=== PATIENT | female | born 1955 | race Caucasian/White ===

== ENCOUNTER 2022-09-13 15:55 | Inpatient (IN) | payer MEDICARE, OTHER, SELFPAY ==
--- NOTE | ~2022-09-13 | CT_ITS ---
EXAMINATION: CT ABDOMEN AND PELVIS WITHOUT CONTRAST CLINICAL INFORMATION: Left lower quadrant/hip pain COMPARISON: None TECHNIQUE: Multidetector volumetric imaging was performed from the superior aspect of the liver through the pubic symphysis. Sagittal and coronal reformatted images were obtained on the technologist's workstation. This CT examination was performed using dose optimization techniques as appropriate, variously including the following: *Automated exposure control *Adjustment of mA and/or kV according to patient size (this includes techniques or standardized protocols for targeted exams where dose is matched to indication/reason for exam; i.e. extremities or head) *Use of iterative reconstruction technique DLP: 521 mGy-cm FINDINGS: LUNG BASES: Mild dependent atelectasis. LIVER, GALLBLADDER, AND BILIARY TREE: The liver is normal in size, shape, and attenuation. No focal hepatic lesion or biliary ductal dilatation is present. Gallbladder is not visualized. PANCREAS: Unremarkable. SPLEEN: Unremarkable. ADRENAL GLANDS: Unremarkable. KIDNEYS AND URETERS: The kidneys are normal in size, shape, and attenuation. No hydronephrosis, hydroureter, or calculi seen. Mild nonspecific bilateral perinephric stranding. BLADDER: Unremarkable. GASTROINTESTINAL TRACT: Mild colonic diverticulosis in the sigmoid colon. The small and large bowel are otherwise unremarkable without evidence of obstruction or pericolonic inflammatory change. No free fluid or free air is seen. ABDOMINAL WALL: No significant hernia is appreciated. LYMPH NODES: Normal. VASCULAR: Mild scattered atherosclerotic calcifications. PELVIC VISCERA: Simple-appearing right adnexal cyst measures up to 3.7 cm. OSSEOUS STRUCTURES: Multilevel degenerative changes in the spine. Mild degenerative changes in the hips. No acute osseous findings identified. CT/CT abdomen pelvis wo IV con IMPRESSION: 1. No acute findings identified in the abdomen/pelvis. Colonic diverticulosis without diverticulitis. 2. Simple-appearing right adnexal cyst measuring up to 3.7 cm. Follow-up pelvic ultrasound in 6-12 months is recommended.
--- NOTE | ~2022-09-13 | XR_ITS ---
EXAMINATION: XR SHOULDER, RIGHT CLINICAL INFORMATION: Right shoulder pain. COMPARISON: None TECHNIQUE: Three views of the right shoulder. FINDINGS: There is mild widening of the right acromioclavicular joint space with normal alignment. Mild degenerative changes are seen. There is no acute fracture or dislocation. The visualized right ribs are intact with the soft tissues are unremarkable. XR/XR shoulder RT min 2V IMPRESSION: Mild right acromioclavicular degenerative joint changes and joint space widening that does not appear acute. This could be secondary to chronic grade 1 separation. Correlate with physical exam and trauma history.
--- NOTE | ~2022-09-13 | MR_ITS ---
EXAMINATION: MR BRAIN WITHOUT CONTRAST CLINICAL INFORMATION: Ataxia. COMPARISON: None available. TECHNIQUE: Multiplanar, multisequence imaging of the brain was performed without intravenous contrast. FINDINGS: There is no acute infarction, mass, hemorrhage, or extra-axial collection. Is mild degree of brain parenchymal volume loss with commensurate prominence of ventricles and sulci. Moderate patchy T2/FLAIR hyperintensity seen throughout the cerebral white matter, compatible chronic microangiopathy. There is disproportionate volume loss involving the inferior cerebellum with diffuse prominence of the cerebellar folia demonstrated. Chronic lacunar infarcts are seen within the bilateral basal ganglia as well as in the left elements. The flow voids of the major intracranial arteries appear intact. The bones and extracranial soft tissues are unremarkable. MR/MR head/brain wo con IMPRESSION: 1. No acute infarct, mass lesion, intracranial hemorrhage, or evidence of hydrocephalus. 2. Disproportionate volume loss involving the inferior cerebellum. 3. 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
[2022-09-13 16:31] VITALS: BP 159/67; PULSE 74; RESP 18; TEMP 36.4; O2SAT 95; BMI 36.3
[2022-09-13] MEDS: Ondansetron ODT 4 MG TAB.RAPDIS TRANSLINGU (16:46)
[2022-09-13] MEDS: Acetaminophen 325 MG TABLET 650 MG PO (16:46)
[2022-09-13 16:59] LABS: MANUAL DIFF FLAG NO
[2022-09-13 17:01] LABS: Basophils Percent Auto 0.4 % (0-2); Hematocrit 44.3 % (37.0-47.0); Hemoglobin 14.8 g/dl (12.0-16.0); Imm Gran Abs Auto 0.02 X10*3/uL (0.00-0.03); Imm Gran Pct Auto 0.2 % (0.0-0.4); Lymphocytes Absolute Auto 1.1 X10*3/uL (1.2-4.9); Lymphocytes Percent Auto 10.7 % (20-40); Mean Corpuscular HGB Conc 33.4 g/dl (31.0-35.0); Mean Corpuscular Volume 92.7 fL (80.0-98.0); Mean Platelet Volume 10.3 fL (9.4-12.3); Monocytes Absolute Auto 0.2 X10*3/uL (0.1-1.2); Monocytes Percent Auto 2.1 % (2-11); Neutrophils Absolute Auto 8.5 x10*3/uL (2.0-8.3); Neutrophils Percent Auto 86.6 % (45-73); Platelet Count 249 X10*3/uL (160-400); Red Blood Count 4.78 X10*6/uL (4.20-5.50); Red Cell Distribution Width 12.5 % (11.0-16.0); White Blood Count 9.9 X10*3/uL (4.8-10.8)
[2022-09-13 17:15] LABS: Alanine Aminotransferase 51 U/L (0-31); Albumin Level 4.7 g/dL (3.5-5.0); Alkaline Phosphatase 135 U/L (39-117); Anion Gap 17 (12-20); Aspartate Amino Transferase 31 U/L (5-31); Bilirubin Total 0.3 mg/dL (0.0-1.0); Blood Urea Nitrogen 17 mg/dL (9-16); Calcium 9.6 mg/dL (8.4-10.2); Carbon Dioxide 26 mmol/L (22-29); Chloride 103 mmol/L (96-108); Creatinine Clr Calc Pharmacy 48.5; Estimated Glomerular Filt Rate > 60; Glucose Random 157 mg/dL (60-115); Potassium 4.1 mmol/L (3.3-5.1); Sodium 142 mmol/L (135-145); Total Protein 7.8 g/dL (6.5-8.0)
--- NOTE | 2022-09-13 22:39 | ED_ITS ---
HPI - General Adult General Chief complaint: Seizure Stated complaint: unable to walk Time Seen by Provider: 09/13/22 22:31 Source: patient and family History of Present Illness HPI narrative: This is a 62-year-old female with a history of epilepsy, who last had a grand mal seizure in May. Prior to that her last seizure had been in 2019. She does take Dilantin as her only seizure medication. This was increased from 300-40 mg in May. She takes 200 twice a day. Since yesterday the patient has been one more off balance and having some falls. She also has had intermittent nausea. She did take her Dilantin around 13:00 today but later dry heave did and brought a little material. The evening the patient did hold down her supper. She has also had intermittent left lower quadrant pain which she states is gone now. She denies any constipation or diarrhea. She denies any dysuria or urinary frequency. She has not had any fever. Her appetite has been decreased. She did have labs drawn today to check a Dilantin level. Related Data Allergies Allergy/AdvReac Type Severity Reaction Status Date / Time ciprofloxacin [From Cipro] Allergy Unknown Verified 09/13/22 16:44 cyclobenzaprine Allergy Unknown Verified 09/13/22 16:44 Phenothiazines Allergy Unknown Verified 09/13/22 16:44 prochlorperazine Allergy Unknown Verified 09/13/22 16:44 [From Compazine] Review of Systems Review of Systems: Yes all other systems are reviewed and are negative Constitutional: Constitutional: Reports as per HPI and Denies fever(s) Eyes: Eyes: Reports as per HPI and Reports no additional eye complaints ENT: Reports system reviewed and no additional complaints, except as documented, Reports as per HPI, Denies nasal congestion, Denies nasal discharge and Denies sore throat Cardiovascular: Cardiovascular: Reports as per HPI, Denies chest pain and Denies dyspnea Respiratory: Respiratory: Reports as per HPI, Denies cough and Denies dyspnea Gastrointestinal: Gastrointestinal: Reports as per HPI, Reports abdominal pain, Denies diarrhea, Reports nausea and Reports vomiting Genitourinary: Genitourinary: Reports as per HPI, Denies hematuria, Denies urinary frequency and Denies dysuria Musculoskeletal: Musculoskeletal: Reports no additional musculoskeletal complaints and Denies numbness Integumentary/Breasts: Skin/Breast: Reports as per HPI and Denies rash Neurologic: Reports as per HPI, Denies focal weakness, Denies numbness and Denies convulsions Comments: Has been somewhat off balance, although she is not great at baseline per family Psychiatric: Psychiatric: Reports no additional psychiatric complaints and Reports as per HPI Endocrine: Endocrine: Reports no additional endocrine complaints and Reports as per HPI Hematologic/Lymphatic: Hematologic/Lymphatic: Reports no additional hematologic/lymphatic complaints, Reports as per HPI and Reports other (No peripheral edema) [facility] Social History Social History Smoked in Last 30 Days: No Advance Directives: No Physical Exam ED Vital Signs: Vital Signs - 24 hr 09/13/22 16:31 09/14/22 02:09 09/14/22 04:29 Temperature 97.6 F 98.5 F Pulse Rate 74 85 87 Respiratory Rate 18 15 13 Blood Pressure 159/67 H 162/72 H 131/68 Pulse Oximetry 95 97 Oxygen Delivery Method Room Air Room Air BMI result Body Mass Index 36.3 Const General: no acute distress Orientation/consciousness: patient oriented x3 HENMT Head: Yes normal to inspection General nose exam: Normal external nose present Mouth: moist mucous membranes Throat: Yes posterior oropharynx normal, Yes tonsils normal and Yes uvula midline Eyes Eyelids: Yes eyelids normal Conjunctivae: conjunctivae normal Pupils: Equal, round and reactive pupils present Neck Neck: Yes supple Resp Effort & Inspection: normal respiratory effort Auscultation: clear to auscultation bilaterally Cardio Rate: regular rate Rhythm: regular rhythm Heart sounds: S1 normal heart sound present, S2 normal heart sound present, no gallops, no murmurs and no rubs GI Inspection: No distended Palpation (GI): Soft to palpation and nontender Auscultation: normal bowel sounds Skin General skin exam: other (Warm and dry) Neuro General: patient oriented x3 and CN's II-XI intact bilaterally Cranial nerves: Yes Equal, round and reactive pupils present Extrem General: Yes no pedal edema Psych Affect: normal affect Attitude: cooperative Medical Decision Making [facility] Narrative Medical decision making narrative: Patient on Dilantin, had her dose increased about 3-4 months ago after she had a seizure, does not have a local neurologist, has been on 20 mg of Dilantin and twice a day. Patient has recently had nausea and increased unsteadiness. Dilantin level is elevated at 56. Patient is being admitted for observation until her Dilantin level constant to therapeutic range and she can be restarted back on Dilantin, and is more steady on her feet. Patient also complained of pain in her left hip area but reported no injury. CT scan of abdomen and pelvis showed no concerning findings Lab Data Lab results reviewed: Yes I reviewed the patient's lab results. Result diagrams: 09/13/22 16:55 09/13/22 16:55 Labs: Lab Results 09/13/22 09/13/22 09/14/22 Range/Units 16:55 16:55 00:06 WBC 9.9 (4.8-10.8) X10*3/uL RBC 4.78 (4.20-5.50) X10*6/uL Hgb 14.8 (12.0-16.0) g/dl Hct 44.3 (37.0-47.0) % MCV 92.7 (80.0-98.0) fL MCH 31.0 (27.0-33.0) pg MCHC 33.4 (31.0-35.0) g/dl RDW 12.5 (11.0-16.0) % Plt Count 249 (160-400) X10*3/uL MPV 10.3 (9.4-12.3) fL Immature Gran % (Auto) 0.2 (0.0-0.4) % Neut % (Auto) 86.6 H (45-73) % Lymph % (Auto) 10.7 L (20-40) % [place] % (Auto) 2.1 (2-11) % Eos % (Auto) 0.0 (0-4) % Baso % (Auto) 0.4 (0-2) % Lymph # (Auto) 1.1 L (1.2-4.9) X10*3/uL [place] # (Auto) 0.2 (0.1-1.2) X10*3/uL Eos # (Auto) 0.0 (0.0-0.4) X10*3/uL Baso # (Auto) 0.0 (0.0-0.2) X10*3/uL Abs Immat Gran (auto) 0.02 (0.00-0.03) X10*3/uL Absolute Neuts (auto) 8.5 H (2.0-8.3) x10*3/uL Absolute Nucleated RBC 0.000 (0.0-0.012) X10*3/uL Nucleated RBC % (auto) 0.0 (0.0-0.2) /100WBC Sodium 142 (135-145) mmol/L Potassium 4.1 (3.3-5.1) mmol/L Chloride 103 (96-108) mmol/L Carbon Dioxide 26 (22-29) mmol/L Anion Gap 17 (12-20) BUN 17 H (9-16) mg/dL Creatinine 0.77 (0.5-1.4) mg/dL Estim Creat Clear Calc 48.5 Estimated GFR > 60 Random Glucose 157 H (60-115) mg/dL Calcium 9.6 (8.4-10.2) mg/dL Total Bilirubin 0.3 (0.0-1.0) mg/dL AST 31 (5-31) U/L ALT 51 H (0-31) U/L Alkaline Phosphatase 135 H (39-117) U/L Total Protein 7.8 (6.5-8.0) g/dL Albumin 4.7 (3.5-5.0) g/dL Phenytoin 56.1 H* (10.0-20.0) ug/mL Imaging Data CT scan - abdomen: Radiologist's impression: IMPRESSION: 1.? No acute findings identified in the abdomen/pelvis. Colonic diverticulosis without diverticulitis. 2.? Simple-appearing right adnexal cyst measuring up to 3.7 cm. Follow-up pelvic ultrasound in 6-12 months is recommended. Discharge Plan Discharge Clinical Impression: Dilantin toxicity, Nausea, Dizziness Patient Disposition: Admitted As Inpatient
[2022-09-14] VITALS (9 sets, daily range): BP systolic 131–165; BP diastolic 59–83; PULSE 70–91; RESP 10–16; TEMP 36.4–37.4; O2SAT 95–98
[2022-09-14] MEDS: Ketorolac Tromethamine 15 MG/ML VIAL IVPUSH (00:03)
[2022-09-14 01:06] LABS: Phenytoin Dilantin 56.1 ug/mL (10.0-20.0)
--- NOTE | 2022-09-14 03:58 | PC.NURSE ---
Pt. in room with daughter at bedside. Pt. had CT scan done. Pt. continues to report pain at an 8/10 on her left hip. Pt. reports having a bowel movement today and has been able to urinate throughout the day.
--- NOTE | 2022-09-14 04:58 | PM.IMHP ---
History of Present Illness Date of Service: 09/14/22 Chief Complaint: lthargy, difficulty walkeing 59-year-old female with past medical history of hypothyroidism, hypertension, diabetes, as well as history of seizure disorder and intellectual disability presents to the hospital with her [id number] for evaluation of difficulty ambulating, generalized weakness, and lethargy. According to the [id number], patient used to live in [place] alone, she experienced a seizure episode in May, her Dilantin antiseizure medications were increased in May but she came to live with her brother and [id number] in [place] and had not had any follow-up with a neurologist since. For the past few days patient has become increasingly weak to the point where she can not stand or walk on her own without help. She has also become more confused and lethargic. Therefore she was brought into the hospital. Patient herself is alert, oriented, denies any chest pain, no shortness of breath, no abdominal pain nausea vomiting, no diarrhea constipation, no urinary symptoms and no lower extremity edema. Patient reports pain in the left groin radiating down, denies any urinary symptoms: No frequency or dysuria, denies any flank pain. On arrival to the ED patient hemodynamically stable with no significant abnormal vitals except slightly elevated blood pressure Labs are significant for ALT of 51, alk-phos of 135, and Dilantin level of 56.1. Abdomen pelvic CT shows no acute findings, simple appearing right adnexal cyst measuring up to 3.5 cm, recommend follow-up ultrasound. Patient started on IV fluids and will be admitted for further management Review of Systems Review of Systems: Yes all other systems are reviewed and are negative [facility] Social History Smoked in Last 30 Days: No Advance Directives: No Meds Allergies Allergy/AdvReac Type Severity Reaction Status Date / Time ciprofloxacin [From Cipro] Allergy Unknown Verified 09/13/22 16:44 cyclobenzaprine Allergy Unknown Verified 09/13/22 16:44 Phenothiazines Allergy Unknown Verified 09/13/22 16:44 prochlorperazine Allergy Unknown Verified 09/13/22 16:44 [From Compazine] Home Medications Medication Instructions Recorded Confirmed Last Taken Type amlodipine 10 mg tablet 1 tab PO DAILY 09/14/22 09/14/22 Unknown History famotidine 20 mg tablet 1 tab PO DAILY 09/14/22 09/14/22 Unknown History levothyroxine 150 mcg tablet 1 tab PO DAILY 09/14/22 09/14/22 Unknown History (Synthroid) lidocaine 5 % topical patch 1 patch topical DAILY 09/14/22 09/14/22 Unknown History metformin 500 mg tablet 1 tab PO DAILY 09/14/22 09/14/22 Unknown History phenytoin sodium extended 100 mg 1 cap PO TID 09/14/22 09/14/22 Unknown History capsule Physical Exam Vital Signs and Narrative: Vital Signs: Last Vital Signs Temp 98.5 F 09/14/22 02:09 Pulse 87 09/14/22 04:29 Resp 13 09/14/22 04:29 BP 131/68 09/14/22 04:29 Pulse Ox 97 09/14/22 02:09 O2 Del Method 09/14/22 02:09 BMI result Body Mass Index 36.3 Results Labs CBC and Chem 7: 09/13/22 16:55 09/13/22 16:55 Labs: Laboratory Results - last 24 hr 09/13/22 09/13/22 09/14/22 16:55 16:55 00:06 MCV 92.7 MCH 31.0 MCHC 33.4 RDW 12.5 Plt Count 249 MPV 10.3 Immature Gran % (Auto) 0.2 Neut % (Auto) 86.6 H Lymph % (Auto) 10.7 L [place] % (Auto) 2.1 Eos % (Auto) 0.0 Baso % (Auto) 0.4 Lymph # (Auto) 1.1 L [place] # (Auto) 0.2 Eos # (Auto) 0.0 Baso # (Auto) 0.0 Abs Immat Gran (auto) 0.02 Absolute Neuts (auto) 8.5 H Absolute Nucleated RBC 0.000 Nucleated RBC % (auto) 0.0 Anion Gap 17 Estim Creat Clear Calc 48.5 Estimated GFR > 60 Random Glucose 157 H Calcium 9.6 Total Bilirubin 0.3 AST 31 ALT 51 H Alkaline Phosphatase 135 H Total Protein 7.8 Albumin 4.7 Phenytoin 56.1 H* Imaging Radiologist's Impressions: Impressions Abdomen/Pelvis CT 09/14/22 01:25 IMPRESSION: 1. No acute findings identified in the abdomen/pelvis. Colonic diverticulosis without diverticulitis. 2. Simple-appearing right adnexal cyst measuring up to 3.7 cm. Follow-up pelvic ultrasound in 6-12 months is recommended. Assessment and Plan (1) Dilantin toxicity: Status: Acute (2) Adnexal cyst: Status: Acute Plan 67-year-old female with past medical history of seizure disorder on Dilantin presents to the hospital with lethargy, increased weakness found to have Dilantin toxicity # Dilantin toxicity - levels 56 - has lethargy, increased weakness - will start her on IV fluids, hold Dilantin, neurology consulted - monitor for seizure activity # hypertension - elevated - continue amlodipine # diabetes - hold metformin - start low-dose sliding scale insulin - diabetic diet # right adnexal cyst - appears simple - follow-up outpatient with OB Gyne DVT prophylaxis: Lovenox Given level of toxicity, as well as side effects, patient will require minimum 2 night inpatient hospital stay for further evaluation by Neurology and likely change in medication Quality Stroke Does the patient have a stroke diagnosis?: No VTE Prior VTE?: No VTE Risk Level:: Medical - moderate - high VTE Device Contraindication: Treatment Not Indicated VTE Drug Contraindication: N/A - Med Ordered
[2022-09-14] MEDS: Lactated Ringers 1,000 ML 100 ML IVCONT ×2 (06:09→15:53)
--- NOTE | 2022-09-14 06:10 | PC.NURSE ---
Pt. requested to use the restroom. Used w/c with 2 assist to help pt. to the bathroom. Pt. back in bed with sis-n-law at bedside. LR running per JAN. Covid swab completed.
[2022-09-14 06:35] LABS: COVID-19 Test Negative (Negative)
[2022-09-14 07:14] LABS: Glucose, Whole Blood 107 mg/dL (60-115)
--- NOTE | 2022-09-14 07:54 | PHA.MEDREC ---
Pharmacy Consult ? Medication Reconciliation Pharmacy has completed the medication reconciliation. Reviewed med rec done by nursing
[2022-09-14] MEDS: Enoxaparin Sodium 40 MG/0.4 ML SYRINGE SUBCUT (08:46)
[2022-09-14] MEDS: Levothyroxine Sodium 150 MCG TABLET PO (08:47)
[2022-09-14] MEDS: Docusate Sodium 100 MG CAPSULE PO ×2 (08:47→21:22)
[2022-09-14] MEDS: Lidocaine 4 % Patch ADH..PATCH 1 PATCH TRANSDERMA (08:47)
[2022-09-14] MEDS: amLODIPine Besylate 10 MG TABLET PO (08:47)
[2022-09-14] MEDS: Famotidine 20 MG TABLET PO (08:47)
--- NOTE | 2022-09-14 09:11 | PC.NURSE ---
Pt out of bed to use restroom, able to bear full weight standing up. Pt reports that she feels twitchy still while standing, however reporting improvement from her last time standing. Able to transfer to wheelchair with no issues, family member at bedside.
--- NOTE | 2022-09-14 11:00 | PC.NURSE ---
Neurology in to see patient at this time
[2022-09-14 12:32] LABS: Glucose, Whole Blood 124 mg/dL (60-115)
--- NOTE | 2022-09-14 13:17 | PM.EVENT ---
Event Note Date of Service: 09/14/22 Event Note: Patient already seen and examined earlier by the hospitalist team. Seen and examined again. Patient was admitted for Dilantin Still feel dizziness and ataxia physical exam: Unchanged from H&P assessment and plan coordinated in H&P note hold Dilantin labs need to send still
--- NOTE | 2022-09-14 13:20 | PM.NEUROCN ---
History of Present Illness Data of Consult Service Date: 09/14/22 Primary Care Provider: Nonstaff Physician HPI Reason for consult: Encephalopathy 67 years old woman who was adopted when she was about 4 years old and carried lifelong diagnosis of learning disabilities and epilepsy. Over the years she had taken Dilantin for seizure control and most of the time seizures have been controlled illness she was stressed. Usually she lived in [place]. She had a seizure in May of last year when she apparently was taking her medicines are regular basis but her Dilantin level after the seizure was 8.6. Her Dilantin dose was increased from 3-4 a day and then she did not have any more seizures or any obvious problems. For some reason she was in this area and couple of days ago she started complaining of bilateral leg weakness or unsteadiness and was brought to whole emergency room where her Dilantin level was noted to be quite high. She and her road design draftsperson stated that there has been no change in Dilantin dose from 400 mg a day. Review of Systems Review of Systems: Dizziness and unsteadiness [facility] Social History Social History Smoked in Last 30 Days: No Advance Directives: No Meds Allergies Allergy/AdvReac Type Severity Reaction Status Date / Time ciprofloxacin [From Cipro] Allergy Unknown Verified 09/13/22 16:44 cyclobenzaprine Allergy Unknown Verified 09/13/22 16:44 Phenothiazines Allergy Unknown Verified 09/13/22 16:44 prochlorperazine Allergy Unknown Verified 09/13/22 16:44 [From Compazine] Active Medications: Current Medications Acetaminophen (Acetaminophen 325 Mg Tablet) 650 mg PO Q6H PRN PRN Reason: Pain, Mild (Pain Scale 1-3) Amlodipine Besylate (Amlodipine Besylate 10 Mg Tablet) 10 mg PO DAILY [facility]; Protocol Last Admin: 09/14/22 08:47 Dose: 10 mg Dextrose (Dextrose 50 % 25 Gm/50 Ml Syringe) 25 gm IVPUSH Q15M PRN; Protocol PRN Reason: per Hypoglycemia Standing Ord. Docusate Sodium (Docusate Sodium 100 Mg Capsule) 100 mg PO BID [facility] Last Admin: 09/14/22 08:47 Dose: 100 mg Enoxaparin Sodium (Enoxaparin Sodium 40 Mg/0.4 Ml Syringe) 40 mg SUBCUT Q24H [facility] Last Admin: 09/14/22 08:46 Dose: 40 mg Famotidine (Famotidine 20 Mg Tablet) 20 mg PO DAILY [facility] Last Admin: 09/14/22 08:47 Dose: 20 mg Glucose (Glucose Gel 15 Gm Gel..Gram.) 15 gm PO Q15M PRN; Protocol PRN Reason: per Hypoglycemia Standing Ord. Lactated Ringer's (Lr) 1,000 mls @ 100 mls/hr IVCONT .Q10H [facility] Last Admin: 09/14/22 06:09 Dose: 100 mls/hr Insulin Human Lispro (Insulin Lispro 100 Unit/Ml 3 Ml Vial) 0 unit SUBCUT QIDACHS [facility]; Protocol Last Admin: 09/14/22 12:41 Dose: Not Given Levothyroxine Sodium (Levothyroxine Sodium 150 Mcg Tablet) 150 mcg PO DAILY [facility] Last Admin: 09/14/22 08:47 Dose: 150 mcg Lidocaine (Lidocaine 4 % Patch Adh..Patch) 1 patch TRANSDERMA DAILY [facility] Last Admin: 09/14/22 08:47 Dose: 1 patch Ondansetron HCl (Ondansetron Hcl 4 Mg/2 Ml Vial) 4 mg IVPUSH Q8H PRN PRN Reason: Nausea and Vomiting Sodium Chloride (0.9 % Sodium Chloride Flush 3 Ml Syringe) 3 ml IVFLUSH QSHIFT [facility] Last Admin: 09/14/22 09:11 Dose: Not Given Home Medications Medication Instructions Recorded Confirmed Last Taken Type amlodipine 10 mg tablet 1 tab PO DAILY 09/14/22 09/14/22 Unknown History famotidine 20 mg tablet 1 tab PO DAILY 09/14/22 09/14/22 Unknown History levothyroxine 150 mcg tablet 1 tab PO DAILY 09/14/22 09/14/22 Unknown History (Synthroid) lidocaine 5 % topical patch 1 patch topical DAILY 09/14/22 09/14/22 Unknown History metformin 500 mg tablet 1 tab PO DAILY 09/14/22 09/14/22 Unknown History phenytoin sodium extended 100 mg 1 cap PO TID 09/14/22 09/14/22 Unknown History capsule Physical Exam Vital Signs: Vital Signs: Last Vital Signs Temp 99.3 F 09/14/22 07:09 Pulse 78 09/14/22 12:26 Resp 10 L 09/14/22 12:26 BP 147/62 H 09/14/22 12:26 Pulse Ox 96 09/14/22 12:26 O2 Del Method 09/14/22 12:26 BMI result Body Mass Index 36.3 Neuro: Other: Alert and awake with normal spontaneity of speech fluency comprehension and affect. She was following commands. There was no real nystagmus. [id number] testing revealed mild tremor. Deep tendon reflexes were trace with flexor plantars. Visual calderon are full. Results Labs CBC & Chem 7: 09/13/22 16:55 09/13/22 16:55 Labs: Short CBC 09/13/22 Range/Units 16:55 WBC 9.9 (4.8-10.8) X10*3/uL Hgb 14.8 (12.0-16.0) g/dl Hct 44.3 (37.0-47.0) % Plt Count 249 (160-400) X10*3/uL BMP 09/13/22 16:55 Sodium 142 Potassium 4.1 Chloride 103 Carbon Dioxide 26 BUN 17 H Creatinine 0.77 Calcium 9.6 Liver Function 09/13/22 Range/Units 16:55 Total Bilirubin 0.3 (0.0-1.0) mg/dL AST 31 (5-31) U/L ALT 51 H (0-31) U/L Alkaline Phosphatase 135 H (39-117) U/L Albumin 4.7 (3.5-5.0) g/dL Her Dilantin level was 54 with normal albumin level Assessment and Plan (1) Dilantin toxicity: Status: Acute 67 years old woman with chronic static encephalopathy of unknown cause and seizures comprised of generalized convulsions. She had been taking Dilantin for number of years but there have been some issues. I had a brian discussion with the road design draftsperson stating that it was best to change Dilantin to a different medicine. They have heard this recommendation from a neurologist in [place] after she had her last seizure in May. My recommendation at this time is to discontinue Dilantin and start her on levetiracetam 250 mg twice a day. After week of that, levetiracetam dose should be increased to 500 mg twice a day and then managed clinically based upon seizure recurrence. There is no particular reason to check level. Dilantin level should come down and she could be safe once the level is less than 20. Home while she is here I would recommend obtaining a noncontrast MRI of brain and an EEG. This is because a road design draftsperson stated that she was probably going to be in this area. Procedures Date of Service Date of Service: 09/14/22
[2022-09-14 14:11] LABS: MANUAL DIFF FLAG NO
[2022-09-14 14:13] LABS: Basophils Absolute Auto 0.1 X10*3/uL (0.0-0.2); Basophils Percent Auto 0.6 % (0-2); Eosinophils Percent Auto 0.1 % (0-4); Hematocrit 40.4 % (37.0-47.0); Hemoglobin 13.8 g/dl (12.0-16.0); Imm Gran Abs Auto 0.02 X10*3/uL (0.00-0.03); Imm Gran Pct Auto 0.2 % (0.0-0.4); Lymphocytes Absolute Auto 2.5 X10*3/uL (1.2-4.9); Lymphocytes Percent Auto 24.1 % (20-40); Mean Corpuscular HGB Conc 34.2 g/dl (31.0-35.0); Mean Corpuscular Hemoglobin 31.8 pg (27.0-33.0); Mean Corpuscular Volume 93.1 fL (80.0-98.0); Mean Platelet Volume 10.5 fL (9.4-12.3); Monocytes Absolute Auto 0.7 X10*3/uL (0.1-1.2); Monocytes Percent Auto 7.3 % (2-11); Neutrophils Absolute Auto 6.9 x10*3/uL (2.0-8.3); Neutrophils Percent Auto 67.7 % (45-73); Platelet Count 234 X10*3/uL (160-400); Red Blood Count 4.34 X10*6/uL (4.20-5.50); Red Cell Distribution Width 12.7 % (11.0-16.0); White Blood Count 10.2 X10*3/uL (4.8-10.8)
[2022-09-14 14:32] LABS: Alanine Aminotransferase 48 U/L (0-31); Albumin Level 4.3 g/dL (3.5-5.0); Alkaline Phosphatase 118 U/L (39-117); Anion Gap 16 (12-20); Aspartate Amino Transferase 32 U/L (5-31); Bilirubin Direct 0.2 mg/dL (0.0-0.5); Bilirubin Total 0.4 mg/dL (0.0-1.0); Blood Urea Nitrogen 24 mg/dL (9-16); Calcium 8.9 mg/dL (8.4-10.2); Carbon Dioxide 27 mmol/L (22-29); Chloride 102 mmol/L (96-108); Creatinine Clr Calc Pharmacy 41.5; Estimated Glomerular Filt Rate > 60; Glucose Random 149 mg/dL (60-115); Potassium 3.7 mmol/L (3.3-5.1); Sodium 141 mmol/L (135-145); Total Protein 7.1 g/dL (6.5-8.0)
--- NOTE | 2022-09-14 14:35 | MHC.CM.PN ---
Met with patient and [id number], Gris, in regards to discharge planning. Patient was living in [place] until May 2022. Due to some medical issues, patient came to live with her brother, Alex, and [id number], Gris. Patient ambulates independently and had no services prior to coming to the hospital. Patient does not have a PCP at this time. PCP list provided to patient and Gris. HCP completed, signed and witnessed. Original given to patient. Copy placed in chart. Abhishek PADGETT explained and signed. Patient's family will transport her home when medically stable. No services anticipated to be needed at discharge because patient does not have an established PCP. Continue to monitor for d/c needs.
[2022-09-14 17:13] LABS: Glucose, Whole Blood 101 mg/dL (60-115)
--- NOTE | 2022-09-14 19:38 | PC.NURSE ---
report given to Soheila Lopez on med/surg. Patient Alert and Oriented, resting comfortably. She offers no complaints, all needs in reach. No seizure activity during my shift with her. Patient is aware and ready for transport to floor.
--- NOTE | 2022-09-14 19:47 | PC.NURSE ---
Patient's sister in law (jose) called to make aware of transfer to med/surg. Message left on voicemail.
[2022-09-14] MEDS: Insulin Lispro 100 UNIT/ML 3 ML VIAL SUBCUT (21:22)
[2022-09-14 22:03] LABS: Glucose, Whole Blood 162 mg/dL (60-115)
[2022-09-15] VITALS: BP 171/78; PULSE 87; RESP 17; TEMP 36; O2SAT 97
--- NOTE | 2022-09-15 | EEG_ITS ---
This is a 16-channel EEG with an EKG lead. The patient is reported awake and drowsy during the tracing. Background EEG rhythm is 7 to 8 hertz, 5 to 30 microvolt posteriorly. And lower amplitude fast anteriorly. Photic stimulation does not produce any significant driving. Hyperventilation is not performed. Cardiac lead does not reveal any significant abnormality. IMPRESSION: Mild generalized slowing with no evidence of seizure disorder. MD MACIEJ Beth/SAIRA / [id number]
[2022-09-15] MEDS: Lactated Ringers 1,000 ML 100 ML IVCONT ×3 (01:21→19:36)
[2022-09-15 04:00] VITALS: BP 159/75; PULSE 80; RESP 17; TEMP 37.1; O2SAT 96
[2022-09-15] MEDS: Acetaminophen 325 MG TABLET 650 MG PO (04:32)
[2022-09-15 07:20] VITALS: BP 154/72; PULSE 76; RESP 18; TEMP 36.4; O2SAT 97
[2022-09-15 07:32] LABS: Alanine Aminotransferase 37 U/L (0-31); Albumin Level 3.8 g/dL (3.5-5.0); Alkaline Phosphatase 101 U/L (39-117); Anion Gap 18 (12-20); Aspartate Amino Transferase 27 U/L (5-31); Bilirubin Direct 0.2 mg/dL (0.0-0.5); Bilirubin Total 0.5 mg/dL (0.0-1.0); Blood Urea Nitrogen 17 mg/dL (9-16); Calcium 8.8 mg/dL (8.4-10.2); Carbon Dioxide 25 mmol/L (22-29); Chloride 103 mmol/L (96-108); Creatinine Clr Calc Pharmacy 53.3; Estimated Glomerular Filt Rate > 60; Glucose Random 111 mg/dL (60-115); Potassium 3.8 mmol/L (3.3-5.1); Sodium 142 mmol/L (135-145); Total Protein 6.3 g/dL (6.5-8.0)
[2022-09-15 07:34] LABS: Glucose, Whole Blood 121 mg/dL (60-115)
[2022-09-15 08:18] LABS: Phenytoin Dilantin 37.4 ug/mL (10.0-20.0)
[2022-09-15] MEDS: Docusate Sodium 100 MG CAPSULE PO ×2 (08:32→19:36)
[2022-09-15] MEDS: Enoxaparin Sodium 40 MG/0.4 ML SYRINGE SUBCUT (08:32)
[2022-09-15] MEDS: Lidocaine 4 % Patch ADH..PATCH 1 PATCH TRANSDERMA (08:32)
[2022-09-15] MEDS: amLODIPine Besylate 10 MG TABLET PO (08:32)
[2022-09-15] MEDS: Levothyroxine Sodium 150 MCG TABLET PO (08:33)
[2022-09-15] MEDS: Famotidine 20 MG TABLET PO (08:33)
[2022-09-15] MEDS: ondansetron HCL 4 MG/2 ML VIAL IVPUSH (09:31)
[2022-09-15] MEDS: levETIRAcetam 250 MG TABLET PO ×2 (09:32→19:36)
[2022-09-15 11:25] VITALS: BP 158/74; PULSE 72; RESP 18; TEMP 36.6; O2SAT 95
[2022-09-15 11:41] LABS: Glucose, Whole Blood 141 mg/dL (60-115)
--- NOTE | 2022-09-15 13:51 | P.PNIM_ITS ---
Subjective Subjective Date of Service: 09/15/22 Interval History: dilantin toxicity Review of Systems still has mild dizziness denies any chest pain or shortness of breath or fever or chills or cough or phlegm. Physical Exam Vital Signs: Vital Signs: Last Vital Signs Temp 97.8 F 09/15/22 11:25 Pulse 72 09/15/22 11:25 Resp 18 09/15/22 11:25 BP 158/74 H 09/15/22 11:25 Pulse Ox 95 09/15/22 11:25 O2 Del Method 09/15/22 11:25 BMI result Body Mass Index 36.3 Appearance: Alert.? Oriented X3.? not in distress.? cvs: [id number], [id number]. res: clear to auscultation ,no rhonchii or wheezing abd: no rebound or guarding ,nt, bs present. ext pulses present , no cyanosis. neuro: axo3 , nonfocal. Objective Data Active Medications Acetaminophen (Acetaminophen 325 Mg Tablet) 650 mg PO Q6H PRN PRN Reason: Pain, Mild (Pain Scale 1-3) Last Admin: 09/15/22 04:32 Dose: 650 mg Documented By: CHIKIS Amlodipine Besylate (Amlodipine Besylate 10 Mg Tablet) 10 mg PO DAILY [facility]; Protocol Last Admin: 09/15/22 08:32 Dose: 10 mg Documented By: LOI Dextrose (Dextrose 50 % 25 Gm/50 Ml Syringe) 25 gm IVPUSH Q15M PRN; Protocol PRN Reason: per Hypoglycemia Standing Ord. Docusate Sodium (Docusate Sodium 100 Mg Capsule) 100 mg PO BID [facility] Last Admin: 09/15/22 08:32 Dose: 100 mg Documented By: LOI Enoxaparin Sodium (Enoxaparin Sodium 40 Mg/0.4 Ml Syringe) 40 mg SUBCUT Q24H [facility] Last Admin: 09/15/22 08:32 Dose: 40 mg Documented By: LOI Famotidine (Famotidine 20 Mg Tablet) 20 mg PO DAILY [facility] Last Admin: 09/15/22 08:33 Dose: 20 mg Documented By: LOI Glucose (Glucose Gel 15 Gm Gel..Gram.) 15 gm PO Q15M PRN; Protocol PRN Reason: per Hypoglycemia Standing Ord. Lactated Ringer's (Lr) 1,000 mls @ 100 mls/hr IVCONT .Q10H [facility] Last Infusion: 09/15/22 13:12 Dose: 0 mls/hr Documented By: LOI Insulin Human Lispro (Insulin Lispro 100 Unit/Ml 3 Ml Vial) 0 unit SUBCUT QIDACHS [facility]; Protocol Last Admin: 09/15/22 11:48 Dose: Not Given Documented By: LOI Non-Admin Reason: No Insulin Coverage Levetiracetam (Levetiracetam 250 Mg Tablet) 250 mg PO BID [facility] Last Admin: 09/15/22 09:32 Dose: 250 mg Documented By: LOI Levothyroxine Sodium (Levothyroxine Sodium 150 Mcg Tablet) 150 mcg PO DAILY [facility] Last Admin: 09/15/22 08:33 Dose: 150 mcg Documented By: LOI Lidocaine (Lidocaine 4 % Patch Adh..Patch) 1 patch TRANSDERMA DAILY [facility] Last Admin: 09/15/22 08:32 Dose: 1 patch Documented By: LOI Ondansetron HCl (Ondansetron Hcl 4 Mg/2 Ml Vial) 4 mg IVPUSH Q8H PRN PRN Reason: Nausea and Vomiting Last Admin: 09/15/22 09:31 Dose: 4 mg Documented By: LOI Sodium Chloride (0.9 % Sodium Chloride Flush 3 Ml Syringe) 3 ml IVFLUSH QSHIFT [facility] Last Admin: 09/15/22 08:33 Dose: Not Given Documented By: LOI Non-Admin Reason: IV Running Labs CBC & Chem 7: 09/14/22 14:05 09/15/22 05:54 Labs: Laboratory Results - last 24 hr 09/14/22 09/14/22 09/14/22 14:05 14:05 17:09 MCV 93.1 MCH 31.8 MCHC 34.2 RDW 12.7 Plt Count 234 MPV 10.5 Immature Gran % (Auto) 0.2 Neut % (Auto) 67.7 Lymph % (Auto) 24.1 Trinity % (Auto) 7.3 Eos % (Auto) 0.1 Baso % (Auto) 0.6 Lymph # (Auto) 2.5 Trinity # (Auto) 0.7 Eos # (Auto) 0.0 Baso # (Auto) 0.1 Abs Immat Gran (auto) 0.02 Absolute Neuts (auto) 6.9 Absolute Nucleated RBC 0.000 Nucleated RBC % (auto) 0.0 Anion Gap 16 Estim Creat Clear Calc 41.5 Estimated GFR > 60 POC Glucose 101 Random Glucose 149 H Calcium 8.9 D Total Bilirubin 0.4 Direct Bilirubin 0.2 AST 32 H ALT 48 H Alkaline Phosphatase 118 H Total Protein 7.1 Albumin 4.3 Phenytoin 09/14/22 09/15/22 09/15/22 20:21 05:54 07:19 MCV MCH MCHC RDW Plt Count MPV Immature Gran % (Auto) Neut % (Auto) Lymph % (Auto) Trinity % (Auto) Eos % (Auto) Baso % (Auto) Lymph # (Auto) Trinity # (Auto) Eos # (Auto) Baso # (Auto) Abs Immat Gran (auto) Absolute Neuts (auto) Absolute Nucleated RBC Nucleated RBC % (auto) Anion Gap 18 Estim Creat Clear Calc 53.3 Estimated GFR > 60 POC Glucose 162 H 121 H Random Glucose 111 Calcium 8.8 Total Bilirubin 0.5 Direct Bilirubin 0.2 AST 27 ALT 37 H Alkaline Phosphatase 101 Total Protein 6.3 L Albumin 3.8 Phenytoin 37.4 H* 09/15/22 11:23 MCV MCH MCHC RDW Plt Count MPV Immature Gran % (Auto) Neut % (Auto) Lymph % (Auto) Trinity % (Auto) Eos % (Auto) Baso % (Auto) Lymph # (Auto) Trinity # (Auto) Eos # (Auto) Baso # (Auto) Abs Immat Gran (auto) Absolute Neuts (auto) Absolute Nucleated RBC Nucleated RBC % (auto) Anion Gap Estim Creat Clear Calc Estimated GFR POC Glucose 141 H Random Glucose Calcium Total Bilirubin Direct Bilirubin AST ALT Alkaline Phosphatase Total Protein Albumin Phenytoin Assessment and Plan (1) Dilantin toxicity: Status: Acute (2) Dizziness: Status: Acute Plan 67-year-old female with past medical history of seizure disorder on Dilantin presents to the hospital with lethargy, increased weakness found to have Dilantin toxicity # Dilantin toxicity - levels trending down 37.4 lft's improvin hold Dilantin, neurology consulted-added mri /eeg - monitor for seizure activity,adjusted keppra 1000mg bid mri/eeg added,once dilatin levels below 20 ,plan discharge. added pT # hypertension - elevated - continue amlodipine # diabetes - hold metformin - start low-dose sliding scale insulin - diabetic diet # right adnexal cyst - appears simple - follow-up outpatient with OB Gyne. hypothyroidism: continue Levothyroxine. DVT prophylaxis: Lovenox Inpatient need:Dilantin toxicity-symptomatic -need diltanin levels [place]/labs ( lft's), neuro workup pending,once dilatin levels below 20 ,plan discharge. Quality Stroke Does the patient have a stroke diagnosis?: No VTE Prior VTE?: No VTE Risk Level:: Medical - moderate - high VTE Device Contraindication: Treatment Not Indicated VTE Drug Contraindication: N/A - Med Ordered
[2022-09-15 15:48] VITALS: BP 147/71; PULSE 74; RESP 18; TEMP 36.3; O2SAT 94
[2022-09-15 16:01] LABS: Glucose, Whole Blood 102 mg/dL (60-115)
--- NOTE | 2022-09-15 16:19 | MHC.CM.PN ---
PT NOT YET MEDICALLY CLEARED DC PLAN REMAINS HOME WITH NO SERVICES PT TO ARRANGE TRANSPORT
[2022-09-15 19:46] VITALS: BP 163/71; PULSE 73; RESP 16; TEMP 36.3; O2SAT 96
[2022-09-15 20:20] LABS: Glucose, Whole Blood 155 mg/dL (60-115)
[2022-09-15] MEDS: Insulin Lispro 100 UNIT/ML 3 ML VIAL SUBCUT (20:29)
[2022-09-16] VITALS (7 sets, daily range): BP systolic 148–174; BP diastolic 70–82; PULSE 68–81; RESP 14–18; TEMP 35.9–37; O2SAT 93–97
[2022-09-16] MEDS: Lactated Ringers 1,000 ML 100 ML IVCONT (01:39)
[2022-09-16 06:43] LABS: Alanine Aminotransferase 27 U/L (0-31); Albumin Level 3.5 g/dL (3.5-5.0); Alkaline Phosphatase 94 U/L (39-117); Aspartate Amino Transferase 21 U/L (5-31); Bilirubin Direct 0.2 mg/dL (0.0-0.5); Bilirubin Total 0.3 mg/dL (0.0-1.0)
[2022-09-16 07:11] LABS: Glucose, Whole Blood 100 mg/dL (60-115)
[2022-09-16 07:18] LABS: Phenytoin Dilantin 28.2 ug/mL (10.0-20.0)
[2022-09-16] MEDS: ondansetron HCL 4 MG/2 ML VIAL IVPUSH ×2 (10:02→18:24)
--- NOTE | 2022-09-16 10:05 | P.PNIM_ITS ---
Subjective Subjective Date of Service: 09/16/22 Interval History: still dizziness/nausea , no fever overnight Review of Systems Denies any chest pain or shortness of breath or abdominal pain or diarrhea Physical Exam Vital Signs: Vital Signs: Last Vital Signs Temp 96.7 F L 09/16/22 07:28 Pulse 76 09/16/22 07:28 Resp 14 09/16/22 07:28 BP 148/78 H 09/16/22 07:28 Pulse Ox 93 09/16/22 07:28 O2 Del Method 09/16/22 07:28 BMI result Body Mass Index 36.3 Appearance: Alert.? Oriented X3.? not in distress.? cvs: [id number], [id number]. res: clear to auscultation ,no rhonchii or wheezing abd: no rebound or guarding ,nt, bs present. ext pulses present , no cyanosis. neuro: axo3 , nonfocal Objective Data Active Medications Acetaminophen (Acetaminophen 325 Mg Tablet) 650 mg PO Q6H PRN PRN Reason: Pain, Mild (Pain Scale 1-3) Last Admin: 09/15/22 04:32 Dose: 650 mg Documented By: CHIKIS Amlodipine Besylate (Amlodipine Besylate 10 Mg Tablet) 10 mg PO DAILY [facility]; Protocol Last Admin: 09/15/22 08:32 Dose: 10 mg Documented By: LOI Dextrose (Dextrose 50 % 25 Gm/50 Ml Syringe) 25 gm IVPUSH Q15M PRN; Protocol PRN Reason: per Hypoglycemia Standing Ord. Docusate Sodium (Docusate Sodium 100 Mg Capsule) 100 mg PO BID [facility] Last Admin: 09/15/22 19:36 Dose: 100 mg Documented By: LARS Enoxaparin Sodium (Enoxaparin Sodium 40 Mg/0.4 Ml Syringe) 40 mg SUBCUT Q24H [facility] Last Admin: 09/15/22 08:32 Dose: 40 mg Documented By: LOI Famotidine (Famotidine 20 Mg Tablet) 20 mg PO DAILY [facility] Last Admin: 09/15/22 08:33 Dose: 20 mg Documented By: LOI Glucose (Glucose Gel 15 Gm Gel..Gram.) 15 gm PO Q15M PRN; Protocol PRN Reason: per Hypoglycemia Standing Ord. Insulin Human Lispro (Insulin Lispro 100 Unit/Ml 3 Ml Vial) 0 unit SUBCUT QIDACHS [facility]; Protocol Last Admin: 09/16/22 07:33 Dose: Not Given Documented By: CONNOR Non-Admin Reason: No Insulin Coverage Levetiracetam (Levetiracetam 250 Mg Tablet) 250 mg PO BID [facility] Last Admin: 09/15/22 19:36 Dose: 250 mg Documented By: LARS Levothyroxine Sodium (Levothyroxine Sodium 150 Mcg Tablet) 150 mcg PO DAILY [facility] Last Admin: 09/15/22 08:33 Dose: 150 mcg Documented By: LOI Lidocaine (Lidocaine 4 % Patch Adh..Patch) 1 patch TRANSDERMA DAILY [facility] Last Admin: 09/15/22 08:32 Dose: 1 patch Documented By: LOI Ondansetron HCl (Ondansetron Hcl 4 Mg/2 Ml Vial) 4 mg IVPUSH Q4H PRN PRN Reason: Nausea and Vomiting Last Admin: 09/16/22 10:02 Dose: 4 mg Documented By: TRUONGSCOTJ Sodium Chloride (0.9 % Sodium Chloride Flush 3 Ml Syringe) 3 ml IVFLUSH QSHIFT [facility] Last Admin: 09/16/22 07:33 Dose: Not Given Documented By: CONNOR Non-Admin Reason: IV Running Labs CBC & Chem 7: 09/14/22 14:05 09/15/22 05:54 Labs: Laboratory Results - last 24 hr 09/15/22 09/15/22 09/15/22 11:23 15:50 19:49 POC Glucose 141 H 102 155 H Total Bilirubin Direct Bilirubin AST ALT Alkaline Phosphatase Total Protein Albumin Phenytoin 09/16/22 09/16/22 06:05 07:07 POC Glucose 100 Total Bilirubin 0.3 Direct Bilirubin 0.2 AST 21 ALT 27 Alkaline Phosphatase 94 Total Protein 6.0 L Albumin 3.5 Phenytoin 28.2 H* Assessment and Plan (1) Dizziness: Status: Acute (2) Nausea: Status: Acute (3) Dilantin toxicity: Status: Acute Plan 67-year-old female with past medical history of seizure disorder on Dilantin presents to the hospital with lethargy, increased weakness found to have Dilantin toxicity # Dilantin toxicity - levels trending down 28 lft's improvin hold Dilantin, neurology consulted-added mri /eeg - monitor for seizure activity,adjusted keppra 1000mg bid mri: MR/MR head/brain wo con IMPRESSION: 1.? No acute infarct, mass lesion, intracranial hemorrhage, or evidence of hydrocephalus. 2.? Disproportionate volume loss involving the inferior cerebellum. 3.? 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 eeg done/results pendin,once dilatin levels below 20 ,plan discharge. added pT # hypertension - elevated - continue amlodipine # diabetes - hold metformin - start low-dose sliding scale insulin - diabetic diet # right adnexal cyst - appears simple - follow-up outpatient with OB Gyne. hypothyroidism: continue ? Levothyroxine. DVT prophylaxis: Lovenox ? Inpatient need:Dilantin toxicity-symptomatic -need diltanin levels [place]/l abs ( lft's), neuro workup pending,once dilatin levels below 20 ,plan discharge. Quality Stroke Does the patient have a stroke diagnosis?: No VTE Prior VTE?: No VTE Risk Level:: Medical - moderate - high VTE Device Contraindication: Treatment Not Indicated VTE Drug Contraindication: N/A - Med Ordered
[2022-09-16] MEDS: amLODIPine Besylate 10 MG TABLET PO (11:07)
[2022-09-16] MEDS: Famotidine 20 MG TABLET PO (11:07)
[2022-09-16] MEDS: Docusate Sodium 100 MG CAPSULE PO ×2 (11:07→20:12)
[2022-09-16] MEDS: Levothyroxine Sodium 150 MCG TABLET PO (11:07)
[2022-09-16] MEDS: Lidocaine 4 % Patch ADH..PATCH 1 PATCH TRANSDERMA (11:08)
[2022-09-16] MEDS: levETIRAcetam 250 MG TABLET PO ×2 (11:08→20:12)
[2022-09-16] MEDS: Enoxaparin Sodium 40 MG/0.4 ML SYRINGE SUBCUT (11:09)
[2022-09-16 11:16] LABS: Glucose, Whole Blood 115 mg/dL (60-115)
[2022-09-16 16:10] LABS: Glucose, Whole Blood 184 mg/dL (60-115)
[2022-09-16] MEDS: 0.9 % Sodium Chloride Flush 3 ML SYRINGE IVFLUSH (16:43)
[2022-09-16] MEDS: Insulin Lispro 100 UNIT/ML 3 ML VIAL SUBCUT (16:43)
[2022-09-16] MEDS: diphenhydrAMINE HCL 25 MG TABLET 12.5 MG PO (18:18)
[2022-09-16 19:28] LABS: Glucose, Whole Blood 133 mg/dL (60-115)
[2022-09-16] MEDS: Ketotifen Fumarate 0.025% Oph 5 ML DRPBTL 1 DROP EYE-BOTH (20:17)
[2022-09-17] MEDS: 0.9 % Sodium Chloride Flush 3 ML SYRINGE IVFLUSH ×4 (01:12→20:12)
[2022-09-17 03:55] VITALS: BP 141/67; PULSE 72; RESP 18; TEMP 36.3; O2SAT 93
[2022-09-17 07:03] LABS: Phenytoin Dilantin 22.1 ug/mL (10.0-20.0)
[2022-09-17 07:08] VITALS: BP 158/80; PULSE 73; RESP 18; TEMP 36.1; O2SAT 94
[2022-09-17 07:20] LABS: Glucose, Whole Blood 111 mg/dL (60-115)
[2022-09-17] MEDS: Levothyroxine Sodium 150 MCG TABLET PO (07:56)
[2022-09-17] MEDS: amLODIPine Besylate 10 MG TABLET PO (07:56)
[2022-09-17] MEDS: Aspirin Enteric Coated 81 MG TABLET.DR PO (07:56)
[2022-09-17] MEDS: Ketotifen Fumarate 0.025% Oph 5 ML DRPBTL 1 DROP EYE-BOTH ×2 (07:56→20:12)
[2022-09-17] MEDS: Famotidine 20 MG TABLET PO (07:56)
[2022-09-17] MEDS: Docusate Sodium 100 MG CAPSULE PO ×2 (07:56→20:12)
[2022-09-17] MEDS: levETIRAcetam 250 MG TABLET PO ×2 (07:56→20:12)
[2022-09-17] MEDS: Artificial Tears 15 ML DROPS 2 DROP EYE-BOTH (07:57)
[2022-09-17] MEDS: Enoxaparin Sodium 40 MG/0.4 ML SYRINGE SUBCUT (07:57)
[2022-09-17] MEDS: Lidocaine 4 % Patch ADH..PATCH 1 PATCH TRANSDERMA (07:57)
[2022-09-17] MEDS: Loratadine 10 MG TABLET PO (09:39)
[2022-09-17] MEDS: polyethylene glycoL 3350 17 GM POWD.PACK PO (09:39)
--- NOTE | 2022-09-17 09:53 | HO.PM.IMPN ---
Subjective Subjective Date of Service: 09/17/22 Interval History: still dizziness/nausea , no fever overnight Review of Systems Denies any chest pain or shortness of breath or abdominal pain or diarrhea Physical Exam Vital Signs: Vital Signs: Last Vital Signs Temp 97 F 09/17/22 07:08 Pulse 73 09/17/22 07:08 Resp 18 09/17/22 07:08 BP 158/80 H 09/17/22 07:08 Pulse Ox 94 09/17/22 07:08 O2 Del Method 09/17/22 07:08 BMI result Body Mass Index 36.3 ?Appearance: Alert.? Oriented X3.? not in distress.? cvs: rrr, [id number]. res: clear to auscultation ,no rhonchii or wheezing abd: no rebound or guarding ,nt, bs present. ext pulses present , no cyanosis. neuro: axo3 , nonfocal Objective Data Active Medications Acetaminophen (Acetaminophen 325 Mg Tablet) 650 mg PO Q6H PRN PRN Reason: Pain, Mild (Pain Scale 1-3) Last Admin: 09/15/22 04:32 Dose: 650 mg Documented By: CHIKIS Amlodipine Besylate (Amlodipine Besylate 10 Mg Tablet) 10 mg PO DAILY [facility]; Protocol Last Admin: 09/17/22 07:56 Dose: 10 mg Documented By: COTEMA Artificial Tears (Artificial Tears 15 Ml Drops) 2 drop EYE-BOTH Q4H PRN PRN Reason: dry eyes Last Admin: 09/17/22 07:57 Dose: 2 drop Documented By: COTEMA Aspirin (Aspirin Enteric Coated 81 Mg Tablet.) 81 mg PO DAILY [facility] Last Admin: 09/17/22 07:56 Dose: 81 mg Documented By: COTEMA Dextrose (Dextrose 50 % 25 Gm/50 Ml Syringe) 25 gm IVPUSH Q15M PRN; Protocol PRN Reason: per Hypoglycemia Standing Ord. Docusate Sodium (Docusate Sodium 100 Mg Capsule) 100 mg PO BID [facility] Last Admin: 09/17/22 07:56 Dose: 100 mg Documented By: COTEMA Enoxaparin Sodium (Enoxaparin Sodium 40 Mg/0.4 Ml Syringe) 40 mg SUBCUT Q24H [facility] Last Admin: 09/17/22 07:57 Dose: 40 mg Documented By: COTEMA Famotidine (Famotidine 20 Mg Tablet) 20 mg PO DAILY [facility] Last Admin: 09/17/22 07:56 Dose: 20 mg Documented By: JOEEMA Glucose (Glucose Gel 15 Gm Gel..Gram.) 15 gm PO Q15M PRN; Protocol PRN Reason: per Hypoglycemia Standing Ord. Insulin Human Lispro (Insulin Lispro 100 Unit/Ml 3 Ml Vial) 0 unit SUBCUT QIDACHS [facility]; Protocol Last Admin: 09/17/22 07:30 Dose: Not Given Documented By: CONNOR Non-Admin Reason: No Insulin Coverage Ketotifen Fumarate (Ketotifen Fumarate 0.025% Oph 5 Ml Drpbtl) 1 drop EYE-BOTH BID [facility] Last Admin: 09/17/22 07:56 Dose: 1 drop Documented By: CONNOR Levetiracetam (Levetiracetam 250 Mg Tablet) 250 mg PO BID [facility] Last Admin: 09/17/22 07:56 Dose: 250 mg Documented By: CONNOR Levothyroxine Sodium (Levothyroxine Sodium 150 Mcg Tablet) 150 mcg PO DAILY [facility] Last Admin: 09/17/22 07:56 Dose: 150 mcg Documented By: CONNOR Lidocaine (Lidocaine 4 % Patch Adh..Patch) 1 patch TRANSDERMA DAILY [facility] Last Admin: 09/17/22 07:57 Dose: 1 patch Documented By: CONNOR Loratadine (Loratadine 10 Mg Tablet) 10 mg PO DAILY [facility] Last Admin: 09/17/22 09:39 Dose: 10 mg Documented By: CONNOR Ondansetron HCl (Ondansetron Hcl 4 Mg/2 Ml Vial) 4 mg IVPUSH Q4H PRN PRN Reason: Nausea and Vomiting Last Admin: 09/16/22 18:24 Dose: 4 mg Documented By: CONNOR Polyethylene Glycol (Polyethylene Glycol 3350 17 Gm Powd.Pack) 17 gm PO DAILY [facility] Last Admin: 09/17/22 09:39 Dose: 17 gm Documented By: CONNOR Sodium Chloride (0.9 % Sodium Chloride Flush 3 Ml Syringe) 3 ml IVFLUSH QSHIFT [facility] Last Admin: 09/17/22 07:57 Dose: 3 ml Documented By: CONNOR Labs CBC & Chem 7: 09/14/22 14:05 09/15/22 05:54 Labs: Laboratory Results - last 24 hr 09/16/22 09/16/22 09/16/22 11:08 16:04 19:06 POC Glucose 115 184 H 133 H Phenytoin 09/17/22 09/17/22 05:42 07:08 POC Glucose 111 Phenytoin 22.1 H Assessment and Plan (1) Dilantin toxicity: Status: Acute (2) Dizziness: Status: Acute Plan 67-year-old female with past medical history of seizure disorder on Dilantin presents to the hospital with lethargy, increased weakness found to have Dilantin toxicity # Dilantin toxicity - levels trending down 22 lft's improvin hold Dilantin, neurology consulted-added mri /eeg - monitor for seizure activity,adjusted keppra 1000mg bid mri: MR/MR head/brain wo con IMPRESSION: 1.? No acute infarct, mass lesion, intracranial hemorrhage, or evidence of hydrocephalus. 2.? Disproportionate volume loss involving the inferior cerebellum. 3.? 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 eeg done/results pendin,once dilatin levels below 20 ,plan discharge. added pT # hypertension - elevated - continue amlodipine # diabetes - hold metformin - start low-dose sliding scale insulin - diabetic diet # right adnexal cyst - appears simple - follow-up outpatient with OB Gyne. hypothyroidism: continue ? Levothyroxine. DVT prophylaxis: Lovenox ? Inpatient need:Dilantin toxicity-symptomatic -need diltanin levels [place]/labs ( lft's), neuro workup pending,once dilatin levels below 20 ,plan discharge. Quality Stroke Does the patient have a stroke diagnosis?: No VTE Prior VTE?: No VTE Risk Level:: Medical - moderate - high VTE Device Contraindication: Treatment Not Indicated VTE Drug Contraindication: N/A - Med Ordered
[2022-09-17] MEDS: ondansetron HCL 4 MG/2 ML VIAL IVPUSH (09:57)
--- NOTE | 2022-09-17 10:05 | PC.NURSE ---
pt had multiple complaints- upset stomach, stuffy nose and itchy eyes, constipation, nausea. pt medicated per mar with miralax, zofran, eye drops, and loratidine. will continue to monitor.
[2022-09-17 11:00] VITALS: BP 159/69; PULSE 79; RESP 18; TEMP 36.1; O2SAT 93
[2022-09-17 11:22] LABS: Glucose, Whole Blood 204 mg/dL (60-115)
[2022-09-17] MEDS: Insulin Lispro 100 UNIT/ML 3 ML VIAL SUBCUT (11:57)
[2022-09-17 15:31] VITALS: BP 147/70; PULSE 75; RESP 19; TEMP 36.1; O2SAT 93
[2022-09-17 15:46] LABS: Glucose, Whole Blood 122 mg/dL (60-115)
[2022-09-17 19:07] VITALS: BP 169/76; PULSE 77; RESP 19; TEMP 36.1; O2SAT 91
[2022-09-17 19:44] LABS: Glucose, Whole Blood 131 mg/dL (60-115)
[2022-09-18] VITALS: BP 159/83; PULSE 73; RESP 16; TEMP 36.5; O2SAT 93
[2022-09-18] MEDS: Acetaminophen 325 MG TABLET 650 MG PO (02:39)
[2022-09-18 04:00] VITALS: BP 146/84; PULSE 79; RESP 18; TEMP 36.6; O2SAT 93
[2022-09-18 06:39] LABS: Phenytoin Dilantin 16.6 ug/mL (10.0-20.0)
[2022-09-18 07:18] VITALS: BP 144/69; PULSE 70; RESP 18; TEMP 36.1; O2SAT 94
[2022-09-18 07:36] LABS: Glucose, Whole Blood 138 mg/dL (60-115)
[2022-09-18] MEDS: Enoxaparin Sodium 40 MG/0.4 ML SYRINGE SUBCUT (09:39)
[2022-09-18] MEDS: Lidocaine 4 % Patch ADH..PATCH 1 PATCH TRANSDERMA ×2 (09:40)
[2022-09-18] MEDS: polyethylene glycoL 3350 17 GM POWD.PACK PO (09:40)
[2022-09-18] MEDS: levETIRAcetam 250 MG TABLET PO (09:41)
[2022-09-18] MEDS: Ketotifen Fumarate 0.025% Oph 5 ML DRPBTL 1 DROP EYE-BOTH (09:41)
[2022-09-18] MEDS: Levothyroxine Sodium 150 MCG TABLET PO (09:41)
[2022-09-18] MEDS: Famotidine 20 MG TABLET PO (09:41)
[2022-09-18] MEDS: Aspirin Enteric Coated 81 MG TABLET.DR PO (09:41)
[2022-09-18] MEDS: Docusate Sodium 100 MG CAPSULE PO (09:41)
[2022-09-18] MEDS: Loratadine 10 MG TABLET PO (09:41)
[2022-09-18] MEDS: amLODIPine Besylate 10 MG TABLET PO (09:41)
[2022-09-18] MEDS: 0.9 % Sodium Chloride Flush 3 ML SYRINGE IVFLUSH (09:42)
--- NOTE | 2022-09-18 09:53 | PM.DS ---
DS: Providers Provider Date of Service: 09/18/22 Date of admission: 09/14/22 04:56 Primary care physician: Nonstaff Physician Consults: 09/14/22 04:56 Consult to Neurology Routine Consulting Provider: [facility] Reason for consultation: Dilantin toxicity Has provider been notified: No DS: Diagnosis Discharge Diagnosis (1) Dilantin toxicity: Status: Acute (2) Dizziness: Status: Acute DS: Summary Hospital Course Hospital Course: 59-year-old female with past medical history of hypothyroidism, hypertension, diabetes, as well as history of seizure disorder and intellectual disability presents to the hospital with her collsd-ei-icu for evaluation of difficulty ambulating, generalized weakness, and lethargy.? According to the nacdyf-yx-kim, patient used to live in [place] alone, she experienced a seizure episode in May, her Dilantin antiseizure medications were increased in May but she came to live with her brother and ndmpwc-dl-qom in [place] and had not had any follow-up with a neurologist since.? For the past few days patient has become increasingly weak to the point where she can not stand or walk on her own without help.? She has also become more confused and lethargic.? Therefore she was brought into the hospital.? Patient herself is alert, oriented, denies any chest pain, no shortness of breath, no abdominal pain nausea vomiting, no diarrhea constipation, no urinary symptoms and no lower extremity edema.? Patient reports pain in the left groin radiating down, denies any urinary symptoms:? No frequency or dysuria, denies any flank pain. On arrival to the ED patient hemodynamically stable with no significant abnormal vitals except slightly elevated blood pressure Labs are significant for ALT of 51, alk-phos of 135, and Dilantin level of 56.1.? Abdomen pelvic CT shows no acute findings, simple appearing right adnexal cyst measuring up to 3.5 cm, recommend follow-up ultrasound. Patient started on IV fluids and will be admitted for further management. hospital course: Patient came to the hospital because of unsteady gait and dizziness found to have elevated Dilantin level- patient was monitored closely in the hospital,Dilantin level were repeated now trended down to below 20 patient's symptoms are resolved, MRIs done- seems fine except moderate chronic microangiopathy ,eeg- seems fine . patient was started on Keppra.also added small dose asa moderate chronic microangiopathy . patient is to follow-up with neurology outpatient for further management. Patient abdominal CT - incidental finding possible hasright adnexal simple cyst-patient needs to follow up outpatient, consider outpatient language interpreter evaluation. shoulder pain seems chronic : improvin with lidocaine patch, xary shows degenerative changes - If shoulder pain does not improve ,follow-up with outpatient with PCP. Seen by PT- home with services but patient does not have pcp yet-she has lot of afmily support and she walked with walker comfortably -eager to go home. above management discussed with the patient in detail length she understand and in agreement with the above plan, time spent 50 minute. Time Spent with Patient Time attestation: Total time spent providing and/or coordinating discharge services: Discharge coordination time: Greater than 30 minutes Quality: Safe Use of Opioids Does Pt have an Active Cancer Diagnosis on the Problem List?: No Quality: Stroke Does the patient have a stroke diagnosis?: No Physical Exam Vital Signs: Vital Signs: Last Vital Signs Temp 97.0 F 09/18/22 07:18 Pulse 70 09/18/22 07:18 Resp 18 09/18/22 07:18 BP 144/69 H 09/18/22 07:18 Pulse Ox 94 09/18/22 07:18 O2 Del Method 09/18/22 07:18 BMI result Body Mass Index 36.3 Appearance: Alert.? Oriented X3.? not in distress.? cvs: rrr, [id number]. res: clear to auscultation ,no rhonchii or wheezing abd: no rebound or guarding ,nt, bs present. ext pulses present , no cyanosis. neuro: axo3 , nonfocal DS: Data Data Completed and Pending Labs on day of discharge: Laboratory Results - last 24 hr 09/17/22 09/17/22 09/17/22 11:00 15:41 19:39 POC Glucose 204 H 122 H 131 H Phenytoin 09/18/22 09/18/22 05:38 07:18 POC Glucose 138 H Phenytoin 16.6 Additional Comments Additional comments: MR/MR head/brain wo con IMPRESSION: 1.? No acute infarct, mass lesion, intracranial hemorrhage, or evidence of hydrocephalus. 2.? Disproportionate volume loss involving the inferior cerebellum. 3.? 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 CT/CT abdomen pelvis wo IV con IMPRESSION: 1.? No acute findings identified in the abdomen/pelvis. Colonic diverticulosis without diverticulitis. 2.? Simple-appearing right adnexal cyst measuring up to 3.7 cm. Follow-up pelvic ultrasound in 6-12 months is recommended. XR/XR shoulder RT min 2V IMPRESSION: Mild right acromioclavicular degenerative joint changes and joint space widening that does not appear acute. This could be secondary to chronic grade 1 separation. Correlate with physical exam and trauma history. Discharge Plan Discharge Anticipated Discharge Date/Time: 09/18/22 09:45 Patient Disposition: Home, Self-Care Discharge Diagnosis: Dilantin toxicity, adnexal cyst. Referrals: Physician,Ramesh [Primary Care Provider] - 1 Week Jill Christine MD [Physician] - 2 Weeks (follow up outpatiently) Discharge Medications: New levetiracetam 250 mg Tablet 250 mg PO BID Qty: 60 0RF docusate sodium 100 mg Capsule 100 mg PO BID PRN (Reason: constipation) Qty: 30 0RF loratadine 10 mg Tablet 10 mg PO DAILY PRN (Reason: itchiness) Qty: 10 0RF aspirin 81 mg Tablet,Delayed Release (Dr/Ec) 81 mg PO DAILY Qty: 30 0RF Continued metformin 500 mg tablet 1 tab PO DAILY famotidine 20 mg tablet 1 tab PO DAILY amlodipine 10 mg tablet 1 tab PO DAILY lidocaine 5 % adhesive patch,medicated 1 patch topical DAILY levothyroxine [Synthroid] 150 mcg tablet 1 tab PO DAILY Discontinued phenytoin sodium extended 100 mg capsule 1 cap PO TID Discharge Orders: Discharge Order (Routine); Ordered 09/18/22 Ordered By: Dedra Patino Diet: Low fat, low cholesterol Activity on Discharge: As tolerated Stand Alone Forms: Patient Portal Discharge page Care Plan Goals: Patient came to the hospital because of unsteady gait and dizziness found to have elevated Dilantin level- patient was monitored closely in the hospital,Dilantin level were repeated now trended down to below 20 patient's symptoms are resolved, MRIs done- seems fine except moderate chronic microangiopathy ,eeg- seems fine . patient was started on Keppra.also added small dose asa moderate chronic microangiopathy . patient is to follow-up with neurology outpatient for further management. follow of bmp and lipid panel,lft's in [address] - incidental finding possible hasright adnexal simple cyst-patient needs to follow up outpatient, consider outpatient language interpreter evaluation. Seen by PT- home with services but patient does not have pcp yet-she has lot of afmily support and she walked with walker comfortably -eager to go home. Health Concerns: as above. Plan of Treatment: As above. Assessment: As above. Patient Instructions: Dilantin Toxicity (GEN)
[2022-09-18 11:21] VITALS: BP 144/69; PULSE 70; O2SAT 94
[2022-09-18 11:25] VITALS: BP 165/82; PULSE 75; RESP 18; TEMP 36.3; O2SAT 94
[2022-09-18 11:32] LABS: Glucose, Whole Blood 142 mg/dL (60-115)
--- NOTE | 2022-09-18 11:42 | MHC.CM.PN ---
PER REVIEW OF EVAL, PATIENT CAN BORROW A 2 WW FROM HER BROTHER. PLAN IS DC HOME TODAY SHE HAS A NEW PCP VISIT FOR NOVEMBER 2022 WITH Gali CHERY MD.
--- NOTE | 2022-09-18 12:55 | MHC.CM.PN ---
PATIENT IS DC TODAY SHE IS AWARE THAT BECAUSE SHE DOES NOT HAVE A PCP YET, SHE WILL NOT HAVE ANY VNA SERVICES. SHE FEELS THAT SHE HAS ENOUGH SUPPORT AT HOME AND WILL GET A WALKER FROM HER [id number]. PATIENT HAS FAMILY ARRIVING AROUND 1800 TONIGHT TO TRANSPORT HER HOME. RN AWARE. PATIENT REMINDED TO CALL HER ANTICIPATED PCP OFFICE TO SEE IF SHE CAN GET AN EARLIER APPT. IMM 09/17 IN CHART
[2022-09-18 15:49] VITALS: BP 161/78; PULSE 75; RESP 18; TEMP 36.4; O2SAT 94
[2022-09-18 16:40] LABS: Glucose, Whole Blood 151 mg/dL (60-115)
== END 2022-09-18 17:37 | disposition home or self-care (01) | DRG 101 ==
LOC: HO.ED 09-14 04:59 → HO.EDOVER 09-14 05:32 → HO.S3 09-14 19:18
PROVIDERS: Admitting Provider Internal Medicine; Emergency Provider Emergency Medicine; PCP Family Medicine; Visit Provider Internal Medicine
DX: G40.909 Epilepsy, unspecified, not intractable, without status epilepticus (principal); G93.49 Other encephalopathy; R26.81 Unsteadiness on feet; E11.9 Type 2 diabetes mellitus without complications; E03.9 Hypothyroidism, unspecified; F79 Unspecified intellectual disabilities; I10 Essential (primary) hypertension; T46.0X5A Adverse effect of cardiac-stimulant glycosides and drugs of similar action, initial encounter; R89.8 Other abnormal findings in specimens from other organs, systems and tissues; N83.291 Other ovarian cyst, right side; Z20.822 Contact with and (suspected) exposure to COVID-19; Z87.891 Personal history of nicotine dependence; Z88.1 Allergy status to other antibiotic agents; Z88.8 Allergy status to other drugs, medicaments and biological substances; Z79.82 Long term (current) use of aspirin; Z79.890 Hormone replacement therapy; Z79.899 Other long term (current) drug therapy
CPT/HCPCS: 36415; 70551; 73030; 74176; 80048; 80053; 80076; 80185; 80186; 82947; 85025; 87635; 95816; 97162; 99285; J1650; J1885; J2405; Q0163

== ENCOUNTER 2022-10-04 08:07 | Outpatient (REF) | payer MEDICARE, OTHER, SELFPAY ==
[2022-10-04 11:16] LABS: MANUAL DIFF FLAG NO
[2022-10-04 11:30] LABS: Basophils Absolute Auto 0.1 X10*3/uL (0.0-0.2); Basophils Percent Auto 0.9 % (0-2); Eosinophils Absolute Auto 0.2 X10*3/uL (0.0-0.4); Eosinophils Percent Auto 3.3 % (0-4); Hemoglobin 14.2 g/dl (12.0-16.0); Imm Gran Abs Auto 0.02 X10*3/uL (0.00-0.03); Imm Gran Pct Auto 0.3 % (0.0-0.4); Lymphocytes Absolute Auto 2.2 X10*3/uL (1.2-4.9); Lymphocytes Percent Auto 37.8 % (20-40); Mean Corpuscular Hemoglobin 30.3 pg (27.0-33.0); Mean Corpuscular Volume 91.7 fL (80.0-98.0); Mean Platelet Volume 11.5 fL (9.4-12.3); Monocytes Absolute Auto 0.5 X10*3/uL (0.1-1.2); Monocytes Percent Auto 8.4 % (2-11); Neutrophils Absolute Auto 2.8 x10*3/uL (2.0-8.3); Neutrophils Percent Auto 49.3 % (45-73); Platelet Count 300 X10*3/uL (160-400); Red Blood Count 4.69 X10*6/uL (4.20-5.50); Red Cell Distribution Width 12.6 % (11.0-16.0); White Blood Count 5.7 X10*3/uL (4.8-10.8)
[2022-10-04 11:46] LABS: Estimated Average Glucose 120 mg/dL; Hemoglobin A1c % 5.8 %
[2022-10-04 12:23] LABS: Phenytoin Dilantin < 1.8 ug/mL (10.0-20.0)
[2022-10-04 13:31] LABS: Alanine Aminotransferase 35 U/L (0-31); Albumin Level 4.3 g/dL (3.5-5.0); Alkaline Phosphatase 104 U/L (39-117); Anion Gap 15 (12-20); Aspartate Amino Transferase 21 U/L (5-31); Bilirubin Total 0.3 mg/dL (0.0-1.0); Blood Urea Nitrogen 15 mg/dL (9-16); Calcium 9.7 mg/dL (8.4-10.2); Carbon Dioxide 26 mmol/L (22-29); Chloride 105 mmol/L (96-108); Cholesterol 165 mg/dL; Estimated Glomerular Filt Rate > 60; Free T4 (Free Thyroxine) 1.45 ng/dL (0.71-1.85); Glucose Fasting 95 mg/dL (60-99); HDL Cholesterol 46 mg/dL; LDL Cholesterol Calculated 101 mg/dl; Potassium 4.5 mmol/L (3.3-5.1); Sodium 141 mmol/L (135-145); Thyroid Stimulating Hormone 0.06 uIU/mL (0.32-4.0); Total Protein 7.2 g/dL (6.5-8.0); Triglycerides 94 mg/dL; Vitamin D 25-OH Total 44.3 ng/mL (>30)
[2022-10-04 14:01] LABS: Appearance Urine Clear; Color Urine Yellow; Glucose Urine UA Negative (Negative); Leukocyte Esterase Urine Trace (Negative); Nitrite Urine Negative (Negative); PH 5.5 (5.0-9.0); UMIC TRIGGER UA YES; Urine Blood Negative (Negative); Urine Ketones Negative (Negative); Urine Protein Negative (Neg-Trace)
[2022-10-04 14:05] LABS: Bacteria Urine None Seen (None Seen); Hyaline Casts Urine 0-2 /LPF (0-2); RBC Urine 0-2 /HPF (0-2); Squamous Epithelial Cell Urine 0-2 /HPF (0-2); WBC Urine 0-5 /HPF (0-5)
[2022-10-04 14:29] LABS: Folate 8.2 ng/mL (> or = 4.0); Vitamin B12 1067 pg/mL (200-900)
[2022-10-04 15:00] LABS: Creatinine Urine 65.22 mg/dL; Microalbumin Urine < 5.0 mg/L
[2022-10-06 16:36] LABS: Triiodothyronine T3 Total 136 ng/dL (76-181)
[2022-10-08 16:37] LABS: Levetiracetam Keppra 9.8 mcg/mL (6.0-46.0)
== END 2022-10-04 08:08 | disposition home or self-care (01) ==
LOC: HO.WFDLDS 08:07
PROVIDERS: Visit Provider Family Medicine
DX: Z00.00 Encounter for general adult medical examination without abnormal findings (principal); G40.909 Epilepsy, unspecified, not intractable, without status epilepticus; R73.01 Impaired fasting glucose; E53.8 Deficiency of other specified B group vitamins; E55.9 Vitamin D deficiency, unspecified; I10 Essential (primary) hypertension; E03.9 Hypothyroidism, unspecified
CPT/HCPCS: 36415; 80053; 80061; 80177; 80185; 81001; 81003; 82043; 82306; 82607; 82746; 83036; 84439; 84443; 84480; 85025

== ENCOUNTER 2022-10-24 11:12 | Outpatient (REF) | payer MEDICARE, OTHER, SELFPAY ==
[2022-10-24 14:11] LABS: MANUAL DIFF FLAG NO
[2022-10-24 14:21] LABS: Basophils Absolute Auto 0.1 X10*3/uL (0.0-0.2); Basophils Percent Auto 0.7 % (0-2); Eosinophils Absolute Auto 0.2 X10*3/uL (0.0-0.4); Eosinophils Percent Auto 2.5 % (0-4); Hematocrit 43.8 % (37.0-47.0); Hemoglobin 14.6 g/dl (12.0-16.0); Imm Gran Abs Auto 0.02 X10*3/uL (0.00-0.03); Imm Gran Pct Auto 0.3 % (0.0-0.4); Lymphocytes Absolute Auto 2.4 X10*3/uL (1.2-4.9); Lymphocytes Percent Auto 36.3 % (20-40); Mean Corpuscular HGB Conc 33.3 g/dl (31.0-35.0); Mean Corpuscular Hemoglobin 30.1 pg (27.0-33.0); Mean Corpuscular Volume 90.3 fL (80.0-98.0); Mean Platelet Volume 11.2 fL (9.4-12.3); Monocytes Absolute Auto 0.5 X10*3/uL (0.1-1.2); Monocytes Percent Auto 7.6 % (2-11); Neutrophils Absolute Auto 3.5 x10*3/uL (2.0-8.3); Neutrophils Percent Auto 52.6 % (45-73); Platelet Count 325 X10*3/uL (160-400); Red Blood Count 4.85 X10*6/uL (4.20-5.50); Red Cell Distribution Width 12.4 % (11.0-16.0); White Blood Count 6.7 X10*3/uL (4.8-10.8)
== END 2022-10-24 11:13 | disposition home or self-care (01) ==
LOC: HO.WFDLDS 11:12
PROVIDERS: Visit Provider Physician Assistant
DX: R11.0 Nausea (principal); T42.0X1A Poisoning by hydantoin derivatives, accidental (unintentional), initial encounter; K57.30 Diverticulosis of large intestine without perforation or abscess without bleeding
CPT/HCPCS: 36415; 85025; 99202

== ENCOUNTER 2022-11-14 11:41 | Outpatient (REF) | payer MEDICARE, OTHER, SELFPAY ==
--- NOTE | ~2022-11-14 | XR_ITS ---
EXAMINATION: XR KNEE, RIGHT CLINICAL INFORMATION: Pain. COMPARISON: None TECHNIQUE: Two views of the right knee. FINDINGS: No acute fracture or malalignment. Mild joint space narrowing of the medial and patellofemoral compartments. No chondrocalcinosis or erosive changes. No joint effusion. XR/XR knee RT 2V IMPRESSION: No acute fracture or malalignment. Mild degenerative osteoarthritis of the medial and patellofemoral compartments.
== END 2022-11-14 11:42 | disposition home or self-care (01) ==
LOC: HO.XRAY 11:41
PROVIDERS: PCP Family Medicine; Visit Provider Family Medicine
DX: M25.561 Pain in right knee (principal)
CPT/HCPCS: 73560

== ENCOUNTER → 2022-11-20 11:23 | Outpatient (BNVA) | payer MEDICARE, OTHER, SELFPAY | PROVIDERS: PCP Family Medicine; Visit Provider Internal Medicine | DX: M54.16 Radiculopathy, lumbar region (principal); M41.9 Scoliosis, unspecified | CPT/HCPCS: 99202 ==

== ENCOUNTER 2022-12-27 08:55 | Outpatient (REF) | payer MEDICARE, OTHER, SELFPAY ==
--- NOTE | ~2022-12-27 | MM_ITS ---
EXAMINATION: MM SCREENING DIGITAL BREAST TOMOSYNTHESIS, BILATERAL CLINICAL INFORMATION: Screening. Asymptomatic. Prior pbx-dd-[id number] mammography currently unavailable. The lifetime risk of breast cancer based on the Tyrer-Cuzick Model is 5%. COMPARISON: None. TECHNIQUE: Digital breast tomosynthesis is performed in both the craniocaudal and mediolateral oblique views along with computer-aided detection (CAD). Synthesized 2D images are generated from the tomosynthesis. FINDINGS: There are scattered areas of fibroglandular density (ACR BI-RADS breast composition Category b). There are no significant masses, abnormal calcifications, or other abnormalities. Incidental intramammary node present posterior outer right breast. The axilla and skin contours are unremarkable. Radiology department staff will attempt to retrieve prior hkv-zj-uksys mammography to allow for comparison in an addendum report. MM/MM tomosynthesis screening BI IMPRESSION: No mammographic evidence of malignancy. ASSESSMENT: BI-RADS 2: Benign RECOMMENDATION: -Routine annual mammography screening. -Radiology department staff will attempt to retrieve prior rsy-ny-muyhg mammography to allow for comparison in an addendum report. This patient's information was entered into a reminder system with a target due date for their next mammogram.
--- NOTE | ~2022-12-27 | MM_ITS ---
EXAMINATION: BONE DENSITOMETRY CLINICAL INDICATION: Encounter for screening for osteoporosis. COMPARISON: None (current study represents initial baseline exam). TECHNIQUE: Using a Gly[employer]ens DXA System (software version: 13.1) manufactured by [employer], dual-energy x-ray absorptiometry was performed of the lumbar spine and left hip. The images are of good technical quality. Summary results are attached. FINDINGS: AP SPINE L1-L2 (excluding L3 and L4): The data of L1-L4 has been changed to exclude the L3 and L4 vertebral bodies because degenerative changes at these levels may cause overestimation of the lumbar spine density. BMD 0.988 g/cm2, Z-score 0.4, T-score -1.5, osteopenia. LEFT FEMUR, NECK: BMD 0.834 g/cm2, Z-score 0.3, T-score -1.5, osteopenia. LEFT FEMUR, TOTAL: BMD 0.987 g/cm2, Z-score 1.4, T-score -0.2, normal. IDENTIFIED RISK FACTORS: Parental hip fracture. Secondary osteoporosis (early menopause). Hysterectomy. HISTORY OF FRACTURE: None listed. MEDICATIONS: None listed. MM/XR DEXA axial skeleton IMPRESSION: 1. DIAGNOSIS: Osteopenia based on the lowest T-score value of -1.5 in the lumbar spine and femoral neck applying World Health Organization criteria. 2. 10-YEAR FRACTURE RISK PREDICTION, FRAX: Major osteoporotic fracture (clinical spine, forearm, hip or shoulder) 15.7%. Hip fracture 1.9%. 3. Treatment Recommendations: NOF guidelines recommend consideration for treatment in postmenopausal women and men age 50 and older presenting with the following: -A hip or vertebral (clinical or morphometric) fracture. -T-score less than or equal to -2.5 at the femoral neck or spine after appropriate evaluation to exclude secondary causes. -Low bone mass at the hip or spine and a 10-year fracture probability by FRAX of greater than or equal to 3% for hip fracture or greater than or equal to 20% for major osteoporotic fracture based on the [place] adapted WHO algorithm. 4. Other Recommendations: All treatment decisions require clinical judgment and consideration of individual patient factors, including patient preferences, comorbidities, previous drug use, risk factors not captured in the FRAX model (e.g. frailty, falls, vitamin D deficiency, increased bone turnover, interval significant decline in bone density) and possible under or overestimation of fracture risk by FRAX. Additional medical evaluation for secondary cause of low bone mineral density may be appropriate. FUTURE SCAN RECOMMENDATION: People with diagnosed cases of osteoporosis or at high risk for fracture should have regular bone mineral density tests. For patients eligible for Medicare, routine testing is allowed once every 2 years. The testing frequency can be increased to one year for patients who have rapidly progressing disease, those who are receiving or discontinuing medical therapy to restore bone mass, or have additional risk factors.
== END 2022-12-27 08:56 | disposition home or self-care (01) ==
LOC: HO.MAMMO 08:55
PROVIDERS: PCP Family Medicine; Visit Provider Family Medicine
DX: Z12.31 Encounter for screening mammogram for malignant neoplasm of breast (principal); Z13.820 Encounter for screening for osteoporosis; Z78.0 Asymptomatic menopausal state
CPT/HCPCS: 77063; 77067; 77080

== ENCOUNTER 2023-01-19 14:00 | Outpatient (RCR) | payer MEDICARE, OTHER, SELFPAY ==
--- NOTE | 2022-12-22 16:12 | MHC.PT.EP ---
[facility] [place] Office [place] Office [place] Office [address] Drake Powell [address] [phone] F: [phone] F: [phone] F: [phone] F: [phone] Physical Therapy Plan of Care Date of Evaluation: Date of Surgery: NA Diagnosis: SCOLIOSIS, CHRONIC LUMBAR RADICULOPATHY Assessment: Pt IS 67 YO F WITH HX OF SCOLIOSIS, LEARNING DISABILITY AND EPILEPSY. REFERRED TO PT FROM PAIN MANAGEMENT (DR MELISSA) WITH SCOLIOSIS AND CHRONIC LUMBAR RADICULOPATHY. Pt'S SISTER IN LAW PRESENT FOR EVAL. Pt REPORTS PAIN L HIP AREA, REPORTS PAIN MOVES AT TIMES. HAS HAD PT ON [facility] IN PAST (SURGERY) MOVED HERE FROM [facility] IN MAY AND LIVES WITH SISTER-IN LAW. HER SISTER IN LAW REPORTS SOMETIMES SITTING TOO LONG. SOMETIMES BOUT COMES FOR FULL WEEK OF NOTE, R KNEE HAS BOTHERED HER ALSO OVERALL SINCE BEEN HERE FROM [facility] HAD TO GO INTO HOSPITAL IN SEPTEMBER. WAS SUPPOSED TO HAVE NEUROSURGEON DO SURGERY LAST YEAR WHILE IN [facility] (SURGERY WAS SCHEDULED.. CLEAN UP CALCIUM BUILD UP ON NERVE ENDING ). STARTED PREDNISONE AND HELPED WITH THE PAIN AND THEN HAD A MAJOR SEIZURE. SURGERY WAS CANCELLED BECAUSE SHE WAS MOVING HERE WITH HER DTR IN LAW Pt PRESENTS TO PT WITH POOR POSTURE, DECREASED LUMBAR AND LE FLEXIBILITY, DECREASED CORE STRENGTH. TTP L GLUT AREA. SHOULD BENEFIT FROM PT TO ADDRESS THESE ISSUES Frequency and Duration: The patient will be seen 2X/WK X 6 WKS Short Term Goals: 1. INCREASED AWARENESS POSTURE AND BACK CARE 2. CENTRALIZE SXS [employer] Goals: 1. I HEP WITH DC EX PLAN 2. DECREASED BACK PAIN AT LEAST 50% WITH ADLS Treatment Plan: Modalities to reduce pain, spasms and effusion. Manual therapy to restore motion and function. Therapeutic exercise to improve strength and flexibility. Neuromuscular re-education for posture and balance. Therapeutic activities to return to functional activities of daily living. Electronically signed by: MUSTAPHA CARDONA PT Please sign and return to therapist. Thank you for your referral.
--- NOTE | 2023-03-02 14:33 | MHC.PT.DC ---
[facility] [place] Office [place] Office [place] Office [address] Drake Powell [address] [phone] F: [phone] F: [phone] F: [phone] F: [phone] Physical Therapy Discharge Report Diagnosis: SCOLIOSIS, CHRONIC LUMBAR RADICULOPATHY Date of Surgery: NA Date of Evaluation: 12/22/22 Date of Discharge: 03/02/23 Treatments to Date: 8 Cancellations to Date: No Shows to Date: Discharge Status: Improved Function Patient Elected to Stop Recommend MD Follow-up Discharge Summary: Pt LAST SEEN ON 01/19 PER ASSESSMENT FROM THAT NOTE BY [facility] Decreased reji for ex. pt favored supine LE extended today. Pt area of px L SI gentle msg to area was not pxfull Pt. ed trial ice in towel maybe start with short session 6- 8 mins. NO FURTHER APPTS SCHEDULED Electronically signed by: MUSTAPHA CARDONA PT Please sign and return to therapist. Thank you for your referral.
== END 2023-03-02 14:34 | disposition home or self-care (01) ==
LOC: HO.PT 14:00
PROVIDERS: PCP Family Medicine; Visit Provider Internal Medicine
DX: R29.898 Other symptoms and signs involving the musculoskeletal system (principal)
CPT/HCPCS: 97110; 97140; 97162; 97535

== ENCOUNTER 2023-03-02 10:09 | Outpatient (REF) | payer MEDICARE, OTHER, SELFPAY ==
[2023-03-02 12:50] LABS: Alanine Aminotransferase 25 U/L (0-31); Albumin Level 4.4 g/dL (3.5-5.0); Alkaline Phosphatase 106 U/L (39-117); Anion Gap 16 (12-20); Aspartate Amino Transferase 32 U/L (5-31); Bilirubin Total 0.5 mg/dL (0.0-1.0); Blood Urea Nitrogen 21 mg/dL (9-16); Calcium 9.7 mg/dL (8.4-10.2); Carbon Dioxide 21 mmol/L (22-29); Chloride 107 mmol/L (96-108); Estimated Glomerular Filt Rate > 60; Free T4 (Free Thyroxine) 1.78 ng/dL (0.71-1.85); Glucose Fasting 81 mg/dL (60-99); Potassium 5.4 mmol/L (3.3-5.1); Sodium 139 mmol/L (135-145); Thyroid Stimulating Hormone < 0.01 uIU/mL (0.32-4.0); Total Protein 7.9 g/dL (6.5-8.0)
[2023-03-05 02:14] LABS: Triiodothyronine T3 Total 146 ng/dL (76-181)
== END 2023-03-02 10:10 | disposition home or self-care (01) ==
LOC: HO.WFDLDS 10:09
PROVIDERS: Visit Provider Family Medicine
DX: Z00.00 Encounter for general adult medical examination without abnormal findings (principal); E03.9 Hypothyroidism, unspecified; I10 Essential (primary) hypertension; E11.9 Type 2 diabetes mellitus without complications
CPT/HCPCS: 36415; 80053; 84439; 84443; 84480

== ENCOUNTER 2023-06-04 08:00 | Outpatient (REF) | payer MEDICARE, OTHER, SELFPAY ==
[2023-06-04 12:24] LABS: Free T4 (Free Thyroxine) 1.42 ng/dL (0.71-1.85); Thyroid Stimulating Hormone 0.04 uIU/mL (0.32-4.0)
[2023-06-05 20:14] LABS: Triiodothyronine T3 Total 139 ng/dL (76-181)
== END 2023-06-04 08:01 | disposition home or self-care (01) ==
LOC: HO.WFDLDS 08:00
PROVIDERS: Visit Provider Family Medicine
DX: E03.9 Hypothyroidism, unspecified (principal)
CPT/HCPCS: 36415; 84439; 84443; 84480

== ENCOUNTER 2023-06-07 09:27 | Outpatient (AMB) | payer MEDICARE, OTHER, SELFPAY ==
--- NOTE | 2023-06-07 09:29 | MHC.PC.OV ---
Vital Signs 06/07/23 09:32 Height 4 ft 5 in Weight 116 lb 2 oz BMI 29.1 BP 112/64 Blood Pressure Location Lt brachial Position Sitting Pulse 70 Pulse Source Pulse Oximeter Pulse Oximetry (%) 97 Intake Visit Reasons: f/u diabetes Intake Note: pt is here for f/u DM and thyroid concern Clutch Rebuilder Required: No Accompanied by: Self / Same As Patient Allergies ciprofloxacin [From Cipro] Allergy (Verified 06/07/23 09:30) Unknown cyclobenzaprine Allergy (Verified 06/07/23 09:30) Unknown Phenothiazines Allergy (Verified 06/07/23 09:30) Unknown prochlorperazine [From Compazine] Allergy (Verified 06/07/23 09:30) Unknown Tobacco use date assessed: 06/07/23 Fall risk assessment: No Falls in past year Last assessed Fall Risk: 06/07/23 Dental Screening Dental Screen Date: 06/07/23 Did you have a dental visit in the last 12 months?: Yes Did you have a dental problem in the last 6 months where you did not have access to dental care?: No Was dental information given to patient?: Patient has dentist HPI f/u diabetes HPI Details 67 y/o female presents to f/u diabetes. Last A1c 03/02/23 6.0%. She is on metformin 500mg daily. A1c today 06/07/23 is 5.6%. Blood pressure today is 112/64. She is on amlodipine 10mg daily. Recent bone density test shows osteopenia. She is on omeprazole for GERD. She reports she had a cough that had improved with omperazole. [facility] Medical History Diverticulitis Surgical History History of partial hysterectomy History of reduction surgery of right breast Hx of appendectomy Hx of partial thyroidectomy Hx of rotator cuff surgery Social History Household Members: Family Household Members Other:: brother and sister in law Housing: House Do you presently have visiting nurse or other home services: No Patient Tobacco Use Status: Former Tobacco user Quit Date: 2011 Tobacco use type: Cigarette e-Cigarette/Vaping Use: Never Used Second Hand Smoke Exposure: Yes Advance Directives Date on File: 09/14/22 service: No Current occupational status: retired Cognitive needs: No Hearing needs: No Vision needs: Yes Female Reproductive History Menstrual Date of Mammogram: 01/04/23 Questionnaire PHQ-9 Over the last 2 weeks, how often have you been bothered by any of the following problems? 1. Little interest or pleasure in doing things: not at all 2. Feeling down, depressed, or hopeless: not at all 3. Trouble falling or staying asleep, or sleeping too much: not at all 4. Feeling tired or having little energy: not at all 5. Poor appetite or overeating: not at all 6. Feeling bad about yourself - or that you are a failure or have let yourself or your family down: not at all 7. Trouble concentrating on things, such as reading the newspaper or watching television: not at all 8. Moving or speaking so slowly that other people could have noticed. Or the opposite - being so fidgety or restless that you have been moving around a lot more than usual: not at all 9. Thoughts that you would be better off or of hurting yourself in some way: not at all Total score: 0 Depression Screening Interpretation: Negative 22712 - PHQ-9 Billing: Yes Source: Developed by Drs. Gurjit Stevenson, Martha Cruz, Khoa Montes and colleagues, with an educational vj from [employer]. Thrive Questionnaire Date Thrive assessed: 06/07/23 I am a: Patient What is your living situation today?: I have a steady place to live Within the past 12 months, did the food you bought not last and you didn't have the money to get more?: Never true Within the past 12 months, did you worry whether your food would run out before you got money to buy more?: Never true Do you have trouble paying for medicines?: No Do you have trouble getting transportation to medical appointments?: No Do you have trouble paying your heating and electricity bill?: No Do you have trouble taking care of your child, family member or friend?: No Do you have trouble with day-to-day activities such as bathing, preparing meals, shopping, managing finances, etc.?: No Are you currently unemployed and looking for a job?: No Are you interested in more education?: No Please select the resources that you would like help with: None Currently or been in a relationship where the following occur: no concerns reported LEONA-7 AMB Questionnaire LEONA-7 Date LEONA - 7 assessed: 06/07/23 Feeling nervous, anxious, or on edge: 0 = Not at all Not being able to stop or control worryin = Not at all Worrying too much about different things: 0 = Not at all Trouble relaxin = Not at all Being so restless that it is hard to sit still: 0 = Not at all Becoming easily annoyed or irritable: 0 = Not at all Feeling afraid as if something awful might happen: 0 = Not at all Total LEONA-7 score (0-4 normal; 5-9 mild; 10-14 moderate; 15-21 severe): 0 Source: Developed by Drs. Gurjit Stevenson, Martha Cruz, Khoa Montes and colleagues, with an educational vj from [employer]. LEONA-7 Assessment Billing LEONA-7 Assessment Tool: LEONA-7 Assessment 60656 Review of Systems Const Denies chills, Denies fatigue, Denies fever(s), Denies headache(s) and Denies weakness ENT Denies dizziness and Denies headache(s) Card Denies chest pain, Denies lightheadedness, Denies dyspnea and Denies other (Palpitations) Resp Denies cough, Denies dyspnea, Denies wheezing and Denies other ( shortness of breath) Musc Denies numbness and Denies tingling Neuro Denies dizziness, Denies headache(s), Denies numbness, Denies tingling, Denies paresthesias and Denies weakness Psych Denies anxiety and Denies depression Endo Denies fatigue Aller/Immun Denies wheezing Physical exam (Primary Care) Vital Signs: Last Vital Signs Pulse 70 06/07/23 09:32 BP 112/64 06/07/23 09:32 Pulse Ox 97 06/07/23 09:32 BMI result Body Mass Index 29.1 Tobacco/Smoking Status: Tobacco use Status Tobacco use date assessed 06/07/23 06/07/23 09:31 Patient Tobacco Use Status Former Tobacco user 06/07/23 09:31 Tobacco use type Cigarette 06/07/23 09:31 e-Cigarette/Vaping Use Never Used 06/07/23 09:31 PHQ-9: PHQ-9 Score PHQ-9: Total score 0 06/07/23 09:53 Depression Screening Interpretation: Negative Thrive Assessment: Date of Thrive Assessment Date Thrive assessed 06/07/23 06/07/23 09:40 Currently or been in a relationship where the following occur: no concerns reported Const General: no acute distress and well developed Nutritional Appearance: well nourished Orientation/consciousness: patient oriented x3 HENMT Head: Yes normocephalic and Yes atraumatic Eyes General: appearance normal, both eyes and all related structures Pupils: Equal, round and reactive pupils present EOM: EOMs intact bilaterally Resp Effort & Inspection: normal respiratory effort Auscultation: clear to auscultation bilaterally Cardio Rate: regular rate Rhythm: regular rhythm Heart sounds: S1 normal heart sound present, S2 normal heart sound present, no gallops, no murmurs and no rubs Neuro General: patient oriented x3 and gait normal Cranial nerves: Yes Equal, round and reactive pupils present Psych Affect: normal affect Results AMB Hemoglobin A1c AMB Hemoglobin A1c 5.6 % Last Edit by Elian Boyce CMA on 06/07/23 09:51 Results Reviewed Results Reviewed: Laboratory Last Values Hgb A1c (Clinic) 5.6 % (4.0-6.0) 06/07/23 09:41 Assessment and Plan Assessment & Plan (1) Diabetes: Code(s): E11.9 - Type 2 diabetes mellitus without complications Plan: A1c 5.6%. Goal is less than 7.0% Well controlled Continue current medication regimen (2) Osteopenia: Code(s): M85.80 - Other specified disorders of bone density and structure, unspecified site Plan: Bone density testing showed osteopenia Patient will ensure she gets good sources of calcium and vitamin-D. Will recheck levels at her next blood draw Encouraged weight-bearing exercises She has been on omeprazole for a GERD related cough and this has improved her cough but we discussed switching to Pepcid for now and referred her to Gastroenterology (3) Hypertension: Code(s): I10 - Essential (primary) hypertension Plan: Blood pressure is controlled. Goal is less than 140/90 Continue current medication (4) GERD (gastroesophageal reflux disease): Code(s): K21.9 - Gastro-esophageal reflux disease without esophagitis Plan: As above, had given her omeprazole for a GERD related cough and this had improved her cough. However she has osteopenia and I am switching her to Pepcid while she awaits a consult with GI. (5) Hypothyroidism: Code(s): E03.9 - Hypothyroidism, unspecified Plan: TSH is still suppressed after rechecking levels Decreasing levothyroxine from 137 mcg daily to 125 mcg daily Will recheck in 2 months (6) Pain of left calf: Code(s): M79.662 - Pain in left lower leg Plan: Patient has pain in her left calf which occurs primarily at night. Not occurring during walking. Likely related to lumbar radiculopathy. Referred her for physical therapy Advised they place a pillow under her knees when lying down Orders: Orders PT Evaluation and Treatment Today M54.16 - Radiculopathy, lumbar region, M79.662 - Pain in left lower leg AMB Hemoglobin A1c Today E11.9 - Type 2 diabetes mellitus without complications, Z13.9 - Encounter for screening, unspecified Referrals Gastroenterology Referral K21.9 - Gastro-esophageal reflux disease without esophagitis, M85.80 - Other specified disorders of bone density and structure, unspecified site Medications: New famotidine 20 mg PO DAILY 90 days 90 tabs 3RF Changed From levothyroxine 137 mcg PO DAILY 90 days 90 tabs 3RF To levothyroxine 125 mcg PO DAILY 90 days 90 tabs 3RF From lidocaine 5% 1 patch topical DAILY M54.16 - Radiculopathy, lumbar region, M54.30 - Sciatica, unspecified side To lidocaine 5% 1 patch topical DAILY 30 days 30 ea 3RF M54.16 - Radiculopathy, lumbar region, M54.30 - Sciatica, unspecified side Coding Level of Care Code Est Pt Level 4 (77259) Diagnoses Diabetes E11.9 Osteopenia M85.80 Hypertension I10 GERD (gastroesophageal reflux disease) K21.9 Hypothyroidism E03.9 Pain of left calf M79.662 Additional Codes LEONA-7 Assessment Billing - LEONA-7 Assessment Tool: LEONA-7 Assessment 49716 ([id number])
[2023-06-07 09:32] VITALS: BP 112/64; PULSE 70; O2SAT 97; BMI 29.1
== END 2023-06-07 10:16 | disposition home or self-care (01) ==
PROVIDERS: PCP Family Medicine; Visit Provider Family Medicine
DX: E11.9 Type 2 diabetes mellitus without complications (principal); I10 Essential (primary) hypertension; K21.9 Gastro-esophageal reflux disease without esophagitis; E03.9 Hypothyroidism, unspecified; M85.80 Other specified disorders of bone density and structure, unspecified site; M79.662 Pain in left lower leg
CPT/HCPCS: 83036; 99214

== ENCOUNTER 2023-07-03 09:25 | Outpatient (AMB) | payer MEDICARE, OTHER, SELFPAY ==
--- NOTE | 2023-07-03 09:31 | MHC.OFFVIS ---
Intake Vital Signs 07/03/23 09:38 Height 4 ft 5 in Weight 118 lb BMI 29.5 BP 132/74 Blood Pressure Location Lt brachial Position Sitting Pulse 84 Intake Visit Reasons: Gerd Intake Note: Patient follow up for GERD. Patient cc: acid reflex is control, right side of throat is swelling and problem to swallow, too. Desktop Publishing Associate Required: No Accompanied by: Family/Other Allergies ciprofloxacin [From Cipro] Allergy (Verified 07/03/23 09:30) Unknown cyclobenzaprine Allergy (Verified 07/03/23 09:30) Unknown Phenothiazines Allergy (Verified 07/03/23 09:30) Unknown prochlorperazine [From Compazine] Allergy (Verified 07/03/23 09:30) Unknown Medication List - Last Reconciled 07/03/23 by Shayy Iqbla PA-C amlodipine 10 mg PO DAILY cetirizine (Zyrtec) 10 mg PO DAILY PRN famotidine 20 mg PO DAILY 90 days levetiracetam 250 mg PO BID levothyroxine 125 mcg PO DAILY 90 days lidocaine 5% 1 patch topical DAILY 30 days meclizine 25 mg PO BID PRN 30 days metformin 500 mg PO DAILY 90 days naproxen sodium (Aleve) 220 mg PO BID PRN omeprazole 20 mg PO DAILY 90 days HPI HPI Comments History of Present Illness Details A 67 y/o F-here with her CHIARA Referred with reflux- with cough=-reflux symptoms seems to have completely resolved however she continues with intermittent at night Seen in October- Appetite is good has cough - does not smoke ( brother does) CHIARA-says he smokes outside only (however patient has strong tobacco odor) she has PND- Taking pepcid x 2 weeks-have acid reflux has been well controlled however has cough Was taking omeprazole- no cough- dc'd due to bone density She feels something in her throat- but has started with worsening PND Had issues with sciatica- She is up to date and had a normal colonoscopy - in [place]- ? 2019-per her and her CHIARA report she want to return-to [place] soon Continue zyrtec for allergies- [facility] Medical History Diverticulitis Surgical History History of partial hysterectomy History of reduction surgery of right breast Hx of appendectomy Hx of partial thyroidectomy Hx of rotator cuff surgery Family History (Updated 07/03/23 @ 10:30 by Shayy Iqbal PA-C) Other Cough Social History Household Members: Family Household Members Other:: brother and sister in law Housing: House Do you presently have visiting nurse or other home services: No Patient Tobacco Use Status: Former Tobacco user Quit Date: 2011 Tobacco use type: Cigarette e-Cigarette/Vaping Use: Never Used Second Hand Smoke Exposure: Yes Advance Directives Date on File: 09/14/22 service: No Current occupational status: retired Cognitive needs: No Hearing needs: No Vision needs: Yes Review of Systems Const All systems reviewed & are unremarkable except as noted in HPI and below ENT Reports post nasal drip Card Denies chest pain and Denies dyspnea Resp Denies dyspnea GI Denies abdominal pain, Denies hematochezia, Denies change in bowel habits, Denies heartburn, Denies nausea and Denies vomiting Psych Reports anxiety Physical Exam Vital Signs: Last Vital Signs Pulse 84 07/03/23 09:38 BP 132/74 07/03/23 09:38 BMI result Body Mass Index 29.5 Tobacco- odor Const General: cooperative, healthy appearing, comfortable and no acute distress Orientation/consciousness: patient oriented x3 Limitations: no limitations HEENT General nose exam: No nasal discharge present and Other nasal findings present (Mild erythema nares-) Mouth: tongue normal Throat: Yes uvula midline and No postnasal drainage Resp Effort & Inspection: normal respiratory effort and able to speak in complete sentences Auscultation: clear to auscultation bilaterally, no rales, no rhonchi and no wheezes Cardio Rate: regular rate Rhythm: regular rhythm Heart sounds: S1 normal heart sound present and S2 normal heart sound present GI Palpation (GI): Soft to palpation and nontender Auscultation: normal bowel sounds Neuro General: patient oriented x3 Extrem General: Yes full ROM Psych Appearance: grossly normal and well kempt Mental Status: mental status grossly normal Speech and movement: Clear speech present Affect: normal affect Attitude: cooperative Thought process: Normal thought process present Assessment & Plan Assessment & Plan (1) GERD (gastroesophageal reflux disease): Comment: Symptoms well controlled with famotidine-for the most part however will increase to b.i.d. to cover night time Cough Code(s): K21.9 - Gastro-esophageal reflux disease without esophagitis Plan: Increase Pepcid b.i.d. Avoid culprits (2) Dysphagia: Comment: New onset, will get barium swallow Code(s): R13.10 - Dysphagia, unspecified Plan: Barium swallow (3) Cough: Comment: Nonproductive cough, PND vs gerd How exposed to secondhand smoke-no reported smokers in the house, smoke outside-she does have tobacco order-likely she is exposed Code(s): R05.9 - Cough, unspecified Plan: Avoid being exposed to secondhand smoke Plan Famotidine 20 mg b.i.d. Reflux precaution Remain upright 2-3 hours after eating Continue Zyrtec for allergies Follow-up PCP postnasal drip Barium swallow Orders: Orders [place] barium swallow Today K21.9 - Gastro-esophageal reflux disease without esophagitis, R13.10 - Dysphagia, unspecified Medications: New famotidine 20 mg PO BID 60 tabs 4RF 30 days Patient Instructions: amotidine 20 mg b.i.d. Reflux precaution Remain upright 2-3 hours after eating Continue Zyrtec for allergies Follow-up PCP postnasal drip Barium swallow Encouraged to call with any questions or concerns Coding Level of Care Code Est Pt Level 3 (88245) Diagnoses GERD (gastroesophageal reflux disease) K21.9 Dysphagia R13.10 Cough R05.9 Time Spent (min) 35
[2023-07-03 09:38] VITALS: BP 132/74; PULSE 84; BMI 29.5
== END 2023-07-03 10:25 | disposition home or self-care (01) ==
LOC: HO.HGIW 09:25
PROVIDERS: PCP Family Medicine; Visit Provider Physician Assistant
DX: K21.9 Gastro-esophageal reflux disease without esophagitis (principal); R13.10 Dysphagia, unspecified; R05.9 Cough, unspecified
CPT/HCPCS: 99213

== ENCOUNTER → 2023-07-03 09:25 | Outpatient (BNVA) | payer MEDICARE, OTHER, SELFPAY | PROVIDERS: PCP Family Medicine; Visit Provider Physician Assistant | DX: K21.9 Gastro-esophageal reflux disease without esophagitis (principal); R13.10 Dysphagia, unspecified; R05.9 Cough, unspecified | CPT/HCPCS: 99212 ==

== ENCOUNTER 2023-08-06 08:32 | Outpatient (REF) | payer MEDICARE, OTHER, SELFPAY ==
[2023-08-06 12:52] LABS: Alanine Aminotransferase 17 U/L (0-31); Albumin Level 4.2 g/dL (3.5-5.0); Alkaline Phosphatase 102 U/L (39-117); Anion Gap 17 (12-20); Aspartate Amino Transferase 19 U/L (5-31); Bilirubin Total 0.4 mg/dL (0.0-1.0); Blood Urea Nitrogen 19 mg/dL (9-16); Calcium 10.1 mg/dL (8.4-10.2); Carbon Dioxide 22 mmol/L (22-29); Chloride 109 mmol/L (96-108); Estimated Glomerular Filt Rate > 60; Glucose Random 97 mg/dL (60-115); Potassium 4.9 mmol/L (3.3-5.1); Sodium 143 mmol/L (135-145); Total Protein 7.9 g/dL (6.5-8.0)
[2023-08-06 13:11] LABS: Free T4 (Free Thyroxine) 1.19 ng/dL (0.71-1.85); Thyroid Stimulating Hormone 0.01 uIU/mL (0.32-4.0); Vitamin D 25-OH Total 48.2 ng/mL (>30)
[2023-08-08 03:39] LABS: Triiodothyronine T3 Total 111 ng/dL (76-181)
== END 2023-08-06 08:33 | disposition home or self-care (01) ==
LOC: HO.WFDLDS 08:32
PROVIDERS: Visit Provider Family Medicine
DX: M85.80 Other specified disorders of bone density and structure, unspecified site (principal); E03.9 Hypothyroidism, unspecified; E55.9 Vitamin D deficiency, unspecified
CPT/HCPCS: 36415; 80053; 82306; 84439; 84443; 84480

== ENCOUNTER 2023-08-10 08:37 | Outpatient (AMB) | payer MEDICARE, OTHER, SELFPAY ==
--- NOTE | 2023-08-10 08:42 | MHC.PC.OV ---
Vital Signs 08/10/23 08:46 Height 4 ft 5 in Weight 119 lb BMI 29.8 BP 118/58 L Blood Pressure Location Rt brachial Position Sitting Respiration 14 Pulse 70 Pulse Source Pulse Oximeter Temp 98.7 F Temp Source Oral Pulse Oximetry (%) 97 Oxygen Delivery Method Room Air Intake Visit Reasons: 2 month follow up , GERD, HYPOTHYROID, OSTEOPENIA Intake Note: Patient reports with the Pepcid for her GERD she still coughs. Patient reports she has no other concerns at this time. Patient is here with her [id number] Gris. Patient had her labs drawn on 08/06/23 and her last A1C 5.7% on 06/06/23. Slat Grader Required: No Accompanied by: Sister Allergies ciprofloxacin [From Cipro] Allergy (Verified 08/10/23 08:45) Unknown cyclobenzaprine Allergy (Verified 08/10/23 08:45) Unknown Phenothiazines Allergy (Verified 08/10/23 08:45) Unknown prochlorperazine [From Compazine] Allergy (Verified 08/10/23 08:45) Unknown Medication List - Last Reconciled 08/10/23 by Duane Obregon MD amlodipine 10 mg PO DAILY cetirizine (Zyrtec) 10 mg PO DAILY PRN famotidine 20 mg PO DAILY 90 days famotidine 20 mg PO BID 30 days levetiracetam 250 mg PO BID levothyroxine 125 mcg PO DAILY 90 days lidocaine 5% 1 patch topical DAILY 30 days meclizine 25 mg PO BID PRN 30 days metformin 500 mg PO DAILY 90 days naproxen sodium (Aleve) 220 mg PO BID PRN omeprazole 20 mg PO DAILY 90 days Tobacco use date assessed: 06/07/23 Fall risk assessment: No Falls in past year Last assessed Fall Risk: 08/10/23 Dental Screening Dental Screen Date: 08/10/23 Did you have a dental visit in the last 12 months?: Yes Did you have a dental problem in the last 6 months where you did not have access to dental care?: No Was dental information given to patient?: Patient has dentist HPI 2 month follow up HPI Details 67 y/o female presents to f/u hypothyroidism, osteopenia and GERD. Labs were drawn 08/06/23. Reviewed labs with pt. TSH worsened from 0.04L to 0.01L. Taking?famotidine.??Not?taking?omeprazole?anymore. She?denies?any?acid?reflux?symptoms Followed?by?GI?for?dysphagia?and?has?a?swallowing?study?coming?up [facility] Medical History Diverticulitis Surgical History History of partial hysterectomy History of reduction surgery of right breast Hx of appendectomy Hx of partial thyroidectomy Hx of rotator cuff surgery Family History (Updated 07/03/23 @ 10:30 by Shayy Iqbal PA-C) Other Cough Social History Household Members: Family Household Members Other:: brother and sister in law Housing: House Do you presently have visiting nurse or other home services: No Patient Tobacco Use Status: Former Tobacco user Quit Date: 2011 Tobacco use type: Cigarette e-Cigarette/Vaping Use: Never Used Second Hand Smoke Exposure: Yes Advance Directives Date on File: 09/14/22 service: No Current occupational status: retired Cognitive needs: No Hearing needs: No Vision needs: Yes Questionnaire Thrive Questionnaire Date Thrive assessed: 06/07/23 LEONA-7 AMB Questionnaire LEONA-7 Date LEONA - 7 assessed: 06/07/23 Source: Developed by Drs. Gurjit Stevenson, Martha Cruz, Khoa Montes and colleagues, with an educational vj from [employer]. Review of Systems Const Denies chills, Denies fatigue, Denies fever(s), Denies headache(s) and Denies weakness ENT Denies dizziness and Denies headache(s) Card Denies chest pain, Denies lightheadedness, Denies dyspnea and Denies other (Palpitations) Resp Denies cough, Denies dyspnea, Denies wheezing and Denies other ( shortness of breath) Musc Denies numbness and Denies tingling Neuro Denies dizziness, Denies headache(s), Denies numbness, Denies tingling, Denies paresthesias and Denies weakness Psych Denies anxiety and Denies depression Endo Denies fatigue Aller/Immun Denies wheezing Physical exam (Primary Care) Vital Signs: Last Vital Signs Temp 98.7 F 08/10/23 08:46 Pulse 70 08/10/23 08:46 Resp 14 08/10/23 08:46 BP 118/58 L 08/10/23 08:46 Pulse Ox 97 08/10/23 08:46 Oxygen Delivery Method Room Air 08/10/23 08:46 BMI result Body Mass Index 29.8 Tobacco/Smoking Status: Tobacco use Status Tobacco use date assessed 06/07/23 08/10/23 08:45 Patient Tobacco Use Status Former Tobacco user 08/10/23 08:45 Tobacco use type Cigarette 08/10/23 08:45 e-Cigarette/Vaping Use Never Used 08/10/23 08:45 Thrive Assessment: Date of Thrive Assessment Date Thrive assessed 06/07/23 08/10/23 08:45 Const General: no acute distress and well developed Nutritional Appearance: well nourished Orientation/consciousness: patient oriented x3 HENMT Head: Yes normocephalic and Yes atraumatic Eyes General: appearance normal, both eyes and all related structures Pupils: Equal, round and reactive pupils present EOM: EOMs intact bilaterally Resp Effort & Inspection: normal respiratory effort Auscultation: clear to auscultation bilaterally Cardio Rate: regular rate Rhythm: regular rhythm Heart sounds: S1 normal heart sound present, S2 normal heart sound present, no gallops, no murmurs and no rubs Neuro General: patient oriented x3 and gait normal Cranial nerves: Yes Equal, round and reactive pupils present Psych Affect: normal affect Assessment and Plan Assessment & Plan (1) Hypothyroidism: Code(s): E03.9 - Hypothyroidism, unspecified Plan: Age?level?is?still?quite?suppressed Had?decreased?levothyroxine?from?137?mcg?to?125?mcg Now?decreasing?further?from?125?mcg?down?to?112?mcg Will?have?her?return?in?2?months?for?follow-up.??We?discussed?that?we?may?need?to?adjust?further. (2) Osteopenia: Code(s): M85.80 - Other specified disorders of bone density and structure, unspecified site Plan: Had?switched?patient?from?omeprazole?to?famotidine?as?she?has?osteopenia?and?trying?to?decrease?risk?factors Have?also?advised?vitamin-D?OTC?for?the?winter?months?though?currently?her?vitamin-D?is?within?normal?limits. (3) GERD (gastroesophageal reflux disease): Comment: Symptoms well controlled with famotidine-for the most part however will increase to b.i.d. to cover night time Cough Code(s): K21.9 - Gastro-esophageal reflux disease without esophagitis Plan: Patient?notices?no?symptoms?on?famotidine She?has?some?dysphagia?and?is?followed?by?GI. Follow-up?with?GI?as?recommended Medications: Changed From levothyroxine 125 mcg PO DAILY 90 days 90 tabs 3RF To levothyroxine 112 mcg PO DAILY 30 days 30 tabs 3RF Discontinued omeprazole Discontinued Reason: Doctor's Order 20 mg PO DAILY 90 days 90 caps 2RF Coding Level of Care Code Est Pt Level 4 (72995) Diagnoses Hypothyroidism E03.9 Osteopenia M85.80 GERD (gastroesophageal reflux disease) K21.9
[2023-08-10 08:46] VITALS: BP 118/58; PULSE 70; RESP 14; TEMP 37.1; O2SAT 97; BMI 29.8
== END 2023-08-10 09:27 | disposition home or self-care (01) ==
PROVIDERS: PCP Family Medicine; Visit Provider Family Medicine
DX: E03.9 Hypothyroidism, unspecified (principal); M85.80 Other specified disorders of bone density and structure, unspecified site; K21.9 Gastro-esophageal reflux disease without esophagitis
CPT/HCPCS: 99214

== ENCOUNTER 2023-08-14 09:23 | Outpatient (AMB) | payer MEDICARE, OTHER, SELFPAY ==
--- NOTE | 2023-08-14 09:24 | A.OFFVIS_ITS ---
Intake Vital Signs 08/14/23 09:27 Height 4 ft 5 in Weight 119 lb BMI 29.8 BP 119/52 L Blood Pressure Location Lt brachial Position Sitting Pulse 65 Intake Visit Reasons: 6 week fu Intake Note: Patient follow up for Erosive Esophagitis. Patient denies any GI issues. Manager Field Services Required: No Accompanied by: Family/Other Allergies ciprofloxacin [From Cipro] Allergy (Verified 08/14/23 09:23) Unknown cyclobenzaprine Allergy (Verified 08/14/23 09:23) Unknown Phenothiazines Allergy (Verified 08/14/23 09:23) Unknown prochlorperazine [From Compazine] Allergy (Verified 08/14/23 09:23) Unknown Medication List - Last Reconciled 08/14/23 by Shayy Iqbal PA-C amlodipine 10 mg PO DAILY cetirizine (Zyrtec) 10 mg PO DAILY PRN famotidine 20 mg PO DAILY 90 days famotidine 20 mg PO BID 30 days levetiracetam 250 mg PO BID levothyroxine 112 mcg PO DAILY 30 days lidocaine 5% 1 patch topical DAILY 30 days meclizine 25 mg PO BID PRN 30 days metformin 500 mg PO DAILY 90 days naproxen sodium (Aleve) 220 mg PO BID PRN HPI HPI Comments History of Present Illness Details 67-year-old female follows up GERD, dysp hagia and cough- here with her CHIARA Scheduled for barium swallow appointment pending/ 09/12/23 Famotidine 20 mg daily with good response in she has not had any issues with dysphagia She has a cough- has PND- taking zyrtec 2nd hand smoke exposure- brother who blair es in the home- No nausea, vomiting hematemesis, hematochezia fever chills PFSH Medical History (Updated 08/14/23 @ 11:31 by Shayy Iqbal PA-C) Diverticulitis Surgical History Hx of rotator cuff surgery Hx of appendectomy History of partial hysterectomy Hx of partial thyroidectomy History of reduction surgery of right breast Family History Other Cough Social History Household Members: Family Household Members Other:: brother and sister in law Housing: House Do you presently have visiting nurse or other home services: No Patient Tobacco Use Status: Former Tobacco user Quit Date: 2011 Tobacco use type: Cigarette e-Cigarette/Vaping Use: Never Used Second Hand Smoke Exposure: Yes Advance Directives Date on File: 09/14/22 service: No Current occupational status: retired Cognitive needs: No Hearing needs: No Vision needs: Yes Review of Systems Const All systems reviewed & are unremarkable except as noted in HPI and below Denies headache(s) ENT Denies dizziness, Denies headache(s), Reports post nasal drip and Denies sore throat Card Denies chest pain and Denies dyspnea Resp Denies dyspnea GI Denies abdominal pain, Denies change in bowel habits, Reports dyspepsia, Denies diarrhea, Denies nausea and Denies vomiting Neuro Denies dizziness and Denies headache(s) Physical Exam Vital Signs: Last Vital Signs Pulse 65 08/14/23 09:27 BP 119/52 L 08/14/23 09:27 BMI result Body Mass Index 29.8 Const Other: Tob odor General: cooperative, healthy appearing, comfortable and no acute distress Orientation/consciousness: patient oriented x3 Eyes Sclerae: sclerae normal Resp Effort & Inspection: normal respiratory effort and able to speak in complete sentences Skin General skin exam: no rashes or lesions noted Neuro General: patient oriented x3 Extrem General: Yes full ROM Psych Appearance: well kempt Speech and movement: Normal speech and movement present and Clear speech present Affect: normal affect Attitude: cooperative Thought content: Normal thought content present Insight: Good insight present (Psych) Assessment & Plan Assessment & Plan (1) Dysphagia: Comment: New onset, awaiting barium swallow Code(s): R13.10 - Dysphagia, unspecified (2) GERD (gastroesophageal reflux disease): Comment: Symptoms well controlled with famotidine b.i.d. to cover night time Cough Code(s): K21.9 - Gastro-esophageal reflux disease without esophagitis (3) Cough: Comment: Nonproductive cough, PND vs gerd exposed to secondhand smoke-tobacco odor-CHIARA to take further measures to avoid exposure Code(s): R05.9 - Cough, unspecified Plan: Continue usual medications Patient Instructions: Continue famotidine 20 mg b.i.d. Reviewed reflux precautions Avoid culprits Eat slowly, chew food well Avoid tobacco exposure Follow-up PCP/ENT postnasal drip and allergies Will follow back after barium swallow complete results available for review Encouraged to call with questions or concern Coding Level of Care Code Est Pt Level 3 (15123) Diagnoses Dysphagia R13.10 GERD (gastroesophageal reflux disease) K21.9 Cough R05.9 Time Spent (min) 30
[2023-08-14 09:27] VITALS: BP 119/52; PULSE 65; BMI 29.8
== END 2023-08-14 12:29 | disposition home or self-care (01) ==
LOC: HO.HGIW 09:23
PROVIDERS: PCP Family Medicine; Visit Provider Physician Assistant
DX: R13.10 Dysphagia, unspecified (principal); K21.9 Gastro-esophageal reflux disease without esophagitis; R05.9 Cough, unspecified
CPT/HCPCS: 99213

== ENCOUNTER → 2023-08-14 09:23 | Outpatient (BNVA) | payer MEDICARE, OTHER, SELFPAY | PROVIDERS: PCP Family Medicine; Visit Provider Physician Assistant | DX: R13.10 Dysphagia, unspecified (principal); K21.9 Gastro-esophageal reflux disease without esophagitis; R05.9 Cough, unspecified; Z79.899 Other long term (current) drug therapy | CPT/HCPCS: 99212 ==

== ENCOUNTER 2023-09-12 09:42 | Outpatient (REF) | payer MEDICARE, OTHER, SELFPAY ==
--- NOTE | ~2023-09-12 | FL_ITS ---
EXAMINATION: FL Barium Swallow CLINICAL INFORMATION: Dysphasia COMPARISON: None TECHNIQUE: Fluoroscopic air contrast upper GI examination was performed utilizing standard techniques with thin and thick barium and effervescent granules. Numerous spot images were obtained. FINDINGS: Lateral cine images of the oropharynx and hypopharynx demonstrate normal swallow mechanism with normal epiglottic inversion and soft palate elevation. No tracheal penetration, glottic or subglottic aspiration identified. No nasopharyngeal reflux present. There is a small diverticulum of the right piriform sinus present. There was no significant cricopharyngeal achalasia. Dual and single contrast images of the esophagus demonstrate normal caliber, contour, and mucosal pattern. No evidence of stricture, mass, or ulcerations identified. Primary esophageal peristalsis was normal. There are a few tertiary contractions, which are nonpropulsive. A small hiatal hernia is present. Gastroesophageal reflux was seen up to level of the thoracic inlet. FLUOROSCOPY TIME: 3 minutes 36 seconds Number of Spot Images: 4 Number of cine: 10 DOSE AREA PRODUCT: 1392 uGy-m2 (microgray-meter squared) FL/FL barium swallow IMPRESSION: 1. A small diverticulum of the right pyriform sinus is present, with mild retention of a small amount of barium. Persistent mild vallecular and piriform sinus pooling was noted. 2. No evidence of aspiration 3. Mild esophageal dysmotility 4. Small hiatal hernia with associated gastroesophageal reflux This procedure was performed by Myron Lopez PA-C, and supervised by Dr. Cha
== END 2023-09-12 09:43 | disposition home or self-care (01) ==
LOC: HO.XRAY 09:42
PROVIDERS: Visit Provider Physician Assistant
DX: R13.10 Dysphagia, unspecified (principal); K21.9 Gastro-esophageal reflux disease without esophagitis
CPT/HCPCS: 74220

== ENCOUNTER → 2023-09-12 09:44 | Outpatient (BNV) | payer MEDICARE, OTHER, SELFPAY | PROVIDERS: Visit Provider Radiology Diagnostic Radiology | DX: R13.10 Dysphagia, unspecified (principal) | CPT/HCPCS: 74246 ==

== ENCOUNTER 2023-09-25 08:24 | Outpatient (AMB) | payer MEDICARE, OTHER, SELFPAY ==
--- NOTE | 2023-09-25 08:38 | A.OFFVIS_ITS ---
Intake Vital Signs 09/25/23 08:44 Height 4 ft 5 in Weight 120 lb BMI 30.0 BP 126/68 Blood Pressure Location Lt brachial Position Sitting Pulse 69 Intake Visit Reasons: follow up / Barium Swallow results Intake Note: Patient follow for Barium swallow results. Patient denies any GI issues. 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 Accompanied by: Self / Same As Patient Allergies ciprofloxacin [From Cipro] Allergy (Verified 09/25/23 08:38) Unknown cyclobenzaprine Allergy (Verified 09/25/23 08:38) Unknown Phenothiazines Allergy (Verified 09/25/23 08:38) Unknown prochlorperazine [From Compazine] Allergy (Verified 09/25/23 08:38) Unknown Medication List - Last Reconciled 09/25/23 by Shayy Iqbal PA-C amlodipine 10 mg PO DAILY cetirizine (Zyrtec) 10 mg PO DAILY PRN famotidine 20 mg PO BID 30 days levetiracetam 250 mg PO BID levothyroxine 112 mcg PO DAILY 30 days lidocaine 5% 1 patch topical DAILY 30 days meclizine 25 mg PO BID PRN 30 days metformin 500 mg PO DAILY 90 days naproxen sodium (Aleve) 220 mg PO BID PRN HPI HPI Comments History of Present Illness Details A 68 y/o female- here for f/u after Barium swallow-here w/ 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 less cough- plan no dysphagia Reviewed BS- they want conservative measures- only- she manages well No other c/o, normal bowels, happy- dietary modifications trying to get blood sugars better controlled No nausea, vomiting, hematemesis, hematochezia fever chills PFSH Medical History Diverticulitis Surgical History Hx of rotator cuff surgery Hx of appendectomy History of partial hysterectomy Hx of partial thyroidectomy History of reduction surgery of right breast Family History Other Cough Social History Household Members: Family Household Members Other:: brother and sister in law Housing: House Do you presently have visiting nurse or other home services: No Patient Tobacco Use Status: Former Tobacco user Quit Date: 2011 Tobacco use type: Cigarette e-Cigarette/Vaping Use: Never Used Second Hand Smoke Exposure: Yes Advance Directives Date on File: 09/14/22 service: No Current occupational status: retired Cognitive needs: No Hearing needs: No Vision needs: Yes Review of Systems Const All systems reviewed & are unremarkable except as noted in HPI and below Card Denies chest pain and Denies dyspnea Resp Denies dyspnea GI Denies dyspepsia Physical Exam Vital Signs: Last Vital Signs Pulse 69 09/25/23 08:44 BP 126/68 09/25/23 08:44 BMI result Body Mass Index 30.0 Const General: cooperative, healthy appearing, comfortable and no acute distress Orientation/consciousness: patient oriented x3 Limitations: no limitations Eyes Sclerae: sclerae normal Skin General skin exam: no rashes or lesions noted Neuro General: patient oriented x3 Extrem General: Yes full ROM Results Reviewed Results Reviewed: FL/FL barium swallow IMPRESSION: 1. A small diverticulum of the right pyriform sinus is present, with mild retention of a small amount of barium. Persistent mild vallecular and piriform sinus pooling was noted. 2. No evidence of aspiration 3. Mild esophageal dysmotility 4. Small hiatal hernia with associated gastroesophageal reflux Assessment & Plan Assessment & Plan (1) Dysphagia: Comment: No dysphagia, Reviewed barium swallow- she is asymptomatic-encourage controlled well with famotidine, Code(s): R13.10 - Dysphagia, unspecified Plan: Will call [facility] with plan of care [phone] (2) GERD (gastroesophageal reflux disease): Comment: No acid reflux, Symptoms well controlled with famotidine b.i.d. to cover night time Cough Code(s): K21.9 - Gastro-esophageal reflux disease without esophagitis (3) Cough: Comment: Nonproductive cough, much improved- exposed to secondhand smoke-tobacco odor-CHIARA to take further measures to avoid exposure Code(s): R05.9 - Cough, unspecified Plan: [id number] Gris- CHIARA Plan Continue famotidine Eat slowly chew well Reflux precautions Patient Instructions: Very pleasant 68-year-old female follows up after barium swallow for dysphagia- CHIARA as present/care Reviewed report, patient asymptomatic-doing well with famotidine Coding Level of Care Code Est Pt Level 3 (88492) Diagnoses Dysphagia R13.10 GERD (gastroesophageal reflux disease) K21.9 Cough R05.9 Time Spent (min) 30
[2023-09-25 08:44] VITALS: BP 126/68; PULSE 69
== END 2023-09-25 09:23 | disposition home or self-care (01) ==
PROVIDERS: PCP Family Medicine; Visit Provider Physician Assistant
DX: R13.10 Dysphagia, unspecified (principal); K21.9 Gastro-esophageal reflux disease without esophagitis; R05.9 Cough, unspecified
CPT/HCPCS: 99213

== ENCOUNTER → 2023-09-25 08:24 | Outpatient (BNVA) | payer MEDICARE, OTHER, SELFPAY | PROVIDERS: PCP Family Medicine; Visit Provider Physician Assistant | DX: R13.10 Dysphagia, unspecified (principal); K21.9 Gastro-esophageal reflux disease without esophagitis; R05.9 Cough, unspecified | CPT/HCPCS: 99212 ==

== ENCOUNTER 2023-10-08 09:44 | Outpatient (REF) | payer MEDICARE, OTHER, SELFPAY ==
[2023-10-08 12:07] LABS: Anion Gap 12 (12-20); Blood Urea Nitrogen 13 mg/dL (9-16); Calcium 9.9 mg/dL (8.4-10.2); Carbon Dioxide 27 mmol/L (22-29); Chloride 106 mmol/L (96-108); Estimated Glomerular Filt Rate > 60; Glucose Random 88 mg/dL (60-115); Potassium 3.9 mmol/L (3.3-5.1); Sodium 141 mmol/L (135-145)
[2023-10-08 12:30] LABS: Free T4 (Free Thyroxine) 1.28 ng/dL (0.71-1.85); Thyroid Stimulating Hormone 0.01 uIU/mL (0.32-4.0); Vitamin D 25-OH Total 44.7 ng/mL (>30)
[2023-10-09 06:23] LABS: Triiodothyronine T3 Total 117 ng/dL (76-181)
== END 2023-10-08 09:45 | disposition home or self-care (01) ==
LOC: HO.WFDLDS 09:44
PROVIDERS: Visit Provider Family Medicine
DX: Z00.00 Encounter for general adult medical examination without abnormal findings (principal); E03.9 Hypothyroidism, unspecified; E55.9 Vitamin D deficiency, unspecified
CPT/HCPCS: 36415; 80048; 82306; 84439; 84443; 84480

== ENCOUNTER 2023-10-12 08:10 | Outpatient (AMB) | payer MEDICARE, OTHER, SELFPAY ==
--- NOTE | 2023-10-12 08:14 | MHC.PC.OV ---
Vital Signs 10/12/23 08:18 Height 4 ft 5 in Weight 118 lb 8 oz BMI 29.7 BP 118/54 L Blood Pressure Location Rt brachial Position Sitting Respiration 13 Pulse 70 Pulse Source Pulse Oximeter Pulse Oximetry (%) 96 Oxygen Delivery Method Room Air Intake Visit Reasons: 2 mth hypothyroidism, PHQ9 follow up Intake Note: Patient is here to review her labs and follow up with hypothyroidism. Patient's labs were drawn on 10/08/23. Patient is accompanied by her sister in law Gris. Patient has asthma, Gris declines ACT questionnaire and peak flow test. Expedition Supervisor Required: No Accompanied by: Sister Allergies ciprofloxacin [From Cipro] Allergy (Verified 10/12/23 08:23) Unknown cyclobenzaprine Allergy (Verified 10/12/23 08:23) Unknown Phenothiazines Allergy (Verified 10/12/23 08:23) Unknown prochlorperazine [From Compazine] Allergy (Verified 10/12/23 08:23) Unknown Tobacco use date assessed: 06/07/23 HPI 2 mth hypothyroidism HPI Details 68 y/o female presents to f/u hypothyroidism. Hx of partial thyroidectomy. Had decreased her levothyroxine but TSH was still suppressed so decreased further from 125 mcg to 112 mcg daily. Labs were drawn 10/08/23. Reviewed labs with pt. TSH still suppressed. Free T4 1.28. Total T3 117. Asthma was on patient's med list but she does not have any medications for this. On inquiry, patient's family member adamantly believe she does not have asthma. A1c today 10/12/23 is 5.6%. She is on metformin 500mg daily. [facility] Medical History (Updated 10/12/23 @ 09:15 by Kyle Willard) Diverticulitis Surgical History (Updated 10/12/23 @ 09:00 by Kyle Willard) Hx of rotator cuff surgery Hx of appendectomy History of partial hysterectomy Hx of partial thyroidectomy History of reduction surgery of right breast Family History Other Adopted person Social History Household Members: Family Household Members Other:: brother and sister in law Housing: House Do you presently have visiting nurse or other home services: No Alcohol intake: never Patient Tobacco Use Status: Former Tobacco user Quit Date: 2011 Tobacco use type: Cigarette e-Cigarette/Vaping Use: Never Used Second Hand Smoke Exposure: Yes Use of substances other than those prescribed or required for medical reasons: No Have you been hit, kicked, punched, or otherwise hurt by someone within the past year? If so, by whom?: No Do you feel safe in your current relationship?: No Current Relationship Is there a partner from a previous relationship who is making you feel unsafe now?: No Are you made to feel afraid or neglected: No Advance Directives Date on File: 09/14/22 service: No Current occupational status: retired Sexually active: No Sexual orientation: Decline to Answer Gender identity: Decline to answer Cognitive needs: No Hearing needs: No Vision needs: Yes Questionnaire PHQ-9 Over the last 2 weeks, how often have you been bothered by any of the following problems? 1. Little interest or pleasure in doing things: not at all 2. Feeling down, depressed, or hopeless: not at all 3. Trouble falling or staying asleep, or sleeping too much: not at all 4. Feeling tired or having little energy: not at all 5. Poor appetite or overeating: not at all 6. Feeling bad about yourself - or that you are a failure or have let yourself or your family down: not at all 7. Trouble concentrating on things, such as reading the newspaper or watching television: not at all 8. Moving or speaking so slowly that other people could have noticed. Or the opposite - being so fidgety or restless that you have been moving around a lot more than usual: not at all 9. Thoughts that you would be better off or of hurting yourself in some way: not at all Total score: 0 Depression Screening Interpretation: Negative Depression Screening Done: Yes 92197 - PHQ-9 Billing: Yes Source: Developed by Drs. Gurjit Stevenson, Martha Cruz, Khoa Montes and colleagues, with an educational vj from [employer]. Thrive Questionnaire Date Thrive assessed: 06/07/23 AUDIT C Alcohol Use Questionnaire (AUDIT-C) 1. How often do you have a drink containing alcohol?: Never 3. How often do you have six or more drinks on one occasion?: Never Total Score: 0 Score Reviewed/Action Taken: Yes (No action needed) LEONA-7 AMB Questionnaire LEONA-7 Date LEONA - 7 assessed: 06/07/23 Source: Developed by Drs. Gurjit Stevenson, Martha Cruz, Khoa Montes and colleagues, with an educational vj from [employer]. Review of Systems Const Denies chills, Denies fatigue, Denies fever(s), Denies headache(s) and Denies weakness ENT Denies dizziness and Denies headache(s) Card Denies dyspnea Resp Denies cough, Denies dyspnea, Denies wheezing and Denies other (shortness of breath) Musc Denies numbness and Denies tingling Neuro Denies dizziness, Denies headache(s), Denies numbness, Denies tingling and Denies weakness Psych Denies anxiety and Denies depression Endo Denies fatigue Aller/Immun Denies wheezing Physical exam (Primary Care) Vital Signs: Last Vital Signs Pulse 70 10/12/23 08:18 Resp 13 10/12/23 08:18 BP 118/54 L 10/12/23 08:18 Pulse Ox 96 10/12/23 08:18 Oxygen Delivery Method Room Air 10/12/23 08:18 BMI result Body Mass Index 29.7 Tobacco/Smoking Status: Tobacco use Status Tobacco use date assessed 06/07/23 10/12/23 08:16 Patient Tobacco Use Status Former Tobacco user 10/12/23 08:30 Tobacco use type Cigarette 10/12/23 08:30 e-Cigarette/Vaping Use Never Used 10/12/23 08:30 PHQ-9: PHQ-9 Score PHQ-9: Total score 0 10/12/23 08:44 Depression Screening Interpretation: Negative Thrive Assessment: Date of Thrive Assessment Date Thrive assessed 06/07/23 10/12/23 08:16 Const General: well developed; No acute distress Nutritional Appearance: well nourished Orientation/consciousness: patient oriented x3 HENMT Head: Yes normocephalic and Yes atraumatic Eyes General: appearance normal, both eyes and all related structures Pupils: Equal, round and reactive pupils present EOM: EOMs intact bilaterally Resp Effort & Inspection: normal respiratory effort Neuro General: patient oriented x3 and gait normal Cranial nerves: Yes Equal, round and reactive pupils present Psych Affect: normal affect Results AMB Hemoglobin A1c AMB Hemoglobin A1c 5.6 % Last Edit by Rand Weiner CMA on 10/12/23 09:26 Assessment and Plan Assessment & Plan (1) Hypothyroidism: Code(s): E03.9 - Hypothyroidism, unspecified Plan: TSH?remains?suppressed despite?decreasing?levothyroxine?again.??Thyroid?hormone?levels,?T4?and?T3?are?still?in?normal?range?and?no?significant?changes.??Will?decrease?once?more. She?has?a?history?of?partial?thyroidectomy If?TSH?is?still?not?responding,?will?refer?to?endocrinology. (2) Hx of partial thyroidectomy: Code(s): E89.0 - Postprocedural hypothyroidism Plan: As?above (3) Diabetes: Code(s): E11.9 - Type 2 diabetes mellitus without complications Plan: A1c?5.6%. Good?control?and?stable.??Goal?is?less?than?7% Continue?metformin (4) Hypertension: Code(s): I10 - Essential (primary) hypertension Plan: Blood?pressure?is?well?controlled.??Goal?is?less?than?140/90 Continue?current?medication (5) Cough: Comment: Nonproductive cough, much improved- exposed to secondhand smoke-tobacco odor-CHIARA to take further measures to avoid exposure Code(s): R05.9 - Cough, unspecified Plan: Despite?comment?above?which?I?could?not?remove?from?the?chart,??Patient's?family?member?denies?that?cough?was?nonproductive.??She?says?that?patient?was?getting?significant?mucus?production. This?has?improved. Family?member?also?says?that?patient?does?not?have?asthma?which?was?also?in?her?med?list.??Will?remove?this?from?her?med?list. Orders: Orders AMB Hemoglobin A1c Today Z13.9 - Encounter for screening, unspecified Coding Level of Care Code Est Pt Level 4 (50744) Diagnoses Hypothyroidism E03.9 Hx of partial thyroidectomy E89.0 Diabetes E11.9 Hypertension I10 Cough R05.9
[2023-10-12 08:18] VITALS: BP 118/54; PULSE 70; RESP 13; O2SAT 96; BMI 29.7
== END 2023-10-12 09:32 | disposition home or self-care (01) ==
PROVIDERS: PCP Family Medicine; Visit Provider Family Medicine
DX: E89.0 Postprocedural hypothyroidism (principal); E11.9 Type 2 diabetes mellitus without complications; I10 Essential (primary) hypertension; R05.9 Cough, unspecified
CPT/HCPCS: 83036; 99214

== ENCOUNTER 2023-12-04 09:32 | Outpatient (REF) | payer MEDICARE, OTHER, SELFPAY ==
[2023-12-04 12:36] LABS: Anion Gap 14 (12-20); Blood Urea Nitrogen 20 mg/dL (9-16); Calcium 9.6 mg/dL (8.4-10.2); Carbon Dioxide 26 mmol/L (22-29); Chloride 108 mmol/L (96-108); Estimated Glomerular Filt Rate > 60; Glucose Random 97 mg/dL (60-115); Potassium 4.6 mmol/L (3.3-5.1); Sodium 143 mmol/L (135-145)
[2023-12-04 12:47] LABS: Free T4 (Free Thyroxine) 1.11 ng/dL (0.71-1.85); Thyroid Stimulating Hormone 0.12 uIU/mL (0.32-4.0)
[2023-12-05 21:23] LABS: Triiodothyronine T3 Total 105 ng/dL (76-181)
== END 2023-12-04 09:33 | disposition home or self-care (01) ==
LOC: HO.WFDLDS 09:32
PROVIDERS: Visit Provider Family Medicine
DX: Z00.00 Encounter for general adult medical examination without abnormal findings (principal); E03.9 Hypothyroidism, unspecified
CPT/HCPCS: 36415; 80048; 84439; 84443; 84480

== ENCOUNTER 2023-12-10 10:42 | Outpatient (AMB) | payer MEDICARE, OTHER, SELFPAY ==
--- NOTE | 2023-12-10 10:48 | A.OFFPC_ITS ---
Vital Signs 12/10/23 10:51 Height 4 ft 5 in Weight 121 lb 8 oz BMI 30.4 BP 116/70 Blood Pressure Location Lt brachial Position Sitting Pulse 78 Pulse Source Pulse Oximeter Pulse Oximetry (%) 99 Oxygen Delivery Method Room Air Intake Visit Reasons: f/u hypothyroidism Intake Note: Patient is here for follow up on hypothyroid. Allergies ciprofloxacin [From Cipro] Allergy (Verified 12/10/23 10:52) Unknown cyclobenzaprine Allergy (Verified 12/10/23 10:52) Unknown Phenothiazines Allergy (Verified 12/10/23 10:52) Unknown prochlorperazine [From Compazine] Allergy (Verified 12/10/23 10:52) Unknown Tobacco use date assessed: 12/10/23 Fall risk assessment: No Falls in past year Last assessed Fall Risk: 12/10/23 Dental Screening Dental Screen Date: 12/10/23 Did you have a dental visit in the last 12 months?: Yes Did you have a dental problem in the last 6 months where you did not have access to dental care?: No Was dental information given to patient?: Patient has dentist HPI f/u hypothyroidism HPI Details 68 y/o female presents to f/u hypothyroi dism. Had decreased her levothyroxine from 112 mcg to 100mcg. Labs were drawn 12/04/23. Reviewed labs with pt. TSH 0.12. She is on levothyroxine 100 mcg daily. PFSH Medical History Diverticulitis Surgical History Hx of rotator cuff surgery Hx of appendectomy History of partial hysterectomy Hx of partial thyroidectomy History of reduction surgery of right breast Family History Other Adopted person Social History Household Members: Family Household Members Other:: brother and sister in law Housing: House Do you presently have visiting nurse or other home services: No Alcohol intake: never Patient Tobacco Use Status: Former Tobacco user Quit Date: 2011 Tobacco use type: Cigarette e-Cigarette/Vaping Use: Never Used Second Hand Smoke Exposure: Yes Advance Directives Date on File: 09/14/22 service: No Current occupational status: retired Sexual orientation: Decline to Answer Gender identity: Decline to answer Cognitive needs: No Hearing needs: No Vision needs: Yes Questionnaire Thrive Questionnaire Date Thrive assessed: 06/07/23 LEONA-7 AMB Questionnaire LEONA-7 Date LEONA - 7 assessed: 06/07/23 Source: Developed by Drs. Gurjit Stevenson, Martha Cruz, Khoa Montes and colleagues, with an educational vj from [employer]. Review of Systems Const Denies chills, Denies fatigue, Denies fever(s), Denies headache(s) and Denies weakness ENT Denies dizziness and Denies headache(s) Card Denies chest pain, Denies lightheadedness, Denies dyspnea and Denies other (Palpitations) Resp Denies cough, Denies dyspnea, Denies wheezing and Denies other ( shortness of breath) Musc Denies numbness and Denies tingling Neuro Denies dizziness, Denies headache(s), Denies numbness, Denies tingling, Denies paresthesias and Denies weakness Psych Denies anxiety and Denies depression Endo Denies fatigue Aller/Immun Denies wheezing Physical exam (Primary Care) Vital Signs: Last Vital Signs Pulse 78 12/10/23 10:51 BP 116/70 12/10/23 10:51 Pulse Ox 99 12/10/23 10:51 Oxygen Delivery Method Room Air 12/10/23 10:51 BMI result Body Mass Index 30.4 Tobacco/Smoking Status: Tobacco use Status Tobacco use date assessed 12/10/23 12/10/23 10:54 Patient Tobacco Use Status Former Tobacco user 12/10/23 10:50 Tobacco use type Cigarette 12/10/23 10:50 e-Cigarette/Vaping Use Never Used 12/10/23 10:50 Thrive Assessment: Date of Thrive Assessment Date Thrive assessed 06/07/23 12/10/23 10:50 Const General: no acute distress and well developed Nutritional Appearance: well nourished Orientation/consciousness: patient oriented x3 HENMT Head: Yes normocephalic and Yes atraumatic Eyes General: appearance normal, both eyes and all related structures Pupils: Equal, round and reactive pupils present EOM: EOMs intact bilaterally Resp Other: Upper airway secretions but otherwise clear Effort & Inspection: normal respiratory effort Auscultation: clear to auscultation bilaterally Cardio Rate: regular rate Rhythm: regular rhythm Heart sounds: S1 normal heart sound present, S2 normal heart sound present, no g allops, no murmurs and no rubs Neuro General: patient oriented x3 and gait normal Cranial nerves: Yes Equal, round and reactive pupils present Psych Affect: normal affect Assessment and Plan Assessment & Plan (1) Hypothyroidism: Code(s): E03.9 - Hypothyroidism, unspecified Plan: TSH?is?still?suppressed?though?it?has?increased?s lightly?with?reductions?in?her?levothyroxine. Will?decrease?again?from?100?mcg?daily?to?88?mcg?daily Will?refer?her?to?her?internal revenue service agent?to?get?her?thyroid?hormone?levels?controll ed. (2) Cough: Code(s): R05.9 - Cough, unspecified Plan: Mild?chronic?cough?with?upper?respiratory?secretion s?after?a?viral?illness?in?October Hydrate?well?and?get?plenty?of?rest.??Should?gradually?resolve Orders: Referrals Endocrinology Referral E03.9 - Hypothyroidism, unspecified, E89.0 - Postprocedural hypothyroidism Medications: Changed From levothyroxine 100 mcg PO DAILY 30 days 90 tabs 0RF E03.9 - Hypothyroidism, unspecified To levothyroxine 88 mcg PO DAILY 30 tabs 2RF 30 days E03.9 - Hypothyroidism, unspecified Coding Level of Care Code Est Pt Level 3 (91851) Diagnoses Hypothyroidism E03.9 Cough R05.9
[2023-12-10 10:51] VITALS: BP 116/70; PULSE 78; O2SAT 99; BMI 30.4
== END 2023-12-10 11:28 | disposition home or self-care (01) ==
PROVIDERS: PCP Family Medicine; Visit Provider Family Medicine
DX: E03.9 Hypothyroidism, unspecified (principal); R05.9 Cough, unspecified
CPT/HCPCS: 99213

== ENCOUNTER 2024-01-02 09:05 | Outpatient (REF) | payer MEDICARE, OTHER, SELFPAY | END 2024-01-02 09:06 | disposition home or self-care (01) | LOC: HO.MAMMO 09:05 | PROVIDERS: PCP Family Medicine; Visit Provider Family Medicine | DX: Z12.31 Encounter for screening mammogram for malignant neoplasm of breast (principal) | CPT/HCPCS: 77063; 77067 ==

== ENCOUNTER → 2024-01-02 09:30 | Outpatient (BNV) | payer MEDICARE, OTHER, SELFPAY | PROVIDERS: PCP Family Medicine; Visit Provider Radiology Diagnostic Radiology | DX: Z12.31 Encounter for screening mammogram for malignant neoplasm of breast (principal) | CPT/HCPCS: 77063; 77067 ==

== ENCOUNTER 2024-01-28 08:32 | Outpatient (AMB) | payer MEDICARE, OTHER, SELFPAY ==
--- NOTE | 2024-01-28 08:37 | A.OFFPC_ITS ---
Vital Signs 01/28/24 08:39 01/28/24 09:06 Height 4 ft 5 in Weight 122 lb 4 oz BMI 30.6 BP 151/70 H 136/64 Blood Pressure Location Rt brachial Rt brachial Position Sitting Sitting Respiration 12 Pulse 70 Pulse Source Pulse Oximeter Pulse Oximetry (%) 100 Intake Visit Reasons: PHQ-9 F/u, f/u diabetes Intake Note: Patient is here to follow up for her diabetes. Medical Physicist Required: No Accompanied by: Sister Allergies ciprofloxacin [From Cipro] Allergy (Verified 01/28/24 08:47) Unknown cyclobenzaprine Allergy (Verified 01/28/24 08:47) Unknown Phenothiazines Allergy (Verified 01/28/24 08:47) Unknown prochlorperazine [From Compazine] Allergy (Verified 01/28/24 08:47) Unknown Tobacco use date assessed: 12/10/23 HPI f/u diabetes HPI Details 68 y/o female presents to f/u diabetes. A1c today 01/28/24 is 5.8%. She is on metformin 500 mg daily. Eye exam in November which showed no diabetic retinopathy. Blood pressure today 151/70. She is on amlodipine 10mg daily. Pt notes blood pressure has been fluctuating and has been low before in another doctor's office. [facility] Medical History Diverticulitis Surgical History Hx of rotator cuff surgery Hx of appendectomy History of partial hysterectomy Hx of partial thyroidectomy History of reduction surgery of right breast Family History Other Adopted person Social History Household Members: Family Household Members Other:: brother and sister in law Housing: House Do you presently have visiting nurse or other home services: No Alcohol intake: never Patient Tobacco Use Status: Former Tobacco user Quit Date: 2011 Tobacco use type: Cigarette e-Cigarette/Vaping Use: Never Used Second Hand Smoke Exposure: Yes Advance Directives Date on File: 09/14/22 service: No Current occupational status: retired Sexual orientation: Decline to Answer Gender identity: Decline to answer Cognitive needs: No Hearing needs: No Vision needs: Yes Questionnaire Thrive Questionnaire Date Thrive assessed: 06/07/23 LEONA-7 AMB Questionnaire LEONA-7 Date LEONA - 7 assessed: 06/07/23 Source: Developed by Drs. Gurjit Stevenson, Martha Cruz, Khoa Montes and colleagues, with an educational vj from [employer]. Review of Systems Const Denies chills, Denies fatigue, Denies fever(s), Denies headache(s) and Denies weakness ENT Denies dizziness and Denies headache(s) Card Denies dyspnea Resp Denies cough, Denies dyspnea, Denies wheezing and Denies other (shortness of breath) Musc Denies numbness and Denies tingling Neuro Denies dizziness, Denies headache(s), Denies numbness, Denies tingling and Denies weakness Psych Denies anxiety and Denies depression Endo Denies fatigue Aller/Immun Denies wheezing Physical exam (Primary Care) Vital Signs: Last Vital Signs Pulse 70 01/28/24 08:39 Resp 12 01/28/24 08:39 BP 136/64 01/28/24 09:06 Pulse Ox 100 01/28/24 08:39 BMI result Body Mass Index 30.6 Tobacco/Smoking Status: Tobacco use Status Tobacco use date assessed 12/10/23 01/28/24 08:39 Patient Tobacco Use Status Former Tobacco user 01/28/24 08:39 Tobacco use type Cigarette 01/28/24 08:39 e-Cigarette/Vaping Use Never Used 01/28/24 08:39 Thrive Assessment: Date of Thrive Assessment Date Thrive assessed 06/07/23 01/28/24 08:39 Const General: well developed; No acute distress Nutritional Appearance: well nourished Orientation/consciousness: patient oriented x3 HENMT Head: Yes normocephalic and Yes atraumatic Eyes General: appearance normal, both eyes and all related structures Pupils: Equal, round and reactive pupils present EOM: EOMs intact bilaterally Resp Effort & Inspection: normal respiratory effort Neuro General: patient oriented x3 and gait normal Cranial nerves: Yes Equal, round and reactive pupils present Psych Affect: normal affect Results AMB Hemoglobin A1c AMB Hemoglobin A1c 5.8 % Last Edit by Luh Law CMA on 01/28/24 08:52 Results Reviewed Results Reviewed: Laboratory Last Values Hgb A1c (Clinic) 5.8 % (4.0-6.0) 01/28/24 08:51 Assessment and Plan Assessment & Plan (1) Diabetes: Code(s): E11.9 - Type 2 diabetes mellitus without complications Plan: A1c?5.8%.??Good?control.??Goal?is?less?than?7.0% Continue?current?medication Continue?to?work?at?a?diet?low?in?sugars?and?starches.??Watch?weight?and?encoura ged?exercise. Eye?exam?in?November?showed?no?diabetic?complications. (2) Hypertension: Code(s): I10 - Essential (primary) hypertension Plan: Blood?pressure?improves?to?136/64?with?relaxation.??Controlled.??Goal?is?less?th an?140/90 Continue?amlodipine Watch?salt?and?sodium?in?diet Work?on?diet?exercise?and?weight?loss Orders: Orders Comprehensive [place]. Panel Fast Today Z00.00 - Encounter for general adult medical examination without abnormal findings Free T4 (Free Thyroxine) Today E03.9 - Hypothyroidism, unspecified Thyroid Stimulating Hormone Today E03.9 - Hypothyroidism, unspecified Triiodothyronine T3 Total Today E03.9 - Hypothyroidism, unspecified AMB Hemoglobin A1c Today E11.9 - Type 2 diabetes mellitus without complications Complete Blood Count Auto Diff Today Z00.00 - Encounter for general adult medical examination without abnormal findings Lipid Panel Today Z00.00 - Encounter for general adult medical examination without abnormal findings Microalbumin, Random (w Creat) Today I10 - Essential (primary) hypertension UA and rflx microscopic Today Z00.00 - Encounter for general adult medical examination without abnormal findings Coding Level of Care Code Est Pt Level 3 (76523) Diagnoses Diabetes E11.9 Hypertension I10
[2024-01-28 08:39] VITALS: BP 151/70; PULSE 70; RESP 12; O2SAT 100; BMI 30.6
[2024-01-28 09:06] VITALS: BP 136/64
== END 2024-01-28 09:08 | disposition home or self-care (01) ==
PROVIDERS: PCP Family Medicine; Visit Provider Family Medicine
DX: E11.9 Type 2 diabetes mellitus without complications (principal); I10 Essential (primary) hypertension
CPT/HCPCS: 83036; 99213

== ENCOUNTER 2024-05-01 07:54 | Outpatient (REF) | payer MEDICARE, OTHER, SELFPAY ==
[2024-05-01 11:46] LABS: MANUAL DIFF FLAG NO
[2024-05-01 11:48] LABS: Basophils Absolute Auto 0.1 X10*3/uL (0.0-0.2); Eosinophils Absolute Auto 0.2 X10*3/uL (0.0-0.4); Eosinophils Percent Auto 3.3 % (0-4); Hematocrit 43.1 % (37.0-47.0); Hemoglobin 14.5 g/dl (12.0-16.0); Imm Gran Abs Auto 0.01 X10*3/uL (0.00-0.03); Imm Gran Pct Auto 0.2 % (0.0-0.4); Lymphocytes Absolute Auto 2.2 X10*3/uL (1.2-4.9); Lymphocytes Percent Auto 44.1 % (20-40); Mean Corpuscular HGB Conc 33.6 g/dl (31.0-35.0); Mean Corpuscular Hemoglobin 30.5 pg (27.0-33.0); Mean Corpuscular Volume 90.7 fL (80.0-98.0); Mean Platelet Volume 11.6 fL (9.4-12.3); Monocytes Absolute Auto 0.4 X10*3/uL (0.1-1.2); Monocytes Percent Auto 6.9 % (2-11); Neutrophils Absolute Auto 2.3 x10*3/uL (2.0-8.3); Neutrophils Percent Auto 44.5 % (45-73); Platelet Count 226 X10*3/uL (160-400); Red Blood Count 4.75 X10*6/uL (4.20-5.50); Red Cell Distribution Width 12.5 % (11.0-16.0); White Blood Count 5.1 X10*3/uL (4.8-10.8)
[2024-05-01 12:44] LABS: Alanine Aminotransferase 15 U/L (0-31); Albumin Level 4.1 g/dL (3.5-5.0); Alkaline Phosphatase 87 U/L (39-117); Anion Gap 13 (12-20); Aspartate Amino Transferase 19 U/L (5-31); Bilirubin Total 0.4 mg/dL (0.0-1.0); Blood Urea Nitrogen 14 mg/dL (9-16); Calcium 9.4 mg/dL (8.4-10.2); Carbon Dioxide 25 mmol/L (22-29); Chloride 108 mmol/L (96-108); Cholesterol 202 mg/dL (<200); Estimated Glomerular Filt Rate > 60; Glucose Fasting 87 mg/dL (60-99); HDL Cholesterol 50 mg/dL (>40); LDL Cholesterol Calculated 129 mg/dL (<100); Sodium 142 mmol/L (135-145); Thyroid Stimulating Hormone 1.54 uIU/mL (0.32-4.0); Total Protein 7.7 g/dL (6.5-8.0); Triglycerides 115 mg/dL (<150)
[2024-05-01 13:29] LABS: Free T4 (Free Thyroxine) 1.05 ng/dL (0.71-1.85)
[2024-05-01 17:37] LABS: Appearance Urine Clear; Color Urine Yellow; Glucose Urine UA Negative (Negative); Leukocyte Esterase Urine Negative (Negative); Nitrite Urine Negative (Negative); Urine Blood Negative (Negative); Urine Ketones Negative (Negative); Urine Protein Negative (Neg-Trace)
[2024-05-01 19:33] LABS: Creatinine Urine 41.95 mg/dL; Microalbumin Urine < 5.0 mg/L
[2024-05-02 15:18] LABS: Triiodothyronine T3 Total 102 ng/dL (76-181)
== END 2024-05-01 07:55 | disposition home or self-care (01) ==
LOC: HO.WFDLDS 07:54
PROVIDERS: Visit Provider Family Medicine
DX: Z00.00 Encounter for general adult medical examination without abnormal findings (principal); E03.9 Hypothyroidism, unspecified; I10 Essential (primary) hypertension
CPT/HCPCS: 36415; 80053; 80061; 81003; 82570; 84439; 84443; 84480; 85025

== ENCOUNTER 2024-09-10 10:15 | Outpatient (AMB) | payer MEDICARE, OTHER, SELFPAY ==
--- NOTE | 2024-09-10 10:21 | A.OFFPC_ITS ---
Vital Signs 09/10/24 10:41 Height 4 ft 5 in Weight 127 lb 2 oz BMI 31.8 BP 131/64 Blood Pressure Location Lt brachial Position Sitting Respiration 14 Pulse 69 Pulse Source Pulse Oximeter Temp 96.8 F Temp Source Temporal Artery Scan Pulse Oximetry (%) 97 Oxygen Delivery Method Room Air Intake Visit Reasons: F/u diabetes, hypertension - see comments Intake Note: f/u DM and HTN Allergies ciprofloxacin [From Cipro] Allergy (Verified 09/10/24 10:40) Unknown cyclobenzaprine Allergy (Verified 09/10/24 10:40) Unknown Phenothiazines Allergy (Verified 09/10/24 10:40) Unknown prochlorperazine [From Compazine] Allergy (Verified 09/10/24 10:40) Unknown Medication List - Last Reconciled 09/10/24 by Duane Obregon MD amlodipine 10 mg PO DAILY cetirizine (Zyrtec) 10 mg PO DAILY PRN cholecalciferol (vitamin D3) 50 mcg PO DAILY famotidine 20 mg PO BID 30 days levetiracetam 250 mg PO BID levothyroxine 88 mcg PO DAILY 30 days lidocaine 5% 1 patch topical DAILY 30 days meclizine 25 mg PO BID PRN 30 days metformin 500 mg PO DAILY 90 days naproxen sodium (Aleve) 220 mg PO BID PRN vit C,W-Tt-mbyzo-lutein-zeaxan 250-90-40-1 mg (PreserVision AREDS-2) 1 tab PO BID Tobacco use date assessed: 12/10/23 Dental Screening Dental Screen Date: 12/10/23 HPI F/u diabetes, hypertension - see comments HPI Details 69 y/o female presents to f/u diabetes, hypertension. Last A1c 01/28/24 5.8%. She is on metformin 500mg daily. A1c today 09/10/24 is Blood pressure today 131/64. She is on amlodipine 10mg daily. Reports stressed induced incontinence. [facility] Medical History Diverticulitis Surgical History Hx of rotator cuff surgery Hx of appendectomy History of partial hysterectomy Hx of partial thyroidectomy History of reduction surgery of right breast Family History Other Adopted person Social History Household Members: Family Household Members Other:: brother and sister in law Housing: House Do you presently have visiting nurse or other home services: No Alcohol intake: never Patient Tobacco Use Status: Former Tobacco user Tobacco use type: Cigarette e-Cigarette/Vaping Use: Never Used Second Hand Smoke Exposure: Yes Advance Directives Date on File: 09/14/22 service: No Current occupational status: retired Sexual orientation: Decline to Answer Gender identity: Decline to answer Cognitive needs: No Hearing needs: No Vision needs: Yes Questionnaire PHQ-9 Over the last 2 weeks, how often have you been bothered by any of the following problems? 1. Little interest or pleasure in doing things: not at all 2. Feeling down, depressed, or hopeless: not at all 3. Trouble falling or staying asleep, or sleeping too much: not at all 4. Feeling tired or having little energy: not at all 5. Poor appetite or overeating: not at all 6. Feeling bad about yourself - or that you are a failure or have let yourself or your family down: not at all 7. Trouble concentrating on things, such as reading the newspaper or watching television: not at all 8. Moving or speaking so slowly that other people could have noticed. Or the op posite - being so fidgety or restless that you have been moving around a lot more than usual: not at all 9. Thoughts that you would be better off or of hurting yourself in some way: not at all Total score: 0 Source: Developed by Drs. Gurjit Stevenson, Martha Cruz, Khoa Montes and colleagues, with an educational vj from [employer]. Thrive Questionnaire Date Thrive assessed: 09/04/24 I am a: Patient What is your living situation today?: I have a steady place to live Within the past 12 months, did the food you bought not last and you didn't have the money to get more?: Never true Within the past 12 months, did you worry whether your food would run out before you got money to buy more?: Never true Do you have trouble paying for medicines?: No Do you have trouble getting transportation to medical appointments?: No Do you have trouble paying your heating and electricity bill?: No Do you have trouble taking care of your child, family member or friend?: No Do you have trouble with day-to-day activities such as bathing, preparing meals, shopping, managing finances, etc.?: No Are you currently unemployed and looking for a job?: No Are you interested in more education?: No Please select the resources that you would like help with: None Currently or been in a relationship where the following occur: No concerns reported THRIVE Score: 0 AUDIT C Alcohol Use Questionnaire (AUDIT-C) 1. How often do you have a drink containing alcohol?: Never 3. How often do you have six or more drinks on one occasion?: Never Total Score: 0 LEONA-7 AMB Questionnaire LEONA-7 Date LEONA - 7 assessed: 06/07/23 Feeling nervous, anxious, or on edge: 0 = Not at all Not being able to stop or control worryin = Not at all Worrying too much about different things: 0 = Not at all Trouble relaxin = Not at all Being so restless that it is hard to sit still: 0 = Not at all Becoming easily annoyed or irritable: 0 = Not at all Feeling afraid as if something awful might happen: 0 = Not at all Total LEONA-7 score (0-4 normal; 5-9 mild; 10-14 moderate; 15-21 severe): 0 Source: Developed by Drs. Gurjit Stevenson, Martha Cruz, Khoa Montes and colleagues, with an educational vj from [employer]. Review of Systems Const Denies chills, Denies fatigue, Denies fever(s), Denies headache(s) and Denies weakness ENT Denies dizziness and Denies headache(s) Card Denies dyspnea Resp Denies cough, Denies dyspnea, Denies wheezing and Denies other (shortness of breath) Musc Denies numbness and Denies tingling Neuro Denies dizziness, Denies headache(s), Denies numbness, Denies tingling and Denies weakness Psych Denies anxiety and Denies depression Endo Denies fatigue Aller/Immun Denies wheezing Physical exam (Primary Care) Vital Signs: Last Vital Signs Temp 96.8 F 10/30/24 10:41 Pulse 69 09/10/24 10:41 Resp 14 09/10/24 10:41 BP 131/64 09/10/24 10:41 Pulse Ox 97 09/10/24 10:41 Oxygen Delivery Method Room Air 09/10/24 10:41 BMI result Body Mass Index 31.8 Tobacco/Smoking Status: Tobacco use Status Tobacco use date assessed 12/10/23 09/10/24 10:24 Patient Tobacco Use Status Former Tobacco user 09/10/24 10:24 Tobacco use type Cigarette 09/10/24 10:24 e-Cigarette/Vaping Use Never Used 09/10/24 10:24 PHQ-9: PHQ-9 Score PHQ-9: Total score 0 09/10/24 10:44 Thrive Assessment: Date of Thrive Assessment Date Thrive assessed 09/04/24 09/10/24 10:24 Currently or been in a relationship where the following occur: No concerns reported Const General: well developed; No acute distress Nutritional Appearance: well nourished Orientation/consciousness: patient oriented x3 HENMT Head: Yes normocephalic and Yes atraumatic Eyes General: appearance normal, both eyes and all related structures Pupils: Equal, round and reactive pupils present EOM: EOMs intact bilaterally Resp Effort & Inspection: normal respiratory effort Auscultation: clear to auscultation bilaterally Cardio Rate: regular rate Rhythm: regular rhythm Heart sounds: S1 normal heart sound present, S2 normal heart sound present, no gallops, no murmurs and no rubs Neuro General: patient oriented x3 and gait normal Cranial nerves: Yes Equal, round and reactive pupils present Psych Affect: normal affect Coding Level of Care Code Est Pt Level 4 (83449) Diagnoses Diabetes E11.9 Hypertension I10 Urinary incontinence R32 Assessment & Plan Assessment & Plan (1) Diabetes: Code(s): E11.9 - Type 2 diabetes mellitus without complications Category: Medical Plan: A1c?5.9%.??Good?control.??Goal?is?less?than?7.0% Continue?current?medication?and?diabetic?diet Patient?had?diabetic?eye?exam?in?12/01/2023?and?has?next?appointment?in?11/13.??Up-to-date?and?showed?no?diabetic?retinopathy. (2) Hypertension: Code(s): I10 - Essential (primary) hypertension Category: Medical Plan: Blood?pressure?is?controlled.??Goal?is?less?than?140/90 Continue?current?medication (3) Urinary incontinence: Code(s): R32 - Unspecified urinary incontinence Category: Medical Plan: Patient?notes?urine?loss?with?coughing?and?sneezing Advised?Kegel?exercises?and?scheduled?voids. She?has?brief/pads Referred?to?urogynecology Orders: Referrals Urogynecology Referral N39.3 - Stress incontinence (female) (male)
[2024-09-10 10:41] VITALS: BP 131/64; PULSE 69; RESP 14; TEMP 36; O2SAT 97; BMI 31.8
== END 2024-09-10 15:57 | disposition home or self-care (01) ==
LOC: HO.HMCFM 10:16
PROVIDERS: PCP Family Medicine; Visit Provider Family Medicine
DX: E11.9 Type 2 diabetes mellitus without complications (principal); I10 Essential (primary) hypertension; R32 Unspecified urinary incontinence

== ENCOUNTER → 2024-09-10 10:15 | Outpatient (BNVA) | payer MEDICARE, OTHER, SELFPAY | PROVIDERS: PCP Family Medicine; Visit Provider Family Medicine | DX: E11.9 Type 2 diabetes mellitus without complications (principal); I10 Essential (primary) hypertension; R32 Unspecified urinary incontinence | CPT/HCPCS: 96127; 99212 ==

== ENCOUNTER 2025-01-20 08:40 | Outpatient (REF) | payer MEDICARE, OTHER, SELFPAY ==
--- OUTSIDE RECORDS SUMMARY | 2025-01-20 09:29 | XMS_ITS | Continuity of Care Document ---
Author Organization [facility] [place] Address [address] [place] [address]- Care Team Providers Care Desk Representative Name Role Phone Mindi QUIROGA, Duane Wayne Primary Care Physician Encounter 01/01/25 - 01/08/25 [facility] [address], [address] [place] [address]- Attending Physician: Price Eaton MD Admitting Physician: Price Eaton MD Referring Physician: Price Eaton MD Encounter Type: OutPatient One Time Medications amLODIPine 10 mg oral tablet 0 Refills, Maintenance, 12/03/24 8:11:00 AM EST, Partial fill upon patient request if the prescription is for a schedule II opioid drug. Start Date: 12/03/24 Status: Ordered Repeat number: 1 famotidine 20 mg oral tablet Refills 0, Maintenance, 12/03/24 8:11:00 AM EST, Partial fill upon patient request if the prescription is for a schedule II opioid drug. Start Date: 12/03/24 Status: Ordered Repeat number: 1 levETIRAcetam 250 mg oral tablet 0 Refills, Maintenance, 12/03/24 8:12:00 AM EST, Partial fill upon patient request if the prescription is for a schedule II opioid drug. Start Date: 12/03/24 Status: Ordered Repeat number: 1 levothyroxine 0.088 mg oral tablet TAKE 1 TABLET BY MOUTH 6 DAYS A WEEK Start Date: 12/03/24 Status: Ordered Repeat number: 1 Meclizine By Mouth, 0 Refills, Maintenance, 12/03/24 8:12:00 AM EST, Partial fill upon patient request if the prescription is for a schedule II opioid drug. Start Date: 12/03/24 Status: Ordered Repeat number: 1 metFORMIN 500 mg oral tablet TAKE 1 TABLET BY MOUTH DAILY Start Date: 12/03/24 Status: Ordered Repeat number: 1 PreserVision AREDS 2 2 times a day, 0 Refills, Maintenance, 12/03/24 8:12:00 AM EST, Partial fill upon patient request ifthe prescription is for a schedule II opioid drug. Start Date: 12/03/24 Status: Ordered Repeat number: 1 ZyrTEC 10 mg oral tablet 1 tablet = 10 mg, By Mouth, Daily, 0 Refills, Maintenance, 12/03/24 8:12:00 AM EST, Partial fill upon patient request if the prescription is for a schedule II opioid drug. Start Date: 12/03/24 Status: Ordered Repeat number: 1 Results Radiology Reports * Exam Date Time Procedure Performing Provider Status 01/01/25 9:[address] Abd/Pelvis W/O + W/ IV Contrast Jeff Rivas; Alvina (Verified) Notes: (CT Abd/Pelvis W/O + W/ IV Contrast) Reason For Exam: Hematuria RESULT: CT Abd/Pelvis W/O + W/ IV Contrast CT Abd/Pelvis W/O + W/ IV Contrast Reason: Hematuria . History of neuromuscular dysfunction of the bladder. TECHNIQUE: Spiral CT through the abdomen and pelvis with and without IV contrast, formatted in 3 planes. Urogram protocol was used with a 10 minute delayed sequence obtained for ureteral evaluation. 100 cc of Isovue 300 was administered intravenously. This study was performed without oral contrast. Weight-based protocol using automatic tube modulation was used to optimize exposure parameters. [facility] COMPARISON: None available. FINDINGS: [employer] View Findings, Lines and Tubes: None. Visualized Chest: Lung bases are clear. No pleural effusion. The heart is normal in size. No pericardial effusion. Diaphragm: Normal. Liver: Normal. Gallbladder: Absent consistent with prior cholecystectomy. Bile ducts: No biliary ductal dilation. Spleen: Normal. Pancreas: There is a 4 mm hypodensity in the body of the pancreas (image 26, series 3. Main pancreatic duct is not dilated. Adrenal glands: Normal. Kidneys and ureters: Mild bilateral hydronephrosis without evidence of an obstructing stone or mass. No intrarenal stones or suspicious masses. Bladder: Lobulated configuration of the bladder with severe distention. The bladder dome is above the level of the umbilicus terminating at L2-L3 intervertebral disc level. No abnormal wall thickening, enhancement, or mural nodule seen. Craniocaudal extent of the bladder measures approximately 22 cm. Reproductive organs: Status post hysterectomy. There is an atrophic left ovary without suspicious lesions. In the right adnexa, there is a 3.4 x 2.1 cm simple appearing cyst with no enhancement (image 73, series 6). Stomach, small bowel, and large bowel: Small type I hiatal hernia. No abnormal distention, wall thickening, or surrounding inflammatory change. There is mild diverticulosis of the sigmoid colon. Appendix: Not seen, but no evidence of appendicitis. Peritoneum and retroperitoneum: No ascites or pneumoperitoneum. No omental or mesenteric lesions. Lymph nodes: No enlarged lymph nodes. Blood vessels: Mild vascular calcifications but no aneurysm. No evidence of venous thrombosis. Abdominal and pelvic wall: Fat-containing small right inguinal hernia. Bones: No acute abnormality. There is heterogeneous attenuation throughout the visualized skeleton,which may be due to demineralization. There is mild dextroconvex scoliosis centered in the thoracolumbar junction and associated multilevel degenerative disc disease. IMPRESSION: 1. Mild bilateral hydronephrosis without evidence of an obstructing stone or suspicious mass is likely due to severe bladder distention. Bladder has a lobulated contour with its superior aspect extending to the abdomen. 2. A cystic lesion in the right adnexa measuring up to 3.4 cm without suspicious features. Follow-up with ultrasound is recommended per ACR guidelines. 3. A 4 mm hypodensity in the pancreatic parenchyma may represent a small cystic lesion versus fat interspersed within the parenchyma. Follow-up with MRI in 2 years is recommended. An actionable message (Yellow) has been communicated via the [employer] system on 01/01/2025 10:03 AM, Message ID [id number]. WSN: [id number] Ordering Physician: Price Eaton Dictated By: Gregory Cárdenas MD Dictated Date/Time: 01/01/25 12:42 p Reviewed By: Gregory Cárdenas MD Signed By: Gregory Cárdenas MD Signed Date/Time: 01/01/25 12:42 pm Transcribed By: HOLGER Transcribed Date/Time: 01/01/25 10:03 am Patient Care team information Care Team Personnel Name: Duane Obregon MD Position: [facility] Outreach Member Role: PCP Address: [address] [place] [address]- Telecom: Name: Price Eaton MD Position: [facility] Physician - Urology Med Service: Urology Member Role: Ordering Physician Address: [address] [facility] [place] [address]- Telecom: Care Team Related Persons Name: DIONTE BETANCOURT Insurance Providers Guarantor name: KELLY FELIX [employer] Information #: 2 Payer: [facility] A ONLY Member Number: [id number] Policy Number: NA Group Number: NA Health Plan Information #: 1 Payer: MEDICARE PART B OUTPT Member Number: [id number] Policy Number: NA Group Number: NA
--- OUTSIDE RECORDS SUMMARY | 2025-01-20 09:30 | XMS_ITS | Continuity of Care Document ---
Author Organization [facility] Address [address] [place] [address] Phone Care Team Providers Care Blue Line Trimmer Name Role Phone Laura Bauer APRNher Unavailable Unavailable Allergies, Adverse Reactions, Alerts Substance Reaction Status Criticality phenicarbazide Active No Informatio n Medications Medication Instructions Dosage Effective Dates (start - stop) Status Comments carbamazepine ER 100 mg capsule,extended release [id number] take 1 capsule by oral route every [...] 2nd Level Facet Jt / MBB Includes Nm uoro C/T 3rd Level Facet Jt / [...] Copied on Encounter [facility], [address] [place] [address], [id number], tel:[phone] [facility] No Information 4 Lizette Hernández. [address] [place] [address], [id number] , . tel: [phone] [facility], [address] [place] [address], [id number], tel:[phone] [facility] No Information 6 Kitty Thrasher. [address] [place] [address], [id number] . tel:[phone] Referring Provider: Price Kate, [address] [place] [address], [id number]. tel:[phone] Follow-up, Detailed [facility], [address] [place] [address], [id number], [place] tel:[phone] [facility] neck Pain (chief complaint) Spondylosis w/o myelopathy or radiculopathy, cervical region 6 Kitty Thrasher. [address] [place] [address], [address], [place], [place], [id number] . tel: [phone] Referring Provider: Price Kate, [address] [place] [address] [address], [place], [place], [id number]. tel:[phone] [facility], [address] [place] [address] [address], [id number], [place] tel:[phone] [facility] Spondylosis w/o myelopathy or radiculopathy, cervical region 6 Kitty Thrasher. [address] [place] [address], [address], [place], [place], [id number] . tel: [phone] Referring Provider: Price Kate, [address] [place] [address] [address], [place], [place], [id number]. tel:[phone] [facility], [address] [place] [address] [address], [id number], [place] tel:[phone] [facility] No Information 6 Kitty Thrasher. [address] [place] [address], [address], [place], [place], [id number] . tel: [phone] Referring Provider: Price Kate, [address] [place] [address] [address], [place], [place], [id number]. tel:[phone] [facility], [address] [place] [address] [address], [id number], [place] tel:[phone] [facility] Spondylosis w/o myelopathy of cervical regionSpondylos is w/o myelopathy or radiculopathy, cervical region 5 Kitty Thrasher. [address] [place] [address], [address], [place], [place], [id number] . tel: [phone] Referring Provider: Price Kate, [address] [place] [address] [address], [place], [place], [id number]. tel:[phone] [facility], [address] [place] [address] [address], [id number], [place] tel:[phone] [facility] Spondylosis w/o myelopathy of cervical region 5 Kitty Thrasher. [address] [place] [address] [address], [place], [id number] . tel: [phone] Referring Provider: Price Kate, [address] [place] [address] [address], [place], [id number]. tel:[phone] [facility], [address] [place] [address] [address], [id number], [place] tel:[phone] [facility] No Information 5 Kitty Thrasher. [address] [place] [address], [id number] . tel: [phone] Referring Provider: Price Kate, [address] [place] [address], [id number]. 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 [address] [place] [address], [id number] . tel: [phone] Referring Provider: Price Kate, [address] [place] [address], [id number]. tel:[phone] New Pt, Moderate 45min [facility], [address] [place] [address] [address], [id number], [place] tel:[phone] [facility] neck Pain (chief complaint) bilateral arm pain (chief complaint) intermediate designer (current) use of opiate analgesicSpondy losis without myelopathy or radiculopathy, cervical regionSpinal stenosis, cervical regionRadiculop athy, cervical regionScoliosis , unspecified 5 Kitty Thrasher. [address] [place] [address] [address], [place], [place], [id number] . tel: [phone] Referring Provider: Price Kate, [address], [place], [place], [id number]. tel:[phone] Family History Family Member Type Diagnosis Age At Onset Father Problem (finding) Mother Problem (finding) Payers Payer name Insurance type Covered libertarian ID Authoriza tion(s) No Information Social History [...] into bilateral shoulders. mri c-spine done at [facility]. Tramadol for painNP to shoulders; BL cerv [...]
--- OUTSIDE RECORDS SUMMARY | 2025-01-20 09:30 | XMS_ITS | Data Portability ---
Author Organization [facility] [employer], [facility], [facility] Address [address] [place] [address] Care Team Providers Care Personal Banking Representative Name Role Phone MILLIE GILL Primary Care Provider MILLIE GILL Referring Provider NUBIA TAYLOR Neurosurgeon Assessment No assessment recorded. Plan of Treatment Reminders Order Date Submit Date Provider Last Modified By Organization Details Last Modified Time Details Appointments None recorded. Lab TSH, serum or plasma 2021 022 [facility], [address], [place], [address], 14:42:07 T4, free, serum 2021 022 [facility], [address] [place], [address], 14:42:06 CMP, serum or plasma 2021 022 [facility], [address] [place], [address], 2 14:42:03 HbA1c (hemoglobin A1c), blood 2021 022 [facility], [address], [place], [address], 07/21/202 2 14:42:01 lipid panel, serum 2021 022 [facility], [address], [place], [address], 2 14:42:04 CBC 2021 022 [facility], [address], [place], [address], 2 14:42:02 HbA1c (hemoglobin A1c), blood 2021 022 [email or web address] [facility], [address], [place], [address], 2 13:57:21 CMP, serum or plasma 2021 022 [email or web address] [facility], [address], [place], [address], 2 13:57:21 CBC 2021 022 [email or web address] [facility], [address], [place], [address], 3 09:00:56 HbA1c (hemoglobin A1c), blood 2021 022 [email or web address] [facility], [address], [place], [address], 2 09:57:48 CMP, serum or plasma 2021 022 [email or web address] [facility], [address], [place], [address], 2 13:57:21 CBC 2021 022 [email or web address] [facility], [address], [place], [address], 3 09:00:56 lipid panel, serum 2021 022 [email or web address] [facility], [address], [place], [address], 09:57:48 lipid panel, serum 2021 022 [email or web address], [address], [place], [address], 09:57:48 TSH, serum or plasma 2021 022 [email or web address] am14 [facility], [address], [place], [address], 13:57:21 TSH, serum or plasma 2021 022 [email or web address], [address], [place], [address], 13:57:22 HbA1c (hemoglobin A1c), blood 2020 021 [facility]NA[facility], [address], [place], [address], 14:38:27 CMP, serum or plasma 2020 021 [facility], [address], [place], [address], 2 14:38:28 CBC 2020 021 [facility], [address], [place], [address], 14:38:28 TSH, serum or plasma 2020 021 [facility], [address], [place], [address], 14:38:29 HbA1c (hemoglobin A1c), blood 2020 021 [facility], [address], [place], [address], 14:12:27 CMP, serum or plasma 2020 021 [facility], [address], [place], [address], 14:12:28 CBC 2020 021 [facility], [address], [place], [address], 14:12:28 TSH, serum or plasma 2020 021 [facility], [address], [place], [address], 14:12:30 lipid panel, serum 2020 021 [facility], [address], [place], [address], 14:12:29 Referral None recorded. Procedures None recorded. Surgeries None recorded. Imaging MRI, lumbar spine, w/o contrast 2021 022 [facility], [facility], All Locations, [place], [address], 14:13:05 MAMMO, screening, digital, bilateral 2021 [email or web address] [facility], [facility], All Locations, [place], [address], 2 10:32:44 CT, abdomen + pelvis, w/o contrast 2020 [email or web address] [facility], [facility], All Locations, [place], [address], 10:00:31 Medication Orders lidocaine 5 % topical patch 2021 [facility], [address] [place] [address], [address], 17:16:21 nystatin-tr iamcinolone 100,000 unit/gram-0 .1 % topical ointment 2021 VENANGO [id number], [address] [place], [place], [id number], 2 11:22:33 hydrocodone 10 mg-acetamin ophen 325 mg tablet 2021 [facility], [address] [place], [id number], 2 11:22:34 amlodipine 10 mg tablet 2021 [email or web address], [address] [place] [address], [address], 2 12:33:34 levothyroxi ne 150 mcg tablet 2020 [email or web address], [address] [place] [address], [address], 1 10:52:17 Kenalog 40 mg/mL suspension for injection 2020 [facility], [address] [place] [address], [place], [address], 09:49:10 Patient TargetsNo targets recorded. Patient Instructions Encounter Date Encounter Id Patient Instructions Last Modified By Organization Details Last Modified Time 06/23/2021 [id number] controlling your asthma: care instructions hleppert Not available 06/23/2021 10:57:48 learning about asthma hleppert Not available 06/23/2021 10:57:48 starting a weigh t loss plan: care instructions hleppert Not available 06/23/2021 10:19:38 let me know if t he shot does not help increasing levothyroxine to 150mcg one pill daily blood work before next visit hleppert Not available 06/23/2021 10:19:07 10/14/2021 [id number] gastroesophageal reflux disease (GERD): care instructions hleppert Not available 10/14/2021 10:00:31 hypothyroidism: care instructions hleppert Not available 10/14/2021 10:00:31 starting a weigh t loss plan: care instructions hleppert Not available 10/14/2021 10:00:31 re start famotid ine 1 pill in am and 1 pill in pm cat scan today all your labs look ok hleppert Not available 10/14/2021 09:51:42 10/21/2021 [id number] hypothyroidism: care instructions hleppert Not available 10/21/2021 13:47:09 starting a weigh t loss plan: care instructions hleppert Not available 10/21/2021 13:37:51 finish antibioti cs go get probiotics and start 2 capsules daily til the bottle is empty blood work before next visit hleppert Not available 10/21/2021 13:39:44 02/17/2022 [id number] gastroesophageal reflux disease (GERD): care instructions hleppert Not available 02/17/2022 11:22:20 heart-healthy di et: care instructions hleppert Not available 02/17/2022 11:22:21 advance directiv es: care instructions hleppert Not available 02/17/2022 11:22:21 learning about living arizmendi hleppert Not available 02/17/2022 11:22:21 learning about medical power of health care attorney hleppert Not available 02/17/2022 11:22:22 preventing falls : care instructions hleppert Not available 02/17/2022 11:22:21 controlling your asthma: care instructions hleppert Not available 02/17/2022 11:22:21 learning about asthma hleppert Not available 02/17/2022 11:22:21 blood work now a nd before the next visit setting up mri of lumbar spine increase amlodipine to 10mg one pill daily try nystatin/ triamcinolone ointment under your breast 2 times a day hleppert Not available 02/17/2022 11:19:38 05/29/2022 [id number] controlling your asthma: care instructions hleppert Not available 05/29/2022 17:16:19 learning about asthma hleppert Not available 05/29/2022 17:16:19 hypothyroidism: care instructions hleppert Not available 05/29/2022 17:16:19 blood work hleppert Not availa ble 05/29/2022 15:04:49 Reason for Referral None Reported. Results Created Date Observation Date Name Description Value Unit Range Abnormal Flag Note LastModifiedBy Organization Detail LastModifiedTime 06/16/20 21 06/16/2021 A1C hemoglobin A1C faith 6.2 % 4.3-5. 6 high ADA RECOM NESSA D GUIDE LINES FOR Hgb A1C % 5.7-6 .4 % predi abeti c <7.0% Reaso nable glyce sharan goal for non-p regna nt adult s <8.0 Appro priat e for patie nts with hypog lycem ia or advan negro micro /macr o vascu alr compl icati ons Not Available [facility] [address] [place], [address], 06/16/2021 14:59:55 06/16/20 21 06/16/2021 A1C estimated average glucose _I 131.2 mg/dL 97.0-1 40.0 Not Available [facility] [address], [place], [address], 06/16/2021 14:59:55 06/16/20 21 06/16/2021 CBC W/ AUTOD IFF, COMPL ETE BLOOD COUNT WBC_I 6.50 3.60-1 0.00 Not Available [facility] [address], [place], [address], 06/16/2021 14:59:56 06/16/20 21 06/16/2021 CBC W/ AUTOD IFF, COMPL ETE BLOOD COUNT nucleated RBC 0.20 % 0.00-2 .00 Not Available [facility] [address], [place], [address], 06/16/2021 14:59:56 06/16/20 21 06/16/2021 CBC W/ AUTOD IFF, COMPL ETE BLOOD COUNT RBC 4.69 M/uL 3.90-5 .00 Not Available [facility], [place], [address], 06/16/2021 14:59:56 06/16/20 21 06/16/2021 CBC W/ AUTOD IFF, COMPL ETE BLOOD COUNT hemoglobin 14.8 g/dL 12.0-1 5.0 Not Available [facility] [address], [place], [address], 06/16/2021 14:59:56 06/16/20 21 06/16/2021 CBC W/ AUTOD IFF, COMPL ETE BLOOD COUNT hematocrit 44.50 % 35.00- 45.00 Not Available [facility] [address], [place], [address], 06/16/2021 14:59:56 06/16/20 21 06/16/2021 CBC W/ AUTOD IFF, COMPL ETE BLOOD COUNT MCV 95.0 fL 80.0-9 9.0 Not Available [facility] [address], [place], [address], 06/16/2021 14:59:56 06/16/20 21 06/16/2021 CBC W/ AUTOD IFF, COMPL ETE BLOOD COUNT MCH 31.5 pg 27.0-3 3.0 Not Available [facility], [place], [address], 06/16/2021 14:59:56 06/16/20 21 06/16/2021 CBC W/ AUTOD IFF, COMPL ETE BLOOD COUNT MCHC 33.1 g/dL 32.0-3 6.0 Not Available [facility] [address], [place], [address], 06/16/2021 14:59:56 06/16/20 21 06/16/2021 CBC W/ AUTOD IFF, COMPL ETE BLOOD COUNT platelets 242 K/uL 140-44 0 Not Available [facility] [address] [place] [address] [address], [place], [address], 06/16/2021 14:59:56 06/16/20 21 06/16/2021 CBC W/ AUTOD IFF, COMPL ETE BLOOD COUNT RDW_I 13.3 % 11.0-1 5.0 Not Available [facility] [address] [place] [address] [address], [place], [address], 06/16/2021 14:59:56 06/16/20 21 06/16/2021 CBC W/ AUTOD IFF, COMPL ETE BLOOD COUNT MPV 9.6 fL 7.4-10 .4 Not Available [facility], [place], [address], 06/16/2021 14:59:56 06/16/20 21 06/16/2021 CBC W/ AUTOD IFF, COMPL ETE BLOOD COUNT neutrophil, percentage 52.5 % 40.0-7 5.0 Not Available [facility] [address], [place], [address], 06/16/2021 14:59:56 06/16/20 21 06/16/2021 CBC W/ AUTOD IFF, COMPL ETE BLOOD COUNT lymphocyte, percentage 37.3 % 15.0-4 5.0 Not Available [facility] [address] [place], [place] [address], [place], [address], 06/16/2021 14:59:56 06/16/20 21 06/16/2021 CBC W/ AUTOD IFF, COMPL ETE BLOOD COUNT monocyte, percentage 5.4 % 4.0-9. 0 Not Available [facility] [address] [place], [place] [address], [place], [address], 06/16/2021 14:59:56 06/16/20 21 06/16/2021 CBC W/ AUTOD IFF, COMPL ETE BLOOD COUNT eosinophil, percentage 3.7 % 1.0-6. 0 Not Available [facility] [address] [place], [place] [address], [place], [address], 06/16/2021 14:59:56 06/16/20 21 06/16/2021 CBC W/ AUTOD IFF, COMPL ETE BLOOD COUNT basophil, percentage 1.1 % 0.0-2. 0 Not Available [facility] [address] [place], [place] [address]y [address], [place], [address], 06/16/2021 14:59:56 06/16/20 21 06/16/2021 CBC W/ AUTOD IFF, COMPL ETE BLOOD COUNT neutrophil, absolute 3.4 K/uL 1.5-7. 5 Not Available [facility] [address] [place], [place] [address]y [address], [place], [address], 06/16/2021 14:59:56 06/16/20 21 06/16/2021 CBC W/ AUTOD IFF, COMPL ETE BLOOD COUNT lymphocyte, absolute 2.4 K/uL 0.8-4. 0 Not Available [facility] [address], [place], [address], 06/16/2021 14:59:56 06/16/20 21 06/16/2021 CBC W/ AUTOD IFF, COMPL ETE BLOOD COUNT monocyte, absolute 0.4 K/uL 0.1-1. 0 Not Available [facility] [address], [place], [address], 06/16/2021 14:59:56 06/16/20 21 06/16/2021 CBC W/ AUTOD IFF, COMPL ETE BLOOD COUNT eosinophil, absolute 0.2 K/uL 0.1-1. 0 Not Available [facility] [address] [place], [place] [address]y [address], [place], [address], 06/16/2021 14:59:56 06/16/20 21 06/16/2021 CBC W/ AUTOD IFF, COMPL ETE BLOOD COUNT basophil, absolute 0.1 K/uL 0.0-0. 2 Not Available [facility] [address] [place], [place] [address]y [address], [place], [address], 06/16/2021 14:59:56 06/16/20 21 06/16/2021 CMP, COMPR EHENS DELPHINE METAB OLIC PANEL glucose 122 mg/dL 70-100 high Not Available [facility] [address] [facility] [address], [place], [address], 06/16/2021 14:59:57 06/16/20 21 06/16/2021 CMP, COMPR EHENS DELPHINE METAB OLIC PANEL BUN 14 mg/dL 7-25 Not Available [facility] [address], [place], [address], 06/16/2021 14:59:57 06/16/20 21 06/16/2021 CMP, COMPR EHENS DELPHINE METAB OLIC PANEL creatinine 0.9 mg/dL 0.6-1. 3 Not Available [facility] [address] [facility] [address], [place], [address], 06/16/2021 14:59:57 06/16/20 21 06/16/2021 CMP, COMPR EHENS DELPHINE METAB OLIC PANEL BUN/creatini ne ratio 16 calc 10-25 Not Available [facility] [address] [facility] [address] [place], [address], 06/16/2021 14:59:57 06/16/20 21 06/16/2021 CMP, COMPR EHENS DELPHINE METAB OLIC PANEL eGFR 81 mL/mi n/1.7 3m2 >60 THREE CONSE CUTIV E VALUE S <60 mL/mi n COULD BE INDIC ATIVE OF KIDNE Y DISEA SE. Not Available [facility] [address] [facility] [address] [place], [address], 06/16/2021 14:59:57 06/16/20 21 06/16/2021 CMP, COMPR EHENS DELPHINE METAB OLIC PANEL eGFR non- 66 mL/mi n/1.7 3m2 >60 THREE CONSE CUTIV E VALUE S < 60 mL/mi n COULD BE INDIC ATIVE OF KIDNE Y DISEA SE Not Available [facility] [address] [facility] [address] [place], [address], 06/16/2021 14:59:57 06/16/20 21 06/16/2021 CMP, COMPR EHENS DELPHINE METAB OLIC PANEL sodium 142 mmol/ L 135-14 5 Not Available [facility] [address] [place], [address], 06/16/2021 14:59:57 06/16/20 21 06/16/2021 CMP, COMPR EHENS DELPHINE METAB OLIC PANEL potassium 4.1 mmol/ L 3.5-5. 5 Not Available [facility] [address] [facility] [address], [place], [address], 06/16/2021 14:59:57 06/16/20 21 06/16/2021 CMP, COMPR EHENS DELPHINE METAB OLIC PANEL chloride 104 mmol/ L 100-11 5 Not Available [facility] [address], [place], [address], 06/16/2021 14:59:57 06/16/20 21 06/16/2021 CMP, COMPR EHENS DELPHINE METAB OLIC PANEL CO2 25 mmol/ L 21-33 Not Available [facility] [address], [place], [address], 06/16/2021 14:59:57 06/16/20 21 06/16/2021 CMP, COMPR EHENS DELPHINE METAB OLIC PANEL anion gap 12.9 calc 3.0-11 .0 high Not Available [facility] [address], [place], [address], 06/16/2021 14:59:57 06/16/20 21 06/16/2021 CMP, COMPR EHENS DELPHINE METAB OLIC PANEL calcium 9.3 mg/dL 8.8-10 .6 Not Available [facility] [address] [place] [address] [address] [place], [address], 06/16/2021 14:59:57 06/16/20 21 06/16/2021 CMP, COMPR EHENS DELPHINE METAB OLIC PANEL total protein 7.3 g/dL 6.2-8. 6 Not Available [facility] [address] [place], [place] [address]y [address], [place], [address], 06/16/2021 14:59:57 06/16/20 21 06/16/2021 CMP, COMPR EHENS DELPHINE METAB OLIC PANEL albumin 4.0 g/dL 3.5-5. 7 Not Available [facility] [address] [facility] [address], [place], [address], 06/16/2021 14:59:57 06/16/20 21 06/16/2021 CMP, COMPR EHENS DELPHINE METAB OLIC PANEL globuln 3.3 g/dL 1.3-4. 0 Not Available [facility] [address], [place], [address], 06/16/2021 14:59:57 06/16/20 21 06/16/2021 CMP, COMPR EHENS DELPHINE METAB OLIC PANEL A/G ratio 1.2 calc 1.0-2. 8 Not Available [facility] [address], [place], [address], 06/16/2021 14:59:57 06/16/20 21 06/16/2021 CMP, COMPR EHENS DELPHINE METAB OLIC PANEL AST (SGOT) 25 U/L 13-39 Not Available [facility] [address], [place], [address], 06/16/2021 14:59:57 06/16/20 21 06/16/2021 CMP, COMPR EHENS DELPHINE METAB OLIC PANEL ALT (SGPT) 25 U/L 7-52 Not Available [facility] [address] [place], [place] [address]y [address], [place], [address], 06/16/2021 14:59:57 06/16/20 21 06/16/2021 CMP, COMPR EHENS DELPHINE METAB OLIC PANEL alkaline phosphatase 114 U/L 20-128 Not Available [facility] [address] [place], [place] [address]y [address], [place], [address], 06/16/2021 14:59:57 06/16/20 21 06/16/2021 CMP, COMPR EHENS DELPHINE METAB OLIC PANEL total bilirubin 0.35 mg/dL 0.30-1 .00 Not Available [facility] [address] [facility] [address], [place], [address], 06/16/2021 14:59:57 06/16/20 21 06/16/2021 LIPID PANEL W/ CALCU LATED LDL cholesterol 175 mg/dL 20-180 Expec bashir Range for Adult s: Total Cheryl stero l: Risk Class ifica tion: <200 mg/dl Coleman able 200-2 39 mg/dl Borde rline high > 240 mg/dl High Not Available [facility] [address] [facility] [address], [place], [address], 06/16/2021 14:59:58 06/16/20 21 06/16/2021 LIPID PANEL W/ CALCU LATED LDL triglyceride 126 mg/dL 30-150 Not Available [facility] [address] [facility] [address] [place], [address], 06/16/2021 14:59:58 06/16/20 21 06/16/2021 LIPID PANEL W/ CALCU LATED LDL HDL cholesterol 62 mg/dL 23-92 Not Available [facility] [address] [facility] [address] [place], [address], 06/16/2021 14:59:58 06/16/20 21 06/16/2021 LIPID PANEL W/ CALCU LATED LDL chol/HDL risk ratio 3 calc <3.5 is OPTIM AL Not Available [facility] [address] [facility] [address] [place], [address], 06/16/2021 14:59:58 06/16/20 21 06/16/2021 LIPID PANEL W/ CALCU LATED LDL LDL-calculat ed 88 mg/dL Not Available [facility] [address] [facility] [address] [place], [address], 06/16/2021 14:59:58 06/16/20 21 06/16/2021 LIPID PANEL W/ CALCU LATED LDL non-HDL cholesterol 113 mg/dL COLEMAN ABLE IS <130 mg/dl Not Available [facility] [address] [facility] [address], [place], [address], 06/16/2021 14:59:58 06/16/20 21 06/16/2021 LIPID PANEL W/ CALCU LATED LDL VLDL cholesterol 25.20 mg/dL Not Available [facility] [address] [facility] [address], [place], [address], 06/16/2021 14:59:58 06/16/20 21 06/16/2021 TSH, THYRO ID STIMU LATIN G HORMO NE TSH 31.200 0 uIU/m L 0.2700 -4.200 0 high Not Available [facility] [address] [facility] [address], [place], [address], 06/16/2021 14:59:59 06/16/20 21 06/16/2021 VENIP UNCTU RE results Compl ete Not Available [facility] [address] [facility] [address], [place], [address], 06/16/2021 12:34:23 09/30/20 21 09/30/2021 A1C hemoglobin A1C faith 6.3 % 4.3-5. 6 high ADA RECOM NESSA D GUIDE LINES FOR Hgb A1C % 5.7-6 .4 % predi abeti c <7.0% Reaso nable glyce sharan goal for non-p regna nt adult s <8.0 Appro priat e for patie nts with hypog lycem ia or advan negro micro /macr o vascu alr compl icati ons Not Available [facility] [address] [facility] [address], [place], [address], 09/30/2021 14:12:27 09/30/20 21 09/30/2021 A1C estimated average glucose _I 134.1 mg/dL 97.0-1 40.0 Not Available [facility] [address], [place], [address], 09/30/2021 14:12:27 09/30/20 21 09/30/2021 CBC W/ AUTOD IFF, COMPL ETE BLOOD COUNT WBC_I 4.50 3.60-1 0.00 Not Available [facility] [address], [place], [address], 09/30/2021 14:12:28 09/30/20 21 09/30/2021 CBC W/ AUTOD IFF, COMPL ETE BLOOD COUNT nucleated RBC 0.10 % 0.00-2 .00 Not Available [facility] [address] [facility] [address], [place], [address], 09/30/2021 14:12:28 09/30/20 21 09/30/2021 CBC W/ AUTOD IFF, COMPL ETE BLOOD COUNT RBC 4.52 M/uL 3.90-5 .00 Not Available [facility] [address], [place], [address], 09/30/2021 14:12:28 09/30/20 21 09/30/2021 CBC W/ AUTOD IFF, COMPL ETE BLOOD COUNT hemoglobin 14.4 g/dL 12.0-1 5.0 Not Available [facility] [address], [place], [address], 09/30/2021 14:12:28 09/30/20 21 09/30/2021 CBC W/ AUTOD IFF, COMPL ETE BLOOD COUNT hematocrit 42.50 % 35.00- 45.00 Not Available [facility] [address], [place], [address], 09/30/2021 14:12:28 09/30/20 21 09/30/2021 CBC W/ AUTOD IFF, COMPL ETE BLOOD COUNT MCV 93.9 fL 80.0-9 9.0 Not Available [facility] [address], [place], [address], 09/30/2021 14:12:28 09/30/20 21 09/30/2021 CBC W/ AUTOD IFF, COMPL ETE BLOOD COUNT MCH 31.8 pg 27.0-3 3.0 Not Available [facility] [address], [place], [address], 09/30/2021 14:12:28 09/30/20 21 09/30/2021 CBC W/ AUTOD IFF, COMPL ETE BLOOD COUNT MCHC 33.8 g/dL 32.0-3 6.0 Not Available [facility] [address], [place], [address], 09/30/2021 14:12:28 09/30/20 21 09/30/2021 CBC W/ AUTOD IFF, COMPL ETE BLOOD COUNT platelets 201 K/uL 140-44 0 Not Available [facility] [address], [place], [address], 09/30/2021 14:12:28 09/30/20 21 09/30/2021 CBC W/ AUTOD IFF, COMPL ETE BLOOD COUNT RDW_I 13.1 % 11.0-1 5.0 Not Available [facility] [address], [place], [address], 09/30/2021 14:12:28 09/30/20 21 09/30/2021 CBC W/ AUTOD IFF, COMPL ETE BLOOD COUNT MPV 9.4 fL 7.4-10 .4 Not Available [facility] [address], [place], [address], 09/30/2021 14:12:28 09/30/20 21 09/30/2021 CBC W/ AUTOD IFF, COMPL ETE BLOOD COUNT neutrophil, percentage 45.6 % 40.0-7 5.0 Not Available [facility] [address], [place], [address], 09/30/2021 14:12:28 09/30/20 21 09/30/2021 CBC W/ AUTOD IFF, COMPL ETE BLOOD COUNT lymphocyte, percentage 42.0 % 15.0-4 5.0 Not Available [facility], [place], [address], 09/30/2021 14:12:28 09/30/20 21 09/30/2021 CBC W/ AUTOD IFF, COMPL ETE BLOOD COUNT monocyte, percentage 7.6 % Not Available [facility] [address] [place], [place] [address], [place], [address], 09/30/2021 14:12:28 09/30/20 21 09/30/2021 CBC W/ AUTOD IFF, COMPL ETE BLOOD COUNT eosinophil, percentage 4.0 % 1.0-6. 0 Not Available [facility] [address] [place], [place] [address], [place], [address], 09/30/2021 14:12:28 09/30/20 21 09/30/2021 CBC W/ AUTOD IFF, COMPL ETE BLOOD COUNT basophil, percentage 0.8 % 0.0-2. 0 Not Available [facility] [address], [place], [address], 09/30/2021 14:12:28 09/30/20 21 09/30/2021 CBC W/ AUTOD IFF, COMPL ETE BLOOD COUNT neutrophil, absolute 2.0 K/uL 1.5-7. 5 Not Available [facility] [address] [facility] [address], [place], [address], 09/30/2021 14:12:28 09/30/20 21 09/30/2021 CBC W/ AUTOD IFF, COMPL ETE BLOOD COUNT lymphocyte, absolute 1.9 K/uL 0.8-4. 0 Not Available [facility] [facility] [address], [place], [address], 09/30/2021 14:12:28 09/30/20 21 09/30/2021 CBC W/ AUTOD IFF, COMPL ETE BLOOD COUNT monocyte, absolute 0.3 K/uL 0.1-1. 0 Not Available [facility] [address] [place], [place] [address]y [address], [place], [address], 09/30/2021 14:12:28 09/30/20 21 09/30/2021 CBC W/ AUTOD IFF, COMPL ETE BLOOD COUNT eosinophil, absolute 0.2 K/uL 0.1-1. 0 Not Available [facility] [address] [place], [place] [address]y [address], [place], [address], 09/30/2021 14:12:28 09/30/20 21 09/30/2021 CBC W/ AUTOD IFF, COMPL ETE BLOOD COUNT basophil, absolute 0.0 K/uL 0.0-0. 2 Not Available [facility] [address] [place], [place] [address]y [address], [place], [address], 09/30/2021 14:12:28 09/30/20 21 09/30/2021 CMP, COMPR EHENS DELPHINE METAB OLIC PANEL glucose 113 mg/dL 70-100 high Not Available [facility] [address] [place], [place] [address]y [address], [place], [address], 09/30/2021 14:12:28 09/30/20 21 09/30/2021 CMP, COMPR EHENS DELPHINE METAB OLIC PANEL BUN 14 mg/dL 7-25 Not Available [facility] [address] [facility] [address] [place], [address], 09/30/2021 14:12:28 09/30/20 21 09/30/2021 CMP, COMPR EHENS DELPHINE METAB OLIC PANEL creatinine 0.8 mg/dL 0.6-1. 3 Not Available [facility] [address] [facility] [address] [place], [address], 09/30/2021 14:12:28 09/30/20 21 09/30/2021 CMP, COMPR EHENS DELPHINE METAB OLIC PANEL BUN/creatini ne ratio 18 calc 10-25 Not Available [facility] [address] [facility] [address], [place], [address], 09/30/2021 14:12:28 09/30/20 21 09/30/2021 CMP, COMPR EHENS DELPHINE METAB OLIC PANEL eGFR 92 mL/mi n/1.7 3m2 >60 THREE CONSE CUTIV E VALUE S <60 mL/mi n COULD BE INDIC ATIVE OF KIDNE Y DISEA SE. Not Available [facility] [address] [facility] [address], [place], [address], 09/30/2021 14:12:28 09/30/20 21 09/30/2021 CMP, COMPR EHENS DELPHINE METAB OLIC PANEL eGFR non- 76 mL/mi n/1.7 3m2 >60 THREE CONSE CUTIV E VALUE S < 60 mL/mi n COULD BE INDIC ATIVE OF KIDNE Y DISEA SE Not Available [facility] [address] [facility] [address] [place], [address], 09/30/2021 14:12:28 09/30/20 21 09/30/2021 CMP, COMPR EHENS DELPHINE METAB OLIC PANEL sodium 141 mmol/ L 135-14 5 Not Available [facility] [address] [facility] [address], [place], [address], 09/30/2021 14:12:28 09/30/20 21 09/30/2021 CMP, COMPR EHENS DELPHINE METAB OLIC PANEL potassium 4.2 mmol/ L 3.5-5. 5 Not Available [facility] [address] [facility] [address], [place], [address], 09/30/2021 14:12:28 09/30/20 21 09/30/2021 CMP, COMPR EHENS DELPHINE METAB OLIC PANEL chloride 103 mmol/ L 100-11 5 Not Available [facility] [address] [facility] [address], [place], [address], 09/30/2021 14:12:28 09/30/20 21 09/30/2021 CMP, COMPR EHENS DELPHINE METAB OLIC PANEL CO2 26 mmol/ L 21-33 Not Available [facility] [address], [place], [address], 09/30/2021 14:12:28 09/30/20 21 09/30/2021 CMP, COMPR EHENS DELPHINE METAB OLIC PANEL anion gap 11.8 calc 3.0-11 .0 high Not Available [facility] [address] [facility] [address], [place], [address], 09/30/2021 14:12:28 09/30/20 21 09/30/2021 CMP, COMPR EHENS DELPHINE METAB OLIC PANEL calcium 9.0 mg/dL 8.8-10 .6 Not Available [facility] [address] [facility] [address], [place], [address], 09/30/2021 14:12:28 09/30/20 21 09/30/2021 CMP, COMPR EHENS DELPHINE METAB OLIC PANEL total protein 7.0 g/dL 6.2-8. 6 Not Available [facility] [address], [place], [address], 09/30/2021 14:12:28 09/30/20 21 09/30/2021 CMP, COMPR EHENS DELPHINE METAB OLIC PANEL albumin 4.2 g/dL 3.5-5. 7 Not Available [facility] [address], [place], [address], 09/30/2021 14:12:28 09/30/20 21 09/30/2021 CMP, COMPR EHENS DELPHINE METAB OLIC PANEL globuln 2.9 g/dL 1.3-4. 0 Not Available [facility] [address], [place], [address], 09/30/2021 14:12:28 09/30/20 21 09/30/2021 CMP, COMPR EHENS DELPHINE METAB OLIC PANEL A/G ratio 1.5 calc 1.0-2. 8 Not Available [facility] [address] [facility] [address], [place], [address], 09/30/2021 14:12:28 09/30/20 21 09/30/2021 CMP, COMPR EHENS DELPHINE METAB OLIC PANEL AST (SGOT) 21 U/L 13-39 Not Available [facility] [address] [facility] [address], [place], [address], 09/30/2021 14:12:28 09/30/20 21 09/30/2021 CMP, COMPR EHENS DELPHINE METAB OLIC PANEL ALT (SGPT) 25 U/L 7-52 Not Available [facility] [address], [place], [address], 09/30/2021 14:12:28 09/30/20 21 09/30/2021 CMP, COMPR EHENS DELPHINE METAB OLIC PANEL alkaline phosphatase 111 U/L 20-128 Not Available [facility] [address], [place], [address], 09/30/2021 14:12:28 09/30/20 21 09/30/2021 CMP, COMPR EHENS DELPHINE METAB OLIC PANEL total bilirubin 0.27 mg/dL 0.30-1 .00 low Not Available [facility] [address] [facility] [address], [place], [address], 09/30/2021 14:12:28 09/30/20 21 09/30/2021 LIPID PANEL W/ CALCU LATED LDL cholesterol 152 mg/dL 20-180 Expec bashir Range for Adult s: Total Cheryl stero l: Risk Class ifica tion: <200 mg/dl Coleman able 200-2 39 mg/dl Borde rline high > 240 mg/dl High Not Available [facility] [address] [facility] [address], [place], [address], 09/30/2021 14:12:29 09/30/20 21 09/30/2021 LIPID PANEL W/ CALCU LATED LDL triglyceride 118 mg/dL 30-150 Not Available [facility] [address] [facility] [address], [place], [address], 09/30/2021 14:12:29 09/30/20 21 09/30/2021 LIPID PANEL W/ CALCU LATED LDL HDL cholesterol 51 mg/dL 23-92 Not Available [facility] [address] [facility] [address], [place], [address], 09/30/2021 14:12:29 09/30/20 21 09/30/2021 LIPID PANEL W/ CALCU LATED LDL chol/HDL risk ratio 3 calc <3.5 is OPTIM AL Not Available [facility] [address] [facility] [address], [place], [address], 09/30/2021 14:12:29 09/30/20 21 09/30/2021 LIPID PANEL W/ CALCU LATED LDL LDL-calculat ed 77 mg/dL Not Available [facility] [address] [facility] [address] [place], [address], 09/30/2021 14:12:29 09/30/20 21 09/30/2021 LIPID PANEL W/ CALCU LATED LDL non-HDL cholesterol 101 mg/dL COLEMAN ABLE IS <130 mg/dl Not Available [facility] [address] [facility] [address] [place], [address], 09/30/2021 14:12:29 09/30/20 21 09/30/2021 LIPID PANEL W/ CALCU LATED LDL VLDL cholesterol 23.60 mg/dL Not Available [facility] [address] [facility] [address] [place], [address], 09/30/2021 14:12:29 09/30/20 21 09/30/2021 TSH, THYRO ID STIMU LATIN G HORMO NE TSH 0.7920 uIU/m L 0.2700 -4.200 0 Not Available [facility] [address] [facility] [address] [place], [address], 09/30/2021 14:12:30 09/30/20 21 09/30/2021 VENIP UNCTU RE results Compl ete Not Available [facility] [address] [facility] [address] [place], [address], 09/30/2021 07:50:15 02/18/20 22 02/17/2022 A1C hemoglobin A1C faith 6.6 % 4.3-5. 6 high ADA RECOM NESSA D GUIDE LINES FOR Hgb A1C % 5.7-6 .4 % predi abeti c <7.0% Reaso nable glyce sharan goal for non-p regna nt adult s <8.0 Appro priat e for patie nts with hypog lycem ia or advan negro micro /macr o vascu alr compl icati ons Not Available [facility] [address], [place], [address], 02/17/2022 14:38:27 02/18/20 22 02/17/2022 A1C estimated average glucose _I 142.7 mg/dL 97.0-1 40.0 high Not Available [facility] [address] [place], [address], 02/17/2022 14:38:27 02/18/20 22 02/17/2022 CBC W/ AUTOD IFF, COMPL ETE BLOOD COUNT WBC_I 7.40 3.60-1 0.00 Not Available [facility] [address] [place], [place] [address]y [address], [place], [address], 02/17/2022 14:38:27 02/18/20 22 02/17/2022 CBC W/ AUTOD IFF, COMPL ETE BLOOD COUNT nucleated RBC 0.10 % 0.00-2 .00 Not Available [facility] [address] [place], [address], 02/17/2022 14:38:27 02/18/20 22 02/17/2022 CBC W/ AUTOD IFF, COMPL ETE BLOOD COUNT RBC 4.57 M/uL 3.90-5 .00 Not Available [facility] [address] [place] [address] [address] [place], [address], 02/17/2022 14:38:27 02/18/20 22 02/17/2022 CBC W/ AUTOD IFF, COMPL ETE BLOOD COUNT hemoglobin 14.3 g/dL 12.0-1 5.0 Not Available [facility] [address] [place], [place] [address]y [address], [place], [address], 02/17/2022 14:38:27 02/18/20 22 02/17/2022 CBC W/ AUTOD IFF, COMPL ETE BLOOD COUNT hematocrit 41.80 % 35.00- 45.00 Not Available [facility] [address] [place], [place] [address]y [address], [place], [address], 02/17/2022 14:38:27 02/18/20 22 02/17/2022 CBC W/ AUTOD IFF, COMPL ETE BLOOD COUNT MCV 91.6 fL 80.0-9 9.0 Not Available [facility] [address] [place], [place] [address] [address], [place], [address], 02/17/2022 14:38:27 02/18/20 22 02/17/2022 CBC W/ AUTOD IFF, COMPL ETE BLOOD COUNT MCH 31.3 pg 27.0-3 3.0 Not Available [facility] [address] [place] [address] [address], [place], [address], 02/17/2022 14:38:27 02/18/20 22 02/17/2022 CBC W/ AUTOD IFF, COMPL ETE BLOOD COUNT MCHC 34.2 g/dL 32.0-3 6.0 Not Available [facility] [address] [place], [place] [address] [address], [place], [address], 02/17/2022 14:38:27 02/18/20 22 02/17/2022 CBC W/ AUTOD IFF, COMPL ETE BLOOD COUNT platelets 242 K/uL 140-44 0 Not Available [facility] [address] [place] [address] [address], [place], [address], 02/17/2022 14:38:27 02/18/20 22 02/17/2022 CBC W/ AUTOD IFF, COMPL ETE BLOOD COUNT RDW_I 13.4 % 11.0-1 5.0 Not Available [facility] [address] [place] [address] [address], [place], [address], 02/17/2022 14:38:27 02/18/20 22 02/17/2022 CBC W/ AUTOD IFF, COMPL ETE BLOOD COUNT MPV 9.0 fL 7.4-10 .4 Not Available [facility] [address], [place], [address], 02/17/2022 14:38:27 02/18/20 22 02/17/2022 CBC W/ AUTOD IFF, COMPL ETE BLOOD COUNT neutrophil, percentage 57.1 % 40.0-7 5.0 Not Available [facility] [address] [place] [address] [address], [place], [address], 02/17/2022 14:38:27 02/18/20 22 02/17/2022 CBC W/ AUTOD IFF, COMPL ETE BLOOD COUNT lymphocyte, percentage 32.7 % 15.0-4 5.0 Not Available [facility] [address] [place] [address] [address], [place], [address], 02/17/2022 14:38:27 02/18/20 22 02/17/2022 CBC W/ AUTOD IFF, COMPL ETE BLOOD COUNT monocyte, percentage 6.7 % Not Available [facility] [address] [place] [address]y [address], [place], [address], 02/17/2022 14:38:27 02/18/20 22 02/17/2022 CBC W/ AUTOD IFF, COMPL ETE BLOOD COUNT eosinophil, percentage 2.7 % 1.0-6. 0 Not Available [facility] [address] [place] [address] [address], [place], [address], 02/17/2022 14:38:27 02/18/20 22 02/17/2022 CBC W/ AUTOD IFF, COMPL ETE BLOOD COUNT basophil, percentage 0.8 % 0.0-2. 0 Not Available [facility] [address] [place] [address], [place], [address], 02/17/2022 14:38:27 02/18/20 22 02/17/2022 CBC W/ AUTOD IFF, COMPL ETE BLOOD COUNT neutrophil, absolute 4.3 K/uL 1.5-7. 5 Not Available [facility] [address], [place], [address], 02/17/2022 14:38:27 02/18/20 22 02/17/2022 CBC W/ AUTOD IFF, COMPL ETE BLOOD COUNT lymphocyte, absolute 2.4 K/uL 0.8-4. 0 Not Available [facility] [address] [place] [address], [place], [address], 02/17/2022 14:38:27 02/18/20 22 02/17/2022 CBC W/ AUTOD IFF, COMPL ETE BLOOD COUNT monocyte, absolute 0.5 K/uL 0.1-1. 0 Not Available [facility] [address] [place] [address], [place], [address], 02/17/2022 14:38:27 02/18/20 22 02/17/2022 CBC W/ AUTOD IFF, COMPL ETE BLOOD COUNT eosinophil, absolute 0.2 K/uL 0.1-1. 0 Not Available [facility] [address] [place] [address] [address] [place], [address], 02/17/2022 14:38:27 02/18/20 22 02/17/2022 CBC W/ AUTOD IFF, COMPL ETE BLOOD COUNT basophil, absolute 0.1 K/uL 0.0-0. 2 Not Available [facility] [address], [place], [address], 02/17/2022 14:38:27 02/18/20 22 02/17/2022 CMP, COMPR EHENS DELPHINE METAB OLIC PANEL glucose 170 mg/dL 70-100 high Not Available [facility] [address] [facility] [address], [place], [address], 02/17/2022 14:38:28 02/18/20 22 02/17/2022 CMP, COMPR EHENS DELPHINE METAB OLIC PANEL BUN 17 mg/dL 7-25 Not Available [facility] [address] [facility] [address], [place], [address], 02/17/2022 14:38:28 02/18/20 22 02/17/2022 CMP, COMPR EHENS DELPHINE METAB OLIC PANEL creatinine 0.7 mg/dL 0.6-1. 3 Not Available [facility] [address] [facility] [address], [place], [address], 02/17/2022 14:38:28 02/18/20 22 02/17/2022 CMP, COMPR EHENS DELPHINE METAB OLIC PANEL BUN/creatini ne ratio 23 calc 10-25 Not Available [facility] [address] [facility] [address], [place], [address], 02/17/2022 14:38:28 02/18/20 22 02/17/2022 CMP, COMPR EHENS DELPHINE METAB OLIC PANEL eGFR 102 mL/mi n/1.7 3m2 >60 THREE CONSE CUTIV E VALUE S <60 mL/mi n COULD BE INDIC ATIVE OF KIDNE Y DISEA SE. Not Available [facility] [address] [place] [address]y [address], [place], [address], 02/17/2022 14:38:28 02/18/20 22 02/17/2022 CMP, COMPR EHENS DELPHINE METAB OLIC PANEL eGFR non- 84 mL/mi n/1.7 3m2 >60 THREE CONSE CUTIV E VALUE S < 60 mL/mi n COULD BE INDIC ATIVE OF KIDNE Y DISEA SE Not Available [facility] [address] [facility] [address], [place], [address], 02/17/2022 14:38:28 02/18/20 22 02/17/2022 CMP, COMPR EHENS DELPHINE METAB OLIC PANEL sodium 139 mmol/ L 135-14 5 Not Available [facility] [address], [place], [address], 02/17/2022 14:38:28 02/18/20 22 02/17/2022 CMP, COMPR EHENS DELPHINE METAB OLIC PANEL potassium 4.1 mmol/ L 3.5-5. 5 Not Available [facility] [address] [facility] [address], [place], [address], 02/17/2022 14:38:28 02/18/20 22 02/17/2022 CMP, COMPR EHENS DELPHINE METAB OLIC PANEL chloride 103 mmol/ L 100-11 5 Not Available [facility] [address], [place], [address], 02/17/2022 14:38:28 02/18/20 22 02/17/2022 CMP, COMPR EHENS DELPHINE METAB OLIC PANEL CO2 28 mmol/ L 21-33 Not Available [facility] [address], [place], [address], 02/17/2022 14:38:28 02/18/20 22 02/17/2022 CMP, COMPR EHENS DELPHINE METAB OLIC PANEL anion gap 8.3 calc 3.0-11 .0 Not Available [facility] [address] [facility] [address], [place], [address], 02/17/2022 14:38:28 02/18/20 22 02/17/2022 CMP, COMPR EHENS DELPHINE METAB OLIC PANEL calcium 9.4 mg/dL 8.8-10 .6 Not Available [facility] [address], [place], [address], 02/17/2022 14:38:28 02/18/20 22 02/17/2022 CMP, COMPR EHENS DELPHINE METAB OLIC PANEL total protein 7.4 g/dL 6.2-8. 6 Not Available [facility] [address], [place], [address], 02/17/2022 14:38:28 02/18/20 22 02/17/2022 CMP, COMPR EHENS DELPHINE METAB OLIC PANEL albumin 4.4 g/dL 3.5-5. 7 Not Available [facility] [address], [place], [address], 02/17/2022 14:38:28 02/18/20 22 02/17/2022 CMP, COMPR EHENS DELPHINE METAB OLIC PANEL globuln 3.1 g/dL 1.3-4. 0 Not Available [facility] [address] [place], [place] [address], [place], [address], 02/17/2022 14:38:28 02/18/20 22 02/17/2022 CMP, COMPR EHENS DELPHINE METAB OLIC PANEL A/G ratio 1.4 calc 1.0-2. 8 Not Available [facility] [address] [place], [place] [address]y [address], [place], [address], 02/17/2022 14:38:28 02/18/20 22 02/17/2022 CMP, COMPR EHENS DELPHINE METAB OLIC PANEL AST (SGOT) 31 U/L 13-39 Not Available [facility] [address] [place] [address] [address], [place], [address], 02/17/2022 14:38:28 02/18/20 22 02/17/2022 CMP, COMPR EHENS DELPHINE METAB OLIC PANEL ALT (SGPT) 43 U/L 7-52 Not Available [facility] [address] [place], [place] [address] [address] [place], [address], 02/17/2022 14:38:28 02/18/20 22 02/17/2022 CMP, COMPR EHENS DELPHINE METAB OLIC PANEL alkaline phosphatase 110 U/L 20-128 Not Available [facility] [address], [address], 02/17/2022 14:38:28 02/18/20 22 02/17/2022 CMP, COMPR EHENS DELPHINE METAB OLIC PANEL total bilirubin 0.29 mg/dL 0.30-1 .00 low Not Available [facility] [address], [address], 02/17/2022 14:38:28 02/18/20 22 02/17/2022 TSH, THYRO ID STIMU LATIN G HORMO NE TSH 0.2500 uIU/m L 0.2700 -4.200 0 low Not Available [facility] [address], [address], 02/17/2022 14:38:29 02/18/20 22 02/17/2022 VENIP UNCTU RE results Compl ete Not Available [facility] [address] [place] [address], [address], 02/17/2022 11:25:10 02/21/20 22 02/20/2022 T3 TOTAL total T3 93.90 NG/dL 80.00- 200.00 Not Available [facility] [address], [address], 02/20/2022 12:26:51 02/21/20 22 02/21/2022 T4 (THYR OXINE ), TOTAL T4 (thyroxine), total 9.4 mcg/d L 5.1-11 .9 normal Not Available [facility] [address] [place] [address], [address], 02/21/2022 08:45:45 02/21/20 22 02/20/2022 VENIP UNCTU RE results Compl ete Not Available [facility] [address] [facility] [address] [place], [address], 02/20/2022 09:15:47 06/01/20 22 06/01/2022 A1C hemoglobin A1C faith 6.4 % 4.3-5. 6 high ADA RECOM NESSA D GUIDE LINES FOR Hgb A1C % 5.7-6 .4 % predi abeti c <7.0% Reaso nable glyce sharan goal for non-p regna nt adult s <8.0 Appro priat e for patie nts with hypog lycem ia or advan negro micro /macr o vascu alr compl icati ons Not Available [facility] [address] [facility] [address] [place], [address], 06/01/2022 14:42:01 06/01/20 22 06/01/2022 A1C estimated average glucose _I 137.0 mg/dL 97.0-1 40.0 Not Available [facility] [address] [place], [address], 06/01/2022 14:42:01 06/01/20 22 06/01/2022 CBC W/ AUTOD IFF, COMPL ETE BLOOD COUNT WBC_I 5.20 3.60-1 0.00 Not Available [facility] [address] [facility] [address] [place], [address], 06/01/2022 14:42:02 06/01/20 22 06/01/2022 CBC W/ AUTOD IFF, COMPL ETE BLOOD COUNT nucleated RBC 0.10 % 0.00-2 .00 Not Available [facility] [address] [facility] [address] [place], [address], 06/01/2022 14:42:02 06/01/20 22 06/01/2022 CBC W/ AUTOD IFF, COMPL ETE BLOOD COUNT RBC 4.54 M/uL 3.90-5 .00 Not Available [facility] [address], [place], [address], 06/01/2022 14:42:02 06/01/20 22 06/01/2022 CBC W/ AUTOD IFF, COMPL ETE BLOOD COUNT hemoglobin 14.2 g/dL 12.0-1 5.0 Not Available [facility] [address], [place], [address], 06/01/2022 14:42:02 06/01/20 22 06/01/2022 CBC W/ AUTOD IFF, COMPL ETE BLOOD COUNT hematocrit 41.90 % 35.00- 45.00 Not Available [facility] [address], [place], [address], 06/01/2022 14:42:02 06/01/20 22 06/01/2022 CBC W/ AUTOD IFF, COMPL ETE BLOOD COUNT MCV 92.1 fL 80.0-9 9.0 Not Available [facility] [address], [place], [address], 06/01/2022 14:42:02 06/01/20 22 06/01/2022 CBC W/ AUTOD IFF, COMPL ETE BLOOD COUNT MCH 31.3 pg 27.0-3 3.0 Not Available [facility] [address], [place], [address], 06/01/2022 14:42:02 06/01/20 22 06/01/2022 CBC W/ AUTOD IFF, COMPL ETE BLOOD COUNT MCHC 34.0 g/dL 32.0-3 6.0 Not Available [facility] [address], [place], [address], 06/01/2022 14:42:02 06/01/20 22 06/01/2022 CBC W/ AUTOD IFF, COMPL ETE BLOOD COUNT platelets 218 K/uL 140-44 0 Not Available [facility] [address] [place], [place] [address]y [address], [place], [address], 06/01/2022 14:42:02 06/01/20 22 06/01/2022 CBC W/ AUTOD IFF, COMPL ETE BLOOD COUNT RDW_I 13.5 % 11.0-1 5.0 Not Available [facility] [address] [place], [place] [address]y [address], [place], [address], 06/01/2022 14:42:02 06/01/20 22 06/01/2022 CBC W/ AUTOD IFF, COMPL ETE BLOOD COUNT MPV 8.7 fL 7.4-10 .4 Not Available [facility] [address] [place], [place] [address]y [address], [place], [address], 06/01/2022 14:42:02 06/01/20 22 06/01/2022 CBC W/ AUTOD IFF, COMPL ETE BLOOD COUNT neutrophil, percentage 44.9 % 40.0-7 5.0 Not Available [facility] [address] [place], [place] [address] [address] [place], [address], 06/01/2022 14:42:02 06/01/20 22 06/01/2022 CBC W/ AUTOD IFF, COMPL ETE BLOOD COUNT lymphocyte, percentage 43.9 % 15.0-4 5.0 Not Available [facility] [address] [place], [place] [id number] [address], [place], [address], 06/01/2022 14:42:02 06/01/20 22 06/01/2022 CBC W/ AUTOD IFF, COMPL ETE BLOOD COUNT monocyte, percentage 7.6 % Not Available [facility] [address] [place], [place] [id number] [address], [place], [address], 06/01/2022 14:42:02 06/01/20 22 06/01/2022 CBC W/ AUTOD IFF, COMPL ETE BLOOD COUNT eosinophil, percentage 2.8 % 1.0-6. 0 Not Available [facility] [address] [place], [place] [id number] [address], [place], [address], 06/01/2022 14:42:02 06/01/20 22 06/01/2022 CBC W/ AUTOD IFF, COMPL ETE BLOOD COUNT basophil, percentage 0.8 % 0.0-2. 0 Not Available [facility] [address] [place], [place] [id number] [address], [place], [address], 06/01/2022 14:42:02 06/01/20 22 06/01/2022 CBC W/ AUTOD IFF, COMPL ETE BLOOD COUNT neutrophil, absolute 2.4 K/uL 1.5-7. 5 Not Available [facility] [address] [place], [place] [id number] [address], [place], [address], 06/01/2022 14:42:02 06/01/20 22 06/01/2022 CBC W/ AUTOD IFF, COMPL ETE BLOOD COUNT lymphocyte, absolute 2.3 K/uL 0.8-4. 0 Not Available [facility] [address] [place], [place] [id number] [address], [place], [address], 06/01/2022 14:42:02 06/01/20 22 06/01/2022 CBC W/ AUTOD IFF, COMPL ETE BLOOD COUNT monocyte, absolute 0.4 K/uL 0.1-1. 0 Not Available [facility] [address] [place], [place] [id number] [address], [place], [address], 06/01/2022 14:42:02 06/01/20 22 06/01/2022 CBC W/ AUTOD IFF, COMPL ETE BLOOD COUNT eosinophil, absolute 0.1 K/uL 0.1-1. 0 Not Available [email or web address] [address] [place], [address], 06/01/2022 14:42:02 06/01/20 22 06/01/2022 CBC W/ AUTOD IFF, COMPL ETE BLOOD COUNT basophil, absolute 0.0 K/uL 0.0-0. 2 Not Available [facility] [address], [place], [address], 06/01/2022 14:42:02 06/01/20 22 06/01/2022 CMP, COMPR EHENS DELPHINE METAB OLIC PANEL glucose 118 mg/dL 70-100 high Not Available [facility] [address] [place] [address], [phone], 06/01/2022 14:42:03 06/01/20 22 06/01/2022 CMP, COMPR EHENS DELPHINE METAB OLIC PANEL BUN 11 mg/dL 7-25 Not Available [facility] [address] [place] [address], [phone], 06/01/2022 14:42:03 06/01/20 22 06/01/2022 CMP, COMPR EHENS DELPHINE METAB OLIC PANEL creatinine 0.8 mg/dL 0.6-1. 3 Not Available [facility] [facility] [address] [place] [address] [address] [place], [address], 06/01/2022 14:42:03 06/01/20 22 06/01/2022 CMP, COMPR EHENS DELPHINE METAB OLIC PANEL BUN/creatini ne ratio 14 calc 10-25 Not Available [facility] [address] [place] [address] [address], [place], [address], 06/01/2022 14:42:03 06/01/20 22 06/01/2022 CMP, COMPR EHENS DELPHINE METAB OLIC PANEL eGFR 93 mL/mi n/1.7 3m2 >60 THREE CONSE CUTIV E VALUE S <60 mL/mi n COULD BE INDIC ATIVE OF KIDNE Y DISEA SE. Not Available [facility] [address] [facility] [address], [place], [address], 06/01/2022 14:42:03 06/01/20 22 06/01/2022 CMP, COMPR EHENS DELPHINE METAB OLIC PANEL eGFR non- 77 mL/mi n/1.7 3m2 >60 THREE CONSE CUTIV E VALUE S < 60 mL/mi n COULD BE INDIC ATIVE OF KIDNE Y DISEA SE Not Available [facility] [address] [facility] [address], [place], [address], 06/01/2022 14:42:03 06/01/20 22 06/01/2022 CMP, COMPR EHENS DELPHINE METAB OLIC PANEL sodium 142 mmol/ L 135-14 5 Not Available [facility] [address] [facility] [address] [place], [address], 06/01/2022 14:42:03 06/01/20 22 06/01/2022 CMP, COMPR EHENS DELPHINE METAB OLIC PANEL potassium 4.5 mmol/ L 3.5-5. 5 Not Available [facility] [address] [facility] [address] [place], [address], 06/01/2022 14:42:03 06/01/20 22 06/01/2022 CMP, COMPR EHENS DELPHINE METAB OLIC PANEL chloride 105 mmol/ L 100-11 5 Not Available [facility] [address] [facility] [address] [place], [address], 06/01/2022 14:42:03 06/01/20 22 06/01/2022 CMP, COMPR EHENS DELPHINE METAB OLIC PANEL CO2 24 mmol/ L 21-33 Not Available [facility] [address] [facility] [address], [place], [address], 06/01/2022 14:42:03 06/01/20 22 06/01/2022 CMP, COMPR EHENS DELPHINE METAB OLIC PANEL anion gap 12.8 calc 3.0-11 .0 high Not Available [facility] [address] [facility] [address], [place], [address], 06/01/2022 14:42:03 06/01/20 22 06/01/2022 CMP, COMPR EHENS DELPHINE METAB OLIC PANEL calcium 9.5 mg/dL 8.8-10 .6 Not Available [facility] [address] [facility] [address], [place], [address], 06/01/2022 14:42:03 06/01/20 22 06/01/2022 CMP, COMPR EHENS DELPHINE METAB OLIC PANEL total protein 7.0 g/dL 6.2-8. 6 Not Available [facility] [address] [facility] [address], [place], [address], 06/01/2022 14:42:03 06/01/20 22 06/01/2022 CMP, COMPR EHENS DELPHINE METAB OLIC PANEL albumin 4.2 g/dL 3.5-5. 7 Not Available [facility] [address], [place], [address], 06/01/2022 14:42:03 06/01/20 22 06/01/2022 CMP, COMPR EHENS DELPHINE METAB OLIC PANEL globuln 2.9 g/dL 1.3-4. 0 Not Available [facility] [address] [facility] [address], [place], [address], 06/01/2022 14:42:03 06/01/20 22 06/01/2022 CMP, COMPR EHENS DELPHINE METAB OLIC PANEL A/G ratio 1.5 calc 1.0-2. 8 Not Available [facility] [address] [facility] [address] [place], [address], 06/01/2022 14:42:03 06/01/20 22 06/01/2022 CMP, COMPR EHENS DELPHINE METAB OLIC PANEL AST (SGOT) 38 U/L 13-39 Not Available [facility] [address] [facility] [address] [place], [address], 06/01/2022 14:42:03 06/01/20 22 06/01/2022 CMP, COMPR EHENS DELPHINE METAB OLIC PANEL ALT (SGPT) 59 U/L 7-52 high Not Available [facility] [address] [facility] [address], [place], [address], 06/01/2022 14:42:03 06/01/20 22 06/01/2022 CMP, COMPR EHENS DELPHINE METAB OLIC PANEL alkaline phosphatase 90 U/L 20-128 Not Available [facility] [address] [facility] [address] [place], [address], 06/01/2022 14:42:03 06/01/20 22 06/01/2022 CMP, COMPR EHENS DELPHINE METAB OLIC PANEL total bilirubin 0.36 mg/dL 0.30-1 .00 Not Available [facility] [address] [facility] [address] [place], [address], 06/01/2022 14:42:03 06/01/20 22 06/01/2022 LIPID PANEL W/ CALCU LATED LDL cholesterol 171 mg/dL 20-180 Expec bashir Range for Adult s: Total Cheryl stero l: Risk Class ifica tion: <200 mg/dl Coleman able 200-2 39 mg/dl Borde rline high > 240 mg/dl High Not Available [facility] [address] [facility] [address] [place], [address], 06/01/2022 14:42:04 06/01/20 22 06/01/2022 LIPID PANEL W/ CALCU LATED LDL triglyceride 134 mg/dL 30-150 Not Available [facility] [address] [facility] [address], [place], [address], 06/01/2022 14:42:04 06/01/20 22 06/01/2022 LIPID PANEL W/ CALCU LATED LDL HDL cholesterol 51 mg/dL 23-92 Not Available [facility] [address], [place], [address], 06/01/2022 14:42:04 06/01/20 22 06/01/2022 LIPID PANEL W/ CALCU LATED LDL chol/HDL risk ratio 3 calc <3.5 is OPTIM AL Not Available [facility] [address] [facility] [address], [place], [address], 06/01/2022 14:42:04 06/01/20 22 06/01/2022 LIPID PANEL W/ CALCU LATED LDL non-HDL cholesterol 120 mg/dL COLEMAN ABLE IS <130 mg/dl Not Available [facility] [address] [facility] [address], [place], [address], 06/01/2022 14:42:04 06/01/20 22 06/01/2022 LIPID PANEL W/ CALCU LATED LDL VLDL cholesterol 26.80 mg/dL Not Available [facility] [address] [facility] [address], [place], [address], 06/01/2022 14:42:04 06/01/20 22 06/01/2022 LIPID PANEL W/ CALCU LATED LDL LDL calculated 93 mg/dL 0-99 Not Available [facility] [address] [facility] [address], [place], [address], 06/01/2022 14:42:04 06/01/20 22 06/01/2022 T4, FREE T4, free 1.63 NG/dL 0.93-1 .77 Not Available [facility] [address], [place], [address], 06/01/2022 14:42:05 06/01/20 22 06/01/2022 TSH, THYRO ID STIMU LATIN G HORMO NE TSH 0.2420 uIU/m L 0.2700 -4.200 0 low Not Available [facility] [address], [place], [address], 06/01/2022 14:42:06 06/01/20 22 06/01/2022 VENIP UNCTU RE results Compl ete Not Available [facility] [address] [facility] [address], [place], [address], 06/01/2022 08:12:01 10/14/20 21 10/14/2021 CT, abdom en + pelvi s, w/o contr ast No observ ation record ed. [id number] [facility] All Locations, [place], [address], 10/24/2024 19:43:23 10/14/20 21 10/14/2021 CT, abdom en + pelvi s, w/o contr ast No observ ation record ed. [id number] [facility] All Locations, [place], [address], 10/24/2024 19:41:50 03/13/20 22 03/13/2022 MAMMO , scree lazaro, tomos ynthe sis, bilat eral INDICA TION: Female 66 years - Screen ing mammog caitlin. TECHNI QUE: SCREEN ING BILATE RAL MAMMOG CAITLIN WITH TOMOSY NTHESI S Bilate ral CC and MLO views of the breast s were obtain ed. Digita l breast tomosy nthesi s was perfor med in the CC and MLO planes . Comput er aided detect ion softwa re was utiliz ed. COMPAR PETE: Compar pete is made with previo us studie s dating back to and includ ing y 2017. MAMMOG CAITLIN FINDIN GS: The breast parenc hyma is catego ry B: Scatte red fibrog landul ar tissue Stable appear ing densit ies bilate rally. There is no suspic ious asymme try. There is no dwaine ectura l distor tion. There are no suspic ious microc alcifi cation s. No abnorm al skin thicke lazaro is noted. The nipple s are not retrac bashir. IMPRES MANUELITO: No mammog raphic eviden ce for breast malign carlee. The patien t will be notifi ed of these findin gs as per Smith[place] vo law. BI-RAD S catego ry: 2: Benign findin gs RECOMM ENDATI ONS: Annual screen ing mammog caitlin. Notes: -The patien t's cata[place]ba fibrog landul ar tissue can obscur e an underl abdi cancer on a mammog caitlin. Up to 10% of breast cancer s are not visibl e in mammog raphic ally fatty breast s and up to 35% of breast cancer s are not visibl e in mammog raphic ally dense breast s. -Suppl ementa l annual breast screen ing ultras ound may be benefi cial for the detect ion of breast cancer in patien ts with mammog raphic ally dense breast s. -Patie nts with a greate r than 20% lifeti me risk of breast cancer qualif y for screen ing with breast MRI -Mammo graphy should be supple mented by routin e clinic al and monthl y self exams. A negati ve mammog caitlin result should not deter biopsy of a clinic ally suspic ious lesion . Electr onical ly Signed By: Gabriela Dewey Michae l Sign Date: [id number] [facility] All Locations, [place], [address], 10/03/2024 19:31:26 03/20/2003/20/2022 MRI, lumba r spine , w/o contr ast INDICA TION: M54.16 Radicu lopath y, lumbar region . TECHNI QUE: MRI LUMBAR SPINE WITHOU T CONTRA ST. Multip lanar multis equenc e exam. COMPAR PETE: Correl ation with CT abdome n and pelvis Decemb er 2020 FINDIN GS: For the purpos e of this exam, the lowest level with a well formed disc is design ated as L5-S1. Levels are annota bashir in PACS. The conus termin ates at the L1-L2 disc level. Broad- based dextro curvat ure. Degene rative change s of the sacroi liac joints right greate r than left. Disc space narrow ing most promin ent at L2-3, L3-4. T12-L1 level: No signif icant spinal canal stenos is or neural forami nal narrow ing. L1-L2 level: No signif icant spinal canal stenos is or neural forami nal narrow ing. L2-L3 level: Disc bulge osteop hyte comple x eccent nereyda left result s in left latera l recess and forami nal stenos is. Minor exitin g nerve root abutme nt and forami nal stenos is. L3-L4 level: Disc bulge osteop hyte comple x. Facet hypert rophic change s presen t. L4-L5 level: Facet hypert rophic change s and disc bulge osteop hyte comple x result s in mild by forami nal stenos is and anteri or thecal sac as well as latera l recess encroa chment . L5-S1 level: Facet hypert rophic change s presen t. IMPRES MANUELITO: 1. Multil evel spine degene rative change s are identi fied with levels of stenos is that are estima bashir above. See above discus manuelito and correl ate with clinic al exam findin gs. 2. Dextro convex scolio sis of the lumbar spine. Electr onical ly Signed By: Gabriela Dewey Michae l Sign Date: [id number] [facility] All Locations, [place], [address], 10/03/2024 19:32:13 Result Notes None recorded. Problems Name Problem SNOMED Code Status Onset Date Resolution Date Notes Provider Name and Address Organization Details Recorded Time Epigastri c pain 65836857 Active 2020 Not Available [facility] 2 18:55:27 Diverticu litis 732569625 Active 2020 Not Available [facility] 2 18:55:27 Lumbar radiculop athy 862631317 Active 2021 Not Available [facility] 2 18:55:27 Diverticu lar disease 508142633 Active 2021 Not Available [facility] 2 18:55:27 Liver enzymes outside reference range 174802366 Active 2021 Millie Gill DO [address], [place], [address] , [facility] [employer] [facility] 2 15:09:45 Asthma 493912295 Active 2017 Not Available [facility] 2 18:55:27 Obesity 084689811 Active 2017 Not Available [facility] 2 18:55:27 Degenerat ion of cervical intervert ebral disc 30079258 Active 2017 Not Available [facility] 2 18:55:27 Diarrhea 14006003 Active 2014 MILES CALLEJAS [facility] [employer] [facility] 8 10:23:38 Cervical spondylos is without myelopath y 234762060 Active 2014 Millie Gill DO [address], [place], [address] , [facility] [employer] 2 11:05:33 Disorder of carbohydr ate metabolis m 16903717 Completed 201706/23/2021 Millie Gill DO [address], [place], [address] , [facility] [employer] [facility] 1 10:55:08 Long-term drug therapy Active 2017 Not Available [facility] 2 18:55:27 Seizure disorder 821436134 Active 2017 Not Available [facility] 2 18:55:27 Simple renal cyst 95000073 Active 2017 Not Available [facility] 2 18:55:27 Hypothyro idism 35915320 Active 2017 Not Available [facility] 2 18:55:27 Disorder of thyroid gland 75218812 Completed 201706/28/2018 SOLE Traore [address], [place], [address] , [facility] [employer] 8 12:08:19 Gastroeso phageal reflux disease 720616028 Active 2017 Not Available [facility] 2 18:55:27 Polyp of colon 43815317 Active 2017 Not Available [facility] 2 18:55:27 Benign essential hypertens ion 8157794 Active 2017 Not Available [facility] 2 18:55:27 Allergic rhinitis 44755438 Active 2017 Not Available [facility] 2 18:55:27 Hyperglyc emia 78190577 Completed 201711/25/2020 Millie Gill DO [address], [place], [address] , [facility] [employer] [facility] 1 09:41:59 Chronic sciatica 033319391 Active 2018 Not Available [facility] 2 18:55:27 Low back pain 747756295 Active 2018 Not Available [facility] 2 18:55:27 Type 2 diabetes mellitus 48427922 Active 2020 Not Available [facility] 2 18:55:27 Pain of right shoulder joint 08616157612 441486 Active 2020 Not Available [facility] 2 18:55:27 Problem Notes None recorded. Procedures Surgical History Date Name Laterality Status Provider Name and Address Organization Details Recorded Time 02/18/20 Quality Functional Assessment completed Melinda Zepeda [facility] [employer] [facility] 02/17/2022 10:50:24 02/18/20 22 Quality Medication Reviewed and Updated completed Melindaher Zepeda [facility], [facility] 02/17/2022 10:50:24 02/18/20 22 Medicare AWV Questionnaire completed Millie Gill, DO [address], [place], [address], [facility], [facility] 02/17/2022 12:45:05 02/18/20 22 Quality BMI with follow up completed Melinda Zepeda [facility], [facility] 02/17/2022 10:50:24 02/18/20 22 Quality Advanced Care Planning completed Millie Gill DO [address], [place], [address], [facility], [facility] 02/17/2022 12:45:08 02/18/20 22 Quality Incontinence Screening completed Melinda Zepeda [facility], [facility] 02/17/2022 10:50:24 02/18/20 22 Quality Fall Risk Assessment completed Melinda [facility] 02/17/2022 10:50:24 06/23/20 21 Aspiration Major Joint/Bursa completed Millie Gill DO [address], [place], [address], [facility], [facility] 06/23/2021 10:54:54 01/12/20 21 mammography completed Millie Gill DO [address], [place], [address], [facility], [facility] 02/23/2021 10:57:15 11/25/19 21 Quality Functional Assessment completed [facility], [facility] 11/25/2020 09:28:22 11/25/19 21 Quality Medication Reviewed and Updated completed Albertina [facility], [facility] 11/25/2020 09:28:22 11/25/19 21 Quality Fall Risk Assessment Low Risk completed [facility], [facility] 11/25/2020 09:28:22 11/25/19 21 Quality BMI with follow up completed Albertina Ward [facility], [facility] 11/25/2020 09:28:22 11/25/19 21 Quality Advanced Care Planning completed Millie Gill DO [address], [place], [address], [facility], [facility] 11/25/2020 10:01:22 11/25/19 21 Quality Incontinence Screening completed Albertina Ward [facility], [facility] 11/25/2020 09:28:22 11/25/19 21 Medicare AWV - Screening Schedule completed Millie Gill DO [address], [place], [address], [facility], [facility] 11/25/2020 10:01:13 01/22/20 [address], [place], [address], [facility], [facility] 01/22/2020 20:11:40 01/01/20 20 mammography completed DO [address], [place], [address], [facility], [facility] 04/01/2020 10:03:46 11/26/19 20 Date of Last Mammogram completed Isadora Osborn [facility], [facility] 02/23/2021 10:36:58 09/09/20 19 Quality Functional Assessment completed Vira Pa [facility], [facility] 09/09/2019 09:30:30 09/09/20 19 Quality Medication Reviewed and Updated completed Vira Pa [facility], [facility] 09/09/2019 09:30:30 09/09/20 19 Medicare AWV Questionnaire completed [address], [place], [address], [facility], [facility] 09/09/2019 10:30:12 09/09/20 19 Quality Tobacco Non- User completed [address], [place], [address], [place] [facility], [facility] 09/09/2019 10:01:59 09/09/20 19 Quality Fall Risk Assessment Low Risk completed Vira Pa [facility], [facility] 09/09/2019 09:30:30 09/09/20 19 Quality BMI with follow up completed Vira Pa [facility], [facility] 09/09/2019 09:30:30 09/09/20 19 Quality Advanced Care Planning completed Vira Pa [facility], [facility] 09/09/2019 09:30:30 09/09/20 19 Quality Incontinence Screening completed Vira Pa [facility], [facility] 09/09/2019 09:30:30 06/28/20 18 Quality Functional Assessment completed [address], [place], [address], [facility], [facility] 06/28/2018 12:04:42 06/28/20 18 Quality Medication Reviewed and Updated completed [address], [place], [address], [facility], [facility] 06/28/2018 12:04:42 06/28/20 18 Medicare AWV Questionnaire completed [address], [place], [address], [facility], [facility] 06/28/2018 12:08:08 06/28/20 18 Quality TCM Medication Reconciliation completed MILES CALLEJAS [facility], [facility] 06/28/2018 11:32:00 06/28/20 18 Quality Fall Risk Assessment Low Risk completed [address], [place], [address], [facility], [facility] 06/28/2018 12:04:42 06/28/20 18 Quality BMI with follow up completed [address], [place], [address], [facility], [facility] 06/28/2018 12:04:42 06/28/20 18 Quality Advanced Care Planning completed SOLE Traore [address], [place], [address], [facility], [facility] 06/28/2018 12:04:42 06/28/20 18 Quality Incontinence Screening completed SOLE Traore [address], [place], [address], [facility], [facility] 06/28/2018 12:04:42 12/10/19 18 Mammogram Screening completed SOLE Traore [address], [place], [address], [facility], [facility] 06/27/2018 19:37:38 04/17/20 16 Fecal occult blood test completed Millie Gill DO [address], [place], [address], [facility], [facility] 12/03/2018 17:44:34 12/20/19 08 Bone mineral dual photon completed SOLE Traore [address], [place], [address], [facility] [employer] [facility], [facility] 06/27/2018 19:38:26 Hysterectomy completed Isadoar Osborn [facility], [facility] 02/23/2021 10:37:17 Imaging Results Imaging Date Name Status LastModified by [facility] Details LastModified Time 10/14/2021 CT, abdomen + pelvis, w/o contrast completed [id number] [facility] Imaging All Locations, [place], [address], 10/24/2024 19:43:23 10/14/2021 CT, abdomen + pelvis, w/o contrast completed [id number] [facility] Imaging All Locations, [place], [address], 10/24/2024 19:41:50 03/13/2022 MAMMO, screening, tomosynthesis, bilateral completed [id number] [facility] Imaging All Locations, [place], [address], 10/03/2024 19:31:26 03/20/2022 MRI, lumbar spine, w/o contrast completed [id number] All Locations, [place], [address], 10/03/2024 19:32:13 Procedure Notes None recorded. Medical Equipment None Reported. Allergies Allergen ID Allergen Name Allergen Category Reaction Reaction Severity Criticality Documentation Date Start Date Code Code System Note Provider Name and Address Organization Details Recorded Time 378296 Risperdal medicatio n rash Not available Not available 06/28/2018 10617 8 RxNorm MILES JÚNIOR cuello [facility] 8 10:20:43 534184 prochlorp erazine medicatio n rash Not available Not available 06/28/20182012 8704 RxNorm Isadora cuello [facility] 1 10:36:52 008166 ciproflox acin medicatio n rash Not available Not available 06/28/20182012 2551 RxNorm [facility] 10:36:52 478586 cyclobenz aprine medicatio n rash Not available Not available 06/28/20182012 51202 RxNorm [facility]adora cuello [facility] 1 10:36:52 Medications Name Sig Start Date Stop Date Status Note LastModified by Organization Details LastModified Time Prescriptio n - Prior Authorizati on Request 09/09 completed Not Available Not Available Not Available metformin 500 mg tablet TAKE 1 TABLET DAILY 2020 active Not Available Not Available Not Avai lable Augmentin 875 mg-125 mg tablet Take 1 tablet every 12 hours by oral route. 02/17 completed Not Available Not Available Not Available levothyroxi ne 175 mcg tablet Take 1 tablet every day by oral route. 09/09 completed Not Available Not Available Not Available Synthroid 150 mcg tablet TAKE 1 TABLET DAILY 2021 active Not Available Not Available Not Avai lable promethazin e 6.25 mg-codeine 10 mg/5 mL syrup 07/04 completed Not Available Not Available Not Available phenytoin sodium extended 100 mg capsule TAKE 1 CAPSULE THREE TIMES A DAY 2020 active Not Available Not Available Not Avai lable amlodipine 5 mg tablet TAKE 1 TABLET DAILY 05/29 completed Not Available Not Available Not Available ciprofloxac in 500 mg tablet 07/04 completed Not Available Not Available Not Available hydrocodone 10 mg-acetamin ophen 325 mg tablet TK 1 T PO Q 4 H PRN 2021 active Not Available Not Available Not Avai lable omeprazole 40 mg capsule,del ayed release 09/09 completed Not Available Not Available Not Available tramadol 50 mg tablet 12/03 completed Not Available Not Available Not Available theophyllin e ER 300 mg tablet,exte nded release,12 hr take 1/2 tablet by mouth twice a day 09/09 completed Not Available Not Available Not Available levothyroxi ne 25 mcg tablet Take 1 tablet every day by oral route. 07/04 completed Not Available Not Available Not Available Kenalog 40 mg/mL suspension for injection Take 1 mL by injection route. 10/14 completed Not Available Not Available Not Available nystatin-tr iamcinolone 100,000 unit/gram-0 .1 % topical ointment APPLY TO THE AFFECTED AREA(S) BY TOPICAL ROUTE 2 TIMES PER DAY 2021 active Not Available Not Available Not Avai lable famotidine 20 mg tablet TAKE 1 TABLET DAILY 2021 active Not Available Not Available Not Avai lable amitriptyli ne 25 mg tablet Take 25 mg by oral route. 09/09 completed Not Available Not Available Not Available meclizine 25 mg tablet Take 25 mg by oral route. 12/02 completed Not Available Not Available Not Available baclofen 10 mg tablet 09/09 completed Not Available Not Available Not Available amlodipine 10 mg tablet Take 1 tablet every day by oral route. 2021 active Not Available Not Available Not Avai lable benzonatate 100 mg capsule Take 100 mg by oral route. 12/02 completed Not Available Not Available Not Available levothyroxi ne 125 mcg tablet Take 1 tablet every day by oral route as directed. 06/23 completed Not Available Not Available Not Available lisinopril 10 mg tablet Take 10 mg by oral route. 09/09 completed Not Available Not Available Not Available lidocaine 5 % topical patch Apply 1 patch every day by transderm al route for 90 days. 2021 active Not Available Not Available Not Avai lable promethazin e 25 mg tablet Take 25 mg by oral route as needed. 12/02 completed Not Available Not Available Not Available levothyroxi ne 200 mcg tablet TAKE 1 TABLET BY MOUTH ONCE DAILY 12/03 completed Not Available Not Available Not Available losartan 100 mg tablet 07/04 completed Not Available Not Available Not Available fluticasone propionate 50 mcg/actuati on nasal spray,suspe nsion [place] 1 spray every day by intranasa l route. 07/03 completed Not Available Not Available Not Available levothyroxi ne 112 mcg tablet TAKE 1 TABLET BY MOUTH DAILY 10/14 completed Not Available Not Available Not Available melatonin active Not Available Not April ilable Not Available Zyrtec 1 tablet daily 12/02 completed Not Available Not Available Not Available Zyrtec-D 1 p.o.q.d.p .r.n. 2019 active Not Available Not Available Not Avai lable Advair HFA 115 mcg-21 mcg/actuati on aerosol inhaler 2 puffs bid 12/02 completed Not Available Not Available Not Available Prevnar 13 (PF) 0.5 mL intramuscul ar syringe 07/04 completed Not Available Not Available Not Available lidocaine 0.5 %-me.salicy l 20 %-capsai 0.035 %-menth 5 % topical patch 12/02 completed Not Available Not Available Not Available Dramamine 25 mg chewable tablet Take 1 tablet by oral route as needed. active Not Available Not Available No t Available Fluarix Quad 5965-6790 (PF) 60 mcg (15 mcg x 4)/0.5 mL IM syringe 07/04 completed Not Available Not Available Not Available Shingrix (PF) 50 mcg/0.5 mL intramuscul ar suspension, kit inject 0.5 millilite r intramusc ularly 09/09 completed Not Available Not Available Not Available Afluria Quad (PF) 60 mcg (15 mcg x 4)/0.5 mL IM syringe inject 0.5 millilite r intramusc ularly 12/03 completed Not Available Not Available Not Available Flucelvax Quad 60 mcg (15 mcg x 4)/0.5 mL intramuscul ar susp 09/09 completed Not Available Not Available Not Available Vitals Date Recorded Body height Body mass index (BMI) Body weight Pain severity - 0-10 verbal numeric rating [Score] - Reported Body temperature Heart rate Oxygen saturation Oxygen saturation in Arterial blood by Pulse oximetry Respiratory rate Provider Name and Address Organization Details Last Updated DateTime 1 134.62 cm 38.2 kg/m2 73934.2 g 0 98.2 [degF] 73 /min 96 % 96 % 15 /min [facility]oldsmith [place] [facility]10 Date Recorded Systolic blood pressure Diastolic blood pressure Provider Name and Address Organization Details Last Updated DateTime 10/14/2021 140 mm[Hg] 84 mm[Hg] Millie Gill, DO [address], [address] 10/14/2021 09:42:42 Date Recorded Body height Body mass index (BMI) Body weight Pain severity - 0-10 verbal numeric rating [Score] - Reported Body temperature Heart rate Oxygen saturation Oxygen saturation in Arterial blood by Pulse oximetry Respiratory rate Systolic blood pressure Diastolic blood pressure Provider Name and Address Organization Details Last Updated DateTime 1 134.62 cm 37.3 kg/m2 18652.9 8 g 0 98.1 [degF] 93 /min 95 % 95 % 15 /min 158 mm[Hg] 90 mm[Hg] [facility]mith [facility] 13[facility]13[facility]40 Date Recorded Body height Body mass index (BMI) Body weight Body temperature Pain severity - 0-10 verbal numeric rating [Score] - Reported Oxygen saturation Oxygen saturation in Arterial blood by Pulse oximetry Heart rate Systolic blood pressure Diastolic blood pressure Provider Name and Address Organization Details Last Updated DateTime 2 134.62 cm 37.2 kg/m2 35504.5 4 g 98.3 [degF] 0 96 % 96 % 79 /min 162 mm[Hg] 89 mm[Hg] Melinda Zepeda [facility], [facility] 2 10:56:14 Date Recorded Body height Body mass index (BMI) Body weight Body temperature Pain severity - 0-10 verbal numeric rating [Score] - Reported Oxygen saturation Oxygen saturation in Arterial blood by Pulse oximetry Heart rate Systolic blood pressure Diastolic blood pressure Provider Name and Address Organization Details Last Updated DateTime 2 134.62 cm 36.3 kg/m2 02686.6 1 g 98 [degF] 0 95 % 95 % 79 /min 127 mm[Hg] 81 mm[Hg] [facility] 2 14:38:57 Date Recorded Body height Body mass index (BMI) Body weight Pain severity - 0-10 verbal numeric rating [Score] - Reported Body temperature Heart rate Oxygen saturation Oxygen saturation in Arterial blood by Pulse oximetry Respiratory rate Systolic blood pressure Diastolic blood pressure Provider Name and Address Organization Details Last Updated DateTime 1 134.62 cm 38.7 kg/m2 61094.1 g 10 96.9 [degF] 76 /min 96 % 96 % 15 /min 160 mm[Hg] 72 mm[Hg] Valery Agus [facility] 1 09:58:37 Social History Question Answer Notes LastModified by Organizat ion Details LastModified Time Tobacco Smoking Status Former Smoker [facility] [address] [address], [place], [address], [facility] 09/09/2019 09:51:09 Do You Have An Advance Directive? No Information not available 09/09/2019 What Is Your Level Of Alcohol Consumption? Occasional [email or web address] Information not available 12/02/2019 How Much Tobacco Do You Chew? None Information not available 09/09/2019 In The 14 Days Before Symptom Onset, Have You Had Close Contact With A Laboratory-confir med COVID-19 While That Case Was Ill? No [email or web address] Information not available 02/17/2022 In The 14 Days Before Symptom Onset, Have You Had Close Contact With A Person Who Is Under Investigation For COVID-19 While That Person Was Ill? No [email or web address] Information not available 02/17/2022 Have You Been To An Area Known To Be High Risk For COVID-19? No [email or web address] Information not available 02/17/2022 What Type Of Diet Are You Following? REGULAR Information not available 02/23/2021 Which Illicit Or Recreational Drugs Have You Used? Denies [email or web address] Information not available 12/02/2019 Do You Or Have You Ever Used E-cigarettes Or Vape? Never Used Electronic Cigarettes Information not available 09/09/2019 What Is Your Occupation? Disabled Information not available 09/09/2019 Alcohol Use Less Than 1 Per Month Information not available 09/09/2019 Year Quit Tobacco Use 1974 [email or web address] Information not available 12/02/2019 Marital Status Single [email or web address] Informatio n not available 09/09/2019 What Was The Date Of Your Most Recent Tobacco Screening? 10/21/2021 Information not available 02/17/2022 Are You Sexually Active? No [email or web address] Information not available 02/23/2021 Do You Or Have You Ever Used Smokeless Tobacco? Never Used Smokeless Tobacco Information not available 09/09/2019 Has Tobacco Cessation Counseling Been Provided? No Non Smoker [email or web address] Information not available 02/17/2022 On What Date Was Tobacco Cessation Counseling Provided? 02/23/2021 Information not available 02/17/2022 How Many Years Have You Smoked Tobacco? 4 Information not available 09/09/2019 Sex: Unknown Functional Status Question Answer Note LastModified by Organizat ion Details LastModified Time What is your exercise level? Occasional walks Information not available 09/09/2019 Mental Status None recorded. Family History Nothing Reported Notes:adopted Medical History Condition Response Cancer (location) N Other N Gout N Thyroid Disease Y Kidney Stones N Measles/Mumps N Emphysema/COPD N Sexually Transmitted Disease N Depression N Prostate Problems N Vascular Disease N Rash/Skin Condition N Amputation (location) N Parkinson's N Paralysis N Headaches/Migraines N Cardiac Pacemaker/defibrillator N Nerve Damage / Neuropathy N Arthritis N Sleep disorder/Insomnia N Infertility N Heart disease / Heart Attack N Crohn's Disease N HIV/AIDS N Stroke/TIA N Colon Problems N High Cholesterol N Serious Injuries N Kidney Disease N Memory Loss/Alzheimer's N Gallbladder disease N High blood pressure Y Congestive heart failure N Falls N Alcohol Overuse N Blood Thinner Treatment N Hormone Replacement N Nervous Breakdown N Call's Esophagus N Anemia N Urinary Problems N Colon Polyps Y Gastritis N Hospitalizations (other than operations) N Back pain N Diabetes N Rheumatic Fever N Bleeding Disorder N Cardiac Arrhythmias /irregular heart rat e N Osteopenia/Osteoporosis N Anxiety/Stress N Asthma N Vision Problems N Erectile / Sexual Dysfunction N Ostomies (location) N Seizures Y Jaundice N Sleep Apnea N Hepatitis N Past Reacton to Contrast Media N Cirrhosis N GERD/Ulcer Y Chicken Pox N Allergies (other than meds) N Gynecological History Statement/Question Response Date of Last Mammogram 11/26/2019 Obstetrics History GPAL:G 0 P 0 0 0 0 Immunizations Vaccine Type Date Status Note Provider Nam e and Address Organization Details Recorded Time Influenza, split virus, quadrivalent, preservative 7 completed Not Available [facility] 05/28/2022 18:55:27 pneumococcal polysaccharide PPV23 7 completed Not Available [facility] 05/28/2022 18:55:27 Pneumococcal conjugate PCV 13 8 completed Not Available [facility] 05/28/2022 18:55:27 zoster live 8 completed Not Available [facility] 05/28/2022 18:55:27 Influenza, split virus, quadrivalent, preservative 9 completed Not Available [facility] 05/28/2022 18:55:27 zoster live 9 completed Not Available [facility] 05/28/2022 18:55:27 Influenza, split virus, quadrivalent, preservative 8 completed Not Available [facility] 05/28/2022 18:55:27 Influenza, split virus, trivalent, preservative 3 completed Not Available [facility] 05/28/2022 18:55:27 Pneumococcal Conjugate, unspecified formulation 8 completed Not Available [facility] 05/28/2022 18:55:27 influenza, unspecified formulation 7 completed Not Available [facility] 05/28/2022 18:55:27 Pneumococcal conjugate PCV 13 8 completed Not Available [facility] 05/28/2022 18:55:27 Influenza, split virus, quadrivalent, PF 7 completed Not Available [facility] 05/28/2022 18:55:27 Influenza, split virus, trivalent, preservative 9 completed Not Available [facility] 05/28/2022 18:55:27 Influenza, split virus, quadrivalent, PF 4 completed Not Available [facility] 05/28/2022 18:55:27 Influenza, split virus, trivalent, preservative 6 completed Not Available [facility] 05/28/2022 18:55:27 zoster recombinant 8 completed Not Available [facility] 05/28/2022 18:55:27 COVID-19, mRNA, LNP-S, PF, 100 mcg/0.5mL dose or 50 mcg/0.25mL dose 1 completed Not Available [facility] 05/28/2022 18:55:27 COVID-19, mRNA, LNP-S, PF, 100 mcg/0.5mL dose or 50 mcg/0.25mL dose 1 completed Not Available [facility] 05/28/2022 18:55:27 Influenza, split virus, quadrivalent, preservative 1 completed Not Available [facility] 05/28/2022 18:55:27 COVID-19, mRNA, LNP-S, PF, 100 mcg/0.5mL dose or 50 mcg/0.25mL dose 1 completed Not Available [facility] 05/28/2022 18:55:27 Influenza, high-dose, quadrivalent, PF 0 completed [facility], [facility] 07/29/2020 09:37:00 Past Encounters Encounter ID Performer Location Encounter Start Date Encounter Closed Date Diagnosis/Indication Diagnosis SNOMED-CT Code Diagnosis ICD10 Code Diagnosis Note [id number] DO ILDEFONSO Rueda [id number] [place] [address] 06/28/2018 11:01:06 06/28/2018 12:14:36 Adult health examination 759396424 Z00.00 Annual Wellness Visit done today Benign ess ential hypertension 3090092 I10 Gave a copy of her medication list today we will have visiting nurses monitor her blood pressure Seizure disorder 4065748 02 G40.909 We will send out visiting nurses we need medication reviews also physical therapy for gait and balance. We are setting her up with neurology Hypothyroidism 94924947 E03.9 She should be on levothyrox ine 200 mcg daily. We will have visiting nurses review her meds Polyp of colon 67880716 K63.5 She is not ready to update her last was in 2010, they recommende d a 5 year follow-up Abnormal gait 77097197 R 26.9 Physical therapy and home health Cough 19854557 R05 Be sure she is not taking lisinopril . She is seeing the pulmonolog ist [id number] Millie Gill DO [id number] [facility] [address] [place] [address] 07/04/2018 08:24:09 07/04/2018 09:49:36 Benign essential hypertension 0954169 I10 Under control continue amlodipine Seizure disorder 3692309 02 G40.909 No further seizures. Will check her Dilantin level today she is taking 3 a day Hypothyroidism 08945723 E03.9 We will check her TSH and free T4 today Allergic rhinitis 303681 04 J30.9 zyrtec and flonase [id number] Millie Gill DO [id number] [facility] [place] [address] 12/03/2018 14:14:34 12/03/2018 15:46:35 Benign essential hypertension 2792134 I10 Blood pressure is reasonable . Continue amlodipine Hyperglycemia 26703009 R 73.9 A1c is under 6. Continue diet and exercise control. Congratula tions given for weight loss Seizure disorder 5066010 02 G40.909 She is been multiple years since his seizure. We discussed her driving Asthma 142669159 J45.90 9 She uses theophylli ne. She also has Advair and a breakthrou gh inhaler at home Cervical s pondylosis without myelopathy 730399761 M47.812 Renewed her pain meds Hypothyroidism 17876356 E03.9 Decreased her dosage to 175 on the levothyrox ine Gastroesop hageal reflux disease 985301812 K21.9 Continue Pepcid [id number] [facility] [address] [place] [address] 09/09/2019 09:09:43 09/09/2019 10:19:10 Adult health examination 536473000 Z00.00 Annual Wellness Visit done today Benign ess ential hypertension 4056026 I10 Under control continue amlodipine Hypothyroidism 63658579 E03.9 TSH is suppressed for reducing her dose to 150 mcg daily we can recheck her TSH on her next visit Seizure disorder 0331646 02 G40.909 No further seizures. She is taking her medication Body mass index 30+ - obesity 135879676 Z68.34 weight issues discussed and informatio n on weight loss given. Needs follow up on weight control as scheduled. Education handout on diets given. Exercise counseling done. Obesity 992117127 E66.9 see BMI above for details Diet education 36508954 Z71.3 as above Nasal congestion 0832948 0 R09.81 She is going to try Flonase Low back pain 890363760 M54.5 She uses Lidoderm patches and hydrocodon e on a as needed basis. Screening for malignant neoplasm of breast 949108842 Z12.39 Mammogram ordered Screening for malignant neoplasm of colon 516689534 Z12.[address] the referral her sister would like her to wait till [facility] for falls 764622312 Z91.81 She does have some gait impairment her sister does not think she needs therapy the patient is cautious and careful not to fall. She has not had any falls Hyperglycemia 62423933 R 73.9 Fasting glucose was high her A1c was fine. Continue low-carb diet Asthma 119031927 J45.90 9 She is not having any problems. She has her inhaler [id number] DO ILDEFONSO Rueda [facility] [address],[facility] [address] [place] [address] 12/02/2019 11:05:35 12/02/2019 11:51:40 Body mass index 30+ - obesity 171435379 Z68.35 weight issues discussed and informatio n on weight loss given. Needs follow up on weight control as scheduled. Education handout on diets given. Exercise counseling done. Obesity 287558315 E66.9 see BMI above for details Diet education 66386380 Z71.3 as above Screening mammography 24 064599 Z12.31 Benign ess ential hypertension 5778452 I10 Blood pressure is reasonable . 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 Continue diet and exercise control. Congratula tions given for weight loss Seizure disorder 4456953 02 G40.909 She is been multiple years since his seizure. We discussed her driving. We will check a Dilantin level with the next blood work Gastroesop hageal reflux disease 613055802 K21.9 Continue Pepcid Polyp of colon 10095841 K63.5 She is seen the GI doctor on December 14 to plan her colonoscop y. Her brother will help her get through that At low risk for fall 439 487082 Z91.81 [id number] Millie Gill, DO [address],[facility] [address] [place] [address] 04/01/2020 09:16:20 04/01/2020 10:09:07 Body mass index 30+ - obesity 253013893 Z68.34 weight issues discussed and informatio n on weight loss given. Needs follow up on weight control as scheduled. Education handout on diets given. Exercise counseling done. Will arrange referral for dietitian, nutritioni st, Physical/o ccupationa l therapy as needed or desired. Also will consider pharmaceut ical and supplement al interventi ons Obesity 724086377 E66.9 see BMI above for details Diet education 70307093 Z71.3 as above Benign ess ential hypertension 2317452 I10 Blood pressure is reasonable . Continue amlodipine Asthma 094808463 J45.90 9 She uses theophylli ne. She also has Advair and a breakthrou gh inhaler at home Hyperglycemia 96835775 R 73.9 A1c is 6.2, Continue diet and exercise control. Congratula tions given for weight loss Gastroesop hageal reflux disease 311437103 K21.9 Continue Pepcid Seizure disorder 8451736 02 G40.909 She is been multiple years since his seizure. We discussed her driving. We will check a Dilantin level with the next blood work Cervical s pondylosis without myelopathy 902218891 M47.812 Renewed her pain meds Hypothyroidism 27221224 E03.9 She suprathera peutic decrease to 125 Low back pain 517414705 M54.5 uses hydrocodon e prnriding her bike [id number] Millie Gill DO [address] [facility] [address] [facility] [address] [place] [address] 07/29/2020 08:13:47 07/29/2020 09:53:23 Low back pain 088920440 M54.5 uses hydrocodon e prnriding her bike Influenza vaccine needed 1039180805 106 Z23 Asthma 681122368 J45.90 9 She also has Advair and a breakthrou gh inhaler at home Benign ess ential hypertension 6414482 I10 Blood pressure is reasonable . Continue amlodipine Cervical s pondylosis without myelopathy 024432696 M47.812 Renewed her pain meds Chronic sciatica 0200942 01 M54.30 riding her bike Gastroesop hageal reflux disease 130838747 K21.9 Continue Pepcid Hyperglycemia 81054446 R 73.9 A1c is 6.5, Continue diet and exercise control. Congratula tions given for weight loss Hypothyroidism 33567249 E03.9 She suprathera peutic decrease to 112 Seizure disorder 9330766 02 G40.909 She is been multiple years since his seizure. We discussed her driving. Dilantin level little small therapeuti c but she has not had any problems so we will leave this dosage alone Polyp of colon 99361820 K63.5 Colonoscop y got done. She has a follow-up in 5 years [id number] Millie Gill DO [address] [facility] [address],[facility] [address] [place] [address] 11/25/2020 08:12:19 11/25/2020 09:56:18 Adult health examination 606683909 Z00.00 Annual Wellness Visit done today Gastroesop hageal reflux disease 139225970 K21.9 Continue Pepcid Benign ess ential hypertension 4755172 I10 Blood pressure is reasonable . Continue amlodipine Hypothyroidism 11169814 E03.9 now too high back to 125mcg Type 2 marisol betes mellitus 52139213 E11.9 A1c is up to 7.2. We will add Metformin 500 mg 1 tab daily. Her creatinine is 0.9 Seizure disorder 6156519 02 G40.909 She is been multiple years since his seizure. We discussed her driving. Dilantin level little small therapeuti c but she has not had any problems so we will leave this dosage alone Screening mammography 191464 Z12.31 Mammogram due in December [id number] Millie Gill DO [id number] [facility] [address] [place] [address] 02/23/2021 09:20:17 02/23/2021 11:03:47 Body mass index 30+ - obesity 324725823 Z68.38 weight issues discussed and informatio n on weight loss given. Needs follow up on weight control as scheduled. Education handout on diets given. Exercise counseling done. Will arrange referral for dietitian, nutritioni st, Physical/o ccupationa l therapy as needed or desired. Also will consider pharmaceut ical and supplement al interventi ons Morbid obesity 960781403 E66.01 see BMI above for details. BMI 38 but with comorbid states listed, this is clinically morbid obesity. Diet education 16720599 Z71.3 as above Benign ess ential hypertension 9442455 I10 Blood pressure is reasonable . Continue amlodipine Asthma 399086397 J45.90 9 She also has Advair and a breakthrou gh inhaler at home Degenerati on of cervical intervertebral disc 81960210 M50.30 Hypothyroidism 77194035 E03.9 TSH is therapeuti c Seizure disorder 2927258 02 G40.909 Dilantin level therapeuti c at 11.2 Type 2 marisol betes mellitus 11702990 E11.9 With her efforts and 1 Metformin per day her A1c is back down to 6.4A1c is up to 7.2. We will add Metformin 500 mg 1 tab daily. Her creatinine is 0.9 [id number] Millie Gill DO [facility] [address] [place] [address] 06/23/2021 09:37:40 06/23/2021 10:24:30 Body mass index 30+ - obesity 851837250 Z68.39 weight issues discussed and informatio n on weight loss given. Needs follow up on weight control as scheduled. Education handout on diets given. Exercise counseling done. Will arrange referral for dietitian, nutritioni st, Physical/o ccupationa l therapy as needed or desired. Also will consider pharmaceut ical and supplement al interventi ons Morbid obesity 136526337 E66.01 see BMI above for details. BMI 39 but with comorbid states listed, this is clinically morbid obesity. Diet education 66633766 Z71.3 as above Hypothyroidism 82018384 E03.9 TSH is therapeuti c. We have adjusted her dose upward. She understand s to start the 150 Benign ess ential hypertension 3537283 I10 Blood pressure is reasonable . Continue amlodipine Chronic sciatica 0217719 01 M54.30 riding her bike Degenerati on of cervical intervertebral disc 50903219 M50.30 Not much complaint of neck pain today Seizure disorder 4654427 02 G40.909 She has had no seizure activity Type 2 marisol betes mellitus 57913698 E11.9 A1c remains at 6.2 on 1 tablet of 500 mg Metformin per day Asthma 460796286 J45.90 9 She also has Advair and a breakthrou gh inhaler at home Pain of ri ght shoulder joint 5328983068 4283218 M25.511 Sounds like overuse from the vacuuming. She had no fall. We will try a steroid injection on top of what she is doing at home. She is to let me know if no improvemen t [id number] Millie Gill DO [facility] [address] [address] [place] [address] 10/14/2021 08:45:08 10/14/2021 09:56:12 Body mass index 30+ - obesity 206767386 Z68.38 weight issues discussed and informatio n on weight loss given. Needs follow up on weight control as scheduled. Education handout on diets given. Exercise counseling done. Will arrange referral for dietitian, nutritioni st, Physical/o ccupationa l therapy as needed or desired. Also will consider pharmaceut ical and supplement al interventi ons Morbid obesity 583413421 E66.01 see BMI above for details. BMI 38 but with comorbid states listed, this is clinically morbid obesity. Diet education 69096463 Z71.3 as above Benign ess ential hypertension 1751189 I10 Blood pressure is reasonable . Continue amlodipine Degenerati on of cervical intervertebral disc 40267771 M50.30 Not much complaint of neck pain today Gastroesop hageal reflux disease 972422083 K21.9 Continue Pepcid Hypothyroidism 99491301 E03.9 TSH is therapeuti c. We have adjusted her dose upward. She understand s to start the 150 Seizure disorder 3288656 02 G40.909 She has had no seizure activity. Dilantin level is okay Type 2 marisol betes mellitus 52598187 E11.9 A1c remains at 6.2 on 1 tablet of 500 mg Metformin per day Epigastric pain 70006004 R10.13 She still her gallbladde r. We will check a CAT scan of abdomen and pelvis today. She can restart her Pepcid 1 pill in the morning 1 pill at night. We will check back in with week [id number] Millie Gill, DO [facility] [address] [place] [address] 10/21/2021 12:55:44 10/21/2021 13:43:42 Body mass index 30+ - obesity 690495489 Z68.37 weight issues discussed and informatio n on weight loss given. Needs follow up on weight control as scheduled. Education handout on diets given. Exercise counseling done. Morbid obesity 566896901 E66.01 see BMI above for details. BMI 37 but with comorbid states listed, this is clinically morbid obesity. Diet education 82257353 Z71.3 as above Diverticulitis 828740527 K57.92 She will start antibiotic s. She will start probiotics for the diarrhea Epigastric pain 21207994 R10.13 Epigastric pain has improved with the treatment for diverticul itis Hypothyroidism 78948881 E03.9 TSH is therapeuti c. We have adjusted her dose upward. She understand s to start the 150 Type 2 marisol betes mellitus 04493308 E11.9 A1c remains at 6.2 on 1 tablet of 500 mg Metformin per day Seizure disorder 1291797 02 G40.909 She has had no seizure activity. Dilantin level is okay [id number] Millie Gill, [facility] [address] [facility] [address] [facility] [address] [place] [address] 02/17/2022 09:57:08 02/17/2022 11:35:38 Adult health examination 284698837 Z00.00 Annual Wellness Visit done today Lumbar radiculopathy 128 708900 M54.16 feels like left leg will not hold her up at times. We had x-rays a few years ago that showed osteoarthr itis. We will move forward with an MRI at this point Seizure disorder 2530661 02 G40.909 She has had no seizure activity. Dilantin level is okay Diverticular disease 397 831975 K57.90 Episode of diverticul itis resolved with antibiotic s. She has not had no further episodes Gastroesop hageal reflux disease 817288271 K21.9 Continue Pepcid Degenerati on of cervical intervertebral disc 58637742 M50.30 Not much complaint of neck pain today Chronic sciatica 0462256 01 M54.30 riding her bike. See above Type 2 marisol betes mellitus 83989747 E11.9 1 tablet of 500 mg Metformin per day. Blood work drawn today Benign ess ential hypertension 0941378 I10 Pressures have been good the last couple visits. We will increase her amlodipine to 10 mg daily Asthma 760737500 J45.90 9 She also has Advair and a breakthrou gh inhaler at home Screening mammography 24 408700 Z12.31 Mammogram due in january Low back pain 080391767 M54.50 Sent for hydrocodon e renewed Candidiasis of skin 4918 3006 B37.2 She hasFungal rash under her breasts. Prescripti on for nystatin sent to her pharmacy. We discussed making sure she will bathes daily and dries that area completely before putting on the ointment Cervical s pondylosis without myelopathy 134467001 M47.812 Renewed her pain meds 53526337 Millie Gill, DO [facility] [address] [facility] [address] [facility] [place] [address] 05/29/2022 13:57:36 05/29/2022 15:15:38 Low back pain 909346442 M54.50 The sister-in- law would like lighted Derm patches sent to [facility] we will do so. She will work on finding a neurosurge on [facility] if necessary Asthma 900743168 J45.90 9 She has not been using the Advair. She is not complainin g of coughing. She does have a rescue inhaler Benign ess ential hypertension 9855533 I10 There is some concern that she has not been taking her medication s consistent ly. Cervical s pondylosis without myelopathy 415995972 M47.812 We will renew pain meds if necessary Diverticular disease 397 890441 K57.90 Episode of diverticul itis resolved with antibiotic s. She has not had no further episodes. Copy of colonoscop y given to the sister-in- law Hypothyroidism 37931187 E03.9 TSH to be checked Liver enzy mes outside reference range 207924742 R94.5 Last liver enzymes in this office in February were quite normal. We will repeat these Seizure disorder 2590475 02 G40.909 She is seen a neurologis t tomorrow. She had a seizure and ended up in the emergency room with a slight least therapeuti c Dilantin level Disorder o f carbohydrate metabolism 69338928 E74.9 A1c 6.3 Health Concerns Section Related Observation LastModified by Organization Detai ls LastModified Time None Recorded Concern Status LastModified by Organization Details LastModified Time None Recorded Advance Directives Directive N: Payers Encounter Date Sequence Insurance Name Policy Number Policy Hall Covered Member ID Hall Member ID Guarantor Name 06/23/2021 2 [employer] - FOR LIFE (SECONDARY TO MEDICARE) Flakita Barrera [id number] Flakita Barrera 06/23/2021 1 [place] Flakita Argueta Rice [id number] Flakita Argueta Rice 10/14/2021 2 [employer]PS - FOR LIFE (SECONDARY TO MEDICARE) Flakita Argueta Rice [id number] Flakita Argueta Rice 10/14/2021 1 [place] Flakita Imelda Rice [id number] Flakita Argueta Rice 10/21/2021 2 [employer]PS - FOR LIFE (SECONDARY TO MEDICARE) Flakita E Rice [id number] Flakita E Rice 10/21/2021 1 [place] Flakita E Rice [id number] Flakita E Rice 02/17/2022 2 [employer]PS - FOR LIFE (SECONDARY TO MEDICARE) Flakita E Rice [id number] Flakita E Rice 02/17/2022 1 [place] Flakita E Rice [id number] Flakita Argueta Rice 05/29/2022 2 [employer]PS - FOR LIFE (SECONDARY TO MEDICARE) Flakita Argueta Rice [id number] Flakita E Rice 05/29/2022 1 [place] Flakita Argueta Rice [id number] Flakita Barrera Notes Date Note Type Note Provider Name and Address Organization Details Recorded Time 06/23/2021 text/html CORONAVIRUS SCREENING TOOL Are you experiencing any NEW symptom(s) listed below that is not due to another health problem None of the below Is anyone else in your household experiencing any NEW symptoms No In the past 2 weeks did you have close contact (within 6 feet for at least 15 minutes) with someone with symptoms of COVID-19 or who tested positive for COVID-19 No In the past 2 weeks have you been tested for COVID-19 No, I have not been tested Why did you get tested? Please select all that apply N/A In the past 2 weeks has someone in your household tested positive for COVID-19 No How many doses have you received? 2 doses Imported from [employer] on 06/23/2021 This is a 65-year-old female who presents for scheduled follow-up. She tells me starting yesterday morning she is having right shoulder pain. She was vacuuming the whole house the day before. She has limited range of motion. She did not fall. She denies fevers chills night sweats. There is been no blood in stool or urine. No vaginal bleeding. Her sciatica comes and goes. She was riding her bike up till this shoulder hurting. She has been using ice and heat neither one of them helped. She is used a little bit of Aleve that has helped. We discussed getting a steroid shot into that area. We will do so. She did blood work in preparation for this visit. On 1 Metformin a day her A1c remains at 6.2. Her TSH is up to 31. She tells me she has been taking her meds consistently. We will increase her dose to 150. She has had no seizures. Mentation is the same. She says her brother and [id number] continue to check in on her consistently. She has been staying home still and doing social distancing because of the Covid issues. She has had both Covid vaccines. She will get a flu shot in the fall. She has had shingles shot. She is up-to-date with both Pneumovax and Prevnar She is also up-to-date with both colonoscopy and mammogram. Millie Gill, DO [address] [facility] [address], [place], [address], [facility] 06/23/2021 10:58:16 10/14/2021 text/html CORONAVIRUS SCREENING TOOL ?Are you experiencing any NEW symptom(s) listed below that is not due to another health problem ?None of the below ?Is anyone else in your household experiencing any NEW symptoms ?No ?In the past 2 weeks did you have close contact (within 6 feet for at least 15 minutes) with someone with symptoms of COVID-19 or who tested positive for COVID-19 ?No ?In the past 2 weeks have you been tested for COVID-19 ?No, I have not been tested ?Why did you get tested? Please select all that apply ?N/A ?In the past 2 weeks has someone in your household tested positive for COVID-19 ?No Imported from [employer] on 10/14/2021 QUALITY MEASURE QUESTIONNAIRE ?Mammogram Results ?Negative ?Has the Patient had a fracture in the last year ?No ?Has the Patient had a bone density testing performed before ?No ?Has the Patient been diagnosed as having osteoporosis ?No Imported from [employer] on 10/14/2021Is a 66-year-old female who presents with a 3-week history of epigastric discomfort. She has been having some nausea and vomiting associated with it. She sometimes keeps food down. Other times it will come right back up. She points to her epigastric region and tells me it feels uncomfortable and there almost all the time recently. She did not do blood work for this visit. All of these numbers are good. Her liver enzymes are okay. Her white count is good. Nothing points to a problem. But on physical examination she does have tenderness in the epigastric area. We are going to get a CAT scan today. She will restart on her Pepcid. She will start twice a day for right now. We will recheck in with her in 1 week. Sciatica has been giving her little bit of problem. Her neck has not been giving any problems. She has not lost much weight. She does plan on getting a Covid booster. She got her flu September. She is up-to-date with Pneumovax and Prevnar. Her mammogram is coming due in January. Colonoscopy was in 2019. Her brother usually comes down for the winter months. He has not been doing well. She does not think he will be coming down this year Millie Gill, DO [address] [facility] [address], [place], [address], [facility] 10/14/2021 10:00:50 10/21/2021 text/html CORONAVIRUS SCREENING TOOL ?Are you experiencing any NEW symptom(s) listed below that is not due to another health problem ?None of the below ?Is anyone else in your household experiencing any NEW symptoms ?No ?In the past 2 weeks did you have close contact (within 6 feet for at least 15 minutes) with someone with symptoms of COVID-19 or who tested positive for COVID-19 ?No ?In the past 2 weeks have you been tested for COVID-19 ?No, I have not been tested ?Why did you get tested? Please select all that apply ?N/A ?In the past 2 weeks has someone in your household tested positive for COVID-19 ?No Imported from [facility] on 10/21/2021Thipriscila is a 66-year-old female who presents for 1 week follow-up. She was here sick last week. We did a stat CAT scan. It showed diverticulitis. She has been on antibiotics. She has 4 days left. She feels quite a bit better. She has started with a little bit of diarrhea. We discussed that is likely related to the antibiotics. She will picker a probiotic and take 2 capsules until the bottle empties.Now we will schedule for 4 months with blood work the week before.Her colonoscopy was in 2019 so we really do not need to repeat that anytime soon. Her mammogram is still coming due in January Millie Gill DO [address], [place], [address], [facility] 10/21/2021 13:47:25 02/17/2022 text/html Medicare Annual Wellness VisitReported bypatient.Visit type:subsequent Medicare Annual Wellness visit PMH/FH/Rx and Social History Review:updated EMR in appropriate tabs CORONAVIRUS SCREENING TOOL ?Are you experiencing any NEW symptom(s) listed below that is not due to another health problem ?None of the below ?Is anyone else in your household experiencing any NEW symptoms ?No ?In the past 2 weeks did you have close contact (within 6 feet for at least 15 minutes) with someone with symptoms of COVID-19 or who tested positive for COVID-19 ?No ?In the past 2 weeks have you been tested for COVID-19 ?No, I have not been tested ?Why did you get tested? Please select all that apply ?N/A ?In the past 2 weeks has someone in your household tested positive for COVID-19 ?No Imported from [facility] on 02/17/2022This is a 66-year-old female who presents for scheduled follow-up. As I walk in the room she tells me she is having problems with her sciatica. It is progressed now to the point that sometimes when she stands up she feels like her left leg is not going to hold her up and she has had to take her pain pills recently. We did do an x-ray that was very much unremarkable. Also the last 2 visits her blood pressure has been too high in the office. She has no swelling from 5 mg of amlodipine. We are going to increase her to 10 mg. She did not do blood work. We will draw that today. We will make sure she gets it done before her next visit. She is complaining of coughing but she is not using her inhaler for her asthma. Reminded her that her inhaler will help with that cough. she has had all 3 of her COVID vaccines. She got her flu shot this year. She has had Pneumovax and Prevnar. She has had her shingles vaccines.She is due for her mammogram. We will put that order in. Colonoscopy was in 2019 with a 5-year follow-up. She has had a hysterectomy.She does tell me that she is still riding her bike it just hurts.Lastly she has a rash under her breasts that is itchy and red Millie Gill, DO [address] [facility] [address], [place], [address], [facility], [facility] 02/17/2022 12:45:47 05/29/2022 text/html This is a 66-year-old female who presents for scheduled follow-up. She is recently been having a lot of problems with low back. We set her up for an MRI and then send her to neurosurgery because of the findings. She was actually finally scheduled to have a lumbar laminectomy. However things have gotten in the way. She ended up in the emergency room with atypical chest pain. Work-up at that time included lab work and an evaluation and there was no sense of problem. Chest x-ray showed hypoinflation EKG was done remarkable. She subsequently been back in the emergency room with seizure activity. She had a slightly subtherapeutic Dilantin level. She does have an appointment with neurology tomorrow regarding this. Her qilqkc-tx-wtm is down here[place]. They have decided that it appears that Flakita is not taking her medications quite the way she should be and that there are some issues going on. They have elected to move Flakita up north for the time being. They may come back down for the or next winter but they are not sure. We did review lab work and studies from the hospital. Her liver enzymes are elevated. No clear etiology. 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 But she does not have an elevated white count. We have agreed that she will get blood work on . We will do anything blood work to the neurologist wants as well. I have given her a copy of records of things to take north with them. They are going to work on finding her a physician up there. We discussed that I will care for problems and issues until she gets a physician up there Millie Gill, [address], [place], [address], [facility], [facility] 05/29/2022 17:16:34 OBGyn Episode No OBEpisode recorded.
--- OUTSIDE RECORDS SUMMARY | 2025-01-20 09:30 | XMS_ITS | Continuity of Care Document ---
Author Organization [facility] [address] [facility] [facility] [address] [place] [address] Phone [phone] Care Team Providers Care Pastry Mixer Name Role Phone Duane Obregon MD Care Team Information Shipping Room Helper [phone] Problems Active Problems Provider Date Hypothyroidism [facility] [place] Onset: 2023 Essential hypertension [facility] [place] Onset: 02/05/2024 Pure hypercholesterolemia [place] Ons et: 02/05/2024 Social History Type Date Description Comments Sex Unknown Tobacco Use Start: Unknown End: Unknown Quit 1979 ETOH Use Never used alcohol Tobacco Use Start: Unknown End: Unknown Patient is a former smoker Allergies and adverse reactions Active Allergies Criticality Reaction Severity Comments Date Ciprofloxacin Unable to assess criticality 01/22/2024 Compazine Unable to assess criticality 01/22/2024 Flexeril Unable to assess criticality 01/22/2024 Phenothiazines Unable to assess criticality 01/22/2024 Medications Active Medications SIG Qnty Indications Ordering Provider Date Levothyroxine Nsxwbq78fyr Tablets Take 1 Tablet By Mouth 6 Days A Week 77tabs Merline Carmona M.D. 03/05/2024 Ugsycesywh65dx Tablets Take 1 Tablet By Mouth Twice Daily Shayy Bright PA Metformin HEK082uk Tablets Take 1 Tablet By Mouth Daily Duane Obregon MD Amlodipine Soxwmywh27hb Tablets Take 1 Tablet By Mouth Daily Yesi Shearer NP Wyuxhewzepouv721xj Tablets Take 1 Tablet By Mouth Twice Daily Jill Christine MD Vital Signs Date Vital Result Comment 10/23/2024 3:31pm BP Systolic 126 mmHg BP Diastolic 72 mmHg Heart Rate 72 /min Height 55 inches 4'7 Weight 128.12 lb BMI (Body Mass Index) 29.8 kg/m2 Results Test Acquired Date Facility Test Result H/L Range Note TSH Rfx on Abnormal to Free T4 12/31/2024 [facility] TSH Rfx on Abnormal to Free T4 2.510 uIU/mL 0.450-4. 500 TSH Rfx on Abnormal to Free T4 10/23/2024 [facility] TSH Rfx on Abnormal to Free T4 3.690 uIU/mL 0.450-4. 500 TSH Rfx on Abnormal to Free T4 07/08/2024 [facility] TSH RFX On Abnormal To Free T4 6.130 uIU/mL High 0.450-4. 500 T4,Free (Direct) 1.20 ng/dL 0.82-1.7 7 TSH+Free T4 04/10/2024 [facility] TSH 3.600 uIU/mL 0.450-4. 500 T4,Free(Direct) 1.34 ng/dL 0.82-1.7 7 Triiodothyronine (T3), Free 04/10/2024 [facility] Triiodothyronine (T3), Free 2.2 pg/mL 2.0-4.4 TSH+Free T4 01/25/2024 [facility] TSH 0.295 uIU/mL Low 0.450-4. 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
--- OUTSIDE RECORDS SUMMARY | 2025-01-20 09:30 | XMS_ITS | Continuity of Care Document ---
Author Organization [facility] Address [address] [place] [address], [address] [place] [address]- Care Team Providers Care Tricot Knitting Machine Operator Name Role Phone Mindi QUIROGA, Duane Wayne Primary Care Physician [phone] Encounter [facility] Date(s): 12/03/24 - 01/02/25 [facility] [address] [place] [address]- Attending Physician: Rojas Meier Admitting Physician: Rojas Meier Referring Physician: Rojas Meier Encounter Type: Triage Medications amLODIPine 10 mg oral tablet 0 [...] Date: 12/03/24 Status: Ordered Repeat number: 1 Patient Care team information Care Team Personnel Name: Mindi QUIROGA , Duane Wayne Position: [facility] Outreach Member Role: PCP Address: [address] [place] [address] Telecom: Care Team Related Persons Name: DIONTE BETANCOURT Insurance Providers Guarantor name: KELLY WASHINGTON Health Plan Information #: 1 Payer: MEDICARE PART B OUTPT Member Number: NA Policy Number: NA Group Number: NA Health Plan Information #: 2 Payer: FOR LIFE MCR A ONLY Member Number: NA Policy Number: NA Group Number: NA
[2025-01-20 11:44] LABS: MANUAL DIFF FLAG NO
[2025-01-20 11:50] LABS: Basophils Absolute Auto 0.1 X10*3/uL (0.0-0.2); Basophils Percent Auto 1.3 % (0-2); Eosinophils Absolute Auto 0.1 X10*3/uL (0.0-0.4); Eosinophils Percent Auto 3.1 % (0-4); Hematocrit 44.2 % (37.0-47.0); Hemoglobin 14.4 g/dl (12.0-16.0); Imm Gran Abs Auto 0.01 X10*3/uL (0.00-0.03); Imm Gran Pct Auto 0.2 % (0.0-0.4); Lymphocytes Absolute Auto 1.9 X10*3/uL (1.2-4.9); Lymphocytes Percent Auto 40.9 % (20-40); Mean Corpuscular HGB Conc 32.6 g/dl (31.0-35.0); Mean Corpuscular Hemoglobin 29.7 pg (27.0-33.0); Mean Corpuscular Volume 91.1 fL (80.0-98.0); Mean Platelet Volume 12.6 fL (9.4-12.3); Monocytes Absolute Auto 0.2 X10*3/uL (0.1-1.2); Monocytes Percent Auto 5.3 % (2-11); Neutrophils Absolute Auto 2.2 x10*3/uL (2.0-8.3); Neutrophils Percent Auto 49.2 % (45-73); Platelet Count 196 X10*3/uL (160-400); Red Blood Count 4.85 X10*6/uL (4.20-5.50); Red Cell Distribution Width 13.2 % (11.0-16.0); White Blood Count 4.5 X10*3/uL (4.8-10.8)
[2025-01-20 12:50] LABS: Alanine Aminotransferase 19 U/L (0-31); Albumin Level 4.2 g/dL (3.5-5.0); Alkaline Phosphatase 87 U/L (39-117); Anion Gap 15 (12-20); Aspartate Amino Transferase 39 U/L (5-31); Bilirubin Total 0.3 mg/dL (0.0-1.0); Blood Urea Nitrogen 22 mg/dL (9-16); Calcium 9.4 mg/dL (8.4-10.2); Carbon Dioxide 24 mmol/L (22-29); Chloride 109 mmol/L (96-108); Cholesterol 203 mg/dL (<200); Estimated Glomerular Filt Rate > 60; Free T4 (Free Thyroxine) 1.17 ng/dL (0.71-1.85); Glucose Fasting 97 mg/dL (60-99); HDL Cholesterol 59 mg/dL (>40); LDL Cholesterol Calculated 126 mg/dL (<100); Potassium 4.6 mmol/L (3.3-5.1); Sodium 143 mmol/L (135-145); Thyroid Stimulating Hormone 3.86 uIU/mL (0.32-4.0); Total Protein 8.5 g/dL (6.5-8.0); Triglycerides 92 mg/dL (<150)
[2025-01-21 07:13] LABS: Triiodothyronine T3 Total 86 ng/dL (76-181)
== END 2025-01-20 08:41 | disposition home or self-care (01) ==
LOC: HO.WFDLDS 08:40
PROVIDERS: Visit Provider Family Medicine
DX: Z00.00 Encounter for general adult medical examination without abnormal findings (principal); E03.9 Hypothyroidism, unspecified
CPT/HCPCS: 36415; 80053; 80061; 84439; 84443; 84480; 85025

== ENCOUNTER 2025-02-04 09:18 | Outpatient (AMB) | payer MEDICARE, OTHER, SELFPAY ==
--- NOTE | 2025-02-04 09:25 | MHC.PC.OV ---
Vital Signs 02/04/25 09:37 Height 4 ft 5.54 in Weight 129 lb BMI 31.6 BP 108/76 Blood Pressure Location Rt brachial Position Sitting Respiration 14 Pulse 68 Pulse Source Pulse Oximeter Pulse Oximetry (%) 96 Oxygen Delivery Method Room Air Intake Visit Reasons: AWV Intake Note: Medical Wellness Visit. Redness around catheter. Automobile Painter Required: No Accompanied by: Family/Other Allergies ciprofloxacin [From Cipro] Allergy (Verified 02/04/25 09:35) Unknown cyclobenzaprine Allergy (Verified 02/04/25 09:35) Unknown Phenothiazines Allergy (Verified 02/04/25 09:35) Unknown prochlorperazine [From Compazine] Allergy (Verified 02/04/25 09:35) Unknown Medication List - Last Reconciled 02/04/25 by Jamia Tijerina PA-C amlodipine 10 mg PO DAILY cholecalciferol (vitamin D3) 50 mcg PO DAILY famotidine 20 mg PO BID levetiracetam 250 mg PO BID levothyroxine 88 mcg PO DAILY 30 days lidocaine 5% 1 patch topical DAILY 30 days metformin 500 mg PO DAILY 90 days naproxen sodium (Aleve) 220 mg PO BID PRN vit C,L-Ms-izsyb-lutein-zeaxan 250-90-40-1 mg (PreserVision AREDS-2) 1 tab PO BID Tobacco use date assessed: 02/04/25 Fall risk assessment: No Falls in past year Last assessed Fall Risk: 02/04/25 Dental Screening Dental Screen Date: 12/10/23 [facility] AWV HPI Details Patient is a 69-year-old female with a significant past medical history of hypothyroidism, type 2 diabetes, hypertension, seizures, GERD and osteopenia presenting today for an AWV. She normally follows with Dr. Obregon. CV: Blood pressure today in the office is 106/76. She is currently on amlodipine 10 mg daily. Her cholesterol was elevated above goal. She states that she is going to work on diet and lifestyle modifications and does not want to take anything yet for this. Endo: Last A1c was 5.8. On metformin 500 mg daily. Denies any hypoglycemic events. Her hypothyroidism is managed with levothyroxine 88 mcg daily. Last TSH was WNL. Neuro: On levetiracetam BID and follows with neuro. Uro: following with urology and has a pubic catheter. She sees Dr. Eaton Musculoskeletal: likes to have lidocaine patches on hand if needed for her back pain. No concerns of falling or safetly-appropriate paperwork filled out today into chart. Denies any memory changes Mammo: 01/05- wnl, due and states that she has an appointment pending Pap: No longer doing this-following with Urogynecology Bone density:01/04- osteopenia Colonoscopy: Due this year. Got a phone call from [place] stating that she is due as she has a history of colon polyps Recently had labs completed for Dr. Obregon. States that she was not yet notified of the results as she did have this appointment upcoming. She does have elevated total protein and LFTs. We will plan to rechecked. Up-to-date with eye and dental. [facility] Medical History Diverticulitis Surgical History Hx of rotator cuff surgery Hx of appendectomy History of partial hysterectomy Hx of partial thyroidectomy History of reduction surgery of right breast Family History Other Adopted person Social History Household Members: Family Household Members Other:: brother and sister in law Housing: House Do you presently have visiting nurse or other home services: No Alcohol intake: never Patient Tobacco Use Status: Former Tobacco user Tobacco use type: Cigarette e-Cigarette/Vaping Use: Never Used Second Hand Smoke Exposure: Yes Advance Directives Date on File: 09/14/22 service: No Current occupational status: retired Sexual orientation: Decline to Answer Gender identity: Decline to answer Cognitive needs: No Hearing needs: No Vision needs: Yes Questionnaire Thrive Questionnaire Date Thrive assessed: 01/21/25 I am a: Patient What is your living situation today?: I have a steady place to live Within the past 12 months, did the food you bought not last and you didn't have the money to get more?: Never true Within the past 12 months, did you worry whether your food would run out before you got money to buy more?: Never true Do you have trouble paying for medicines?: No Do you have trouble getting transportation to medical appointments?: No Do you have trouble paying your heating and electricity bill?: No Do you have trouble taking care of your child, family member or friend?: No Do you have trouble with day-to-day activities such as bathing, preparing meals, shopping, managing finances, etc.?: No Are you currently unemployed and looking for a job?: No Are you interested in more education?: No Please select the resources that you would like help with: None Currently or been in a relationship where the following occur: No concerns reported THRIVE Score: 0 AUDIT C Alcohol Use Questionnaire (AUDIT-C) 3. How often do you have six or more drinks on one occasion?: Never Total Score: 0 LEONA-7 AMB Questionnaire LEONA-7 Date LEONA - 7 assessed: 06/07/23 Source: Developed by Drs. Gurjit Stevenson, Martha Cruz, Khoa Montes and colleagues, with an educational vj from [employer]. Physical exam (Primary Care) Tobacco/Smoking Status: Tobacco use Status Tobacco use date assessed 12/10/23 02/04/25 09:26 Patient Tobacco Use Status Former Tobacco user 02/04/25 09:26 Tobacco use type Cigarette 02/04/25 09:26 e-Cigarette/Vaping Use Never Used 02/04/25 09:26 Thrive Assessment: Date of Thrive Assessment Date Thrive assessed 01/21/25 02/04/25 09:26 Currently or been in a relationship where the following occur: No concerns reported Const Orientation/consciousness: patient oriented x3 HENMT Ears: hearing grossly normal bilaterally and TM's normal bilaterally General nose exam: No nasal polyps present Face and sinus: Yes sinuses nontender Mouth: Normal oral and palatal mucosa present Eyes Pupils: Equal, round and reactive pupils present EOM: EOMs intact bilaterally Neck Neck: Yes full ROM and Yes no lymphadenopathy Thyroid: Thyroid normal Chest Chest palpation & inspection: normal inspection of the chest Resp Auscultation: clear to auscultation bilaterally Cardio Rate: regular rate Rhythm: regular rhythm Heart sounds: S1 normal heart sound present and S2 normal heart sound present Peripheral pulses: Peripheral pulses 2+ throughout GI Other: Soft, nontender Auscultation: normal bowel sounds Rectal Exam - Female: deferred General: Yes no CVA tenderness Back/Spine/Pelvis Other: Nontender Back: no CVA tenderness Skin General skin exam: no rashes or lesions noted Neuro General: patient oriented x3, gait normal, CN's II-XI intact bilaterally and deep tendon reflexes 2+ bilaterally Cranial nerves: Yes Equal, round and reactive pupils present Motor exam (neuro): 5/5 motor strength present throughout Sensory Exam: double simultaneous stimulation for sensation normal Coordination: [id number] test normal and Romberg test negative Extrem General: Yes normal to inspection and Yes full ROM Psych Affect: normal affect Attitude: cooperative Thought process: Normal thought process present Thought content: Normal thought content present Insight: Good insight present (Psych) Judgement: Good judgement present (Psych) Results Reviewed Results Reviewed: Laboratory Tests 05/01/24 01/20/25 07:54 08:43 WBC 4.5 L RBC 4.85 Hgb 14.4 Hct 44.2 Plt Count 196 Sodium 143 Potassium 4.6 Chloride 109 H Carbon Dioxide 24 Anion Gap 15 BUN 22 H Creatinine 0.89 Estimated GFR > 60 Fasting Glucose 97 Calcium 9.4 Total Bilirubin 0.3 AST 39 H ALT 19 Alkaline Phosphatase 87 Total Protein 8.5 H Triglycerides 92 Cholesterol 203 H LDL Cholesterol, Calc 126 H HDL Cholesterol 59 TSH 3.86 Free T4 1.17 Total T3 86 Urine Creatinine 41.95 Urine Microalbumin < 5.0 Microalb/Creat Ratio TNP Coding Diagnoses Encounter for annual wellness visit (AWV) in Medicare patient Z00.00 Seizure disorder G40.909 Degeneration of cervical intervertebral disc M50.30 Hypothyroidism E03.9 Elevated LDL cholesterol level E78.00 Type 2 diabetes mellitus E11.9 Osteopenia M85.80 Assessment & Plan Assessment & Plan (1) Encounter for annual wellness visit (AWV) in Medicare patient: Code(s): Z00.00 - Encounter for general adult medical examination without abnormal findings Category: Medical Plan: Paperwork filled out today. No concerns reported MOLST form provided and questions answered. They will fill this out at home and bring this into their next appointment. (2) Seizure disorder: Code(s): G40.909 - Epilepsy, unspecified, not intractable, without status epilepticus Category: Medical Plan: Has routine follow up with Neurology. States that she has been going monthly and we believe to [facility]. (3) Degeneration of cervical intervertebral disc: Code(s): M50.30 - Other cervical disc degeneration, unspecified cervical region Category: Medical Plan: Lidocaine patches to use as needed (4) Hypothyroidism: Code(s): E03.9 - Hypothyroidism, unspecified Category: Medical Plan: TSH WNL. Continue levothyroxine (5) Elevated LDL cholesterol level: Code(s): E78.00 - Pure hypercholesterolemia, unspecified Category: Medical Plan: Working on diet and lifestyle modifications. (6) Type 2 diabetes mellitus: Code(s): E11.9 - Type 2 diabetes mellitus without complications Category: Medical Plan: Well-controlled. Continue current regimen (7) Osteopenia: Code(s): M85.80 - Other specified disorders of bone density and structure, unspecified site Category: Medical Plan: Bone density ordered. Orders: Orders Hemoglobin A1c Today E03.9 - Hypothyroidism, unspecified, E11.9 - Type 2 diabetes mellitus without complications, E78.00 - Pure hypercholesterolemia, unspecified, G40.909 - Epilepsy, unspecified, not intractable, without status epilepticus, M50.30 - Other cervical disc degeneration, unspecified cervical region, R73.01 - Impaired fasting glucose, R77.8 - Other specified abnormalities of plasma proteins Liver Panel Today E03.9 - Hypothyroidism, unspecified, E11.9 - Type 2 diabetes mellitus without complications, E78.00 - Pure hypercholesterolemia, unspecified, G40.909 - Epilepsy, unspecified, not intractable, without status epilepticus, M50.30 - Other cervical disc degeneration, unspecified cervical region, R77.8 - Other specified abnormalities of plasma proteins Complete Blood Count Auto Diff Today E11.9 - Type 2 diabetes mellitus without complications MM screening mammo BI Today Z12.31 - Encounter for screening mammogram for malignant neoplasm of breast XR DEXA axial skeleton Today M85.80 - Other specified disorders of bone density and structure, unspecified site Referrals Gastroenterology Referral Z12.11 - Encounter for screening for malignant neoplasm of colon Medications: New lidocaine 5% (Lidocan V) leave on most painful area for up to 12 hrs 1 patch topical DAILY 90 ea 3RF Patient Instructions: Repeat blood work in one-month. No need to fast. This will check the protein level, liver enzymes and A1c Continue your current medical regimen with the amlodipine, metformin, and levothyroxine. I refilled the lidocaine patches for your pain to use as needed. Schedule the bone density and mammogram at your convenience. I did put in orders should you need them I put in a consult request to gastroenterology (stomach doctor) for a colonoscopy as you are due this year. It will probably take a while for them to reach out to you but should you not hear from them by your appointment with your PCP let us know
[2025-02-04 09:37] VITALS: BP 108/76; PULSE 68; RESP 14; O2SAT 96; BMI 31.6
--- NOTE | 2025-02-04 14:44 | A.OFFVIS_ITS ---
Intake Vital Signs 02/04/25 09:37 02/04/25 14:50 Height 4 ft 5.54 in Weight 129 lb BMI 31.6 31.6 BP 108/76 Blood Pressure Location Rt brachial Position Sitting Respiration 14 Pulse 68 Pulse Source Pulse Oximeter Pulse Oximetry (%) 96 Oxygen Delivery Method Room Air Intake Visit Reasons: AWV Allergies ciprofloxacin [From Cipro] Allergy (Verified 02/04/25 09:35) Unknown cyclobenzaprine Allergy (Verified 02/04/25 09:35) Unknown Phenothiazines Allergy (Verified 02/04/25 09:35) Unknown prochlorperazine [From Compazine] Allergy (Verified 02/04/25 09:35) Unknown Medication List - Last Reconciled 02/04/25 by Jamia Tijerina PA-C amlodipine 10 mg PO DAILY cholecalciferol (vitamin D3) 50 mcg PO DAILY famotidine 20 mg PO BID levetiracetam 250 mg PO BID levothyroxine 88 mcg PO DAILY 30 days lidocaine 5% 1 patch topical DAILY 30 days metformin 500 mg PO DAILY 90 days naproxen sodium (Aleve) 220 mg PO BID PRN vit C,B-Of-pflzr-lutein-zeaxan 250-90-40-1 mg (PreserVision AREDS-2) 1 tab PO BID HPI AWV HPI Details Patient is a 69-year-old female with a significant past medical history of hypothyroidism, type 2 diabetes, hypertension, seizures, GERD and osteopenia presenting today for an AWV. She normally follows with Dr. Obregon. CV: Blood pressure today in the office is 106/76. She is currently on amlodipine 10 mg daily. Her cholesterol was elevated above goal. She states that she is going to work on diet and lifestyle modifications and does not want to take anything yet for this. Endo: Last A1c was 5.8. On metformin 500 mg daily. Denies any hypoglycemic events. Her hypothyroidism is managed with levothyroxine 88 mcg daily. Last TSH was WNL. Neuro: On levetiracetam BID and follows with neuro. Uro: following with urology and has a suprapubic catheter. She sees Dr. Eaton Musculoskeletal: likes to have lidocaine patches on hand if needed for her back pain. No concerns of falling or safetly-appropriate paperwork filled out today and scanned into chart. Denies any memory changes Mammo: 02/24- wnl, due and states that she has an appointment pending Pap: No longer doing this-following with Urogynecology Bone density:01/04- osteopenia Colonoscopy: Due this year. Got a phone call from [place] stating that she is due as she has a history of colon polyps Recently had labs completed for Dr. Obregon. States that she was not yet notified of the results as she did have this appointment upcoming. She does have elevated total protein and LFTs. We will plan to rechecked. Up-to-date with eye and dental. [facility] Medical History Diverticulitis Surgical History Hx of rotator cuff surgery Hx of appendectomy History of partial hysterectomy Hx of partial thyroidectomy History of reduction surgery of right breast Family History Other Adopted person Social History (Updated 02/04/25 @ 09:44 by Kylah Chacko CMA) Household Members: Family Household Members Other:: brother and sister in law Housing: House Do you presently have visiting nurse or other home services: No Alcohol intake: never Patient Tobacco Use Status: Former Tobacco user Tobacco use type: Cigarette e-Cigarette/Vaping Use: Never Used Second Hand Smoke Exposure: Yes Advance Directives Date on File: 09/14/22 service: No Current occupational status: retired Sexual orientation: Decline to Answer Gender identity: Decline to answer Cognitive needs: No Hearing needs: No Vision needs: Yes Questionnaire Medicare Wellness Checkup [age] What gender do you identify with?: female During the past 4 weeks, how much have you been bothered by emotional problems such as feeling anxious, depressed, irritable, sad or downhearted, and blue?: not at all During the past 4 weeks, has your physical & emotional health limited your social activities with family, friends, neighbors, or groups?: not at all During the past 4 weeks, how much bodily pain have you generally had?: mild pain During the past 4 weeks, what was the hardest physical activity you could do for at least 2 minutes?: moderate Can you get to places out of walking distance without help? (For eg., can you travel alone on buses, taxis or drive your car?): Yes Can you go shopping for groceries or clothes without someone's help?: Yes Can you prepare your own meals?: Yes Can you do your housework without help?: Yes Because of any health problems, do you need the help of another person with your personal care needs such as eating, bathing, dressing or getting around the house?: No Can you handle your own money without help?: No During the past 4 weeks, how would you rate your health in general?: good During the past 4 weeks how have things been going for you?: good & bad parts about equal Are you having difficulties driving your car?: not applicable, I don't use a car Do you always fasten your seat belt when you are in a car?: yes, usually During past 4 weeks, have you been bothered by the following: never: Falling or dizzy when standing up, Sexual problems?, Trouble eating well?, Teeth or denture problems?, Problems using the telephone? and Tiredness or fatigue? Have you fallen 2 or more times in the past year?: No Are you afraid of falling?: No Are you a smoker?: no During the past 4 weeks, how many drinks of wine, beer, or other alcoholic beverages did you have?: no alcohol at all Do you exercise for about 20 minutes 3 or more times a week?: no, I usually do not exercise this much Have you been given information to help with the following?: no: Hazards in your house that might hurt you? and no: Keeping track of your medications? How often do you have trouble taking medicines the way you have been told to take them?: I always take medicine as prescribed How confident are you that you can control & manage most of your health problems?: somewhat confident What is your race?: White Mini Mental State Exam (MMSE) Orientation What is the (year) (season) (date) (day) (month)?: year, season, date, day and month Where are we (state) (county) (town or city) (hospital) (floor)?: state, county, town or city, hospital/clinic and floor Registration Name of 3 unrelated objects clearly and slowly, then ask patient to repeat all 3 of them. (1st repeat determines score. Make sure they can repeat all three): object 3 Attention & Calculation (CHOOSE ONE) Spell WORLD backwards (DLROW): 5 letters Recall Ask patient to repeat the 3 items from question #3.: object 1, object 2 and object 3 Language Show patient a wristwatch & ask what it is. Repeat for pencil.: pencil Ask the patient to repeat the phrase 'No ifs, ands, or buts' after you.: correct Ask the patient to 'take a piece of paper with their right hand' 'fold paper in half' 'place paper on floor': take paper in right hand, fold paper in half and place paper on floor Print the sentence 'CLOSE YOUR EYES' on a piece. If patient actually closes eyes then score.: followed written direction Give patient a blank piece of paper & ask to write a sentence. Score if it contains a noun & verb.: sentence contains subject and verb Score Score: 26 Physical Exam Vital Signs: Last Vital Signs Pulse 68 02/04/25 09:37 Resp 14 02/04/25 09:37 BP 108/76 02/04/25 09:37 Pulse Ox 96 02/04/25 09:37 Oxygen Delivery Method Room Air 02/04/25 09:37 BMI result Body Mass Index 31.6 Const Orientation/consciousness: patient oriented x3 HEENT Ears: hearing grossly normal bilaterally Neck Thyroid: Thyroid normal Lymphatic: no lymphadenopathy noted Resp Auscultation: clear to auscultation bilaterally Cardio Rate: regular rate Rhythm: regular rhythm Heart sounds: S1 normal heart sound present and S2 normal heart sound present GI Inspection: Yes normal to inspection Palpation (GI): Soft to palpation and Other GI palpation findings present (nontender, no cva tenderness) Auscultation: normoactive bowel sounds Rectal Exam - Female: deferred Skin General skin exam: no rashes or lesions noted Neuro General: patient oriented x3, gait normal and no focal motor deficits Assessment & Plan Assessment & Plan (1) Encounter for annual wellness visit (AWV) in Medicare patient: Code(s): Z00.00 - Encounter for general adult medical examination without abnormal findings Plan: Document scanned. Health maintenance reviewed. MOLST form provided and she will review at home and return at her PCP appointment. Referral to GI for colonoscopy as she is due this year. (2) Seizure disorder: Code(s): G40.909 - Epilepsy, unspecified, not intractable, without status epilepticus Plan: Following with Neurology. Had recent adjustment a few months ago per patient's family member. They will get notes. (3) Degeneration of cervical intervertebral disc: Code(s): M50.30 - Other cervical disc degeneration, unspecified cervical region Plan: Lidocaine patches ordered to use as needed. (4) Hypothyroidism: Code(s): E03.9 - Hypothyroidism, unspecified Plan: Last TSH WNL. We will continue current regimen. (5) Elevated LDL cholesterol level: Code(s): E78.00 - Pure hypercholesterolemia, unspecified Plan: She wants to work on diet changes prior to initiating any medications. She is going to be a bit more active. (6) Type 2 diabetes mellitus: Code(s): E11.9 - Type 2 diabetes mellitus without complications Plan: Last A1c 5.8. Continue metformin. (7) Osteopenia: Code(s): M85.80 - Other specified disorders of bone density and structure, unspecified site Plan: Bone density ordered. (8) Elevated LFTs: Code(s): R79.89 - Other specified abnormal findings of blood chemistry Plan: Reviewed recent labs with patient. We will recheck Orders: Orders Hemoglobin A1c 02/04/25 E03.9 - Hypothyroidism, unspecified, E11.9 - Type 2 diabetes mellitus without complications, E78.00 - Pure hypercholesterolemia, unspecified, G40.909 - Epilepsy, unspecified, not intractable, without status epilepticus, M50.30 - Other cervical disc degeneration, unspecified cervical r egion, R73.01 - Impaired fasting glucose, R77.8 - Other specified abnormalities of plasma proteins Liver Panel 02/04/25 E03.9 - Hypothyroidism, unspecified, E11.9 - Type 2 d iabetes mellitus without complications, E78.00 - Pure hypercholesterolemia, unspecified, G40.909 - Epilepsy, unspecified, not intractable, without status epilepticus, M50.30 - Other cervical disc degeneration, unspecified cervical region, R77.8 - Other specified abnormalities of plasma proteins Complete Blood Count Auto Diff 02/04/25 E11.9 - Type 2 diabetes mellitus with out complications MM screening mammo BI 02/04/25 Z12.31 - Encounter for screening mammogram for malignant neoplasm of breast XR DEXA axial skeleton 02/04/25 M85.80 - Other specified disorders of bone density and structure, unspecified site Referrals Gastroenterology Referral Z12.11 - Encounter for screening for malignant neoplasm of colon Medications: New lidocaine 5% (Lidocan V) leave on most painful area for up to 12 hrs 1 patch topical DAILY 90 ea 3RF Coding Level of Care Code Medicare Subsequent (G0439) Est Pt Level 4 (85923) Diagnoses Encounter for annual wellness visit (AWV) in Medicare patient Z00.00 Seizure disorder G40.909 Degeneration of cervical intervertebral disc M50.30 Hypothyroidism E03.9 Elevated LDL cholesterol level E78.00 Type 2 diabetes mellitus E11.9 Osteopenia M85.80 Elevated LFTs R79.89
[2025-02-04 14:50] VITALS: BMI 31.6
== END 2025-02-04 10:15 | disposition home or self-care (01) ==
LOC: HO.HMCFM 09:19
PROVIDERS: PCP Family Medicine; Visit Provider Physician Assistant
DX: Z00.00 Encounter for general adult medical examination without abnormal findings (principal); G40.909 Epilepsy, unspecified, not intractable, without status epilepticus; E11.9 Type 2 diabetes mellitus without complications; M50.30 Other cervical disc degeneration, unspecified cervical region; E03.9 Hypothyroidism, unspecified; E78.00 Pure hypercholesterolemia, unspecified; M85.80 Other specified disorders of bone density and structure, unspecified site; R79.89 Other specified abnormal findings of blood chemistry

== ENCOUNTER → 2025-02-04 09:18 | Outpatient (BNVA) | payer MEDICARE, OTHER, SELFPAY | PROVIDERS: PCP Family Medicine; Visit Provider Physician Assistant | DX: Z00.00 Encounter for general adult medical examination without abnormal findings (principal); G40.909 Epilepsy, unspecified, not intractable, without status epilepticus; M50.30 Other cervical disc degeneration, unspecified cervical region; E03.9 Hypothyroidism, unspecified; E78.00 Pure hypercholesterolemia, unspecified; E11.9 Type 2 diabetes mellitus without complications; M85.80 Other specified disorders of bone density and structure, unspecified site; R79.89 Other specified abnormal findings of blood chemistry | CPT/HCPCS: 99212 ==

== ENCOUNTER 2025-03-26 11:25 | Outpatient (REF) | payer MEDICARE, OTHER, SELFPAY ==
--- NOTE | ~2025-03-26 | MM_ITS ---
EXAMINATION: DXA BONE DENSITY AXIAL HISTORY: M85.80 - Other specified disorders of bone density and structure, unspecified... TECHNIQUE: [employer] Dual energy absorptiometry (DEXA) of the lumbar spine, total left hip, and femoral neck was performed. COMPARISON: Comparison is made with the prior examination dated 12/27/2022. FINDINGS: The bone mineral density of the lumbar spine is 1.056 with a T-score of -1.0, and a Z-score of 0.9. This is indicative of normal bone mineral density. This represents a BMD change of -4.0% compared to the prior exam. This is statistically significant. The bone mineral density of the left total hip is 0.995 with a T-score of -0.1, and a Z-score of 1.6. This is indicative of normal bone mineral density. This represents a BMD change of 0.8% compared to the prior exam. This is not statistically significant. The bone mineral density of the left femoral neck is 0.809 with a T-score of -1.6, and a Z-score of 0.2. This is indicative of osteopenia. This represents a BMD change of -3.0% compared to the prior exam. FRACTURE RISK: The FRAX index suggests a ten year probability of major osteoporotic fracture of 10.2%, and of hip fracture 1.7%. MM/XR DEXA axial skeleton IMPRESSION: Based on bone mineral density, and according to World Health Organization (WHO) criteria, the diagnosis is consistent with osteopenia. All bone density values are in grams per centimeter squared (g/cm2). Statistically, 68% of repeat scans fall within 1 SD (+/- 0.010 g/cm2 for AP spine L1-L4) and 1 SD (+/- 0.012 g/cm2 for femur total) FRAX is a trademark of the [employer]'s [employer] Metabolic Bone Disease, a World Health Organization (WHO) Collaborating Center. Electronically signed by: Gurjit Olvera MD 03/26/2025 12:13 PM EDT
--- OUTSIDE RECORDS SUMMARY | 2025-03-26 12:33 | XMS_ITS | Data Portability ---
Author Organization [facility] Denatorformerly [facility] 5minutes, [facility], 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 Plan of Treatment Reminders Order Date Submit Date Provider Last Modified By Organization Details Last Modified Time Details Appointments None recorded. Lab TSH, serum or plasma 2021 022 [facility], [address], [place], [address], 14:42:07 T4, free, serum 2021 022 [facility], [address], [place], [address], 14:42:06 CMP, serum or plasma 2021 022 [facility], [address], [place], [address], 14:42:03 HbA1c (hemoglobin A1c), blood 2021 022 [facility], [address], [place], [address], 14:42:01 lipid panel, serum 2021 022 [facility], [address], [place], [address], 14:42:04 CBC 2021 022 [facility], [address], [place], [address], 14:42:02 HbA1c (hemoglobin A1c), blood 2021 022 [email or web address] am14 [facility], [address], [place], [address], 13:57:21 CMP, serum or plasma 2021 022 [facility] am14 [facility], [address], [place], [address], 13:57:21 CBC 2021 0[facility], [address], [place], [address], 3 09:00:56 HbA1c (hemoglobin A1c), blood 2021 022 [email or web address] [facility], [address], [place], [address], 09:57:48 CMP, serum or plasma 2021 022 [facility] am14 [facility], [address], [place], [address], 13:57:21 CBC 2021 022 [facility] am14 [facility], [address], [place], [address], 3 09:00:56 lipid panel, serum 2021 022 [facility], [address], [place], [address], 2 09:57:48 lipid panel, serum 2021 022 [facility], [address], [place], [address], 2 09:57:48 TSH, serum or plasma 2021 022 [facility] am14 [facility], [address], [place], [address], 2 13:57:21 TSH, serum or plasma 2021 022 [facility], [address], [place], [address], 2 13:57:22 HbA1c (hemoglobin A1c), blood 2020 021 [place] [facility], [address], [place], [address], 2 14:38:27 CMP, serum or plasma 2020 021 [facility], [address], [place], [address], 2 14:38:28 CBC 2020 021 [facility], [address], [place], [address], 2 14:38:28 TSH, serum or plasma 2020 021 [facility], [address], [place], [address], 14:38:29 HbA1c (hemoglobin A1c), blood 2020 021 [facility], [address], [place], [address], 14:12:27 CMP, serum or plasma 2020 021 [facility], [address], [place], [address], 14:12:28 CBC 2020 021 [facility], [address], [place], [address], 14:12:28 TSH, serum or plasma 2020 021 [facility], [address], [place], [address], 14:12:30 lipid panel, serum 2020 021 [facility], [address], [place], [address], 14:12:29 Referral None recorded. Procedures None recorded. Surgeries None recorded. Imaging MRI, lumbar spine, w/o contrast 2021 022 [facility], [facility], All Locations, [place], [address], 14:13:05 MAMMO, screening, digital, bilateral [email or web address] [place] [address] Imaging Services, [facility], All Locations, [place], [address], 2 10:32:44 CT, abdomen + pelvis, w/o contrast 2020 [facility], [facility], All Locations, [place], [address], 1 10:00:31 Medication Orders lidocaine 5 % topical patch 2021 [facility], [address] [place] [address], [address], 2 17:16:21 nystatin-tr iamcinolone 100,000 unit/gram-0 .1 % topical oint[facility] 2021 [facility], [address] [place], [place], [id number], 2 11:22:33 hydrocodone 10 mg-acetamin ophen 325 mg tablet 2021 [facility]95314, [address], [place], [id number], 2 11:22:34 amlodipine 10 mg tablet 2021 022 [facility], [address] [place] [address], [address], 2 12:33:34 levothyroxi ne 150 mcg tablet 2020 021 [facility], [address] [place] [address], [address], 1 10:52:17 Kenalog 40 mg/mL suspension for injection 2020 021 [facility], [address] [place] [address], [place], [address], 09:49:10 Patient TargetsNo targets recorded. Patient Instructions Encounter Date Encounter Id Patient Instructions Last Modified By Organization Details Last Modified Time 06/23/2021 [id number] controlling your asthma: care instructions hleppert Not available 06/23/2021 10:57:48 learning about asthma hleppert Not available 06/23/2021 10:57:48 starting a weigh t loss plan: care instructions hleppert Not available 06/23/2021 10:19:38 let me know if t he shot does not help increasing levothyroxine to 150mcg one pill daily blood work before next visit hleppert Not available 06/23/2021 10:19:07 10/14/2021 [id number] gastroesophageal reflux disease (GERD): care instructions hleppert Not available 10/14/2021 10:00:31 hypothyroidism: care instructions hleppert Not available 10/14/2021 10:00:31 starting a weigh t loss plan: care instructions hleppert Not available 10/14/2021 10:00:31 re start famotid ine 1 pill in am and 1 pill in pm cat scan today all your labs look ok hleppert Not available 10/14/2021 09:51:42 10/21/2021 [id number] hypothyroidism: care instructions hleppert Not available 10/21/2021 13:47:09 starting a weigh t loss plan: care instructions hleppert Not available 10/21/2021 13:37:51 finish antibioti cs go get probiotics and start 2 capsules daily til the bottle is empty blood work before next visit hleppert Not available 10/21/2021 13:39:44 02/17/2022 [id number] gastroesophageal reflux disease (GERD): care instructions hleppert Not available 02/17/2022 11:22:20 heart-healthy di et: care instructions hleppert Not available 02/17/2022 11:22:21 advance directiv es: care instructions hleppert Not available 02/17/2022 11:22:21 learning about living arizmendi hleppert Not available 02/17/2022 11:22:21 learning about medical power of litigation attorney hleppert Not available 02/17/2022 11:22:22 preventing [...] day hleppert Not available 02/17/2022 11:19:38 05/29/2022 [id number] controlling your asthma: care instructions hleppert Not available 05/29/2022 17:16:19 learning about asthma hleppert Not available 05/29/2022 17:16:19 hypothyroidism: care instructions hleppert Not available 05/29/2022 17:16:19 blood work hleppert Not availa ble 05/29/2022 15:04:49 Reason for Referral None Reported. Results Created Date Observation Date Name Description Value Unit Range Abnormal Flag Note LastModifiedBy Organization Detail LastModifiedTime 06/16/2006/16/2021 A1C hemoglobin A1C faith 6.2 % 4.3-5. 6 high ADA RECOM NESSA D GUIDE LINES FOR Hgb A1C % 5.7-6 .4 % predi abeti c <7.0% Reaso nable glyce sharan goal for non-p regna nt adult s <8.0 Appro priat e for patie nts with hypog lycem ia or advan negro micro /macr o vascu alr compl icati ons Not Available [facility] [address] [place], [address], 06/16/2021 14:59:55 06/16/2006/16/2021 A1C estimated average glucose _I 131.2 mg/dL 97.0-1 40.0 Not Available [facility] [address] [place], [address], 06/16/2021 14:59:55 06/16/20 21 06/16/2021 CBC W/ AUTOD IFF, COMPL ETE BLOOD COUNT WBC_I 6.50 3.60-1 0.00 Not Available [facility], [place], [address], 06/16/2021 14:59:56 06/16/20 21 06/16/2021 CBC W/ AUTOD IFF, COMPL ETE BLOOD COUNT nucleated RBC 0.20 % 0.00-2 .00 Not Available [facility], [place], [address], 06/16/2021 14:59:56 06/16/20 21 06/16/2021 CBC W/ AUTOD IFF, COMPL ETE BLOOD COUNT RBC 4.69 M/uL 3.90-5 .00 Not Available [facility] [address], [place], [address], 06/16/2021 14:59:56 06/16/20 21 06/16/2021 CBC W/ AUTOD IFF, COMPL ETE BLOOD COUNT hemoglobin 14.8 g/dL 12.0-1 5.0 Not Available [facility], [place], [address], 06/16/2021 14:59:56 06/16/20 21 06/16/2021 CBC W/ AUTOD IFF, COMPL ETE BLOOD COUNT hematocrit 44.50 % 35.00- 45.00 Not Available [facility], [place], [address], 06/16/2021 14:59:56 06/16/20 21 06/16/2021 CBC W/ AUTOD IFF, COMPL ETE BLOOD COUNT MCV 95.0 fL 80.0-9 9.0 Not Available [facility] [address], [place], [address], 06/16/2021 14:59:56 06/16/20 21 06/16/2021 CBC W/ AUTOD IFF, COMPL ETE BLOOD COUNT MCH 31.5 pg 27.0-3 3.0 Not Available [facility], [place], [address], 06/16/2021 14:59:56 06/16/20 21 06/16/2021 CBC W/ AUTOD IFF, COMPL ETE BLOOD COUNT MCHC 33.1 g/dL 32.0-3 6.0 Not Available [facility] [address], [place], [address], 06/16/2021 14:59:56 06/16/20 21 06/16/2021 CBC W/ AUTOD IFF, COMPL ETE BLOOD COUNT platelets 242 K/uL 140-44 0 Not Available [facility], [place], [address], 06/16/2021 14:59:56 06/16/20 21 06/16/2021 CBC W/ AUTOD IFF, COMPL ETE BLOOD COUNT RDW_I 13.3 % 11.0-1 5.0 Not Available [facility], [place], [address], 06/16/2021 14:59:56 06/16/20 21 06/16/2021 CBC W/ AUTOD IFF, COMPL ETE BLOOD COUNT MPV 9.6 fL 7.4-10 .4 Not Available [facility] [address], [place], [address], 06/16/2021 14:59:56 06/16/20 21 06/16/2021 CBC W/ AUTOD IFF, COMPL ETE BLOOD COUNT neutrophil, percentage 52.5 % 40.0-7 5.0 Not Available [facility], [place], [address], 06/16/2021 14:59:56 06/16/20 21 06/16/2021 CBC W/ AUTOD IFF, COMPL ETE BLOOD COUNT lymphocyte, percentage 37.3 % 15.0-4 5.0 Not Available [facility] [address] [place], [place] [address]y [address], [place], [address], 06/16/2021 14:59:56 06/16/20 21 06/16/2021 CBC W/ AUTOD IFF, COMPL ETE BLOOD COUNT monocyte, percentage 5.4 % 4.0-9. 0 Not Available [facility] [address] [place], [place] [address]y [address], [place], [address], 06/16/2021 14:59:56 06/16/20 21 06/16/2021 CBC W/ AUTOD IFF, COMPL ETE BLOOD COUNT eosinophil, percentage 3.7 % 1.0-6. 0 Not Available [facility] [address] [place], [place] [address], [place], [address], 06/16/2021 14:59:56 06/16/20 21 06/16/2021 CBC W/ AUTOD IFF, COMPL ETE BLOOD COUNT basophil, percentage 1.1 % 0.0-2. 0 Not Available [facility] [address] [place], [place] [address], [place], [address], 06/16/2021 14:59:56 06/16/20 21 06/16/2021 CBC W/ AUTOD IFF, COMPL ETE BLOOD COUNT neutrophil, absolute 3.4 K/uL 1.5-7. 5 Not Available [facility] [address] [place], [place] [address], [place], [address], 06/16/2021 14:59:56 06/16/20 21 06/16/2021 CBC W/ AUTOD IFF, COMPL ETE BLOOD COUNT lymphocyte, absolute 2.4 K/uL 0.8-4. 0 Not Available [facility] [address], [place], [address], 06/16/2021 14:59:56 06/16/20 21 06/16/2021 CBC W/ AUTOD IFF, COMPL ETE BLOOD COUNT monocyte, absolute 0.4 K/uL 0.1-1. 0 Not Available [facility] [address], [place], [address], 06/16/2021 14:59:56 06/16/20 21 06/16/2021 CBC W/ AUTOD IFF, COMPL ETE BLOOD COUNT eosinophil, absolute 0.2 K/uL 0.1-1. 0 Not Available [facility] [address] [place] [address] [address], [place], [address], 06/16/2021 14:59:56 06/16/20 21 06/16/2021 CBC W/ AUTOD IFF, COMPL ETE BLOOD COUNT basophil, absolute 0.1 K/uL 0.0-0. 2 Not Available [facility] [address] [place] [address] [address], [place], [address], 06/16/2021 14:59:56 06/16/20 21 06/16/2021 CMP, COMPR EHENS [place]PH[place] METAB OLIC PANEL glucose 122 mg/dL 70-100 high Not Available [facility] [address] [place] [address] [address], [place], [address], 06/16/2021 14:59:57 06/16/20 21 06/16/2021 CMP, COMPR EHENS [place] METAB OLIC PANEL BUN 14 mg/dL 7-25 Not Available [facility] [address] [place] [address] [address], [place], [address], 06/16/2021 14:59:57 06/16/20 21 06/16/2021 CMP, COMPR EHENS [place] METAB OLIC PANEL creatinine 0.9 mg/dL 0.6-1. 3 Not Available [facility] [address] [facility] [address] [place], [address], 06/16/2021 14:59:57 06/16/20 21 06/16/2021 CMP, COMPR EHENS [place] METAB OLIC PANEL BUN/creatini ne ratio 16 calc 10-25 Not Available [facility] [address] [facility] [address] [place], [address], 06/16/2021 14:59:57 06/16/20 21 06/16/2021 CMP, COMPR EHENS [place] METAB OLIC PANEL eGFR 81 mL/mi n/1.7 3m2 >60 THREE CONSE CUTIV E VALUE S <60 mL/mi n COULD BE INDIC ATIVE OF KIDNE Y DISEA SE. Not Available [facility] [address] [facility] [address] [place], [address], 06/16/2021 14:59:57 06/16/20 21 06/16/2021 CMP, COMPR EHENS [place] METAB OLIC PANEL eGFR non- 66 mL/mi n/1.7 3m2 >60 THREE CONSE CUTIV E VALUE S < 60 mL/mi n COULD BE INDIC ATIVE OF KIDNE Y DISEA SE Not Available [facility] [address] [facility] [address] [place], [address], 06/16/2021 14:59:57 06/16/20 21 06/16/2021 CMP, COMPR EHENS [place] METAB OLIC PANEL sodium 142 mmol/ L 135-14 5 Not Available [facility] [address] [facility] [address] [place], [address], 06/16/2021 14:59:57 06/16/20 21 06/16/2021 CMP, COMPR EHENS [place]PI[place] METAB OLIC PANEL potassium 4.1 mmol/ L 3.5-5. 5 Not Available [facility] [address] [facility] [address], [place], [address], 06/16/2021 14:59:57 06/16/20 21 06/16/2021 CMP, COMPR EHENS [place] METAB OLIC PANEL chloride 104 mmol/ L 100-11 5 Not Available [facility] [address] [facility] [address], [place], [address], 06/16/2021 14:59:57 06/16/20 21 06/16/2021 CMP, COMPR EHENS [place] METAB OLIC PANEL CO2 25 mmol/ L 21-33 Not Available [facility] [facility] [address], [place], [address], 06/16/2021 14:59:57 06/16/20 21 06/16/2021 CMP, COMPR EHENS [place] METAB OLIC PANEL anion gap 12.9 calc 3.0-11 .0 high Not Available [facility] [address] [facility] [address], [place], [address], 06/16/2021 14:59:57 06/16/20 21 06/16/2021 CMP, COMPR EHENS [place] METAB OLIC PANEL calcium 9.3 mg/dL 8.8-10 .6 Not Available [facility] [address] [facility] [address], [place], [address], 06/16/2021 14:59:57 06/16/20 21 06/16/2021 CMP, COMPR EHENS [place] METAB OLIC PANEL total protein 7.3 g/dL 6.2-8. 6 Not Available [facility] [address] [facility] [address], [place], [address], 06/16/2021 14:59:57 06/16/20 21 06/16/2021 CMP, COMPR EHENS [place] METAB OLIC PANEL albumin 4.0 g/dL 3.5-5. 7 Not Available [facility] [address] [facility] [address], [place], [address], 06/16/2021 14:59:57 06/16/20 21 06/16/2021 CMP, COMPR EHENS [place] METAB OLIC PANEL globuln 3.3 g/dL 1.3-4. 0 Not Available [facility] [address], [place], [address], 06/16/2021 14:59:57 06/16/20 21 06/16/2021 CMP, COMPR EHENS [place] METAB OLIC PANEL A/G ratio 1.2 calc 1.0-2. 8 Not Available [facility] [address], [place], [address], 06/16/2021 14:59:57 06/16/20 21 06/16/2021 CMP, COMPR EHENS [place] METAB OLIC PANEL AST (SGOT) 25 U/L 13-39 Not Available [facility] [address], [place], [address], 06/16/2021 14:59:57 06/16/20 21 06/16/2021 CMP, COMPR EHENS [place] METAB OLIC PANEL ALT (SGPT) 25 U/L 7-52 Not Available [facility] [address] [place], [place] [address] [address] [place], [address], 06/16/2021 14:59:57 06/16/20 21 06/16/2021 CMP, COMPR EHENS [place] METAB OLIC PANEL alkaline phosphatase 114 U/L 20-128 Not Available [facility] [address] [place], [place] [address] [address], [place], [address], 06/16/2021 14:59:57 06/16/20 21 06/16/2021 CMP, COMPR EHENS [place]PH[place] METAB OLIC PANEL total bilirubin 0.35 mg/dL 0.30-1 .00 Not Available [facility] [address], [place], [address], 06/16/2021 14:59:57 06/16/20 21 06/16/2021 LIPID PANEL W/ CALCU LATED LDL cholesterol 175 mg/dL 20-180 Expec bashir Range for Adult s: Total Cheryl stero l: Risk Class ifica tion: <200 mg/dl Coleman able 200-2 39 mg/dl Borde rline high > 240 mg/dl High Not Available [facility] [address] [facility] [address], [place], [address], 06/16/2021 14:59:58 06/16/20 21 06/16/2021 LIPID PANEL W/ CALCU LATED LDL triglyceride 126 mg/dL 30-150 Not Available [facility] [address] [facility] [address], [place], [address], 06/16/2021 14:59:58 06/16/20 21 06/16/2021 LIPID PANEL W/ CALCU LATED LDL HDL cholesterol 62 mg/dL 23-92 Not Available [facility] [address] [facility] [address], [place], [address], 06/16/2021 14:59:58 06/16/20 21 06/16/2021 LIPID PANEL W/ CALCU LATED LDL chol/HDL risk ratio 3 calc <3.5 is OPTIM AL Not Available [facility] [address], [place], [address], 06/16/2021 14:59:58 06/16/20 21 06/16/2021 LIPID PANEL W/ CALCU LATED LDL LDL-calculat ed 88 mg/dL Not Available [facility] [address], [place], [address], 06/16/2021 14:59:58 06/16/20 21 06/16/2021 LIPID PANEL W/ CALCU LATED LDL non-HDL cholesterol 113 mg/dL COLEMAN ABLE IS <130 mg/dl Not Available [facility] [address] [facility] [address], [place], [address], 06/16/2021 14:59:58 06/16/20 21 06/16/2021 LIPID PANEL W/ CALCU LATED LDL VLDL cholesterol 25.20 mg/dL Not Available [facility] [address] [facility] [address], [place], [address], 06/16/2021 14:59:58 06/16/20 21 06/16/2021 TSH, THYRO ID STIMU LATIN G HORMO NE TSH 31.200 0 uIU/m L 0.2700 -4.200 0 high Not Available [facility] [address] [facility] [address] [place], [address], 06/16/2021 14:59:59 06/16/20 21 06/16/2021 VENIP UNCTU RE results Compl ete Not Available [facility] [address] [facility] [address] [place], [address], 06/16/2021 12:34:23 09/30/20 21 09/30/2021 A1C hemoglobin [...] vascu alr compl icati ons Not Available [facility] [address] [facility] [address], [place], [address], 09/30/2021 14:12:27 09/30/20 21 09/30/2021 A1C estimated average glucose _I 134.1 mg/dL 97.0-1 40.0 Not Available [facility] [address], [place], [address], 09/30/2021 14:12:27 09/30/20 21 09/30/2021 CBC W/ AUTOD IFF, COMPL ETE BLOOD COUNT WBC_I 4.50 3.60-1 0.00 Not Available [facility] [address], [place], [address], 09/30/2021 14:12:28 09/30/20 21 09/30/2021 CBC W/ AUTOD IFF, COMPL ETE BLOOD COUNT nucleated RBC 0.10 % 0.00-2 .00 Not Available [facility] [address], [place], [address], 09/30/2021 14:12:28 09/30/20 21 09/30/2021 CBC W/ AUTOD IFF, COMPL ETE BLOOD COUNT RBC 4.52 M/uL 3.90-5 .00 Not Available [facility] [address], [place], [address], 09/30/2021 14:12:28 09/30/20 21 09/30/2021 CBC W/ AUTOD IFF, COMPL ETE BLOOD COUNT hemoglobin 14.4 g/dL 12.0-1 5.0 Not Available [facility], [place], [address], 09/30/2021 14:12:28 09/30/20 21 09/30/2021 CBC W/ AUTOD IFF, COMPL ETE BLOOD COUNT hematocrit 42.50 % 35.00- 45.00 Not Available [facility] [address], [place], [address], 09/30/2021 14:12:28 09/30/20 21 09/30/2021 CBC W/ AUTOD IFF, COMPL ETE BLOOD COUNT MCV 93.9 fL 80.0-9 9.0 Not Available [facility] [address], [place], [address], 09/30/2021 14:12:28 09/30/20 21 09/30/2021 CBC W/ AUTOD IFF, COMPL ETE BLOOD COUNT MCH 31.8 pg 27.0-3 3.0 Not Available [facility] [address], [place], [address], 09/30/2021 14:12:28 09/30/20 21 09/30/2021 CBC W/ AUTOD IFF, COMPL ETE BLOOD COUNT MCHC 33.8 g/dL 32.0-3 6.0 Not Available [facility], [place], [address], 09/30/2021 14:12:28 09/30/20 21 09/30/2021 CBC W/ AUTOD IFF, COMPL ETE BLOOD COUNT platelets 201 K/uL 140-44 0 Not Available [facility], [place], [address], 09/30/2021 14:12:28 09/30/20 21 09/30/2021 CBC W/ AUTOD IFF, COMPL ETE BLOOD COUNT RDW_I 13.1 % 11.0-1 5.0 Not Available [facility] [address], [place], [address], 09/30/2021 14:12:28 09/30/20 21 09/30/2021 CBC W/ AUTOD IFF, COMPL ETE BLOOD COUNT MPV 9.4 fL 7.4-10 .4 Not Available [facility] [address], [place], [address], 09/30/2021 14:12:28 09/30/20 21 09/30/2021 CBC W/ AUTOD IFF, COMPL ETE BLOOD COUNT neutrophil, percentage 45.6 % 40.0-7 5.0 Not Available [facility] [address], [place], [address], 09/30/2021 14:12:28 09/30/20 21 09/30/2021 CBC W/ AUTOD IFF, COMPL ETE BLOOD COUNT lymphocyte, percentage 42.0 % 15.0-4 5.0 Not Available [facility] [address], [place], [address], 09/30/2021 14:12:28 09/30/20 21 09/30/2021 CBC W/ AUTOD IFF, COMPL ETE BLOOD COUNT monocyte, percentage 7.6 % Not Available [facility] [address], [place], [address], 09/30/2021 14:12:28 09/30/20 21 09/30/2021 CBC W/ AUTOD IFF, COMPL ETE BLOOD COUNT eosinophil, percentage 4.0 % 1.0-6. 0 Not Available [facility] [address], [place], [address], 09/30/2021 14:12:28 09/30/20 21 09/30/2021 CBC W/ AUTOD IFF, COMPL ETE BLOOD COUNT basophil, percentage 0.8 % 0.0-2. 0 Not Available [facility] [address], [place], [address], 09/30/2021 14:12:28 09/30/20 21 09/30/2021 CBC W/ AUTOD IFF, COMPL ETE BLOOD COUNT neutrophil, absolute 2.0 K/uL 1.5-7. 5 Not Available [facility] [address], [place], [address], 09/30/2021 14:12:28 09/30/20 21 09/30/2021 CBC W/ AUTOD IFF, COMPL ETE BLOOD COUNT lymphocyte, absolute 1.9 K/uL 0.8-4. 0 Not Available [facility] [address], [place], [address], 09/30/2021 14:12:28 09/30/20 21 09/30/2021 CBC W/ AUTOD IFF, COMPL ETE BLOOD COUNT monocyte, absolute 0.3 K/uL 0.1-1. 0 Not Available [facility] [address], [place], [address], 09/30/2021 14:12:28 09/30/20 21 09/30/2021 CBC W/ AUTOD IFF, COMPL ETE BLOOD COUNT eosinophil, absolute 0.2 K/uL 0.1-1. 0 Not Available [facility] [address] [facility] [address], [place], [address], 09/30/2021 14:12:28 09/30/20 21 09/30/2021 CBC W/ AUTOD IFF, COMPL ETE BLOOD COUNT basophil, absolute 0.0 K/uL 0.0-0. 2 Not Available [facility] [address] [facility] [address], [place], [address], 09/30/2021 14:12:28 09/30/20 21 09/30/2021 CMP, COMPR EHENS DELPHINE METAB OLIC PANEL glucose 113 mg/dL 70-100 high Not Available [facility] [address], [place], [address], 09/30/2021 14:12:28 09/30/20 21 09/30/2021 CMP, COMPR EHENS DELPHINE METAB OLIC PANEL BUN 14 mg/dL 7-25 Not Available [facility] [address] [facility] [address], [place], [address], 09/30/2021 14:12:28 09/30/20 21 09/30/2021 CMP, COMPR EHENS DELPHINE METAB OLIC PANEL creatinine 0.8 mg/dL 0.6-1. 3 Not Available [facility] [address] [facility] [address], [place], [address], 09/30/2021 14:12:28 09/30/20 21 09/30/2021 CMP, COMPR EHENS DELPHINE METAB OLIC PANEL BUN/creatini ne ratio 18 calc 10-25 Not Available [facility] [address] [facility] [address], [place], [address], 09/30/2021 14:12:28 09/30/20 21 09/30/2021 CMP, COMPR EHENS DELPHINE METAB OLIC PANEL eGFR 92 mL/mi n/1.7 3m2 >60 THREE CONSE CUTIV E VALUE S <60 mL/mi n COULD BE INDIC ATIVE OF KIDNE Y DISEA SE. Not Available [facility] [address] [facility] [address] [place], [address], 09/30/2021 14:12:28 09/30/20 21 09/30/2021 CMP, COMPR EHENS DELPHINE METAB OLIC PANEL eGFR non- 76 mL/mi n/1.7 3m2 >60 THREE CONSE CUTIV E VALUE S < 60 mL/mi n COULD BE INDIC ATIVE OF KIDNE Y DISEA SE Not Available [facility] [address] [facility] [address] [place], [address], 09/30/2021 14:12:28 09/30/20 21 09/30/2021 CMP, COMPR EHENS DELPHINE METAB OLIC PANEL sodium 141 mmol/ L 135-14 5 Not Available [facility] [address] [facility] [address] [place], [address], 09/30/2021 14:12:28 09/30/20 21 09/30/2021 CMP, COMPR EHENS DELPHINE METAB OLIC PANEL potassium 4.2 mmol/ L 3.5-5. 5 Not Available [facility] [address], [place], [address], 09/30/2021 14:12:28 09/30/20 21 09/30/2021 CMP, COMPR EHENS DELPHINE METAB OLIC PANEL chloride 103 mmol/ L 100-11 5 Not Available [facility] [address], [place], [address], 09/30/2021 14:12:28 09/30/20 21 09/30/2021 CMP, COMPR EHENS DELPHINE METAB OLIC PANEL CO2 26 mmol/ L 21-33 Not Available [facility] [address] [facility] [address], [place], [address], 09/30/2021 14:12:28 09/30/20 21 09/30/2021 CMP, COMPR EHENS DELPHINE METAB OLIC PANEL anion gap 11.8 calc 3.0-11 .0 high Not Available [facility] [address] [facility] [address], [place], [address], 09/30/2021 14:12:28 09/30/20 21 09/30/2021 CMP, COMPR EHENS DELPHINE METAB OLIC PANEL calcium 9.0 mg/dL 8.8-10 .6 Not Available [facility] [address], [place], [address], 09/30/2021 14:12:28 09/30/20 21 09/30/2021 CMP, COMPR EHENS DELPHINE METAB OLIC PANEL total protein 7.0 g/dL 6.2-8. 6 Not Available [facility] [address], [place], [address], 09/30/2021 14:12:28 09/30/20 21 09/30/2021 CMP, COMPR EHENS [place]PHINE METAB OLIC PANEL albumin 4.2 g/dL 3.5-5. 7 Not Available [facility] [address], [place], [address], 09/30/2021 14:12:28 09/30/20 21 09/30/2021 CMP, COMPR EHENS [place]PHINE METAB OLIC PANEL globuln 2.9 g/dL 1.3-4. 0 Not Available [facility] [address], [place], [address], 09/30/2021 14:12:28 09/30/20 21 09/30/2021 CMP, COMPR EHENS [place]PHINE METAB OLIC PANEL A/G ratio 1.5 calc 1.0-2. 8 Not Available [facility] [address], [place], [address], 09/30/2021 14:12:28 09/30/20 21 09/30/2021 CMP, COMPR EHENS DELPHINE METAB OLIC PANEL AST (SGOT) 21 U/L 13-39 Not Available [facility] [address] [facility] [address] [place], [address], 09/30/2021 14:12:28 09/30/20 21 09/30/2021 CMP, COMPR EHENS DELPHINE METAB OLIC PANEL ALT (SGPT) 25 U/L 7-52 Not Available [facility] [address], [place], [address], 09/30/2021 14:12:28 09/30/20 21 09/30/2021 CMP, COMPR EHENS [place]PHINE METAB OLIC PANEL alkaline phosphatase 111 U/L 20-128 Not Available [facility] [address], [place], [address], 09/30/2021 14:12:28 09/30/20 21 09/30/2021 CMP, COMPR EHENS DELPHINE METAB OLIC PANEL total bilirubin 0.27 mg/dL 0.30-1 .00 low Not Available [facility] [address] [facility] [address], [place], [address], 09/30/2021 14:12:28 09/30/20 21 09/30/2021 LIPID PANEL W/ CALCU LATED LDL cholesterol 152 mg/dL 20-180 Expec bashir Range for Adult s: Total Cheryl stero l: Risk Class ifica tion: <200 mg/dl Coleman able 200-2 39 mg/dl Borde rline high > 240 mg/dl High Not Available [facility] [address] [facility] [address] [place], [address], 09/30/2021 14:12:29 09/30/20 21 09/30/2021 LIPID PANEL W/ CALCU LATED LDL triglyceride 118 mg/dL 30-150 Not Available [facility] [address] [facility] [address], [place], [address], 09/30/2021 14:12:29 09/30/20 21 09/30/2021 LIPID PANEL W/ CALCU LATED LDL HDL cholesterol 51 mg/dL 23-92 Not Available [facility] [address] [facility] [address], [place], [address], 09/30/2021 14:12:29 09/30/20 21 09/30/2021 LIPID PANEL W/ CALCU LATED LDL chol/HDL risk ratio 3 calc <3.5 is OPTIM AL Not Available [facility] [address] [facility] [address], [place], [address], 09/30/2021 14:12:29 09/30/20 21 09/30/2021 LIPID PANEL W/ CALCU LATED LDL LDL-calculat ed 77 mg/dL Not Available [facility] [address] [facility] [address] [place], [address], 09/30/2021 14:12:29 09/30/20 21 09/30/2021 LIPID PANEL W/ CALCU LATED LDL non-HDL cholesterol 101 mg/dL COLEMAN ABLE IS <130 mg/dl Not Available [facility] [address] [facility] [address] [place], [address], 09/30/2021 14:12:29 09/30/20 21 09/30/2021 LIPID PANEL W/ CALCU LATED LDL VLDL cholesterol 23.60 mg/dL Not Available [facility] [address] [facility] [address] [place], [address], 09/30/2021 14:12:29 09/30/20 21 09/30/2021 TSH, THYRO ID STIMU LATIN G HORMO NE TSH 0.7920 uIU/m L 0.2700 -4.200 0 Not Available [facility] [address] [facility] [address] [place], [address], 09/30/2021 14:12:30 09/30/20 21 09/30/2021 VENIP UNCTU RE results Compl ete Not Available [facility] [address] [facility] [address] [place], [address], 09/30/2021 07:50:15 02/18/20 22 02/17/2022 A1C hemoglobin [...] vascu alr compl icati ons Not Available [facility] [address] [facility] [address], [place], [address], 02/17/2022 14:38:27 02/18/20 22 02/17/2022 A1C estimated average glucose _I 142.7 mg/dL 97.0-1 40.0 high Not Available [facility] [address] [place], [address], 02/17/2022 14:38:27 02/18/20 22 02/17/2022 CBC W/ AUTOD IFF, COMPL ETE BLOOD COUNT WBC_I 7.40 3.60-1 0.00 Not Available [facility] [address], [place], [address], 02/17/2022 14:38:27 02/18/20 22 02/17/2022 CBC W/ AUTOD IFF, COMPL ETE BLOOD COUNT nucleated RBC 0.10 % 0.00-2 .00 Not Available [facility] [address] [place], [place] [address]y [address] [place], [address], 02/17/2022 14:38:27 02/18/20 22 02/17/2022 CBC W/ AUTOD IFF, COMPL ETE BLOOD COUNT RBC 4.57 M/uL 3.90-5 .00 Not Available [facility] [address] [place], [place] [address]y [address] [place], [address], 02/17/2022 14:38:27 02/18/20 22 02/17/2022 CBC W/ AUTOD IFF, COMPL ETE BLOOD COUNT hemoglobin 14.3 g/dL 12.0-1 5.0 Not Available [facility] [address] [place], [place] [address]y [address], [place], [address], 02/17/2022 14:38:27 02/18/20 22 02/17/2022 CBC W/ AUTOD IFF, COMPL ETE BLOOD COUNT hematocrit 41.80 % 35.00- 45.00 Not Available [facility] [address], [place], [address], 02/17/2022 14:38:27 02/18/20 22 02/17/2022 CBC W/ AUTOD IFF, COMPL ETE BLOOD COUNT MCV 91.6 fL 80.0-9 9.0 Not Available [facility] [address] [place] [address] [address], [place], [address], 02/17/2022 14:38:27 02/18/20 22 02/17/2022 CBC W/ AUTOD IFF, COMPL ETE BLOOD COUNT MCH 31.3 pg 27.0-3 3.0 Not Available [facility] [address] [place] [address] [address], [place], [address], 02/17/2022 14:38:27 02/18/20 22 02/17/2022 CBC W/ AUTOD IFF, COMPL ETE BLOOD COUNT MCHC 34.2 g/dL 32.0-3 6.0 Not Available [facility] [address] [place] [address] [address], [place], [address], 02/17/2022 14:38:27 02/18/20 22 02/17/2022 CBC W/ AUTOD IFF, COMPL ETE BLOOD COUNT platelets 242 K/uL 140-44 0 Not Available [facility] [address] [place] [address] [address], [place], [address], 02/17/2022 14:38:27 02/18/20 22 02/17/2022 CBC W/ AUTOD IFF, COMPL ETE BLOOD COUNT RDW_I 13.4 % 11.0-1 5.0 Not Available [facility] [address] [place] [address] [address], [place], [address], 02/17/2022 14:38:27 02/18/20 22 02/17/2022 CBC W/ AUTOD IFF, COMPL ETE BLOOD COUNT MPV 9.0 fL 7.4-10 .4 Not Available [facility] [address] [place], [place] [address], [place], [address], 02/17/2022 14:38:27 02/18/20 22 02/17/2022 CBC W/ AUTOD IFF, COMPL ETE BLOOD COUNT neutrophil, percentage 57.1 % 40.0-7 5.0 Not Available [facility] [address] [place], [place] [address]y [address], [place], [address], 02/17/2022 14:38:27 02/18/20 22 02/17/2022 CBC W/ AUTOD IFF, COMPL ETE BLOOD COUNT lymphocyte, percentage 32.7 % 15.0-4 5.0 Not Available [facility] [address] [place], [place] [address], [place], [address], 02/17/2022 14:38:27 02/18/20 22 02/17/2022 CBC W/ AUTOD IFF, COMPL ETE BLOOD COUNT monocyte, percentage 6.7 % Not Available [facility] [address] [place], [place] [address]y [address], [place], [address], 02/17/2022 14:38:27 02/18/20 22 02/17/2022 CBC W/ AUTOD IFF, COMPL ETE BLOOD COUNT eosinophil, percentage 2.7 % 1.0-6. 0 Not Available [facility] [address] [place], [place] [address], [place], [address], 02/17/2022 14:38:27 02/18/20 22 02/17/2022 CBC W/ AUTOD IFF, COMPL ETE BLOOD COUNT basophil, percentage 0.8 % 0.0-2. 0 Not Available [facility] [address] [place], [place] [address]y [address], [place], [address], 02/17/2022 14:38:27 02/18/20 22 02/17/2022 CBC W/ AUTOD IFF, COMPL ETE BLOOD COUNT neutrophil, absolute 4.3 K/uL 1.5-7. 5 Not Available [facility] [address] [place] [address] [address], [place], [address], 02/17/2022 14:38:27 02/18/20 22 02/17/2022 CBC W/ AUTOD IFF, COMPL ETE BLOOD COUNT lymphocyte, absolute 2.4 K/uL 0.8-4. 0 Not Available [facility] [address] [place] [address] [address], [place], [address], 02/17/2022 14:38:27 02/18/20 22 02/17/2022 CBC W/ AUTOD IFF, COMPL ETE BLOOD COUNT monocyte, absolute 0.5 K/uL 0.1-1. 0 Not Available [facility] [address] [place] [address] [address] [place], [address], 02/17/2022 14:38:27 02/18/20 22 02/17/2022 CBC W/ AUTOD IFF, COMPL ETE BLOOD COUNT eosinophil, absolute 0.2 K/uL 0.1-1. 0 Not Available [facility] [address] [place] [address] [address] [place], [address], 02/17/2022 14:38:27 02/18/20 22 02/17/2022 CBC W/ AUTOD IFF, COMPL ETE BLOOD COUNT basophil, absolute 0.1 K/uL 0.0-0. 2 Not Available [facility] [address] [place] [address] [address] [place], [address], 02/17/2022 14:38:27 02/18/20 22 02/17/2022 CMP, COMPR EHENS DELPHINE METAB OLIC PANEL glucose 170 mg/dL 70-100 high Not Available [facility] [address] [place] [address] [address] [place], [address], 02/17/2022 14:38:28 02/18/20 22 02/17/2022 CMP, COMPR EHENS DELPHINE METAB OLIC PANEL BUN 17 mg/dL 7-25 Not Available [facility] [address] [facility] [address], [place], [address], 02/17/2022 14:38:28 02/18/20 22 02/17/2022 CMP, COMPR EHENS DELPHINE METAB OLIC PANEL creatinine 0.7 mg/dL 0.6-1. 3 Not Available [facility] [address] [facility] [address], [place], [address], 02/17/2022 14:38:28 02/18/20 22 02/17/2022 CMP, COMPR EHENS DELPHINE METAB OLIC PANEL BUN/creatini ne ratio 23 calc 10-25 Not Available [facility] [address] [facility] [address], [place], [address], 02/17/2022 14:38:28 02/18/20 22 02/17/2022 CMP, COMPR EHENS DELPHINE METAB OLIC PANEL eGFR 102 mL/mi n/1.7 3m2 >60 THREE CONSE CUTIV E VALUE S <60 mL/mi n COULD BE INDIC ATIVE OF KIDNE Y DISEA SE. Not Available [facility] [address] [facility] [address], [place], [address], 02/17/2022 14:38:28 02/18/20 22 02/17/2022 CMP, COMPR EHENS DELPHINE METAB OLIC PANEL eGFR non- 84 mL/mi n/1.7 3m2 >60 THREE CONSE CUTIV E VALUE S < 60 mL/mi n COULD BE INDIC ATIVE OF KIDNE Y DISEA SE Not Available [facility] [address] [facility] [address], [place], [address], 02/17/2022 14:38:28 02/18/20 22 02/17/2022 CMP, COMPR EHENS DELPHINE METAB OLIC PANEL sodium 139 mmol/ L 135-14 5 Not Available [facility] [address] [facility] [address], [place], [address], 02/17/2022 14:38:28 02/18/20 22 02/17/2022 CMP, COMPR EHENS DELPHINE METAB OLIC PANEL potassium 4.1 mmol/ L 3.5-5. 5 Not Available [facility] [address] [facility] [address], [place], [address], 02/17/2022 14:38:28 02/18/20 22 02/17/2022 CMP, COMPR EHENS DELPHINE METAB OLIC PANEL chloride 103 mmol/ L 100-11 5 Not Available [facility] [address] [facility] [address], [place], [address], 02/17/2022 14:38:28 02/18/20 22 02/17/2022 CMP, COMPR EHENS [place]PHINE METAB OLIC PANEL CO2 28 mmol/ L 21-33 Not Available [facility] [address] [facility] [address], [place], [address], 02/17/2022 14:38:28 02/18/20 22 02/17/2022 CMP, COMPR EHENS DELPHINE METAB OLIC PANEL anion gap 8.3 calc 3.0-11 .0 Not Available [facility] [address] [facility] [address], [place], [address], 02/17/2022 14:38:28 02/18/20 22 02/17/2022 CMP, COMPR EHENS DELPHINE METAB OLIC PANEL calcium 9.4 mg/dL 8.8-10 .6 Not Available [facility] [address] [facility] [address], [place], [address], 02/17/2022 14:38:28 02/18/20 22 02/17/2022 CMP, COMPR EHENS DELPHINE METAB OLIC PANEL total protein 7.4 g/dL 6.2-8. 6 Not Available [facility] [address], [place], [address], 02/17/2022 14:38:28 02/18/20 22 02/17/2022 CMP, COMPR EHENS [place]PHINE METAB OLIC PANEL albumin 4.4 g/dL 3.5-5. 7 Not Available [facility] [address], [place], [address], 02/17/2022 14:38:28 02/18/20 22 02/17/2022 CMP, COMPR EHENS DELPHINE METAB OLIC PANEL globuln 3.1 g/dL 1.3-4. 0 Not Available [facility] [address], [place], [address], 02/17/2022 14:38:28 02/18/20 22 02/17/2022 CMP, COMPR EHENS [place]PHINE METAB OLIC PANEL A/G ratio 1.4 calc 1.0-2. 8 Not Available [facility] [address], [place], [address], 02/17/2022 14:38:28 02/18/20 22 02/17/2022 CMP, COMPR EHENS DELPHINE METAB OLIC PANEL AST (SGOT) 31 U/L 13-39 Not Available [facility] [address], [place], [address], 02/17/2022 14:38:28 02/18/20 22 02/17/2022 CMP, COMPR EHENS DELPHINE METAB OLIC PANEL ALT (SGPT) 43 U/L 7-52 Not Available [facility] [address], [place], [address], 02/17/2022 14:38:28 02/18/20 22 02/17/2022 CMP, COMPR EHENS DELPHINE METAB OLIC PANEL alkaline phosphatase 110 U/L 20-128 Not Available [facility] [address] [place] [address], [address], 02/17/2022 14:38:28 02/18/20 22 02/17/2022 CMP, COMPR EHENS DELPHINE METAB OLIC PANEL total bilirubin 0.29 mg/dL 0.30-1 .00 low Not Available [facility] [address] [place] [address], [address], 02/17/2022 14:38:28 02/18/20 22 02/17/2022 TSH, THYRO ID STIMU LATIN G HORMO NE TSH 0.2500 uIU/m L 0.2700 -4.200 0 low Not Available [facility] [address] [place] [address], [address], 02/17/2022 14:38:29 02/18/20 22 02/17/2022 VENIP UNCTU RE results Compl ete Not Available [facility] [address] [place] [address], [address], 02/17/2022 11:25:10 02/21/20 22 02/20/2022 T3 TOTAL total T3 93.90 NG/dL 80.00- 200.00 Not Available [facility] [address] [place] [address], [address], 02/20/2022 12:26:51 02/21/20 22 02/21/2022 T4 (THYR OXINE ), TOTAL T4 (thyroxine), total 9.4 mcg/d L 5.1-11 .9 normal Not Available [facility] [address] [place] [address], [address], 02/21/2022 08:45:45 02/21/20 22 02/20/2022 VENIP UNCTU RE results Compl ete Not Available [facility] [address] [facility] [address] [place], [address], 02/20/2022 09:15:47 06/01/20 22 06/01/2022 A1C hemoglobin [...] vascu alr compl icati ons Not Available [facility] [address] [facility] [address] [place], [address], 06/01/2022 14:42:01 06/01/20 22 06/01/2022 A1C estimated average glucose _I 137.0 mg/dL 97.0-1 40.0 Not Available [facility] [address], [address], 06/01/2022 14:42:01 06/01/20 22 06/01/2022 CBC W/ AUTOD IFF, COMPL ETE BLOOD COUNT WBC_I 5.20 3.60-1 0.00 Not Available [facility] [address] [place] [address] [address] [place], [address], 06/01/2022 14:42:02 06/01/20 22 06/01/2022 CBC W/ AUTOD IFF, COMPL ETE BLOOD COUNT nucleated RBC 0.10 % 0.00-2 .00 Not Available [facility] [address] [facility] [address] [place], [address], 06/01/2022 14:42:02 06/01/20 22 06/01/2022 CBC W/ AUTOD IFF, COMPL ETE BLOOD COUNT RBC 4.54 M/uL 3.90-5 .00 Not Available [facility] [address], [place], [address], 06/01/2022 14:42:02 06/01/20 22 06/01/2022 CBC W/ AUTOD IFF, COMPL ETE BLOOD COUNT hemoglobin 14.2 g/dL 12.0-1 5.0 Not Available [facility] [address], [place], [address], 06/01/2022 14:42:02 06/01/20 22 06/01/2022 CBC W/ AUTOD IFF, COMPL ETE BLOOD COUNT hematocrit 41.90 % 35.00- 45.00 Not Available [facility] [address], [place], [address], 06/01/2022 14:42:02 06/01/20 22 06/01/2022 CBC W/ AUTOD IFF, COMPL ETE BLOOD COUNT MCV 92.1 fL 80.0-9 9.0 Not Available [facility] [address], [place], [address], 06/01/2022 14:42:02 06/01/20 22 06/01/2022 CBC W/ AUTOD IFF, COMPL ETE BLOOD COUNT MCH 31.3 pg 27.0-3 3.0 Not Available [facility] [address], [place], [address], 06/01/2022 14:42:02 06/01/20 22 06/01/2022 CBC W/ AUTOD IFF, COMPL ETE BLOOD COUNT MCHC 34.0 g/dL 32.0-3 6.0 Not Available [facility] [address], [place], [address], 06/01/2022 14:42:02 06/01/20 22 06/01/2022 CBC W/ AUTOD IFF, COMPL ETE BLOOD COUNT platelets 218 K/uL 140-44 0 Not Available [facility] [address], [place], [address], 06/01/2022 14:42:02 06/01/20 22 06/01/2022 CBC W/ AUTOD IFF, COMPL ETE BLOOD COUNT RDW_I 13.5 % 11.0-1 5.0 Not Available [facility] [address], [place], [address], 06/01/2022 14:42:02 06/01/20 22 06/01/2022 CBC W/ AUTOD IFF, COMPL ETE BLOOD COUNT MPV 8.7 fL 7.4-10 .4 Not Available [facility] [address] [place] [address] [address], [place], [address], 06/01/2022 14:42:02 06/01/20 22 06/01/2022 CBC W/ AUTOD IFF, COMPL ETE BLOOD COUNT neutrophil, percentage 44.9 % 40.0-7 5.0 Not Available [facility] [address] [place] [address] [address], [place], [address], 06/01/2022 14:42:02 06/01/20 22 06/01/2022 CBC W/ AUTOD IFF, COMPL ETE BLOOD COUNT lymphocyte, percentage 43.9 % 15.0-4 5.0 Not Available [facility] [address], [place], [address], 06/01/2022 14:42:02 06/01/20 22 06/01/2022 CBC W/ AUTOD IFF, COMPL ETE BLOOD COUNT monocyte, percentage 7.6 % Not Available [facility] [address] [place] [address] [address], [place], [address], 06/01/2022 14:42:02 06/01/20 22 06/01/2022 CBC W/ AUTOD IFF, COMPL ETE BLOOD COUNT eosinophil, percentage 2.8 % 1.0-6. 0 Not Available [facility] [address], [place], [address], 06/01/2022 14:42:02 06/01/20 22 06/01/2022 CBC W/ AUTOD IFF, COMPL ETE BLOOD COUNT basophil, percentage 0.8 % 0.0-2. 0 Not Available [facility] [address] [place], [place] [address]y [address], [place], [address], 06/01/2022 14:42:02 06/01/20 22 06/01/2022 CBC W/ AUTOD IFF, COMPL ETE BLOOD COUNT neutrophil, absolute 2.4 K/uL 1.5-7. 5 Not Available [facility] [address] [place], [place] [address], [place], [address], 06/01/2022 14:42:02 06/01/20 22 06/01/2022 CBC W/ AUTOD IFF, COMPL ETE BLOOD COUNT lymphocyte, absolute 2.3 K/uL 0.8-4. 0 Not Available [facility] [address] [place], [place] [address] [address] [place], [address], 06/01/2022 14:42:02 06/01/20 22 06/01/2022 CBC W/ AUTOD IFF, COMPL ETE BLOOD COUNT monocyte, absolute 0.4 K/uL 0.1-1. 0 Not Available [facility] [address] [place], [place] [address] [address], [place], [address], 06/01/2022 14:42:02 06/01/20 22 06/01/2022 CBC W/ AUTOD IFF, COMPL ETE BLOOD COUNT eosinophil, absolute 0.1 K/uL 0.1-1. 0 Not Available [facility] [address] [facility] [address], [place], [address], 06/01/2022 14:42:02 06/01/20 22 06/01/2022 CBC W/ AUTOD IFF, COMPL ETE BLOOD COUNT basophil, absolute 0.0 K/uL 0.0-0. 2 Not Available [facility] [address] [place], [address], 06/01/2022 14:42:02 06/01/20 22 06/01/2022 CMP, COMPR EHENS DELPHINE METAB OLIC PANEL glucose 118 mg/dL 70-100 high Not Available [facility] [address] [place] [address] [address] [facility], [place], [address], 06/01/2022 14:42:03 06/01/20 22 06/01/2022 CMP, COMPR EHENS DELPHINE METAB OLIC PANEL BUN 11 mg/dL 7-25 Not Available [facility] [address] [place], [address], 06/01/2022 14:42:03 06/01/20 22 06/01/2022 CMP, COMPR EHENS DELPHINE METAB OLIC PANEL creatinine 0.8 mg/dL 0.6-1. 3 Not Available [facility] [address] [place] [address], [address], 06/01/2022 14:42:03 06/01/20 22 06/01/2022 CMP, COMPR EHENS DELPHINE METAB OLIC PANEL BUN/creatini ne ratio 14 calc 10-25 Not Available [facility] [address] [place] [address] [address] [place], [address], 06/01/2022 14:42:03 06/01/20 22 06/01/2022 CMP, COMPR EHENS DELPHINE METAB OLIC PANEL eGFR 93 mL/mi n/1.7 3m2 >60 THREE CONSE CUTIV E VALUE S <60 mL/mi n COULD BE INDIC ATIVE OF KIDNE Y DISEA SE. Not Available [facility] [address], [place], [address], 06/01/2022 14:42:03 06/01/20 22 06/01/2022 CMP, COMPR EHENS DELPHINE METAB OLIC PANEL eGFR non- 77 mL/mi n/1.7 3m2 >60 THREE CONSE CUTIV E VALUE S < 60 mL/mi n COULD BE INDIC ATIVE OF KIDNE Y DISEA SE Not Available [facility] [address] [facility] [address], [place], [address], 06/01/2022 14:42:03 06/01/20 22 06/01/2022 CMP, COMPR EHENS DELPHINE METAB OLIC PANEL sodium 142 mmol/ L 135-14 5 Not Available [facility] [address] [facility] [address], [place], [address], 06/01/2022 14:42:03 06/01/20 22 06/01/2022 CMP, COMPR EHENS DELPHINE METAB OLIC PANEL potassium 4.5 mmol/ L 3.5-5. 5 Not Available [facility] [address] [facility] [address] [place], [address], 06/01/2022 14:42:03 06/01/20 22 06/01/2022 CMP, COMPR EHENS DELPHINE METAB OLIC PANEL chloride 105 mmol/ L 100-11 5 Not Available [facility] [address] [facility] [address] [place], [address], 06/01/2022 14:42:03 06/01/20 22 06/01/2022 CMP, COMPR EHENS DELPHINE METAB OLIC PANEL CO2 24 mmol/ L 21-33 Not Available [facility] [address] [facility] [address] [place], [address], 06/01/2022 14:42:03 06/01/20 22 06/01/2022 CMP, COMPR EHENS DELPHINE METAB OLIC PANEL anion gap 12.8 calc 3.0-11 .0 high Not Available [facility] [address] [facility] [address], [place], [address], 06/01/2022 14:42:03 06/01/20 22 06/01/2022 CMP, COMPR EHENS DELPHINE METAB OLIC PANEL calcium 9.5 mg/dL 8.8-10 .6 Not Available [facility] [address] [facility] [address], [place], [address], 06/01/2022 14:42:03 06/01/20 22 06/01/2022 CMP, COMPR EHENS DELPHINE METAB OLIC PANEL total protein 7.0 g/dL 6.2-8. 6 Not Available [facility] [address], [place], [address], 06/01/2022 14:42:03 06/01/20 22 06/01/2022 CMP, COMPR EHENS DELPHINE METAB OLIC PANEL albumin 4.2 g/dL 3.5-5. 7 Not Available [facility] [address], [place], [address], 06/01/2022 14:42:03 06/01/20 22 06/01/2022 CMP, COMPR EHENS DELPHINE METAB OLIC PANEL globuln 2.9 g/dL 1.3-4. 0 Not Available [facility] [address], [place], [address], 06/01/2022 14:42:03 06/01/20 22 06/01/2022 CMP, COMPR EHENS DELPHINE METAB OLIC PANEL A/G ratio 1.5 calc 1.0-2. 8 Not Available [facility] [address] [facility] [address], [place], [address], 06/01/2022 14:42:03 06/01/20 22 06/01/2022 CMP, COMPR EHENS DELPHINE METAB OLIC PANEL AST (SGOT) 38 U/L 13-39 Not Available [facility] [address] [facility] [address] [place], [address], 06/01/2022 14:42:03 06/01/20 22 06/01/2022 CMP, COMPR EHENS DELPHINE METAB OLIC PANEL ALT (SGPT) 59 U/L 7-52 high Not Available [facility] [address] [facility] [address], [place], [address], 06/01/2022 14:42:03 06/01/20 22 06/01/2022 CMP, COMPR EHENS DELPHINE METAB OLIC PANEL alkaline phosphatase 90 U/L 20-128 Not Available [facility] [address] [facility] [address], [place], [address], 06/01/2022 14:42:03 06/01/20 22 06/01/2022 CMP, COMPR EHENS DELPHINE METAB OLIC PANEL total bilirubin 0.36 mg/dL 0.30-1 .00 Not Available [facility] [address] [facility] [address] [place], [address], 06/01/2022 14:42:03 06/01/20 22 06/01/2022 LIPID PANEL W/ CALCU LATED LDL cholesterol 171 mg/dL 20-180 Expec bashir Range for Adult s: Total Cheryl stero l: Risk Class ifica tion: <200 mg/dl Coleman able 200-2 39 mg/dl Borde rline high > 240 mg/dl High Not Available [facility] [address] [facility] [address], [place], [address], 06/01/2022 14:42:04 06/01/20 22 06/01/2022 LIPID PANEL W/ CALCU LATED LDL triglyceride 134 mg/dL 30-150 Not Available [facility] [address] [place], [address], 06/01/2022 14:42:04 06/01/20 22 06/01/2022 LIPID PANEL W/ CALCU LATED LDL HDL cholesterol 51 mg/dL 23-92 Not Available [facility] [address] [facility] [address] [place], [address], 06/01/2022 14:42:04 06/01/20 22 06/01/2022 LIPID PANEL W/ CALCU LATED LDL chol/HDL risk ratio 3 calc <3.5 is OPTIM AL Not Available [facility] [address] [place] [address] [address] [place], [address], 06/01/2022 14:42:04 06/01/20 22 06/01/2022 LIPID PANEL W/ CALCU LATED LDL non-HDL cholesterol 120 mg/dL COLEMAN ABLE IS <130 mg/dl Not Available [facility] [address] [place], [address], 06/01/2022 14:42:04 06/01/20 22 06/01/2022 LIPID PANEL W/ CALCU LATED LDL VLDL cholesterol 26.80 mg/dL Not Available [facility] [address] [facility] [address] [place], [address], 06/01/2022 14:42:04 06/01/20 22 06/01/2022 LIPID PANEL W/ CALCU LATED LDL LDL calculated 93 mg/dL 0-99 Not Available [facility] [address] [facility] [address] [place], [address], 06/01/2022 14:42:04 06/01/20 22 06/01/2022 T4, FREE T4, free 1.63 NG/dL 0.93-1 .77 Not Available [facility] [address] [facility] [address], [place], [address], 06/01/2022 14:42:05 06/01/20 22 06/01/2022 TSH, THYRO ID STIMU LATIN G HORMO NE TSH 0.2420 uIU/m L 0.2700 -4.200 0 low Not Available [facility] [address] [facility] [address], [place], [address], 06/01/2022 14:42:06 06/01/20 22 06/01/2022 VENIP UNCTU RE results Compl ete Not Available [facility] [address] [facility] [address] [place], [address], 06/01/2022 08:12:01 10/14/20 21 10/14/2021 CT, abdom en + pelvi s, w/o contr ast No observ ation record ed. [id number] [facility] All Locations, [place], [address], 10/24/2024 19:43:23 10/14/20 21 10/14/2021 CT, abdom en + pelvi s, w/o contr ast No observ ation record ed. [id number] [facility] All Locations, [place], [address], 10/24/2024 19:41:50 03/13/20 22 03/13/2022 MAMMO , [...] suspic ious asymme try. There is no dwaien ectura l distor tion. There are no suspic ious microc alcifi cation s. No abnorm al skin thicke lazaro is noted. The nipple s are not retrac bashir. IMPRES MANUELITO: No mammog raphic eviden ce for breast malign carlee. The patien t will be notifi ed of these findin gs as per [employer] law. BI-RAD S catego ry: 2: Benign findin gs RECOMM ENDATI ONS: Annual screen ing mammog caitlin. Notes: -The patien t's united [place] fibrog landul ar tissue can obscur e [...] Gabriela Dewey Michae l Sign Date: [id number] [facility]ations, [place], [address], 10/03/2024 19:31:26 03/20/20 22 03/20/2022 MRI, lumba r spine , w/o contr [...] Gabriela Dewey Michae l Sign Date: [id number] [facility] All Locations, [place], [address], 10/03/2024 19:32:13 Result Notes None recorded. Problems Name Problem SNOMED Code Status Onset Date Resolution Date Notes Provider Name and Address Organization Details Recorded Time Epigastri c pain 98690172 Active 2020 Not Available [facility] 2 18:55:27 Diverticu litis 237719042 Active 2020 Not Available [facility] 2 18:55:27 Lumbar radiculop athy 216073233 Active 2021 Not Available [facility] 2 18:55:27 Diverticu lar disease 760699834 Active 2021 Not Available [facility] 2 18:55:27 Liver enzymes outside reference range 503790953 Active 2021 Millie Gill DO [address], [place], [address] , [facility] [employer] 2 15:09:45 Asthma 559043222 Active 2017 Not Available [facility] 2 18:55:27 Obesity 213364100 Active 2017 Not Available [facility] 2 18:55:27 Degenerat ion of cervical intervert ebral disc 67124642 Active 2017 Not Available [facility] 2 18:55:27 Diarrhea 42305866 Active 2014 MILES CALLEJAS [facility] [employer] [facility] 8 10:23:38 Cervical spondylos is without myelopath y 131890042 Active 2014 Millie Gill DO [address], [place], [address] , [facility] [employer] 2 11:05:33 Disorder of carbohydr ate metabolis m 23483997 Completed 201706/23/2021 Millie Gill DO [address], [place], [address] , [facility] [employer] 1 10:55:08 Long-term drug therapy Active 2017 Not Available [facility] 2 18:55:27 Seizure disorder 295201218 Active 2017 Not Available [facility] 2 18:55:27 Simple renal cyst 26826149 Active 2017 Not Available [facility] 2 18:55:27 Hypothyro idism 03671796 Active 2017 Not Available [facility] 2 18:55:27 Disorder of thyroid gland 94702925 Completed 201706/28/2018 SOLE Traore [address], [place], [address] , [facility] 8 12:08:19 Gastroeso phageal reflux disease 518481093 Active 2017 Not Available [facility] 2 18:55:27 Polyp of colon 58706277 Active 2017 Not Available [facility] 2 18:55:27 Benign essential hypertens ion 7609606 Active 2017 Not Available [facility] 2 18:55:27 Allergic rhinitis 68270807 Active 2017 Not Available [facility] 2 18:55:27 Hyperglyc emia 41256459 Completed 201711/25/2020 Millie Gill DO [address], [place], [address] , [facility] [employer] [facility] 1 09:41:59 Chronic sciatica 007454677 Active 2018 Not Available [facility] 2 18:55:27 Low back pain 977129403 Active 2018 Not Available [facility] 2 18:55:27 Type 2 diabetes mellitus 71643302 Active 2020 Not Available [facility] 2 18:55:27 Pain of right shoulder joint 82764238398 407749 Active 2020 Not Available [facility] 2 18:55:27 Problem Notes None recorded. Procedures Surgical History Date Name Laterality Status Provider Name and Address Organization Details Recorded Time 02/18/20 Quality Functional Assessment completed Melinda Zepeda [facility] [employer] [facility] 02/17/2022 10:50:24 04/08/20 22 Quality Medication Reviewed and Updated completed Melinda Zepeda [facility], [facility] 02/17/2022 10:50:24 02/18/20 22 Medicare AWV Questionnaire completed Millie Gill, DO [address], [place], [address], [facility], [facility] 02/17/2022 12:45:05 02/18/20 22 Quality BMI with follow up completed Melinda Zepeda [facility], [facility] 02/17/2022 10:50:24 02/18/20 22 Quality Advanced Care Planning completed Millie Gill, DO [address], [place], [address], [facility], [facility] 02/17/2022 12:45:08 02/18/20 22 Quality Incontinence Screening completed eMlinda Zepeda [facility], [facility] 02/17/2022 10:50:24 02/18/20 22 Quality Fall Risk Assessment completed Melinda Zepeda [facility], [facility] 02/17/2022 10:50:24 06/23/20 21 Aspiration Major Joint/Bursa completed Millie Gill, DO [address], [place], [address], [facility], [facility] 06/23/2021 10:54:54 01/12/20 21 mammography completed Millie Gill, DO [address], [place], [address], [facility], [facility] 02/23/2021 10:57:15 11/25/19 21 Quality Functional Assessment completed [facility], [facility] 11/25/2020 09:28:22 11/25/19 21 Quality Medication Reviewed and Updated completed Albertina [facility], [facility] 11/25/2020 09:28:22 11/25/19 21 Quality Fall Risk Assessment Low Risk completed [facility], [facility] 11/25/2020 09:28:22 11/25/19 21 Quality BMI with follow up completed Albertina [facility], [facility] 11/25/2020 09:28:22 11/25/19 21 Quality Advanced Care Planning completed Millie Gill DO [address], [place], [address], [facility], [facility] 11/25/2020 10:01:22 11/25/19 21 Quality Incontinence Screening completed Albertina Ward [facility], [facility] 11/25/2020 09:28:22 11/25/19 21 Medicare AWV - Screening Schedule completed DO [address], [place], [address], [facility], [facility] 11/25/2020 10:01:13 01/22/20 [address], [place], [address], [facility], [facility] 01/22/2020 20:11:40 01/01/20 20 mammography completed DO [address], [place], [address], [facility], [facility] 04/01/2020 10:03:46 11/26/19 20 Date of Last Mammogram completed Isadora Osborn [facility], [facility] 02/23/2021 10:36:58 09/09/20 19 Quality Functional Assessment completed Vira Pa [facility], [facility] 09/09/2019 09:30:30 09/09/20 19 Quality Medication Reviewed and Updated completed Vira Pa [facility], [facility] 09/09/2019 09:30:30 09/09/20 19 Medicare AWV Questionnaire completed [address], [place], [address], [facility], [facility] 09/09/2019 10:30:12 09/09/20 19 Quality Tobacco Non- User completed [address], [place], [address], [facility], [facility] 09/09/2019 10:01:59 09/09/20 19 Quality Fall Risk Assessment Low Risk completed Vira Pa [facility], [facility] 09/09/2019 09:30:30 09/09/20 19 Quality BMI with follow up completed Vira Pa [facility], [facility] 09/09/2019 09:30:30 09/09/20 19 Quality Advanced Care Planning completed Vira Pa [facility], [facility] 09/09/2019 09:30:30 09/09/20 19 Quality Incontinence Screening completed Vira Pa [facility], [facility] 09/09/2019 09:30:30 06/28/20 18 Quality Functional Assessment completed [address], [place], [address], [facility], [facility] 06/28/2018 12:04:42 06/28/20 18 Quality Medication Reviewed and Updated completed [address], [place], [address], [facility], [facility] 06/28/2018 12:04:42 06/28/20 18 Medicare AWV Questionnaire completed [address], [place], [address], [facility], [facility] 06/28/2018 12:08:08 06/28/20 18 Quality TCM Medication Reconciliation completed MILES CALLEJAS [facility], [facility] 06/28/2018 11:32:00 06/28/20 18 Quality Fall Risk Assessment Low Risk completed [address], [place], [address], [facility], [facility] 06/28/2018 12:04:42 06/28/20 18 Quality BMI with follow up completed [address], [place], [address], [facility], [facility] 06/28/2018 12:04:42 06/28/20 18 Quality Advanced Care Planning completed [address], [place], [address], [facility], [facility] 06/28/2018 12:04:42 06/28/20 18 Quality Incontinence Screening completed SOLE Traore [address], [place], [address], [facility], [facility] 06/28/2018 12:04:42 12/10/19 18 Mammogram Screening completed SOLE Traore [address], [place], [address], [facility], [facility] 06/27/2018 19:37:38 04/17/20 16 Fecal occult blood test completed Millie Gill DO [address], [place], [address], [facility], [facility] 12/03/2018 17:44:34 12/20/19 08 Bone mineral dual photon completed SOLE Traore [address], [place], [address], [facility], [facility] 06/27/2018 19:38:26 Hysterectomy completed Isadora Osborn [facility], [facility] 02/23/2021 10:37:17 Imaging Results Imaging Date Name Status LastModified by [facility] Details LastModified Time 10/14/2021 CT, abdomen + pelvis, w/o contrast completed [id number] [facility] Imaging All Locations, [place], [address], 10/24/2024 19:43:23 10/14/2021 CT, abdomen + pelvis, w/o contrast completed [id number] [facility] Imaging All Locations, [place], [address], 10/24/2024 19:41:50 03/13/2022 MAMMO, screening, tomosynthesis, bilateral completed [id number] [facility] Imaging All Locations, [place], [address], 10/03/2024 19:31:26 03/20/2022 MRI, lumbar spine, w/o contrast completed [id number] [facility] Imaging All Locations, [place], [address], 10/03/2024 19:32:13 Procedure Notes None recorded. Medical Equipment None Reported. Allergies Allergen ID Allergen Name Allergen Category Reaction Reaction Severity Criticality Documentation Date Start Date Code Code System Note Provider Name and Address Organization Details Recorded Time 230155 Risperdal medicatio n rash Not available Not available 06/28/2018 36306 8 RxNorm MILES JÚNIOR [facility], [facility], [facility] 8 10:20:43 727496 prochlorp erazine medicatio n rash Not available Not available 06/28/20182012 8704 RxNorm Isadora Osborn [facility] 10:36:52 097904 ciproflox acin medicatio n rash Not available Not available 06/28/20182012 2551 RxNorm Isadora cuello, [facility] 10:36:52 865012 cyclobenz aprine medicatio n rash Not available Not available 06/28/20182012 89633 RxNorm Isadoradaniella cuello, [facility] 1 10:36:52 Medications Name Sig Start Date [...] propionate 50 mcg/actuati on nasal spray,suspe nsion Olmito 1 spray every day by intranasa l [...] Not Available No t Available Fluarix Quad (PF) 60 mcg (15 mcg x [...] Updated DateTime 1 134.62 cm 38.2 kg/m2 10799.2 g 0 98.2 [degF] 73 /min 96 % 96 % 15 /min Valery Goldsmith [place] [employer] 1 09:34:10 Date Recorded Systolic blood pressure Diastolic blood pressure Provider Name and Address Organization Details Last Updated DateTime 10/14/2021 140 mm[Hg] 84 mm[Hg] Millie Gill, DO [address] [address], [place], [address], [facility] [employer] 10/14/2021 09:42:42 Date Recorded Body height Body mass index (BMI) Body weight Pain severity - 0-10 verbal numeric rating [Score] - Reported Body temperature Heart rate Oxygen saturation Oxygen saturation in Arterial blood by Pulse oximetry Respiratory rate Systolic blood pressure Diastolic blood pressure Provider Name and Address Organization Details Last Updated DateTime 1 134.62 cm 37.3 kg/m2 56971.9 8 g 0 98.1 [degF] 93 /min 95 % 95 % 15 /min 158 mm[Hg] 90 mm[Hg] Valery Godlsmith [place] [employer] 1 13:13:40 Date Recorded Body height Body mass index (BMI) Body weight Body temperature Pain severity - 0-10 verbal numeric rating [Score] - Reported Oxygen saturation Oxygen saturation in Arterial blood by Pulse oximetry Heart rate Systolic blood pressure Diastolic blood pressure Provider Name and Address Organization Details Last Updated DateTime 2 134.62 cm 37.2 kg/m2 51254.5 4 g 98.3 [degF] 0 96 % 96 % 79 /min 162 mm[Hg] 89 mm[Hg] Melinda [facility]epeda [facility] 2 10:56:14 Date Recorded Body height Body mass index (BMI) Body weight Body temperature Pain severity - 0-10 verbal numeric rating [Score] - Reported Oxygen saturation Oxygen saturation in Arterial blood by Pulse oximetry Heart rate Systolic blood pressure Diastolic blood pressure Provider Name and Address Organization Details Last Updated DateTime 2 134.62 cm 36.3 kg/m2 18927.6 1 g 98 [degF] 0 95 % 95 % 79 /min 127 mm[Hg] 81 mm[Hg] Melinda Zepeda [facility] [employer] [facility] 2 14:38:57 Date Recorded Body height Body mass index (BMI) Body weight Pain severity - 0-10 verbal numeric rating [Score] - Reported Body temperature Heart rate Oxygen saturation Oxygen saturation in Arterial blood by Pulse oximetry Respiratory rate Systolic blood pressure Diastolic blood pressure Provider Name and Address Organization Details Last Updated DateTime 1 134.62 cm 38.7 kg/m2 35098.1 g 10 96.9 [degF] 76 /min 96 % 96 % 15 /min 160 mm[Hg] 72 mm[Hg] Valery Glodsmith [facility] 1 09:58:37 Social History Question Answer Notes LastModified by Organizat ion Details LastModified Time Tobacco Smoking Status Former Smoker SOLE Traore [address], [address] 09/09/2019 09:51:09 Do You Have An Advance Directive? No Information not available 09/09/2019 How Much Tobacco Do You Chew? None Information not available 09/09/2019 In The 14 Days Before Symptom Onset, Have You Had Close Contact With A Laboratory-confir med COVID-19 While That Case Was Ill? No [email or web address] Information not available 02/17/2022 In The 14 Days Before Symptom Onset, Have You Had Close Contact With A Person Who Is Under Investigation For COVID-19 While That Person Was Ill? No [email or web address] Information not available 02/17/2022 Have You Been To An Area Known To Be High Risk For COVID-19? No [email or web address] Information not available 02/17/2022 What Type Of Diet Are You Following? REGULAR Information not available 02/23/2021 Which Illicit Or Recreational Drugs Have You Used? Denies [email or web address] Information not available 12/02/2019 Alcohol Use Less Than 1 Per Month Information not available 09/09/2019 Year Quit Tobacco Use 1974 [email or web address] Information not available 12/02/2019 Marital Status Single [email or web address] Informatio n not available 09/09/2019 What Was The Date Of Your Most Recent Tobacco Screening? 10/21/2021 [email or web address] Information not available 02/17/2022 Are You Sexually Active? No [email or web address] Information not available 02/23/2021 Has Tobacco Cessation Counseling Been Provided? No Non Smoker [email or web address] Information not available 02/17/2022 On What Date Was Tobacco Cessation Counseling Provided? 02/23/2021 [email or web address] Information not available 02/17/2022 How Many Years Have You Smoked Tobacco? 4 Information not available 09/09/2019 Sex: Unknown Functional Status Question Answer Note LastModified by [employer] ion Details LastModified Time What is your level of alcohol consumption? Occasional [email or web address] Information not available 12/02/2019 Do you or have you ever used smokeless tobacco? Never used smokeless tobacco Information not available 09/09/2019 What is your occupation? disabled Information not available 09/09/2019 Do you or have you ever used e-cigarettes or vape? Never used electronic cigarettes Information not available 09/09/2019 What is your exercise level? Occasional walks Information not available 09/09/2019 Mental Status None recorded. Family History Nothing Reported Notes:adopted Medical History Condition Response Cancer (location) N Other N Gout N Thyroid Disease Y Kidney Stones N Emphysema/COPD N Measles/Mumps N Sexually Transmitted Disease N Depression N [...] virus, quadrivalent, preservative 7 completed Not Available [facility] 05/28/2022 18:55:27 pneumococcal polysaccharide PPV23 7 completed Not Available [facility] 05/28/2022 18:55:27 Pneumococcal conjugate PCV 13 8 completed Not Available [facility] 05/28/2022 18:55:27 zoster live 8 completed Not Available [facility] 05/28/2022 18:55:27 Influenza, split virus, quadrivalent, preservative 9 completed Not Available [facility] 05/28/2022 18:55:27 zoster live 9 completed Not Available [facility] 05/28/2022 18:55:27 Influenza, split virus, quadrivalent, preservative 8 completed Not Available [facility] 05/28/2022 18:55:27 Influenza, split virus, trivalent, preservative 3 completed Not Available [facility] 05/28/2022 18:55:27 Pneumococcal Conjugate, unspecified formulation 8 completed Not Available [facility] 05/28/2022 18:55:27 influenza, unspecified formulation 7 completed Not Available [facility] 05/28/2022 18:55:27 Pneumococcal conjugate PCV 13 8 completed Not Available [facility] 05/28/2022 18:55:27 Influenza, split virus, quadrivalent, PF 7 completed Not Available [facility] 05/28/2022 18:55:27 Influenza, split virus, trivalent, preservative 9 completed Not Available [facility] 05/28/2022 18:55:27 Influenza, split virus, quadrivalent, PF 4 completed Not Available [facility] 05/28/2022 18:55:27 Influenza, split virus, trivalent, preservative 6 completed Not Available [facility] 05/28/2022 18:55:27 zoster recombinant 8 completed Not Available [facility] 05/28/2022 18:55:27 COVID-19, mRNA, LNP-S, PF, 100 mcg/0.5mL dose or 50 mcg/0.25mL dose 1 completed Not Available [facility] 05/28/2022 18:55:27 COVID-19, mRNA, LNP-S, PF, 100 mcg/0.5mL dose or 50 mcg/0.25mL dose 1 completed Not Available [facility] 05/28/2022 18:55:27 Influenza, split virus, quadrivalent, preservative 1 completed Not Available [facility] 05/28/2022 18:55:27 COVID-19, mRNA, LNP-S, PF, 100 mcg/0.5mL dose or 50 mcg/0.25mL dose 1 completed Not Available [facility] 05/28/2022 18:55:27 Influenza, high-dose, quadrivalent, PF 0 completed [facility], [facility] 07/29/2020 09:37:00 Past Encounters Encounter ID Performer Location Encounter Start Date Encounter Closed Date Diagnosis/Indication Diagnosis SNOMED-CT Code Diagnosis ICD10 Code Diagnosis Note [id number] SOLE Traore MPAntonio [place] [id number] [facility] [address] [facility] [address] [place] [address] 06/28/2018 11:01:06 06/28/2018 12:14:36 Adult health examination 285751946 Z00.00 Annual Wellness Visit done today Benign ess ential hypertension 7604352 I10 Gave a copy of her medication list today we will have visiting nurses monitor her blood pressure Seizure disorder 4636556 02 G40.909 We will send out visiting nurses we need medication reviews also physical therapy for gait and balance. We are setting her up with neurology Hypothyroidism 37508902 E03.9 She should be on levothyrox ine 200 mcg daily. We will have visiting nurses review her meds Polyp of colon 36190392 K63.5 She is not ready to update her last was in 2010, they recommende d a 5 year follow-up Abnormal gait 48961520 R 26.9 Physical therapy and home health Cough 48279740 R05 Be sure she is not taking lisinopril . She is seeing the pulmonolog ist [id number] [place] [address] [address] [facility] [address] [facility] [address],[facility] [address] [place] [address] 07/04/2018 08:24:09 07/04/2018 09:49:36 Benign essential hypertension 3509151 I10 Under control continue amlodipine Seizure disorder 9497536 02 G40.909 No further seizures. Will check her Dilantin level today she is taking 3 a day Hypothyroidism 60678265 E03.9 We will check her TSH and free T4 today Allergic rhinitis 048551 04 J30.9 zyrtec and flonase [id number] Millie Gill DO [facility] [address] [facility] [address] [facility] [address],[facility] [address] [place] [address] 12/03/2018 14:14:34 12/03/2018 15:46:35 Benign essential hypertension 0864734 I10 Blood pressure is reasonable . Continue amlodipine Hyperglycemia 71614632 R 73.9 A1c is under 6. Continue diet and exercise control. Congratula tions given for weight loss Seizure disorder 5306663 02 G40.909 She is been multiple years since his seizure. We discussed her driving Asthma 093084195 J45.90 9 She uses theophylli ne. She also has Advair and a breakthrou gh inhaler at home Cervical s pondylosis without myelopathy 656219681 M47.812 Renewed her pain meds Hypothyroidism 62997162 E03.9 Decreased her dosage to 175 on the levothyrox ine Gastroesop hageal reflux disease 824744367 K21.9 Continue Pepcid [id number] SOLE Traore [facility] [address] [place] [address] 09/09/2019 09:09:43 09/09/2019 10:19:10 Adult health examination 586237461 Z00.00 Annual Wellness Visit done today Benign ess ential hypertension 0773303 I10 Under control continue amlodipine Hypothyroidism 03846156 E03.9 TSH is suppressed for reducing her dose to 150 mcg daily we can recheck her TSH on her next visit Seizure disorder 1428560 02 G40.909 No further seizures. She is taking her medication Body mass index 30+ - obesity 197747892 Z68.34 weight issues discussed and informatio n on weight loss given. Needs follow up on weight control as scheduled. Education handout on diets given. Exercise counseling done. Obesity 744693327 E66.9 see BMI above for details Diet education 73791812 Z71.3 as above Nasal congestion 9897596 0 R09.81 She is going to try Flonase Low back pain 314884759 M54.5 She uses Lidoderm patches and hydrocodon e on a as needed basis. Screening for malignant neoplasm of breast 091052158 Z12.39 Mammogram ordered Screening for malignant neoplasm of colon 374147419 Z12.[address] the referral her sister would like her to wait till November [facility] ed risk for falls 751885298 Z91.81 She does have some gait impairment her sister does not think she needs therapy the patient is cautious and careful not to fall. She has not had any falls Hyperglycemia 61619327 R 73.9 Fasting glucose was high her A1c was fine. Continue low-carb diet Asthma 566059440 J45.90 9 She is not having any problems. She has her inhaler [id number] DO ILDEFONSO Rueda [facility] [address] [place] [address] 12/02/2019 11:05:35 12/02/2019 11:51:40 Body mass index 30+ - obesity 746635903 Z68.35 weight issues discussed and informatio n on weight loss given. Needs follow up on weight control as scheduled. Education handout on diets given. Exercise counseling done. Obesity 453233418 E66.9 see BMI above for details Diet education 92409063 Z71.3 as above Screening mammography 24 990204 Z12.31 Benign ess ential hypertension 3865625 I10 Blood pressure is reasonable . 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 Continue diet and exercise control. Congratula tions given for weight loss Seizure disorder 4195881 02 G40.909 She is been multiple years since his seizure. We discussed her driving. We will check a Dilantin level with the next blood work Gastroesop hageal reflux disease 399601415 K21.9 Continue Pepcid Polyp of colon 36646016 K63.5 She is seen the GI doctor on December 14 to plan her colonoscop y. Her brother will help her get through that At low risk for fall 439 950136 Z91.81 [id number] Millie Gill, DO [facility] [address] [facility] [address] [place] [address] 04/01/2020 09:16:20 04/01/2020 10:09:07 Body mass index 30+ - obesity 572308055 Z68.34 weight issues discussed and informatio n on weight loss given. Needs follow up on weight control as scheduled. Education handout on diets given. Exercise counseling done. Will arrange referral for dietitian, nutritioni st, Physical/o ccupationa l therapy as needed or desired. Also will consider pharmaceut ical and supplement al interventi ons Obesity 932639551 E66.9 see BMI above for details Diet education 10182267 Z71.3 as above Benign ess ential hypertension 2554454 I10 Blood pressure is reasonable . Continue amlodipine Asthma 302142847 J45.90 9 She uses theophylli ne. She also has Advair and a breakthrou gh inhaler at home Hyperglycemia 18218757 R 73.9 A1c is 6.2, Continue diet and exercise control. Congratula tions given for weight loss Gastroesop hageal reflux disease 399070683 K21.9 Continue Pepcid Seizure disorder 7274389 02 G40.909 She is been multiple years since his seizure. We discussed her driving. We will check a Dilantin level with the next blood work Cervical s pondylosis without myelopathy 234308498 M47.812 Renewed her pain meds Hypothyroidism 55722730 E03.9 She suprathera peutic decrease to 125 Low back pain 141928673 M54.5 uses hydrocodon e prnriding her bike [id number] Millie Gill DO [facility] [address] [facility] [address] [facility] [address],[facility] [address] [place] [address] 07/29/2020 08:13:47 07/29/2020 09:53:23 Low back pain 454290398 M54.5 uses hydrocodon e prnriding her bike Influenza vaccine needed 8994146195 106 Z23 Asthma 073144231 J45.90 9 She also has Advair and a breakthrou gh inhaler at home Benign ess ential hypertension 9897221 I10 Blood pressure is reasonable . Continue amlodipine Cervical s pondylosis without myelopathy 034506245 M47.812 Renewed her pain meds Chronic sciatica 4470327 01 M54.30 riding her bike Gastroesop hageal reflux disease 499688256 K21.9 Continue Pepcid Hyperglycemia 46183056 R 73.9 A1c is 6.5, Continue diet and exercise control. Congratula tions given for weight loss Hypothyroidism 33223930 E03.9 She suprathera peutic decrease to 112 Seizure disorder 6442567 02 G40.909 She is been multiple years since his seizure. We discussed her driving. Dilantin level little small therapeuti c but she has not had any problems so we will leave this dosage alone Polyp of colon 26481405 K63.5 Colonoscop y got done. She has a follow-up in 5 years [id number] Millie Gill DO [facility] [address],[facility] [address] [place] [address] 11/25/2020 08:12:19 11/25/2020 09:56:18 Adult health examination 539062345 Z00.00 Annual Wellness Visit done today Gastroesop hageal reflux disease 136673153 K21.9 Continue Pepcid Benign ess ential hypertension 5964100 I10 Blood pressure is reasonable . Continue amlodipine Hypothyroidism 02294902 E03.9 now too high back to 125mcg Type 2 marisol betes mellitus 56985028 E11.9 A1c is up to 7.2. We will add Metformin 500 mg 1 tab daily. Her creatinine is 0.9 Seizure disorder 6117973 02 G40.909 She is been multiple years since his seizure. We discussed her driving. Dilantin level little small therapeuti c but she has not had any problems so we will leave this dosage alone Screening mammography 109157 Z12.31 Mammogram due in December [id number] Millie Gill, [facility] [address],[facility] [address] [place] [address] 02/23/2021 09:20:17 02/23/2021 11:03:47 Body mass index 30+ - obesity 312368981 Z68.38 weight issues discussed and informatio n on weight loss given. Needs follow up on weight control as scheduled. Education handout on diets given. Exercise counseling done. Will arrange referral for dietitian, nutritioni st, Physical/o ccupationa l therapy as needed or desired. Also will consider pharmaceut ical and supplement al interventi ons Morbid obesity 245597514 E66.01 see BMI above for details. BMI 38 but with comorbid states listed, this is clinically morbid obesity. Diet education 13544144 Z71.3 as above Benign ess ential hypertension 4153539 I10 Blood pressure is reasonable . Continue amlodipine Asthma 414735395 J45.90 9 She also has Advair and a breakthrou gh inhaler at home Degenerati on of cervical intervertebral disc 13511985 M50.30 Hypothyroidism 68309743 E03.9 TSH is therapeuti c Seizure disorder 9060532 02 G40.909 Dilantin level therapeuti c at 11.2 Type 2 marisol betes mellitus 76667724 E11.9 With her efforts and 1 Metformin per day her A1c is back down to 6.4A1c is up to 7.2. We will add Metformin 500 mg 1 tab daily. Her creatinine is 0.9 [id number] Millie Gill, DO [facility] [place] [id number] [place] [address] 06/23/2021 09:37:40 06/23/2021 10:24:30 Body mass index 30+ - obesity 372824081 Z68.39 weight issues discussed and informatio n on weight loss given. Needs follow up on weight control as scheduled. Education handout on diets given. Exercise counseling done. Will arrange referral for dietitian, nutritioni st, Physical/o ccupationa l therapy as needed or desired. Also will consider pharmaceut ical and supplement al interventi ons Morbid obesity 701173809 E66.01 see BMI above for details. BMI 39 but with comorbid states listed, this is clinically morbid obesity. Diet education 89505497 Z71.3 as above Hypothyroidism 90896827 E03.9 TSH is therapeuti c. We have adjusted her dose upward. She understand s to start the 150 Benign ess ential hypertension 9382144 I10 Blood pressure is reasonable . Continue amlodipine Chronic sciatica 0802401 01 M54.30 riding her bike Degenerati on of cervical intervertebral disc 05297804 M50.30 Not much complaint of neck pain today Seizure disorder 7702991 02 G40.909 She has had no seizure activity Type 2 marisol betes mellitus 65444361 E11.9 A1c remains at 6.2 on 1 tablet of 500 mg Metformin per day Asthma 014022932 J45.90 9 She also has Advair and a breakthrou gh inhaler at home Pain of ri ght shoulder joint 6295784234 4083046 M25.511 Sounds like overuse from the vacuuming. She had no fall. We will try a steroid injection on top of what she is doing at home. She is to let me know if no improvemen t [id number] Millie Gill, DO [facility] [address] [place] [address] 10/14/2021 08:45:08 10/14/2021 09:56:12 Body mass index 30+ - obesity 767473558 Z68.38 weight issues discussed and informatio n on weight loss given. Needs follow up on weight control as scheduled. Education handout on diets given. Exercise counseling done. Will arrange referral for dietitian, nutritioni st, Physical/o ccupationa l therapy as needed or desired. Also will consider pharmaceut ical and supplement al interventi ons Morbid obesity 884800482 E66.01 see BMI above for details. BMI 38 but with comorbid states listed, this is clinically morbid obesity. Diet education 38075214 Z71.3 as above Benign ess ential hypertension 2657772 I10 Blood pressure is reasonable . Continue amlodipine Degenerati on of cervical intervertebral disc 68215586 M50.30 Not much complaint of neck pain today Gastroesop hageal reflux disease 595675835 K21.9 Continue Pepcid Hypothyroidism 79765050 E03.9 TSH is therapeuti c. We have adjusted her dose upward. She understand s to start the 150 Seizure disorder 2515249 02 G40.909 She has had no seizure activity. Dilantin level is okay Type 2 marisol betes mellitus 57212104 E11.9 A1c remains at 6.2 on 1 tablet of 500 mg Metformin per day Epigastric pain 79496911 R10.13 She still her gallbladde r. We will check a CAT scan of abdomen and pelvis today. She can restart her Pepcid 1 pill in the morning 1 pill at night. We will check back in with week [id number] Millie Gill, G [address] [facility] [address] [place] [address] 10/21/2021 12:55:44 10/21/2021 13:43:42 Body mass index 30+ - obesity 472326394 Z68.37 weight issues discussed and informatio n on weight loss given. Needs follow up on weight control as scheduled. Education handout on diets given. Exercise counseling done. Morbid obesity 746714754 E66.01 see BMI above for details. BMI 37 but with comorbid states listed, this is clinically morbid obesity. Diet education 15585459 Z71.3 as above Diverticulitis 740105274 K57.92 She will start antibiotic s. She will start probiotics for the diarrhea Epigastric pain 53052254 R10.13 Epigastric pain has improved with the treatment for diverticul itis Hypothyroidism 97562048 E03.9 TSH is therapeuti c. We have adjusted her dose upward. She understand s to start the 150 Type 2 marisol betes mellitus 07357349 E11.9 A1c remains at 6.2 on 1 tablet of 500 mg Metformin per day Seizure disorder 7104504 02 G40.909 She has had no seizure activity. Dilantin level is okay [id number] Millie Gill, [facility] [address] [facility] [address] [facility] [address] [place] [address] 02/17/2022 09:57:08 02/17/2022 11:35:38 Adult health examination 943750328 Z00.00 Annual Wellness Visit done today Lumbar radiculopathy 128 765324 M54.16 feels like left leg will not hold her up at times. We had x-rays a few years ago that showed osteoarthr itis. We will move forward with an MRI at this point Seizure disorder 5264018 02 G40.909 She has had no seizure activity. Dilantin level is okay Diverticular disease 397 027898 K57.90 Episode of diverticul itis resolved with antibiotic s. She has not had no further episodes Gastroesop hageal reflux disease 683871426 K21.9 Continue Pepcid Degenerati on of cervical intervertebral disc 70003278 M50.30 Not much complaint of neck pain today Chronic sciatica 1727299 01 M54.30 riding her bike. See above Type 2 marisol betes mellitus 99577056 E11.9 1 tablet of 500 mg Metformin per day. Blood work drawn today Benign ess ential hypertension 2016594 I10 Pressures have been good the last couple visits. We will increase her amlodipine to 10 mg daily Asthma 049515126 J45.90 9 She also has Advair and a breakthrou gh inhaler at home Screening mammography 24 676482 Z12.31 Mammogram due in january Low back pain 418463287 M54.50 Sent for hydrocodon e renewed Candidiasis of skin 6318 3006 B37.2 She hasFungal rash under her breasts. Prescripti on for nystatin sent to her pharmacy. We discussed making sure she will bathes daily and dries that area completely before putting on the ointment Cervical s pondylosis without myelopathy 221942213 M47.812 Renewed her pain meds [id number] Millie Gill DO [facility] [address] [facility] [address] [facility] [address] [place] [address] 05/29/2022 13:57:36 05/29/2022 15:15:38 Low back pain 324813030 M54.50 The sister-in- law would like lighted Derm patches sent to [facility] we will do so. She will work on finding a neurosurge on [facility] if necessary Asthma 292176197 J45.90 9 She has not been using the Advair. She is not complainin g of coughing. She does have a rescue inhaler Benign ess ential hypertension 4315963 I10 There is some concern that she has not been taking her medication s consistent ly. Cervical s pondylosis without myelopathy 173503212 M47.812 We will renew pain meds if necessary Diverticular disease 397 543241 K57.90 Episode of diverticul itis resolved with antibiotic s. She has not had no further episodes. Copy of colonoscop y given to the sister-in- law Hypothyroidism 21338947 E03.9 TSH to be checked Liver enzy mes outside reference range 006767607 R94.5 Last liver enzymes in this office in February were quite normal. We will repeat these Seizure disorder 7706956 02 G40.909 She is seen a neurologis t tomorrow. 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 2 doses Imported from [facility] on 06/23/2021 This is a 65-year-old female [...] the same. She says her brother and [id number] continue to check in on her consistently. She has been staying home still and doing social distancing because of the Covid issues. She has had both Covid vaccines. She will get a flu shot in the fall. She has had shingles shot. She is up-to-date with both Pneumovax and Prevnar She is also up-to-date with both colonoscopy and mammogram. Millie Gill, DO [address] [facility] [address], [place], [address], [facility], [facility] 06/23/2021 10:58:16 10/14/2021 text/html CORONAVIRUS SCREENING TOOL [...] tested positive for COVID-19 ?No Imported from [facility] on 10/14/2021 QUALITY MEASURE QUESTIONNAIRE ?Mammogram Results ?Negative ?Has the Patient had a fracture in the last year ?No ?Has the Patient had a bone density testing performed before ?No ?Has the Patient been diagnosed as having osteoporosis ?No Imported from [employer] on 10/14/2021Is a 66-year-old female who presents [...] be coming down this year Millie Gill, [address], [place], [address], [facility], [facility] 10/14/2021 10:00:50 10/21/2021 text/html CORONAVIRUS SCREENING TOOL [...] tested positive for COVID-19 ?No Imported from [facility] on 10/21/2021Thipriscila is a 66-year-old female who presents for 1 week follow-up. She was here sick last week. We did a stat CAT scan. It showed diverticulitis. She has been on antibiotics. She has 4 days left. She feels quite a bit better. She has started with a little bit of diarrhea. We discussed that is likely related to the antibiotics. 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 Her mammogram is still coming due in January Millie Gill DO [address], [place], [address], [facility], [facility] 10/21/2021 13:47:25 02/17/2022 text/html Medicare Annual Wellness [...] tested positive for COVID-19 ?No Imported from [facility] on 02/17/2022Thipriscila is a 66-year-old female who presents for [...] is itchy and red Millie Gill, DO [address] [facility] [address], [place], [address], [facility], [facility] 02/17/2022 12:45:47 05/29/2022 text/html This is a [...] appointment with neurology tomorrow regarding this. Her drbkar-xo-wae [place] down here[place] [...] gets a physician up there Millie Gill, [address], [place], [address], [facility], [facility] 05/29/2022 17:16:34 OBGyn Episode No OBEpisode recorded.
--- OUTSIDE RECORDS SUMMARY | 2025-03-26 12:33 | XMS_ITS | Continuity of Care Document ---
Author Organization [facility] [address] [facility] [address] [place] [address] Phone [phone] Care Team Providers Care Internet Retailer Name Role Phone Duane Obregon MD Care Team Information Software Educator [phone] Problems Active Problems Provider Date Hypothyroidism SOLE [...] SIG Qnty Indications Ordering Provider Date Levothyroxine [id number] Tablets Take 1 Tablet By Mouth 6 Days A Week 77tabs Merline Carmona M.D. 03/05/2024 Phygulfqkn18do Tablets Take 1 Tablet By Mouth Twice Daily Shayy Bright PA Metformin [id number] Tablets Take 1 Tablet By Mouth Daily Duane Obregon MD Amlodipine Syyqtnwz57vr Tablets Take 1 Tablet By Mouth Daily Yesi Shearer NP Mhzzxzltumkmo692ao Tablets Take 1 Tablet By Mouth Twice Daily Jill Christine MD Vital Signs Date Vital Result Comment 02/06/2025 8:33am BP Systolic 106 mmHg BP Diastolic 70 mmHg Heart Rate 65 /min Height 55 inches 4'7 Weight 128.12 [...] Date Location Provider Dx Diagnosis Office Visit 02/06/2025 8:30a Main Office [place] E04.2 Nontoxic mult inodular goiter E89.0 Postprocedural hypot hyroidism Assessments Date Code Description Provider 02/06/2025 E04.2 Nontoxic multinodular goiter [place] 02/06/2025 E89.0 Postprocedural hypothyroidis m [place] Plan of Treatment Future Appointment(s):* 08/10/2025 8:30 am - [place] at Main Office 10/23/2024 - [place]* E04.2 Nontoxic multinodular goiter * E89.0 Postprocedural hypothyroidism Functional Status Description No Information Available Mental Status Description No Information Available Referrals Description No Information Available
--- OUTSIDE RECORDS SUMMARY | 2025-03-26 12:33 | XMS_ITS | Continuity of Care Document ---
Author Organization [facility] Address [address] [facility] [address] [place] [address] Phone Care Team Providers Care Lap Checker Name Role Phone Laura Bauer APRNher Unavailable Unavailable Allergies, Adverse Reactions, Alerts Substance Reaction Status Criticality phenicarbazide Active No Informatio n Medications Medication Instructions Dosage Effective Dates (start - stop) Status Comments carbamazepine ER 100 mg capsule,extended release scdlya72ll take 1 capsule by oral route every [...] 2nd Level Facet Jt / MBB Includes Nj uoro C/T 3rd Level Facet Jt / [...] Copied on Encounter [facility], [address] [place] [address], [id number], tel:[phone] [facility] No Information 4 Lizette Hernández. [address] [place] [address], [id number] , . tel: [phone] [facility], [address] [place] [address], [id number], tel:[phone] [facility] No Information 6 Kitty Thrasher. [address] [place] [address], [id number] . tel:[phone] Referring Provider: Price Kate, [address] [place] [address], [id number]. tel:[phone] Follow-up, Detailed [facility], [address] [place] [address], [id number], [place] tel:[phone] [facility] neck Pain (chief complaint) Spondylosis w/o myelopathy or radiculopathy, cervical region 6 Kitty Thrasher. [address] [place] [address], [address], [place], [place], [id number] . tel: [phone] Referring Provider: Price Kate, [address] [place] [address] [address], [place], [place], [id number]. tel:[phone] [facility], [address] [place] [address] [address], [id number], [place] tel:[phone] [facility] Spondylosis w/o myelopathy or radiculopathy, cervical region 6 Kitty Thrasher. [address] [place] [address], [address], [place], [place], [id number] . tel: [phone] Referring Provider: Price Kate, [address] [place] [address] [address], [place], [place], [id number]. tel:[phone] [facility], [address] [place] [address] [address], [place], [id number], [place] tel:[phone] [facility] No Information 6 Kitty Thrasher. [address] [place] [address], [address], [place], [place], [id number] . tel: [phone] Referring Provider: Price Kate, [address] [place] [address] [address], [place], [place], [id number]. tel:[phone] [facility], [address] [place] [address] [address], [place], [id number], [place] tel:[phone] [facility] Spondylosis w/o myelopathy of cervical regionSpondylos is w/o myelopathy or radiculopathy, cervical region 5 Kitty Thrasher. [address] [place] [address], [address], [place], [place], [id number] . tel: [phone] Referring Provider: Price Kate, [address] [place] [address] [address], [place], [place], [id number]. tel:[phone] [facility], [address] [place] [address] [address], [place], [id number], [place] tel:[phone] [facility] Spondylosis w/o myelopathy of cervical region 5 Kitty Thrasher. [address] [place] [address] [place], [place], [id number] . tel: [phone] Referring Provider: Price Kate, [address] [place] [address] [place], [place], [id number]. tel:[phone] [facility], [address] [place] [address] [address], [place], [id number], [place] tel:[phone] [facility] No Information 5 Kitty Thrasher. [address] [place] [address], [id number] . tel: [phone] Referring Provider: Price Kate, [address] [place] [address], [id number]. tel:[phone] [facility], [address] [place] [address] [address], [place], [id number], [place] tel:[phone] [facility] prison (current) use of opiate analgesic 5 Kitty Thrasher. [address] [place] [address], [id number] . tel: [phone] Referring Provider: Price Kate, [address] [place] [address], [id number]. tel:[phone] New Pt, Moderate 45min [facility], [address] [place] [address] [address], [place], [id number], [place] tel:[phone] [facility] neck Pain (chief complaint) bilateral arm pain (chief complaint) prison (current) use of opiate analgesicSpondy losis without myelopathy or radiculopathy, cervical regionSpinal stenosis, cervical regionRadiculop athy, cervical regionScoliosis , unspecified 5 Kitty Thrasher. [address] [place] [address] [address], [place], [place], [id number] . tel: [phone] Referring Provider: Price Kate, [address] [facility] [address], [place], [place], [id number]. tel:[phone] Family History Family Member Type Diagnosis Age [...] into bilateral shoulders. mri c-spine done at [facility]. Tramadol for painNP to shoulders; [...]
== END 2025-03-26 11:26 | disposition home or self-care (01) ==
LOC: HO.MAMMO 11:25
PROVIDERS: PCP Family Medicine; Visit Provider Physician Assistant
DX: Z12.31 Encounter for screening mammogram for malignant neoplasm of breast (principal); Z13.820 Encounter for screening for osteoporosis; M85.852 Other specified disorders of bone density and structure, left thigh
CPT/HCPCS: 77063; 77067; 77080

== ENCOUNTER → 2025-03-26 12:30 | Outpatient (BNV) | payer MEDICARE, OTHER, SELFPAY | PROVIDERS: PCP Family Medicine; Visit Provider Radiology Diagnostic Radiology | DX: Z12.31 Encounter for screening mammogram for malignant neoplasm of breast (principal) | CPT/HCPCS: 77063; 77067 ==

== ENCOUNTER 2025-05-11 08:15 | Outpatient (AMB) | payer MEDICARE, OTHER, SELFPAY ==
--- OUTSIDE RECORDS SUMMARY | 2024-04-18 05:41 | XMS_ITS | Continuity of Care Document ---
Author Organization [facility] Address [address] [facility] [place] [address] Phone Care Team Providers Care Shaper Set Up Operator Name Role Phone Laura Bauer APRNher Unavailable Unavailable Allergies, Adverse Reactions, Alerts Substance Reaction Status Criticality phenicarbazide Active No Informatio n Medications Medication Instructions Dosage Effective Dates (start - stop) Status Comments carbamazepine ER 100 mg capsule,extended release [id number] take 1 capsule by oral route every [...] 2nd Level Facet Jt / MBB Includes Wa uoro C/T 3rd Level Facet Jt / [...] Copied on Encounter [facility], [address] [place] [address], [id number], tel:[phone] [facility] No Information 4 Lizette Hernández. [address] [place] [address], [id number] , . tel: [phone] [facility], [address] [place] [address], [id number], tel:[phone] [facility] No Information 6 Kitty Thrasher. [address] [place] [address], [id number] . tel:[phone] Referring Provider: Price Kate, [address] [place] [address], [id number]. tel:[phone] Follow-up, Detailed [facility], [address] [place] [address], [id number], [place] tel:[phone] [facility] neck Pain (chief complaint) Spondylosis w/o myelopathy or radiculopathy, cervical region 6 Kitty Thrasher. [address] [place] [address], [address], [place], [place], [id number] . tel: [phone] Referring Provider: Price Kate, [address] [place] [address] [address], [place], [place], [id number]. tel:[phone] [facility], [address] [place] [address] [place], [id number], [place] tel:[phone] [facility] Spondylosis w/o myelopathy or radiculopathy, cervical region 6 Kitty Thrasher. [address] [place] [address], [address], [place], [place], [id number] . tel: [phone] Referring Provider: Price Kate, [address] [place] [address] [address], [place], [place], [id number]. tel:[phone] [facility], [address] [place] [address] [place], [place], [id number], [place] tel:[phone] [facility] No Information 6 Kitty Thrasher. [address] [place] [address], [address], [place], [place], [id number] . tel: [phone] Referring Provider: Price Kate, [address] [place] [address] [address], [place], [place], [id number]. tel:[phone] [facility], [address] [place] [address] [place], [id number], [place] tel:[phone] [facility] Spondylosis w/o myelopathy of cervical regionSpondylos is w/o myelopathy or radiculopathy, cervical region 5 Kitty Thrasher. [address] [place] [address], [address], [place], [place], [id number] . tel: [phone] Referring Provider: Price Kate, [address] [place] [address] [address], [place], [place], [id number]. tel:[phone] [facility], [address] [place] [address] [place], [id number], [place] tel:[phone] [facility] Spondylosis w/o myelopathy of cervical region 5 Kitty Thrasher. [address] [place] [address] [place], [id number] . tel: [phone] Referring Provider: Price Kate, [address] [place] [address] [place], [id number]. tel:[phone] [facility], [address] [place] [address], [id number], [place] tel:[phone] [facility] No Information 5 Kitty Thrasher. [address] [place] [address], [id number] . tel: [phone] Referring Provider: Price Kate, [address] [place] [address], [id number]. tel:[phone] [facility], [address] [place] [address] [place], [id number], [place] tel:[phone] [facility] terminal clerk (current) use of opiate analgesic 5 Kitty Thrasher. [address] [place] [address], [id number] . tel: [phone] Referring Provider: Price Kate, [address] [place] [address], [id number]. tel:[phone] New Pt, Moderate 45min [facility], [address] [place] [address], [id number], [place] tel:[phone] [facility] neck Pain (chief complaint) bilateral arm pain (chief complaint) terminal clerk (current) use of opiate analgesicSpondy losis without myelopathy or radiculopathy, cervical regionSpinal stenosis, cervical regionRadiculop athy, cervical regionScoliosis , unspecified 5 Kitty Thrasher. [address] [place] [address] 200, [place], [place], [id number] . tel: [phone] Referring Provider: Price Kate, [address] [facility] [address], [place], [place], [id number]. tel:[phone] Family History Family Member Type Diagnosis Age At Onset Father Problem (finding) Mother Problem (finding) Payers Payer name Insurance type Covered democrat ID Authoriza tion(s) No Information Social History [...] into bilateral shoulders. mri c-spine done at [facility]. Tramadol for painNP to shoulders; BL cerv [...]
--- NOTE | 2025-05-11 08:42 | A.OFFPC_ITS ---
Vital Signs 05/11/25 08:45 Height 4 ft 5.54 in Weight 133 lb 8 oz BMI 32.7 BP 120/70 Blood Pressure Location Rt brachial Position Sitting Respiration 14 Pulse 66 Pulse Source Pulse Oximeter Temp 97.3 F Temp Source Oral Pulse Oximetry (%) 95 Oxygen Delivery Method Room Air Intake Visit Reasons: F/u diabetes, hypertension Intake Note: patient is scheduled for dm follow up and htn Boarding House Cook Required: No Allergies ciprofloxacin (From Cipro) Allergy (Verified 05/11/25 08:43) Unknown cyclobenzaprine Allergy (Verified 05/11/25 08:43) Unknown Phenothiazines Allergy (Verified 05/11/25 08:43) Unknown prochlorperazine (From Compazine) Allergy (Verified 05/11/25 08:43) Unknown Tobacco use date assessed: 12/10/23 Dental Screening Dental Screen Date: 12/10/23 HPI F/u diabetes, hypertension HPI Details 69 y/o female presents to f/u diabetes, HTN. A1c today 05/11/25?6.1% She is on metformin. She continues a diet low in sugars and starches. Blood pressure today 120/70, 66p. She is on amlodipine 10mg daily. Bone density test 03/26/25 showed osteopenia. HPI Comments History of Present Illness Details Documentation assistance for Duane Obregon MD, was provided by Kyle Willard, Metal Building Assembler on 05/11/2025 at 8:56 AM EST. I, Dr. Obregon, have read, observed, and verified documentation. [facility] Medical History Diverticulitis Surgical History Hx of rotator cuff surgery Hx of appendectomy History of partial hysterectomy Hx of partial thyroidectomy History of reduction surgery of right breast Family History Other Adopted person Social History (Updated 02/04/25 @ 09:44 by Kylah Chacko CMA) Household Members: Family Household Members Other:: brother and sister in law Housing: House Do you presently have visiting nurse or other home services: No Alcohol intake: never Patient Tobacco Use Status: Former Tobacco user Tobacco use type: Cigarette e-Cigarette/Vaping Use: Never Used Second Hand Smoke Exposure: Yes Advance Directives Date on File: 09/14/22 service: No Current occupational status: retired Sexual orientation: Decline to Answer Gender identity: Decline to answer Cognitive needs: No Hearing needs: No Vision needs: Yes Questionnaire PHQ-9 Over the last 2 weeks, how often have you been bothered by any of the following problems? 1. Little interest or pleasure in doing things: not at all 2. Feeling down, depressed, or hopeless: not at all 3. Trouble falling or staying asleep, or sleeping too much: not at all 4. Feeling tired or having little energy: not at all 5. Poor appetite or overeating: not at all 6. Feeling bad about yourself - or that you are a failure or have let yourself or your family down: not at all 7. Trouble concentrating on things, such as reading the newspaper or watching television: not at all 8. Moving or speaking so slowly that other people could have noticed. Or the opp osite - being so fidgety or restless that you have been moving around a lot more than usual: not at all 9. Thoughts that you would be better off or of hurting yourself in some way: not at all Total score: 0 Depression Screening Interpretation: Negative Depression Screening Done: Yes [id number] - PHQ-9 Billing: Yes Source: Developed by Drs. Gurjit Stevenson, Martha Cruz, Khoa Montes and colleagues, with an educational vj from [employer]. Thrive Questionnaire Date Thrive assessed: 01/21/25 I am a: Patient What is your living situation today?: I have a steady place to live Within the past 12 months, did the food you bought not last and you didn't have the money to get more?: Never true Within the past 12 months, did you worry whether your food would run out before you got money to buy more?: Never true Do you have trouble paying for medicines?: No Do you have trouble getting transportation to medical appointments?: No Do you have trouble paying your heating and electricity bill?: No Do you have trouble taking care of your child, family member or friend?: No Do you have trouble with day-to-day activities such as bathing, preparing meals, shopping, managing finances, etc.?: No Are you currently unemployed and looking for a job?: No Are you interested in more education?: No Please select the resources that you would like help with: None Currently or been in a relationship where the following occur: No concerns reported THRIVE Score: 0 LEONA-7 AMB Questionnaire LEONA-7 Date LEONA - 7 assessed: 06/07/23 Source: Developed by Drs. Gurjit Stevenson, Martha Cruz, Khoa Montes and colleagues, with an educational vj from [employer]. Review of Systems Const Denies chills, Denies fatigue, Denies fever(s), Denies headache(s) and Denies weakness ENT Denies dizziness and Denies headache(s) Card Denies dyspnea Resp Denies cough, Denies dyspnea, Denies wheezing and Denies other (shortness of breath) Musc Denies numbness and Denies tingling Neuro Denies dizziness, Denies headache(s), Denies numbness, Denies tingling and Denies weakness Psych Denies anxiety and Denies depression Endo Denies fatigue Aller/Immun Denies wheezing Physical exam (Primary Care) Vital Signs: Last Vital Signs Temp 97.3 F 05/11/25 08:45 Pulse 66 05/11/25 08:45 Resp 14 05/11/25 08:45 BP 120/70 05/11/25 08:45 Pulse Ox 95 05/11/25 08:45 Oxygen Delivery Method Room Air 05/11/25 08:45 BMI result Body Mass Index 32.7 Tobacco/Smoking Status: Tobacco use Status Tobacco use date assessed 12/10/23 05/11/25 08:47 Patient Tobacco Use Status Former Tobacco user 05/11/25 08:47 Tobacco use type Cigarette 05/11/25 08:47 e-Cigarette/Vaping Use Never Used 05/11/25 08:47 PHQ-9: PHQ-9 Score PHQ-9: Total score 0 05/11/25 08:47 Depression Screening Interpretation: Negative Thrive Assessment: Date of Thrive Assessment Date Thrive assessed 01/21/25 05/11/25 08:47 Currently or been in a relationship where the following occur: No concerns reported Const General: well developed; No acute distress Nutritional Appearance: well nourished Orientation/consciousness: patient oriented x3 HENMT Head: Yes normocephalic and Yes atraumatic Eyes General: appearance normal, both eyes and all related structures Pupils: Equal, round and reactive pupils present EOM: EOMs intact bilaterally Resp Effort & Inspection: normal respiratory effort Neuro General: patient oriented x3 and gait normal Cranial nerves: Yes Equal, round and reactive pupils present Psych Affect: normal affect Coding Level of Care Code Est Pt Level 4 (25577) Diagnoses Type 2 diabetes mellitus E11.9 Hypertension I10 Osteopenia M85.80 Additional Codes PHQ-9 - 68628 - PHQ-9 Billing: Yes ([id number]) Assessment & Plan Assessment & Plan (1) Type 2 diabetes mellitus: Code(s): E11.9 - Type 2 diabetes mellitus without complications Category: Medical Plan: A1c?6.1%.??Goal?is?less?than?7.0% Continue?current?medication Continue?diabetic?diet She?is?up-to-date?with?her?eye?exam?and?gets?eye?exams?every?6?months (2) Hypertension: Code(s): I10 - Essential (primary) hypertension Category: Medical Plan: Blood?pressure?is?controlled.??Goal?is?less?than?140/90 Continue?amlodipine Watch?salt/sodium?in?diet (3) Osteopenia: Code(s): M85.80 - Other specified disorders of bone density and structure, unspecified site Category: Medical Plan: Bone?density?testing?showed?osteopenia Encouraged?good?sources?of?calcium?and?vitamin-D Encouraged?weight-bearing?exercise Orders: Orders Basic Metabolic Panel Today M85.80 - Other specified disorders of bone density and structure, unspecified site, Z00.00 - Encounter for general adult medical examination without abnormal findings Vitamin D 25-OH Total Today E55.9 - Vitamin D deficiency, unspecified, M85.80 - Other specified disorders of bone density and structure, unspecified site
[2025-05-11 08:45] VITALS: BP 120/70; PULSE 66; RESP 14; TEMP 36.3; O2SAT 95; BMI 32.7
== END 2025-05-11 09:05 | disposition home or self-care (01) ==
LOC: HO.HMCFM 08:15
PROVIDERS: PCP Family Medicine; Visit Provider Family Medicine
DX: E11.9 Type 2 diabetes mellitus without complications (principal); I10 Essential (primary) hypertension; M85.80 Other specified disorders of bone density and structure, unspecified site

== ENCOUNTER → 2025-05-11 08:15 | Outpatient (BNVA) | payer MEDICARE, OTHER, SELFPAY | PROVIDERS: PCP Family Medicine; Visit Provider Family Medicine | DX: E11.9 Type 2 diabetes mellitus without complications (principal); I10 Essential (primary) hypertension; M85.80 Other specified disorders of bone density and structure, unspecified site | CPT/HCPCS: 96127; 99212 ==

== ENCOUNTER 2025-06-19 08:48 | Outpatient (AMB) | payer MEDICARE, OTHER, SELFPAY ==
--- OUTSIDE RECORDS SUMMARY | 2024-04-18 05:41 | XMS_ITS | Continuity of Care Document ---
Author Organization [facility] Address [address] [facility] [place] [address] Phone Care Team Providers Care Inspector Structural Bonding Name Role Phone Laura Bauer APRNher Unavailable Unavailable Allergies, Adverse Reactions, Alerts Substance Reaction Status Criticality phenicarbazide Active No Informatio n Medications Medication Instructions Dosage Effective Dates (start - stop) Status Comments carbamazepine ER 100 mg capsule,extended release [id number] take 1 capsule by oral route every [...] 2nd Level Facet Jt / MBB Includes Ia uoro C/T 3rd Level Facet Jt / [...] Copied on Encounter [facility], [address] [place] [address], [id number], tel:[phone] [facility] No Information 4 Lizette Hernández. [address] [place] [address], [id number] , . tel: [phone] [facility], [address] [place] [address], [id number], tel:[phone] [facility] No Information 6 Kitty Thrasher. [address] [place] [address], [id number] . tel:[phone] Referring Provider: Price Kate, [address] [place] [address], [id number]. tel:[phone] Follow-up, Detailed [facility], [address] [place] [address], [id number], [place] tel:[phone] [facility] neck Pain (chief complaint) Spondylosis w/o myelopathy or radiculopathy, cervical region 6 Kitty Thrasher. [address] [place] [address], [address], [place], [place], [id number] . tel: [phone] Referring Provider: Price Kate, [address] [place] [address] [address], [place], [place], [id number]. tel:[phone] [facility], [address] [place] [address], [place], [id number], [place] tel:[phone] [facility] Spondylosis w/o myelopathy or radiculopathy, cervical region 6 Kitty Thrasher. [address] [place] [address], [address], [place], [place], [id number] . tel: [phone] Referring Provider: Price Kate, [address] [place] [address] [address], [place], [place], [id number]. tel:[phone] [facility], [address] [place] [address] [place], [place], [id number], [place] tel:[phone] [facility] No Information 6 Kitty Thrasher. [address] [place] [address], [address], [place], [place], [id number] . tel: [phone] Referring Provider: Price Kate, [address] [place] [address] [address], [place], [place], [id number]. tel:[phone] [facility], [address] [place] [address] [place], [id number], [place] tel:[phone] [facility] Spondylosis w/o myelopathy of cervical regionSpondylos is w/o myelopathy or radiculopathy, cervical region 5 Kitty Thrasher. [address] [place] [address], [address], [place], [place], [id number] . tel: [phone] Referring Provider: Price Kate, [address] [place] [address] [address], [place], [place], [id number]. tel:[phone] [facility], [address] [place] [address], [place], [id number], [place] tel:[phone] [facility] Spondylosis w/o myelopathy of cervical region 5 Kitty Thrasher. [address] [place] [address] [place], [place], [id number] . tel: [phone] Referring Provider: Price Kate, [address] [place] [address] [place], [id number]. tel:[phone] [facility], [address] [place] [address], [place], [id number], [place] tel:[phone] [facility] No Information 5 Kitty Thrasher. [address] [place] [address], [id number] . tel: [phone] Referring Provider: Price Kate, [address] [place] [address], [id number]. 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 [address] [place] [address], [id number] . tel: [phone] Referring Provider: Price Kate, [address] [place] [address], [id number]. tel:[phone] New Pt, Moderate 45min [facility], [address] [place] [address] [place], [place], [id number], [place] tel:[phone] [facility] neck Pain (chief complaint) bilateral arm pain (chief complaint) termite technician (current) use of opiate analgesicSpondy losis without myelopathy or radiculopathy, cervical regionSpinal stenosis, cervical regionRadiculop athy, cervical regionScoliosis , unspecified 5 Kitty Thrasher. [address] [place] [address] [address], [place], [place], [id number] . tel: [phone] Referring Provider: Price Kate, [address] [facility] [address], [place], [place], [id number]. tel:[phone] Family History Family Member Type Diagnosis Age At Onset Father Problem (finding) Mother Problem (finding) Payers Payer name Insurance type Covered green party ID Authoriza tion(s) No Information Social [...] into bilateral shoulders. mri c-spine done at [facility]. Tramadol for painNP to shoulders; BL cerv [...]
[2025-06-19 09:01] VITALS: BP 141/71; PULSE 91; BMI 33.3
--- NOTE | 2025-06-19 09:01 | A.OFFVIS_ITS ---
Vital Signs 3 06/19/25 09:01 Height 4 ft 5 in Weight 132 lb 15.02 oz BMI 33.3 BP 141/71 H Blood Pressure Location Lt brachial Position Sitting Pulse 91 Intake Visit Reasons: JM PT colo screening Intake Note: Flakita presents in office today for colonoscopy screening. CC: Patient denies having any GI symptoms today. She states that she has a catheter that was placed in January for urine retention. Retail Advertising Sales Manager Required: No Accompanied by: sister in law Allergies risperidone (From Risperdal) Allergy (Unknown, Verified 06/19/25 09:15) Unknown ciprofloxacin (From Cipro) Allergy (Verified 06/19/25 09:15) Unknown cyclobenzaprine Allergy (Verified 06/19/25 09:15) Unknown Phenothiazines Allergy (Verified 06/19/25 09:15) Unknown prochlorperazine (From Compazine) Allergy (Verified 06/19/25 09:15) Unknown HPI HPI JM PT colo screening: Details: 69-year-old female here for preprocedural meeting to discuss a screening colonoscopy. She is referred by Duane Obregon. PMX Diabetes High cholesterol Hypothyroid Seizure disorder Hypertension Stress urinary incontinence Osteopenia Lumbar degenerative disc disease GERD Cervical degenerative disc disease * SURGICAL HISTORY Rotator cuff repair Appendectomy Hysterectomy Partial thyroidectomy Right breast cyst removal * ALLERGIES Cipro Cyclobenzaprine Phenothiazines Compazine * Email Data Source LABS: Laboratory Tests 01/20/25 08:43 WBC 4.5 L Hgb 14.4 Hct 44.2 Plt Count 196 Estimated GFR > 60 Total Bilirubin 0.3 AST 39 H ALT 19 Alkaline Phosphatase 87 Free T4 1.17 Total T3 86 TODAY'S VISIT She is herer today with a female family member who is supportive. She can't remember the findings of the last one in [place], but she thinks she had polyps in the past. She has GERD that is well controlled and denies bowel problems. She has a well controlled seizure disorder, no cardiac or respiratory problems SHe has a hard time waking up from anesthesia but no other problems. She has a Nava Catheter at this time for urinary retention. No ID diseaases She thinks she had polyps removed, she was adopted and does not know her FHX. [facility]LY [facility] Medical History Screening for osteoporosis Diverticulosis of colon Screening for colon cancer Stress incontinence, female Screening for cervical cancer Breast cancer screening by mammogram Encounter for annual wellness visit (AWV) in Medicare patient Adult general medical exam Laboratory exam ordered as part of routine general medical examination Diverticulitis Surgical History (Updated 06/19/25 @ 09:36 by DOMENICA Jaime) Status post right breast lumpectomy Hx of partial thyroidectomy H/O colonoscopy Hx of rotator cuff surgery Hx of appendectomy History of partial hysterectomy Family History Other Adopted person Social History Household Members: Family Household Members Other:: brother and sister in law Housing: House Do you presently have visiting nurse or other home services: No Alcohol intake: never Patient Tobacco Use Status: Former Tobacco user Tobacco use type: Cigarette e-Cigarette/Vaping Use: Never Used Second Hand Smoke Exposure: Yes Advance Directives Date on File: 09/14/22 service: No Current occupational status: retired Sexual orientation: Decline to Answer Gender identity: Decline to answer Cognitive needs: No Hearing needs: No Vision needs: Yes Review of Systems Const Denies fatigue, Denies fever(s), Denies night sweats, Denies poor appetite and Denies weight loss Eyes Details: glassese Reports requires corrective lenses ENT Reports Normal hearing present, Denies dental pain, Denies dysphagia, Denies hearing loss, Denies mouth pain, Denies odynophagia, Denies throat swelling, Denies tongue swelling and Reports other (Dentition adequate) Card Reports no additional complaints Resp Reports no additional complaints GI Details: Denies abdominal pain, Denies melena, Denies bloating, Denies hematochezia, Denies constipation, Denies GI cramping, Denies dysphagia, Denies excessive flatus, Denies early satiety, Reports heartburn, Denies diarrhea, Denies nausea, Denies odynophagia, Denies vomiting and Denies hematemesis Details: Urinary retention Skin/Breast Denies pruritus, Denies lesions, Denies rash and Denies jaundice Neuro Reports Normal hearing present, Denies Abnormal speech present and Reports convulsions Endo Denies fatigue Aller/Immun Denies throat swelling and Denies tongue swelling Physical Exam Vital Signs: Last Vital Signs Pulse 91 06/19/25 09: BP 141/71 H 06/19/25 09:01 BMI result Body Mass Index 33.3 Const General: cooperative, no acute distress, well developed and well groomed Nutritional Appearance: well nourished and obese Orientation/consciousness: oriented to person, oriented to place and oriented to time Limitations: No language barrier HEENT Head: Yes normocephalic and Yes atraumatic Eyes General: appearance normal, both eyes and all related structures Pupils: Equal, round and reactive pupils present Neck Neck: Yes normal visual inspection and Yes no lymphadenopathy Thyroid: Thyroid normal Resp Effort & Inspection: normal respiratory effort and able to speak in complete sentences Auscultation: clear to auscultation bilaterally Cardio Rate: regular rate Rhythm: regular rhythm Heart sounds: Normal, physiologic split S2 sound present Peripheral pulses: radial pulses present and posterior tibial pulses present GI Inspection: No distended, Yes Abdominal panniculus present and Yes obesity Palpation (GI): Soft to palpation, nontender, no guarding, not rigid and No hepatosplenomegaly present Percussion: Yes normal to percussion Auscultation: normal bowel sounds Rectal Exam - Female: deferred Abdomen image: 2 1. supra pubic urinary catheter 2. Skin General skin exam: no rashes or lesions noted, turgor normal, skin not dry, no jaundice, No spider nevi and no striae Rashes: no rashes Nails: normal Neuro General: oriented to person, oriented to place and oriented to time Cranial nerves: Yes Equal, round and reactive pupils present and Yes Normal hearing present Speech: No Abnormal speech present Extrem General: Yes normal to inspection, No clubbing, No cyanosis and No edema Psych Appearance: grossly normal and well kempt Mental Status: mental status grossly normal Speech and movement: Normal speech and movement present Affect: normal affect Attitude: cooperative Thought process: Circumstantial thought process present and not confabulating Thought content: Normal thought content present Insight: Limited insight present (Psych) Judgement: Limited judgement present (Psych) Assessment & Plan Assessment & Plan (1) Pre-op examination: Code(s): Z01.818 - Encounter for other preprocedural examination Category: Medical (2) Seizure disorder: Code(s): G40.909 - Epilepsy, unspecified, not intractable, without status epilepticus Category: Medical (3) Colon polyps: Code(s): K63.5 - Polyp of colon Category: Medical Plan She is herer today with a female family member who is supportive. She can't remember the findings of the last one in [place], but she thinks she had polyps in the past. She has GERD that is well controlled and denies bowel problems. She has a well controlled seizure disorder, no cardiac or respiratory problems SHe has a hard time waking up from anesthesia but no other problems. She has a Nava Catheter at this time for urinary retention. No ID diseaases She thinks she had polyps removed, she was adopted and does not know her FHX. Orders: Orders 2 Colonoscopy - GI Use Only Today G40.909 - Epilepsy, unspecified, not intractable, without status epilepticus, K63.5 - Polyp of colon, Z01.818 - Encounter for other preprocedural examination Medications: New 2 peg 3350-electrolytes 236-22.74-6.74 -5.86 gram (Golytely) until fecal effluent is clear; do not exceed a total volume of 2,000 mL 240 mL PO Q10M 4,000 mL 0RF 1 day Z12.11 - Encounter for screening for malignant neoplasm of colon bisacodyl (Dulcolax (bisacodyl)) 10 mg (2 x 5 mg) PO BEDTIME 4 tabs 0RF 2 days Coding Level of Care Code New Pt Level 3 (20478) Diagnoses Pre-op examination Z01.81 Seizure disorder G40.909 Colon polyps K63.5
--- OUTSIDE RECORDS SUMMARY | 2025-06-19 09:02 | XMS_ITS | Patient Health Record ---
Author Organization [facility] Address [address] [address] Care Team Providers Care Early Interventionist Name Role Phone Yosef Bains Unavailable [phone] Suzi Guaman Unavailable [phone] Reason For Referral No Information Medications Medication SIG (Take, Route, Frequency, Duration) Notes Start Date End Date Status Fluticasone Propionate 50 MCG/ACT Suspension Nasal as directed 11/02/2008 Active Advair Diskus 100-50 MCG/DOSE Miscellaneous Inhalation as directed *Pick strength-form from [employer] for eRX* 11/02/2008 Active Ciprofloxacin HCl 500 MG Tablet Oral once a day 03/14/2017 Active Zegerid 40-1100 MG Capsule Oral once a day 11/02/2008 Active Benzonatate 100 MG Capsule Oral once a day 03/14/2017 Active Proventil HFA 108 (90 Base) MCG/ACT Aerosol Solution Inhalation as directed 11/02/2008 Active Famotidine 20 MG Tablet Oral once a day 03/14/2017 Active Singulair 10 MG Tablet Oral once a day 11/02/2008 Active Levothyroxine Sodium 150 MCG Tablet Oral once a day 03/14/2017 Active Loratadine 10 MG Tablet Oral once a day 11/02/2008 Active Sulfamethoxazole-Trim ethoprim 800-160 MG Tablet Oral twice a day 11/02/2008 Active Azithromycin 250 MG Tablet Oral once a day 03/14/2017 Active Pepcid 20 MG Tablet Oral once a day 12/18/2019 Active Omeprazole 20 MG Capsule Delayed Release Oral 11/02/2008 Active Omeprazole 40 MG Capsule Delayed Release Oral once a day 03/14/2017 Active Dilantin 100 MG Capsule Oral three times a day 11/02/2008 Active HYDROcodone-Acetamino phen 10-325 MG/15ML Solution Oral take as directed *Pick strength-form from [facility] for eRX* 09/09/2019 Active Amitriptyline HCl 25 MG Tablet Oral once a day 11/02/2008 Active Vitamin E Tablet Mouth/Throat once a day *Pick strength-form from [facility] for eRX* 11/02/2008 Active HYDROcodone-Acetamino phen 10-325 MG Tablet Oral as needed 03/14/2017 Acti ve Pantoprazole Sodium 40 MG Tablet Delayed Release Oral take as directed 03/07/2012 Active Synthroid 150 MCG Tablet Oral once a day 12/02/2019 Active Flonase Allergy Relief 50 MCG/ACT Suspension Nasal as needed 12/18/2019 Active Multi-Day Vitamins Tablet Oral once a day *Reorder from [facility] for eRx and Interaction Alerts* 11/02/2008 Active amLODIPine Besylate 5 MG Tablet Oral once a day 12/02/2019 Active Losartan Potassium 100 MG Tablet Oral once a day 03/14/2017 Active Ondansetron HCl 4 MG Tablet Use as directed Take 1 tablet 30 minutes prior to each half of colonoscopy prep to prevent nausea Oral Use as directed 12/18/2019 Active Calcium + D 250-125 MG-UNIT Tablet Oral once a day *Pick strength-form from [facility] for eRX* 11/02/2008 Active Immunizations Vaccine Route Administration Date Status Comme nts Influenza (split), seasonal, intradermal, preservative free Unknown 11/26/2014 Administered Influenza (split), seasonal, intradermal, preservative free Unknown 09/12/2019 Administered Pneumococcal conjugate PCV 13 Unknown 12/18/2019 Admini stered Problems Problem Type SNOMED Code ICD Code Onset Dates Problem Status W/U Status Risk Notes Problem Abdmnal pain epigastric (789.06) 03/07/2012 Active confirmed Encounters Encounter Location Date Provider Diagnosis [facility] [address] [place] [address] 02/03/2025 Suzi Guaman Plan Of Treatment No Information Insurance Providers Payer Name Payer Address Payer Phone Subscriber Number Group Number Insured Name Patient Relationship to Insured Coverage Start Date Coverage End Date [place] Medicare Part B [id number] [address] [address] [place] [address] [id number] Flakita Barrera Self - patient is the insured [employer] [id number] [address] [place], [place] [id number] [phone] [id number] Flakita Barrera Self - patient is the insured [facility] [id number] [address] [place] [address] [id number] Alex Barrera 4 [facility] [id number] [address] [place] [address] [id number] Alex Barrera
--- OUTSIDE RECORDS SUMMARY | 2025-06-19 09:03 | XMS_ITS | Continuity of Care Document ---
Author Organization [facility] [address] [place] [address] Phone [phone] Care Team Providers Care Gerontology Aide Name Role Phone Duane Obregon MD Care Team Information Ski Technician [phone] Problems Active Problems Provider Date Hypothyroidism [place] Onset: 2023 Essential hypertension [place] Onset: 02/05/2024 Pure hypercholesterolemia [place] Ons et: 02/05/2024 Social History Type Date Description Comments Sex Female Sex Unknown Tobacco Use Start: Unknown End: [...] SIG Qnty Indications Ordering Provider Date Levothyroxine [id number] Tablets Take 1 Tablet By Mouth 6 Days A Week 77tabs Merline Carmona M.D. 03/05/2024 [id number] Tablets Take 1 Tablet By Mouth Twice Daily Shayy Bright PA Metformin SQB372te Tablets Take 1 Tablet By Mouth Daily Duane Obregon MD Amlodipine [id number] Tablets Take 1 Tablet By Mouth Daily Yesi Shearer NP [id number] Tablets Take 1 Tablet By Mouth Twice Daily Jill Christine MD Vital Signs Date Vital Result Comment 02/06/2025 8:33am BP Systolic 106 mmHg BP Diastolic 70 mmHg Heart Rate 65 /min Height 55 inches 4'7 Weight 128.12 lb BMI (Body Mass Index) 29.8 kg/m2 Results Test Acquired Date Facility Test Result H/L Range Note TSH Rfx on Abnormal to Free T4 04/28/2025 [facility] TSH Rfx on Abnormal to Free T4 1.800 uIU/mL 0.450-4. 500 TSH Rfx on Abnormal [...] Treatment Future Appointment(s):* 08/10/2025 8:30 am - Gin Dickson CNP at Main Office 10/23/2024 - [place]* E04.2 Nontoxic multinodular goiter * E89.0 Postprocedural hypothyroidism Functional Status Description No Information Available Mental Status Description No Information Available Referrals Description No Information Available
== END 2025-06-19 09:45 | disposition home or self-care (01) ==
LOC: HO.HGI 08:48
PROVIDERS: PCP Family Medicine; Visit Provider Nurse Practitioner
DX: Z01.818 Encounter for other preprocedural examination (principal); Z12.11 Encounter for screening for malignant neoplasm of colon; Z86.0100 Personal history of colon polyps, unspecified; G40.909 Epilepsy, unspecified, not intractable, without status epilepticus
CPT/HCPCS: 99203

== ENCOUNTER → 2025-06-19 08:48 | Outpatient (BNVA) | payer MEDICARE, OTHER, SELFPAY | PROVIDERS: PCP Family Medicine; Visit Provider Nurse Practitioner | DX: Z01.818 Encounter for other preprocedural examination (principal); G40.909 Epilepsy, unspecified, not intractable, without status epilepticus; K63.5 Polyp of colon | CPT/HCPCS: 99202 ==

== ENCOUNTER 2025-08-19 08:53 | Outpatient (REF) | payer MEDICARE, OTHER, SELFPAY ==
--- NOTE | ~2025-08-19 | XR_ITS ---
EXAMINATION: XR CHEST CLINICAL INFORMATION: R09.89 - Other specified symptoms and signs involving the circulatory an... COMPARISON: None available. TECHNIQUE: 2 views of the chest were obtained. FINDINGS: Devices: None. Cardiomediastinal: Cardiac silhouette size is within normal limits.. Lungs and pleura: Low lung volumes. Mild central vascular prominence without overt pulmonary edema. Left basilar atelectasis. No pleural effusion. No pneumothorax. Bones: Thoracic spine degeneration. Osteopenia. Miscellaneous: No acute findings in upper abdomen. XR/XR chest 2V IMPRESSION: Left basilar atelectasis. Electronically signed by: Dany Neves MD 08/19/2025 10:46 AM EDT
== END 2025-08-19 08:54 | disposition home or self-care (01) ==
LOC: HO.HMGCX 08:53
PROVIDERS: PCP Family Medicine; Visit Provider Nurse Practitioner Family
DX: R09.89 Other specified symptoms and signs involving the circulatory and respiratory systems (principal); N64.4 Mastodynia; M54.9 Dorsalgia, unspecified; M62.838 Other muscle spasm; Z87.891 Personal history of nicotine dependence
CPT/HCPCS: 71046; 99212

== ENCOUNTER 2025-08-19 08:53 | Outpatient (AMB) | payer MEDICARE, OTHER, SELFPAY ==
--- NOTE | 2025-08-19 09:02 | A.OFFPC_ITS ---
Vital Signs 08/19/25 09:11 Height 4 ft 5 in Weight 132 lb 2 oz BMI 33.1 BP 120/68 Blood Pressure Location Lt brachial Position Sitting Respiration 14 Pulse 68 Pulse Source Pulse Oximeter Temp 97.7 F Temp Source Temporal Artery Scan Pulse Oximetry (%) 96 Oxygen Delivery Method Room Air Intake Visit Reasons: Dr. Martel Pt. / Upper Back Pain / Referral for PT? Intake Note: Flakita presents in the office today for upper back pain and a referral for PT. Allergies risperidone (From Risperdal) Allergy (Unknown, Verified 08/19/25 09:35) Unknown ciprofloxacin (From Cipro) Allergy (Verified 08/19/25 09:35) Unknown cyclobenzaprine Allergy (Verified 08/19/25 09:35) Unknown Phenothiazines Allergy (Verified 08/19/25 09:35) Unknown prochlorperazine (From Compazine) Allergy (Verified 08/19/25 09:35) Unknown Medication List - Last Reconciled 08/19/25 by Ema Rucker, [employer]- amlodipine 10 mg PO DAILY bisacodyl (Dulcolax (bisacodyl)) 10 mg PO BEDTIME PRN cholecalciferol (vitamin D3) 50 mcg PO DAILY cranberry 500 mg PO BID famotidine 20 mg PO BID levetiracetam 250 mg PO BID levothyroxine 88 mcg PO DAILY 30 days lidocaine 5% (Lidocan V) 1 patch topical DAILY metformin 500 mg PO DAILY 90 days naproxen sodium (Aleve) 220 mg PO BID PRN peg 3350-electrolytes 236-22.74-6.74 -5.86 gram (Golytely) 240 mL PO Q10M 1 day vit C,G-Xs-tntrs-lutein-zeaxan 250-90-40-1 mg (PreserVision AREDS-2) 1 tab PO BID Tobacco use date assessed: 08/19/25 Fall risk assessment: No Falls in past year Last assessed Fall Risk: 08/19/25 Dental Screening Dental Screen Date: 08/19/25 Did you have a dental visit in the last 12 months?: Yes Did you have a dental problem in the last 6 months where you did not have access to dental care?: No Was dental information given to patient?: Patient has dentist HPI HPI Comments History of Present Illness Details History of Present Illness Accompanied by sister in law who provides most of details The patient is a 69-year-old female presenting with back pain and breast pain. Left upper Back Pain: - Originated recently, possibly linked t o physical activity and new sleeping posture. - Excruciating pain with episodes of mus anel spasm. - Treated with Lidocaine patches and mus anel relaxant. - Noted improvement with stretching and heat. Covid and flu 07/17/25 Left upper back spasms picked up nicole prior to the onset on the pain as well using lidocaine for 2 weeks went to urgent care 08/08 for this as 2 days before it was excruciating given zanaflex 2mg TID; tried for 7 days and stretched this helped her sleep went back to urgent care 08/17 and dint want to refill muscle relaxer wonders if PT would help now applying more heat and stretching more often to help Breast Pain: - Recent onset, localized to left breast without detectable lumps. - Regular annual mammograms have been co nducted, with recent one in March. L breast pain started yesterday Mammo 03/2025 L upper inner quad Review of Systems - Musculoskeletal: Reports back pain wit h muscle spasms. - Breast: Reports left breast pain. - Respiratory: Reports historical diagno sis of wheezing and asthma exacerbation. Crackles identified during exam. - Allergic/Immunologic: Reports allergy and prior asthma diagnosis during plant exposure in [place]. Physical Exam General: Well developed, well nourished, in no acute distress. Appears stated age. Head: Normocephalic, atraumatic. Eyes: Pupils are equal, round and reactive to light and accommodation. Conjunctivae are clear. Neck supple FROM Lungs: Crackles noted in the left lung. otherwise clear Pain over L anterior chest, L breast no skin changes or palpable lumps. Heart: Regular rate and rhythm. No murmurs, click, rubs or gallops are noted. Musculoskeletal: Joints are nontender, without swelling, redness, or effusions. L arm neurovasc intact, no obvious deformity, pain over c spine, L rhombus and trap with palpation. normal strength and tone Pulses: Peripheral pulses are equal and palpable bilaterally. Extremities: No clubbing, cyanosis nor edema is noted. Psych: Mood and affect appropriate. Diagnostic results Pending Discussion Notes I discussed with the patient the differential diagnosis of back and breast pain and the possible link to recent breast changes or musculoskeletal issues. For the breast pain, I advised a diagnostic mammogram to assess for any structural changes. For the back pain, we explored non-invasive interventions such as physical therapy and heat application before considering pharmacological management. I ordered a chest x-ray due to left-sided crackles to rule out pneumonia, which could be attributing to muscle spasm and pain. Future steps include reviewing x-ray and possible formalizing physical therapy strategy based on findings. Patient was given time to ask questions. All questions were answered to their satisfaction. Assessment and Plan 1. Back Pain - Recommend physical therapy and heat ap plication. - Assess lidocaine effectiveness and adj ust as needed. 2. Breast Pain - Proceed with diagnostic mammogram, mon itoring symptom changes. ok to cancel if breast pain resolves. 3. Crackles Noted on Lung Exam - Conduct chest x-ray; assess findings f or pneumonia. Treat as appropriate; results to be called to sister in law once avail. Patient Instructions - Apply heat to back area regularly. - Attend scheduled diagnostic mammogram for breast evaluation. - Follow up on chest x-ray results regar ding crackles in the lung. - Engage in prescribed physical therapy for back pain. - Maintain a healthy diet and increase p hysical activity to address weight gain. - RTO directions provided Consent I obtained verbal consent from the patient to proceed with a chest x-ray to evaluate the crackles noted in the left lung. The benefits of the diagnostic test were discussed, and potential observation of pneumonia or other lung conditions was noted. No sedation or significant risks were involved in the procedure, and the patient showed understanding and agreed to the plan of care. Patient was informed and verbally consented to the use of an ambient scribe for clinic note documentation during this visit. Total time spent caring for the patient today was 30 minutes. This includes time spent before the visit reviewing the chart, time spent during the visit, and time spent after the visit on documentation, reviewing laboratory results, diagnostic imaging, medications, performing a medically necessary evaluation, counseling on diagnoses, care coordination, ordering appropriate tests, ordering appropriate medications, review of tests performed by other providers, reporting test results with the patient, communication with other healthcare providers. [facility] Medical History (Updated 08/19/25 @ 09:41 by Ema Rucker, [facility]-) Adult general medical exam Breast cancer screening by mammogram Diverticulitis Diverticulosis of colon Encounter for annual wellness visit (AWV) in Medicare patient Laboratory exam ordered as part of routine general medical examination Screening for cervical cancer Screening for colon cancer Screening for osteoporosis Stress incontinence, female Surgical History (Updated 06/19/25 @ 09:36 by DOMENICA Jaime) H/O colonoscopy History of partial hysterectomy Hx of appendectomy Hx of partial thyroidectomy Hx of rotator cuff surgery Status post right breast lumpectomy Family History Other Adopted person Social History (Updated 08/19/25 @ 09:03 by Estelle Metzger CMA) Household Members: Family Household Members Other:: brother and sister in law Housing: House Do you presently have visiting nurse or other home services: No Alcohol intake: never Patient Tobacco Use Status: Former Tobacco user Tobacco use type: Cigarette e-Cigarette/Vaping Use: Never Used Second Hand Smoke Exposure: Yes Use of substances other than those prescribed or required for medical reasons: No Advance Directives Date on File: 09/14/22 service: No Current occupational status: retired Sexual orientation: Decline to Answer Gender identity: Decline to answer Cognitive needs: No Hearing needs: No Vision needs: Yes Questionnaire Thrive Questionnaire Date Thrive assessed: 01/21/25 I am a: Patient What is your living situation today?: I have a steady place to live Within the past 12 months, did the food you bought not last and you didn't have the money to get more?: Never true Within the past 12 months, did you worry whether your food would run out before you got money to buy more?: Never true Do you have trouble paying for medicines?: No Do you have trouble getting transportation to medical appointments?: No Do you have trouble paying your heating and electricity bill?: No Do you have trouble taking care of your child, family member or friend?: No Do you have trouble with day-to-day activities such as bathing, preparing meals, shopping, managing finances, etc.?: No Are you currently unemployed and looking for a job?: No Are you interested in more education?: No Please select the resources that you would like help with: None Currently or been in a relationship where the following occur: No concerns reported THRIVE Score: 0 LEONA-7 AMB Questionnaire LEONA-7 Date LEONA - 7 assessed: 06/07/23 Source: Developed by Drs. Gurjit Stevenson, Martha Cruz, Khoa Montes and colleagues, with an educational vj from [employer]. Physical exam (Primary Care) Vital Signs: Last Vital Signs Temp 97.7 F 08/19/25 09:11 Pulse 68 08/19/25 09:11 Resp 14 08/19/25 09:11 BP 120/68 08/19/25 09:11 Pulse Ox 96 08/19/25 09:11 Oxygen Delivery Method Room Air 08/19/25 09:11 BMI result Body Mass Index 33.1 Tobacco/Smoking Status: Tobacco use Status Tobacco use date assessed 08/19/25 08/19/25 09:04 Patient Tobacco Use Status Former Tobacco user 08/19/25 09:04 Tobacco use type Cigarette 08/19/25 09:04 e-Cigarette/Vaping Use Never Used 08/19/25 09:04 Thrive Assessment: Date of Thrive Assessment Date Thrive assessed 01/21/25 08/19/25 09:04 Currently or been in a relationship where the following occur: No concerns reported Coding Level of Care Code Est Pt Level 4 (55691) Complex EM visit Add On G2211 Diagnoses Breast pain, left N64.4 Respiratory crackles at left lung base R09.89 Upper back pain on left side M54.9 Neck muscle spasm M62.838 Assessment & Plan Assessment & Plan (1) Breast pain, left: Code(s): N64.4 - Mastodynia Category: Medical (2) Respiratory crackles at left lung base: Code(s): R09.89 - Other specified symptoms and signs involving the circulatory and re spiratory systems Category: Medical (3) Upper back pain on left side: Code(s): M54.9 - Dorsalgia, unspecified Category: Medical (4) Neck muscle spasm: Code(s): M62.838 - Other muscle spasm Category: Medical Plan . Orders: Orders MM tomosynthesis diagnostic LT Today FERMIN Walker N64.4 - Mastodynia XR chest 2V Today FERMIN Walker R09.89 - Other specified symptoms and signs involving the circulatory and respiratory systems PT Evaluation and Treatment Today ELKIN Walker M54.9 - Dorsalgia, unspecified, M62.838 - Other muscle spasm Medications: Changed From bisacodyl (Dulcolax (bisacodyl)) 10 mg (2 x 5 mg) PO BEDTIME 2 days 4 tabs 0RF To bisacodyl (Dulcolax (bisacodyl)) 10 mg PO BEDTIME PRN Barb Watkins, ADIN-C
[2025-08-19 09:11] VITALS: BP 120/68; PULSE 68; RESP 14; TEMP 36.5; O2SAT 96; BMI 33.1
== END 2025-08-19 10:18 | disposition home or self-care (01) ==
LOC: HO.HMCFM 08:54
PROVIDERS: PCP Family Medicine; Visit Provider Nurse Practitioner Family
DX: N64.4 Mastodynia (principal); R09.89 Other specified symptoms and signs involving the circulatory and respiratory systems; M54.9 Dorsalgia, unspecified; M62.838 Other muscle spasm

== ENCOUNTER → 2025-08-19 10:31 | Outpatient (BNV) | payer MEDICARE, OTHER, SELFPAY | PROVIDERS: PCP Family Medicine; Visit Provider Radiology Diagnostic Ultrasound | DX: J98.11 Atelectasis (principal) | CPT/HCPCS: 71046 ==

== ENCOUNTER 2025-08-25 17:14 | Emergency (ER) | payer MEDICARE, OTHER, SELFPAY ==
--- OUTSIDE RECORDS SUMMARY | 2024-04-18 05:41 | XMS_ITS | Continuity of Care Document ---
Author Organization [facility] Address [address] [place] [address] Phone Care Team Providers Care Business Assistant Name Role Phone Lizette DOTYNLauraBetty Unavailable Unavailable Allergies, Adverse Reactions, Alerts Substance Reaction Status Criticality phenicarbazide Active No Informatio n Medications Medication Instructions Dosage Effective Dates (start - stop) Status Comments carbamazepine ER 100 mg capsule,extended release [id number] take 1 capsule by oral route every [...] 2nd Level Facet Jt / MBB Includes Ok uoro C/T 3rd Level Facet Jt / MBB Includes Ok uoro C/T First Level Facet Jt / MBB Includes Fluoro C/T First Level Facet Jt / MBB Includes Fluoro C/T 2nd Level Facet Jt / MBB Includes Ok uoro C/T 3rd Level Facet Jt / MBB Includes Ok uoro C/T First Level Facet Jt / MBB Includes Fluoro C/T 2nd Level Facet Jt / MBB Includes Ok uoro C/T 3rd Level Facet Jt / [...] Copied on Encounter [facility], [address] [place] [address], [id number], tel:[phone] [employer] [place] [facility] No Information 4 Lizette Hernándze. [address] [place] [address], [place], [id number] , . tel:[phone] [facility], [address] [place] [address], [id number], tel:[phone] [employer] [place] [facility] No Information 6 Kitty Thrasher. [address] [place] [address], [id number] . tel:[phone] Referring Provider: Price Kate, [address] [place] [address] [address], [place], [place], [id number]. tel:[phone] Follow-up, Detailed [facility], [address] [place] [address], [id number], tel:[phone] [facility] neck Pain (chief complaint) Spondylosis w/o myelopathy or radiculopathy, cervical region 6 Kitty Thrasher. [address] [place] [address], [facility] [address], [place], [id number] . tel: [phone] Referring Provider: Price Kate, [address] [place] [address] [address], [place], [place], [id number]. tel:[phone] [facility], [address] [place] [address], [place], [id number], [place] tel:[phone] [facility] Spondylosis w/o myelopathy or radiculopathy, cervical region 6 Kitty Thrasher. [address] [place] [address], [place], [id number] . tel: [phone] Referring Provider: Price Kate, [address] [place] [address], [place], [place], [id number]. tel:[phone] [facility], [address] [place] [address], [id number], [place] tel:[phone] [facility] No Information 6 Kitty Thrasher. [address] [place] [address] [address], [place], [place], [id number] . tel: [phone] Referring Provider: Price Kate, [address] [place] [address], [place], [place], [id number]. tel:[phone] [facility], [address] [place] [address], [place], [id number], [place] tel:[phone] [facility] Spondylosis w/o myelopathy of cervical regionSpondylos is w/o myelopathy or radiculopathy, cervical region 5 Kitty Thrasher. [address] [place] [address], [facility] 200, [place], [place], [id number] . tel: [phone] Referring Provider: Price Kate, [address] [place] [address] [address], [place], [place], [id number]. tel:[phone] [facility], [address] [place] [address], [id number], tel:[phone] [facility] Spondylosis w/o myelopathy of cervical region 5 Kitty Thrasher. [address] [place] [address], [place], [id number] . tel: [phone] Referring Provider: Price Kate, [address] [place] [address], [place], [place], [id number]. tel:[phone] [facility], [address] [place] [address], [id number], [place] tel:[phone] [facility] No Information 5 Kitty Thrasher. [address] [place] [address], [id number] . tel: [phone] Referring Provider: Price Kate, [address] [place] [address], [place], [place], [id number]. 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 [address] [place] [address], [id number] . tel: [phone] Referring Provider: Price Kate, [address] [place] [address], [place], [id number]. tel:[phone] New Pt, Moderate 45min [facility], [address] [place] [address], [id number], tel:[phone] [facility] Office neck Pain (chief complaint) bilateral arm pain (chief complaint) exterminator termite (current) use of opiate analgesicSpondy losis without myelopathy or radiculopathy, cervical regionSpinal stenosis, cervical regionRadiculop athy, cervical regionScoliosis , unspecified 5 Kitty Thrasher. [address] [place] [address], [place], [id number] . tel: [phone] Referring Provider: Price Kate, [address] [facility] [address], [place], [place], [id number]. tel:[phone] Family History Family Member Type Diagnosis Age [...] into bilateral shoulders. mri c-spine done at [facility]. Tramadol for painNP to shoulders; BL cerv [...]
--- NOTE | ~2025-08-25 | XR_ITS ---
CLINICAL HISTORY: chest pain 2 view chest x-ray Comparison: CR/SR - XR CHEST 2 VIEWS - 08/19/25 10:44 EDT Findings: The lungs are clear. Normal size heart. No acute fracture. Thoracic levoscoliosis. IMPRESSION: 1. Thoracic levoscoliosis. 2. No acute cardiopulmonary findings. This document has been electronically signed by: Mateusz Robison MD on 08/25/2025 18:19:43
--- NOTE | ~2025-08-25 | CT_ITS ---
CLINICAL HISTORY: cp CT angiography chest with contrast. MIP postprocessing. Comparison: CR - XR CHEST 2V - 08/25/25 17:54 EDT Findings: There is appropriate contrast opacification of the main, lobar, and segmental pulmonary arteries. No filling defects identified to suggest pulmonary embolism. Thoracic aorta is nonaneurysmal. Heart size within normal limits. No pathologically enlarged mediastinal, hilar, or axillary lymph nodes. No focal areas of consolidation within the lungs. Minor atelectasis within the dependent portion of the right lower lobe. No pleural effusion or pneumothorax. Small hiatal hernia. No free fluid or free air within the upper abdomen. No acute bony abnormality. Convex left midthoracic curvature with multilevel degenerative disc disease and degenerative facet disease throughout the thoracic spine with likely chronic compression fractures of T7, T8, and T9. IMPRESSION: 1. No pulmonary emboli. 2. No acute infiltrate. This document has been electronically signed by: Aiden Espinoza MD on 08/26/2025 01:44:54
--- NOTE | 2025-08-25 17:17 | ECG_ITS ---
Test Reason : CP Blood Pressure : */* mmHG Vent. Rate : 79 BPM Atrial Rate : 79 BPM P-R Int : 150 ms QRS Dur : 68 ms QT Int : 386 ms P-R-T Axes : 37 -2 58 degrees QTcB Int : 442 ms Sinus rhythm with occasional Premature ventricular complexes Low voltage QRS Possible Inferior infarct , age undetermined Cannot rule out Anterior infarct , age undetermined Abnormal ECG No previous ECGs available Referred By: Generic ED Physician Electronically Signed By: Kei Pagan
[2025-08-25 17:36] VITALS: BP 145/65; PULSE 78; RESP 18; TEMP 36.6; O2SAT 98; BMI 30.2
--- NOTE | 2025-08-25 17:39 | ED.GENADULT ---
HPI - General Adult General Chief complaint: Chest Pain Stated complaint: Chest pain Time Seen by Provider: 08/25/25 21:23 Related Data Home Medications ?Medication ?Instructions ?Recorded ?Confirmed naproxen sodium 220 mg tablet 220 mg PO BID PRN 06/07/23 08/19/25 (Aleve) cholecalciferol (vitamin D3) 50 50 mcg PO DAILY 12/10/23 08/19/25 mcg (2,000 unit) capsule vit C 250 mg-vit E 90 mg-zinc 40 1 tab PO BID 12/10/23 08/19/25 mg-copper 1 cl-acbxli-btvjsk capsule (PreserVision AREDS-2) cranberry 500 mg capsule 500 mg PO BID 06/19/25 08/19/25 bisacodyl 5 mg tablet,delayed 10 mg PO BEDTIME PRN 08/19/25 08/19/25 release (Dulcolax (bisacodyl)) Previous Rx's ?Medication ?Instructions ?Recorded levetiracetam 250 mg tablet 250 mg PO BID #60 tabs 10/02/22 levothyroxine 88 mcg tablet 88 mcg PO DAILY 30 days #30 tabs 12/10/23 lidocaine 5 % topical patch 1 patch topical DAILY #90 ea 02/04/25 (Lidocan V) famotidine 20 mg tablet 20 mg PO BID #180 tabs 03/11/25 amlodipine 10 mg tablet 10 mg PO DAILY #90 tabs 05/21/25 peg 3350-electrolytes 236 240 ml PO Q10M 1 day #4,000 mL 06/19/25 gram-22.74 gram-6.74 gram-5.86 gram solution (Golytely) metformin 500 mg tablet 500 mg PO DAILY 90 days #90 tabs 06/23/25 Allergies Allergy/AdvReac Type Severity Reaction Status Date / Time risperidone (From Risperdal) Allergy Unknown Unknown Verified 08/25/25 17:39 ciprofloxacin (From Cipro) Allergy Unknown Verified 08/25/25 17:39 cyclobenzaprine Allergy Unknown Verified 08/25/25 17:39 Phenothiazines Allergy Unknown Verified 08/25/25 17:39 prochlorperazine (From Allergy Unknown Verified 08/25/25 17:39 Compazine) PMFSH Past Medical History Medical History Screening for osteoporosis Diverticulosis of colon Screening for colon cancer Stress incontinence, female Screening for cervical cancer Breast cancer screening by mammogram Encounter for annual wellness visit (AWV) in Medicare patient Adult general medical exam Laboratory exam ordered as part of routine general medical examination Diverticulitis Surgical History Status post right breast lumpectomy Hx of partial thyroidectomy H/O colonoscopy Hx of rotator cuff surgery Hx of appendectomy History of partial hysterectomy Family History Family History Other Adopted person Social History Social History Household Members: Family Household Members Other:: brother and sister in law Housing: House Do you presently have visiting nurse or other home services: No Alcohol intake: never Patient Tobacco Use Status: Former Tobacco user Tobacco use type: Cigarette e-Cigarette/Vaping Use: Never Used Second Hand Smoke Exposure: Yes Advance Directives: Yes Advance Directives on File: Yes Advance Directives Date on File: 09/14/22 Do you have a plan to hurt others: No Plan service: No Current occupational status: retired Sexual orientation: Decline to Answer Gender identity: Decline to answer Cognitive needs: No Hearing needs: No Vision needs: Yes Physical Exam ED Vital Signs: Vital Signs - 24 hr 08/25/25 17:36 08/25/25 21:37 08/25/25 22:55 Temperature 98 F 97.9 F 97.7 F Pulse Rate 78 86 71 Respiratory Rate 18 18 15 Blood Pressure 145/65 H 149/82 H 123/74 Pulse Oximetry 98 96 94 Oxygen Delivery Method Room Air Room Air Room Air BMI result Body Mass Index 30.2 Course Course Course Narrative: This is a rapid medical exam performed by Shannan Davis NP: Additional HPI, ROS, PE not included below will be deferred to primary provider. Patient is a 69y/o F presenting with family who reports that patient developed back pain/spasms after covid shot on 08/08, seen at urgent care twice, then developed pain to the bottom of her chest and had a CXR to r/o PNA on 08/19. PCP also ordered a mammogram which is scheduled. Today patient c/o pain under her arm so family c/f cardiac cause. Plan: EKG, labs Medications Administered Discontinued Medications Generic Name Dose Route Start Last Admin Trade Name Piyush PRN Reason Stop Dose Admin Iohexol 65 ml 08/26/25 01:03 08/26/25 01:03 Iohexol 350 Mg/Ml 100 Ml Infus..Btl IV 08/26/25 01:04 65 ml ONCE ONE Administration Medical Decision Making Lab Data 08/25/25 18:11 08/25/25 18:11 Labs: Lab Results 08/25/25 08/25/25 Range/Units 18:11 23:47 WBC 7.8 (4.8-10.8) X10*3/uL RBC 4.68 (4.20-5.50) X10*6/uL Hgb 13.9 (12.0-16.0) g/dl Hct 41.8 (37.0-47.0) % MCV 89.3 (80.0-98.0) fL MCH 29.7 (27.0-33.0) pg MCHC 33.3 (31.0-35.0) g/dl RDW 12.5 (11.0-16.0) % Plt Count 246 D (160-400) X10*3/uL MPV 10.2 (9.4-12.3) fL Immature Gran % (Auto) 0.3 (0.0-0.4) % Neut % (Auto) 49.8 (45-73) % Lymph % (Auto) 39.3 (20-40) % Childress % (Auto) 6.8 (2-11) % Eos % (Auto) 2.8 (0-4) % Baso % (Auto) 1.0 (0-2) % Lymph # (Auto) 3.1 (1.2-4.9) X10*3/uL Childress # (Auto) 0.5 (0.1-1.2) X10*3/uL Eos # (Auto) 0.2 (0.0-0.4) X10*3/uL Baso # (Auto) 0.1 (0.0-0.2) X10*3/uL Abs Immat Gran (auto) 0.02 (0.00-0.03) X10*3/uL Absolute Neuts (auto) 3.9 (2.0-8.3) x10*3/uL Absolute Nucleated RBC 0.000 (0.0-0.012) X10*3/uL Nucleated RBC % (auto) 0.0 (0.0-0.2) /100WBC PT 11.4 (10.9-12.4) SEC INR 1.0 (0.9-1.1) Sodium 141 (135-145) mmol/L Potassium 4.0 (3.3-5.1) mmol/L Chloride 108 (96-108) mmol/L Carbon Dioxide 25 (22-29) mmol/L Anion Gap 12 (12-20) BUN 19 H (9-16) mg/dL Creatinine 0.71 (0.5-1.4) mg/dL Estim Creat Clear Calc 51.2 Estimated GFR > 60 Random Glucose 111 (60-115) mg/dL Calcium 9.7 (8.4-10.2) mg/dL Magnesium 2.1 (1.6-2.6) mg/dL Total Bilirubin 0.2 (0.0-1.0) mg/dL AST 18 (5-31) U/L ALT 17 (0-31) U/L Alkaline Phosphatase 92 (39-117) U/L Troponin I High Sens < 2.7 < 2.7 (<3.5-17.0) ng/L Total Protein 7.4 (6.5-8.0) g/dL Albumin 4.3 (3.5-5.0) g/dL Discharge Plan Discharge Clinical Impression: Chest pain Patient Disposition: Home, Self-Care Instructions: Chest Pain (DC) Prescriptions: No Action famotidine 20 mg tablet 20 mg PO BID Qty: 180 3RF amlodipine 10 mg tablet 10 mg PO DAILY Qty: 90 1RF metformin 500 mg tablet 500 mg PO DAILY 90 Days Qty: 90 3RF levetiracetam 250 mg tablet 250 mg PO BID Qty: 60 0RF naproxen sodium [Aleve] 220 mg tablet 220 mg PO BID PRN PreserVision AREDS-2 250-90-40-1 mg capsule 1 tab PO BID cholecalciferol (vitamin D3) 50 mcg (2,000 unit) capsule 50 mcg PO DAILY Patient Comments: Just takes in the winter levothyroxine 88 mcg tablet 88 mcg PO DAILY 30 Days Qty: 30 2RF lidocaine [Lidocan V] 5 % adhesive patch,medicated 1 patch topical DAILY Qty: 90 3RF Rx Instructions: leave on most painful area for up to 12 hrs cranberry 500 mg capsule 500 mg PO BID Rx Instructions: administer with meals peg 3350-electrolytes [Golytely] 236-22.74-6.74 -5.86 gram recon soln 240 ml PO Q10M 1 Days Qty: 4000 0RF Rx Instructions: until fecal effluent is clear; do not exceed a total volume of 2,000 mL bisacodyl [Dulcolax (bisacodyl)] 5 mg tablet,delayed release (DR/EC) 10 mg PO BEDTIME PRN Referrals: Duane Obregon MD [Primary Care Provider, Internal Medicine] - 08/28/25 Print Language: Estonian
[2025-08-25 18:23] LABS: MANUAL DIFF FLAG NO
[2025-08-25 18:28] LABS: Hematocrit 41.8 % (37.0-47.0); Hemoglobin 13.9 g/dl (12.0-16.0); Imm Gran Abs Auto 0.02 X10*3/uL (0.00-0.03); Imm Gran Pct Auto 0.3 % (0.0-0.4); Lymphocytes Absolute Auto 3.1 X10*3/uL (1.2-4.9); Mean Corpuscular HGB Conc 33.3 g/dl (31.0-35.0); Mean Corpuscular Hemoglobin 29.7 pg (27.0-33.0); Mean Corpuscular Volume 89.3 fL (80.0-98.0); NRBC Abs Auto 0.000 X10*3/uL (0.0-0.012); NRBC Pct Auto 0.0 /100WBC (0.0-0.2); Platelet Count 246 X10*3/uL (160-400); Red Blood Count 4.68 X10*6/uL (4.20-5.50); White Blood Count 7.8 X10*3/uL (4.8-10.8)
[2025-08-25 18:38] LABS: INTERNATIONAL NORM RATIO 1.0 (0.9-1.1); Prothrombin Time 11.4 SEC (10.9-12.4)
[2025-08-25 18:39] LABS: Alanine Aminotransferase 17 U/L (0-31); Albumin Level 4.3 g/dL (3.5-5.0); Alkaline Phosphatase 92 U/L (39-117); Anion Gap 12 (12-20); Aspartate Amino Transferase 18 U/L (5-31); Blood Urea Nitrogen 19 mg/dL (9-16); Calcium 9.7 mg/dL (8.4-10.2); Carbon Dioxide 25 mmol/L (22-29); Chloride 108 mmol/L (96-108); Creatinine Clr Calc Pharmacy 51.2; Estimated Glomerular Filt Rate > 60; Magnesium 2.1 mg/dL (1.6-2.6); Potassium 4.0 mmol/L (3.3-5.1); Sodium 141 mmol/L (135-145); Total Protein 7.4 g/dL (6.5-8.0)
[2025-08-25 18:49] LABS: Troponin-I High Sensitivity < 2.7 ng/L (<3.5-17.0)
[2025-08-25 21:37] VITALS: BP 149/82; PULSE 86; RESP 18; TEMP 36.6; O2SAT 96
--- OUTSIDE RECORDS SUMMARY | 2025-08-25 21:51 | XMS_ITS ---
Author Name [facility] Organization Unknown History of Medication Use Medication Directions Dispensed Refills Start Date End Date Stat us tizanidine 08/08/2025 active levothyroxine sodium 05/11/2025 active famotidine 03/07/2025 active amlodipine besylate 11/20/2024 a ctive levetiracetam 10/20/2024 active metformin HCl 09/19/2024 active Allergies Allergen Reaction Severity Comment Documented Date Source Statu s CIPRO UNKNOWN REACTION () [facility] RISPERDAL UNKNOWN REACTION () [facility] Encounters Encounter Type Encounter Reason Primary Diagnosis Location Date Ambulatory TBE Other muscle spasm [facility] 08/17/2025 Care Team Organization Name Specialty Phone Email Start Date End Da te [facility] 08/17/2025 [facility] 08/17/2025
--- OUTSIDE RECORDS SUMMARY | 2025-08-25 21:51 | XMS_ITS | Clinical Summary ---
Author Organization [facility] Address [address] [place] [id number] Phone Care Team Providers Care Admissions Evaluator Name Role Phone Duane Obregon MD Primary Care Provider Allergies No known active allergies Medications amLODIPine (NORVASC) 10 MG tablet Take 1 tablet by mouth every morning. 5 Active famotidine (PEPCID) 20 MG tablet Take 1 tablet by mouth 2 (two) times a day. 5 Active levETIRAcetam (KEPPRA) 250 MG IMMEDIATE release tablet Take 1 tablet by mouth 2 (two) times a day. 5 Active levothyroxine (SYNTHROID, LEVOTHROID) 88 MCG tablet Take 88 mcg by mouth. 5 Active metFORMIN (GLUCOPHAGE) 500 MG tablet Take 1 tablet by mouth every morning. 5 Active lidocaine (LIDODERM) 5 % APPLY 1 PATCH TOPICALLY TO THE SKIN DAILY. LEAVE ON MOST PAINFUL AREA FOR UP TO 12 HOURS 5 Active Active Problems No known active problems Social History Tobacco Use Types Packs/Day Years Used Date Smoking Tobacco: Never Assessed Education Answer Date Recorded Are you interested in more education? Not on diana e 02/23/2025 Are you concerned about learning? Not on file 02/23/2025 No 02/23/2025 No 02/23/2025 Digital Access Answer Date Recorded No 02/23/2025 No 02/23/2025 Reliable internet access at home? Not on file 02/23/2025 Device with a working camera? Not on file Comments Unknown Sex and Gender Information Value Date Recorded Sex Assigned at Not on file Legal Sex Female 7:25 PM EST Gender Identity Not on file Sexual Orientation Not on file Last Filed Vital Signs Vital Sign Reading Time Taken Comments Blood Pressure 121/79 02/23/2025 11:46 AM EDT Pulse 72 02/23/2025 11:46 AM EDT Temperature 36.8 C (98.3 F) 02/23/2025 11:46 AM EDT Respiratory Rate 17 02/23/2025 11:46 AM EDT Oxygen Saturation 96% 02/23/2025 11:46 AM EDT Inhaled Oxygen Concentration - - Weight 57.2 kg (126 lb) 02/23/2025 11:46 AM EDT Height 132.1 cm (4' 4 ) 02/23/2025 11:46 AM EDT Body Mass Index 32.76 02/23/2025 11:46 AM EDT Plan of Treatment Health Maintenance Due Date Last Done Comments Adult Td,Tdap Booster 1954 CREATININE LEVEL 1954 LIPID PANEL 1954 TSH LEVEL 1954 DEPRESSION SCREENING 1966 SMOKING Hx and SMOKELESS TOB ACCO SCREENING 1967 HEPATITIS C SCREENING 1972 MAMMOGRAM 1994 COLOGUARD 1999 COLONOSCOPY 1999 COLORECTAL CANCER SCREENING 1999 FIT TEST 1999 FOBT 1999 SIGMOIDOSCOPY 1999 VIRTUAL COLONOSCOPY 1999 PNEUMOCOCCAL VACCINES (50+ y ears) (1 of 1 - PCV) 2004 ZOSTER VACCINES (1 of 2) 2004 OSTEOPOROSIS SCREENING INITI AL (ONE-TIME) 2019 INFLUENZA VACCINE (#1) 2025 COVID-19 VACCINE (1 - 2024-2 6 season) 2025 RSV VACCINE (1 - 1-dose 75+ series) 2029 HEPATITIS A VACCINES Aged Out No long er eligible based on patient's age to complete this topic HIB VACCINES Aged Out No longer eligi ble based on patient's age to complete this topic MENINGOCOCCAL VACCINES (ACWY) Aged Out No longer eligible based on patient's age to complete this topic MENINGOCOCCAL VACCINES (B) Aged Out N o longer eligible based on patient's age to complete this topic Medical Devices Not on file Insurance MEDICARE PART A & B [employer] MEDICARE SUPPLEMENT [facility] Address: [facility] [address] [place] [address] MEDICARE PART A & B [employer] MEDICARE SUPPLEMENT MEDICARE PART A & B [employer] MEDICARE SUPPLEMENT [facility] Address: [address] [address] MEDICARE PART A & B [employer] MEDICARE SUPPLEMENT [facility] Address: [address] [phone] MEDICARE PART A & B [employer] MEDICARE SUPPLEMENT [facility] Address: [address] [address] MEDICARE PART A & B [employer] MEDICARE SUPPLEMENT Care Teams Admissions Evaluator Relationship Specialty Start Date End Date Duane Obregon MD [address] [place] [address] PCP - General Family Medicine 02/23/25 Additional Source Comments The information contained in this document represents components of the legal health record. It is not the complete legal health record.[facility]
--- OUTSIDE RECORDS SUMMARY | 2025-08-25 21:51 | XMS_ITS | Continuity of Care Document ---
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 03/05/2024 [id number] Tablets Take 1 Tablet By Mouth Twice Daily Shayy Bright PA Metformin [id number] Tablets Take 1 Tablet By Mouth Daily Duane Obregon MD Amlodipine Sfamkohv12kr Tablets Take 1 Tablet By Mouth Daily Yesi Shearer NP [id number] Tablets Take 1 Tablet By Mouth Twice Daily Jill Christine MD Vitamin Q571pby (1999 Al) Capsules 1 by mouth every day Unknown Vital Signs Date Vital Result Comment 08/10/2025 8:35am BP Systolic 126 mmHg BP Diastolic 80 mmHg Heart Rate 83 /min Height 55 inches 4'7 Weight 134.12 lb BMI (Body Mass Index) 31.2 kg/m2 Results Test Acquired Date Facility Test Result H/L Range Note TSH Rfx on Abnormal to Free T4 08/10/2025 [facility] TSH Rfx on Abnormal to Free T4 1.250 uIU/mL 0.450-4. 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
[2025-08-25 22:55] VITALS: BP 123/74; PULSE 71; RESP 15; TEMP 36.5; O2SAT 94
[2025-08-25 23:00] VITALS: BP 136/78; PULSE 76; PULSE 85; RESP 17; TEMP 36.5; O2SAT 99
--- NOTE | 2025-08-25 23:28 | ED.CHESTPAIN ---
HPI - Chest Pain General Chief Complaint: Chest Pain Stated Complaint: Chest pain Time Seen by Provider: 08/25/25 21:23 History of Present Illness HPI narrative: Patient is a 69-year-old female with a history of diabetes, hypertension question high cholesterol presented today with having chest pain that is over the left chest. It is sharp. Sometimes moved to the axillary area. Worse with movement. Fairly constant ongoing for the last few days. There is no fever no chills there is no diaphoresis. There is no coughing or congestion or upper respiratory symptoms. Patient is from home. Never had a stress test. No leg swelling no travel history. No coughing or congestion or upper respiratory symptoms. Patient from home. Related Data Home Medications ?Medication ?Instructions ?Recorded ?Confirmed naproxen sodium 220 mg tablet 220 mg PO BID PRN 06/07/23 08/19/25 (Aleve) cholecalciferol (vitamin D3) 50 50 mcg PO DAILY 12/10/23 08/19/25 mcg (2,000 unit) capsule vit C 250 mg-vit E 90 mg-zinc 40 1 tab PO BID 12/10/23 08/19/25 mg-copper 1 [id number] capsule (PreserVision AREDS-2) cranberry 500 mg capsule 500 mg PO BID 06/19/25 08/19/25 bisacodyl 5 mg tablet,delayed 10 mg PO BEDTIME PRN 08/19/25 08/19/25 release (Dulcolax (bisacodyl)) Previous Rx's ?Medication ?Instructions ?Recorded levetiracetam 250 mg tablet 250 mg PO BID #60 tabs 10/02/22 levothyroxine 88 mcg tablet 88 mcg PO DAILY 30 days #30 tabs 12/10/23 lidocaine 5 % topical patch 1 patch topical DAILY #90 ea 02/04/25 (Lidocan V) famotidine 20 mg tablet 20 mg PO BID #180 tabs 03/11/25 amlodipine 10 mg tablet 10 mg PO DAILY #90 tabs 05/21/25 peg 3350-electrolytes 236 240 ml PO Q10M 1 day #4,000 mL 06/19/25 gram-22.74 gram-6.74 gram-5.86 gram solution (Golytely) metformin 500 mg tablet 500 mg PO DAILY 90 days #90 tabs 06/23/25 Allergies Allergy/AdvReac Type Severity Reaction Status Date / Time risperidone (From Risperdal) Allergy Unknown Unknown Verified 08/25/25 17:39 ciprofloxacin (From Cipro) Allergy Unknown Verified 08/25/25 17:39 cyclobenzaprine Allergy Unknown Verified 08/25/25 17:39 Phenothiazines Allergy Unknown Verified 08/25/25 17:39 prochlorperazine (From Allergy Unknown Verified 08/25/25 17:39 Compazine) Review of Systems Review of Systems: Positive chest pain Yes all other systems are reviewed and are negative PMFSH Past Medical History Attestation statement: The following information was validated with the patient. Medical History Screening for osteoporosis Diverticulosis of colon Screening for colon cancer Stress incontinence, female Screening for cervical cancer Breast cancer screening by mammogram Encounter for annual wellness visit (AWV) in Medicare patient Adult general medical exam Laboratory exam ordered as part of routine general medical examination Diverticulitis Surgical History Status post right breast lumpectomy Hx of partial thyroidectomy H/O colonoscopy Hx of rotator cuff surgery Hx of appendectomy History of partial hysterectomy Family History Family History Other Adopted person Social History Social History Household Members: Family Household Members Other:: brother and sister in law Housing: House Do you presently have visiting nurse or other home services: No Alcohol intake: never Patient Tobacco Use Status: Former Tobacco user Tobacco use type: Cigarette e-Cigarette/Vaping Use: Never Used Second Hand Smoke Exposure: Yes Advance Directives: Yes Advance Directives on File: Yes Advance Directives Date on File: 09/14/22 Do you have a plan to hurt others: No Plan service: No Current occupational status: retired Sexual orientation: Decline to Answer Gender identity: Decline to answer Cognitive needs: No Hearing needs: No Vision needs: Yes Physical Exam Exam: Exam: Appearance: Alert. Oriented X3. No acute distress. Eyes: Pupils equal, round and reactive to light. ENT: Pharynx normal. Neck: Normal inspection. Neck supple. No lymph nodes noted. No crepitus CVS: Normal heart rate and rhythm. Pulses normal. Normal S1 and S2 Respiratory: No respiratory distress. Breath sounds normal. No Wheezing. No rales Abdomen: Soft and nontender. No rigidity. No distention. good BS x4 Skin: Skin warm and dry. Normal skin color. Normal skin turgor. Extremities: No lower extremity edema. Neurovascular intact to all extremities. No Lacerations. No Rash Neuro: Oriented X 3. No motor deficit. No sensory deficit. Moving all extermities. No slurred speech Vital Signs: Vital Signs: Last Vital Signs Temp 97.7 F 08/25/25 22:55 Pulse 71 08/25/25 22:55 Resp 15 08/25/25 22:55 BP 123/74 08/25/25 22:55 Pulse Ox 94 08/25/25 22:55 O2 Del Method Room Air 08/25/25 22:55 BMI result Body Mass Index 30.2 Medications Administered Discontinued Medications Generic Name Dose Route Start Last Admin Trade Name Freq PRN Reason Stop Dose Admin Iohexol 65 ml 08/26/25 01:03 08/26/25 01:03 Iohexol 350 Mg/Ml 100 Ml Infus..Btl IV 08/26/25 01:04 65 ml ONCE ONE Administration Medical Decision Making Medical Decision Making [facility] Narrative: Well-appearing no acute distress patient's chest pain is atypical for ACS however she is 69 years old. She has multitude of risk factors including diabetes, hypertension question high cholesterol. Patient is not a smoker. No family history of CAD. Her BMI is 30 not grossly overweight. Patient history not consistent with ACS. Patient's troponin 1st set was less than 2.7 not consistent with ACS. Patient did not have any travel history but did have a chest pain that is worse with deep breath. Will get a CT angio of the chest. My interpretation patient's chest x-ray is grossly negative no pneumonia no pneumothorax. Differential Diagnosis Differential Diagnoses: The differential diagnosis associated with the presentation includes ACS, pneumonia, pneumothorax Admission/Observation Consideration of admission/observation: Escalation of care including admission/observation considered Lab Data [facility] Lab Attestation statement: I reviewed the patient's lab results. 08/25/25 18:11 08/25/25 18:11 Labs: Lab Results 08/25/25 08/25/25 Range/Units 18:11 23:47 WBC 7.8 (4.8-10.8) X10*3/uL RBC 4.68 (4.20-5.50) X10*6/uL Hgb 13.9 (12.0-16.0) g/dl Hct 41.8 (37.0-47.0) % MCV 89.3 (80.0-98.0) fL MCH 29.7 (27.0-33.0) pg MCHC 33.3 (31.0-35.0) g/dl RDW 12.5 (11.0-16.0) % Plt Count 246 D (160-400) X10*3/uL MPV 10.2 (9.4-12.3) fL Immature Gran % (Auto) 0.3 (0.0-0.4) % Neut % (Auto) 49.8 (45-73) % Lymph % (Auto) 39.3 (20-40) % [place] % (Auto) 6.8 (2-11) % Eos % (Auto) 2.8 (0-4) % Baso % (Auto) 1.0 (0-2) % Lymph # (Auto) 3.1 (1.2-4.9) X10*3/uL [place] # (Auto) 0.5 (0.1-1.2) X10*3/uL Eos # (Auto) 0.2 (0.0-0.4) X10*3/uL Baso # (Auto) 0.1 (0.0-0.2) X10*3/uL Abs Immat Gran (auto) 0.02 (0.00-0.03) X10*3/uL Absolute Neuts (auto) 3.9 (2.0-8.3) x10*3/uL Absolute Nucleated RBC 0.000 (0.0-0.012) X10*3/uL Nucleated RBC % (auto) 0.0 (0.0-0.2) /100WBC PT 11.4 (10.9-12.4) SEC INR 1.0 (0.9-1.1) Sodium 141 (135-145) mmol/L Potassium 4.0 (3.3-5.1) mmol/L Chloride 108 (96-108) mmol/L Carbon Dioxide 25 (22-29) mmol/L Anion Gap 12 (12-20) BUN 19 H (9-16) mg/dL Creatinine 0.71 (0.5-1.4) mg/dL Estim Creat Clear Calc 51.2 Estimated GFR > 60 Random Glucose 111 (60-115) mg/dL Calcium 9.7 (8.4-10.2) mg/dL Magnesium 2.1 (1.6-2.6) mg/dL Total Bilirubin 0.2 (0.0-1.0) mg/dL AST 18 (5-31) U/L ALT 17 (0-31) U/L Alkaline Phosphatase 92 (39-117) U/L Troponin I High Sens < 2.7 < 2.7 (<3.5-17.0) ng/L Total Protein 7.4 (6.5-8.0) g/dL Albumin 4.3 (3.5-5.0) g/dL Independent Interpretation I performed an independent interpretation of an: EKG (Sinus heart rate is 80 VT QRS QTC normal there is diffuse T-wave flattening noted.) and CT Scan (CT chest grossly negative) Radiology Impression Discussion of test interpretation with radiology: I have reviewed the radiologist's reading. External Record Review External record reviewed: Outpatient record Chronic Conditions Patient?s care impacted by: Diabetes and Hypertension Social Determinants Patient?s care significantly limited by Social Determinants of Health including: Problems related to primary support group Discharge Plan Discharge Clinical Impression: Chest pain Patient Disposition: Home, Self-Care Instructions: Chest Pain (DC) Prescriptions: No Action famotidine 20 mg tablet 20 mg PO BID Qty: 180 3RF amlodipine 10 mg tablet 10 mg PO DAILY Qty: 90 1RF metformin 500 mg tablet 500 mg PO DAILY 90 Days Qty: 90 3RF levetiracetam 250 mg tablet 250 mg PO BID Qty: 60 0RF naproxen sodium [Aleve] 220 mg tablet 220 mg PO BID PRN PreserVision AREDS-2 250-90-40-1 mg capsule 1 tab PO BID cholecalciferol (vitamin D3) 50 mcg (2,000 unit) capsule 50 mcg PO DAILY Patient Comments: Just takes in the winter levothyroxine 88 mcg tablet 88 mcg PO DAILY 30 Days Qty: 30 2RF lidocaine [Lidocan V] 5 % adhesive patch,medicated 1 patch topical DAILY Qty: 90 3RF Rx Instructions: leave on most painful area for up to 12 hrs cranberry 500 mg capsule 500 mg PO BID Rx Instructions: administer with meals peg 3350-electrolytes [Golytely] 236-22.74-6.74 -5.86 gram recon soln 240 ml PO Q10M 1 Days Qty: 4000 0RF Rx Instructions: until fecal effluent is clear; do not exceed a total volume of 2,000 mL bisacodyl [Dulcolax (bisacodyl)] 5 mg tablet,delayed release (DR/EC) 10 mg PO BEDTIME PRN Referrals: Duane Obregon MD [Primary Care Provider, Internal Medicine] - 08/28/25 Print Language: Persian
[2025-08-26 00:16] LABS: Troponin-I High Sensitivity < 2.7 ng/L (<3.5-17.0)
[2025-08-26] MEDS: iohexoL 350 MG/ML 100 ML INFUS..BTL 65 ML IV (01:03)
[2025-08-26 01:55] VITALS: BP 138/78; PULSE 81; RESP 17; TEMP 36.5; O2SAT 99
[2025-08-26 03:05] VITALS: BP 138/78; PULSE 81; RESP 17; TEMP 36.5; O2SAT 99
== END 2025-08-26 03:07 | disposition home or self-care (01) ==
PROVIDERS: Registered Nurse Emergency; Emergency Provider Emergency Medicine Emergency Medical Services; PCP Family Medicine
DX: R07.9 Chest pain, unspecified (principal); I10 Essential (primary) hypertension; E11.9 Type 2 diabetes mellitus without complications; Z79.899 Other long term (current) drug therapy
CPT/HCPCS: 36415; 71046; 71275; 80053; 83735; 84484; 85025; 85610; 93005; 99285; Q9967

== ENCOUNTER → 2025-08-25 17:17 | Outpatient (BNV) | payer MEDICARE, OTHER, SELFPAY | PROVIDERS: Emergency Provider Emergency Medicine Emergency Medical Services; PCP Family Medicine; Visit Provider Internal Medicine Cardiovascular Disease | DX: I49.3 Ventricular premature depolarization (principal) | CPT/HCPCS: 93010 ==

== ENCOUNTER → 2025-08-25 17:41 | Outpatient (BNV) | payer MEDICARE, OTHER, SELFPAY | PROVIDERS: PCP Family Medicine; Visit Provider Radiology Diagnostic Radiology | DX: R07.9 Chest pain, unspecified (principal) | CPT/HCPCS: 71046 ==

== ENCOUNTER → 2025-08-26 00:01 | Outpatient (BNV) | payer MEDICARE, OTHER, SELFPAY | PROVIDERS: Emergency Provider Emergency Medicine Emergency Medical Services; PCP Family Medicine; Visit Provider Radiology Diagnostic Radiology | DX: R07.9 Chest pain, unspecified (principal) | CPT/HCPCS: 71275 ==

== ENCOUNTER 2025-09-04 08:38 | Outpatient (AMB) | payer MEDICARE, OTHER, SELFPAY ==
--- NOTE | 2025-09-04 08:42 | A.OFFPC_ITS ---
Vital Signs 09/04/25 08:51 Height 4 ft 7 in Weight 133 lb 4 oz BMI 31.0 BP 126/70 Blood Pressure Location Lt brachial Position Sitting Respiration 17 Pulse 74 Pulse Source Pulse Oximeter Temp 97.7 F Temp Source Temporal Artery Scan Pulse Oximetry (%) 96 Oxygen Delivery Method Room Air Intake Visit Reasons: f/u diabetes, HTN Intake Note: Flakita presents in the office today for diabetes and hypertension. Patient has ER Visit 08/25/2025. EKG was done. Back spasms and pain in the (L) breast. Allergies risperidone (From Risperdal) Allergy (Unknown, Verified 09/04/25 08:45) Unknown ciprofloxacin (From Cipro) Allergy (Verified 09/04/25 08:45) Unknown cyclobenzaprine Allergy (Verified 09/04/25 08:45) Unknown Phenothiazines Allergy (Verified 09/04/25 08:45) Unknown prochlorperazine (From Compazine) Allergy (Verified 09/04/25 08:45) Unknown Tobacco use date assessed: 09/04/25 Dental Screening Dental Screen Date: 09/04/25 Did you have a dental visit in the last 12 months?: Yes Did you have a dental problem in the last 6 months where you did not have access to dental care?: No Was dental information given to patient?: Patient has dentist HPI f/u diabetes, HTN HPI Details 70 y/o female presents to f/u diabetes, HTN. A1c today 09/04/25 5.7%. She is on metformin 500mg daily. Blood pressure today 126/70, 74p. She is on amlodipine 10mg daily. Recent ED visit 08/25/25 for chest pain. Chest xray was negative. EKG: Sinus heart rate was 80 NV QRS QTC normal there was diffuse T-wave flattening noted. They still report ongoing discomfort along with back pain. Has not been taking anything for the pain as they feel heat/aleve has not been helping. HPI Comments History of Present Illness Details Documentation assistance for Duane Obregon MD, was provided by Kyle Willard,Katina Visual Effects Artist on 09/04/2025 at 9:07 AM NIRALI. I, Dr. Obregon, have read, observed, and verified documentation. [facility] Medical History Screening for osteoporosis Diverticulosis of colon Screening for colon cancer Stress incontinence, female Screening for cervical cancer Breast cancer screening by mammogram Encounter for annual wellness visit (AWV) in Medicare patient Adult general medical exam Laboratory exam ordered as part of routine general medical examination Diverticulitis Surgical History Status post right breast lumpectomy Hx of partial thyroidectomy H/O colonoscopy Hx of rotator cuff surgery Hx of appendectomy History of partial hysterectomy Family History Other Adopted person Social History (Updated 09/04/25 @ 08:47 by Estelle Metzger CMA) Household Members: Family Household Members Other:: brother and sister in law Housing: House Do you presently have visiting nurse or other home services: No Alcohol intake: never Patient Tobacco Use Status: Former Tobacco user Tobacco use type: Cigarette e-Cigarette/Vaping Use: Never Used Second Hand Smoke Exposure: Yes Advance Directives Date on File: 09/14/22 service: No Current occupational status: retired Sexual orientation: Decline to Answer Gender identity: Decline to answer Cognitive needs: No Hearing needs: No Vision needs: Yes Questionnaire Thrive Questionnaire Date Thrive assessed: 09/04/25 I am a: Patient What is your living situation today?: I have a steady place to live Within the past 12 months, did the food you bought not last and you didn't have the money to get more?: Never true Within the past 12 months, did you worry whether your food would run out before you got money to buy more?: Never true Do you have trouble paying for medicines?: No Do you have trouble getting transportation to medical appointments?: No Do you have trouble paying your heating and electricity bill?: No Do you have trouble taking care of your child, family member or friend?: No Do you have trouble with day-to-day activities such as bathing, preparing meals, shopping, managing finances, etc.?: No Are you currently unemployed and looking for a job?: No Are you interested in more education?: No Please select the resources that you would like help with: None Currently or been in a relationship where the following occur: No concerns reported THRIVE Score: 0 LEONA-7 AMB Questionnaire LEONA-7 Date LEONA - 7 assessed: 06/07/23 Source: Developed by Drs. Gurjit Stevenson, Martha Cruz, Khoa Montes and colleagues, with an educational vj from [employer] Review of Systems Const Denies chills, Denies fatigue, Denies fever(s), Denies headache(s) and Denies weakness ENT Denies dizziness and Denies headache(s) Card Reports chest pain and Denies dyspnea Resp Denies cough, Denies dyspnea, Denies wheezing and Denies other (shortness of breath) Musc Reports back pain, Denies numbness and Denies tingling Neuro Denies dizziness, Denies headache(s), Denies numbness, Denies tingling and Denies weakness Psych Denies anxiety and Denies depression Endo Denies fatigue Aller/Immun Denies wheezing Physical exam (Primary Care) Vital Signs: Last Vital Signs Temp 97.7 F 09/04/25 08:51 Pulse 74 09/04/25 08:51 Resp 17 09/04/25 08:51 BP 126/70 09/04/25 08:51 Pulse Ox 96 09/04/25 08:51 Oxygen Delivery Method Room Air 09/04/25 08:51 BMI result Body Mass Index 31.0 Tobacco/Smoking Status: Tobacco use Status Tobacco use date assessed 09/04/25 09/04/25 08:49 Patient Tobacco Use Status Former Tobacco user 09/04/25 08:47 Tobacco use type Cigarette 09/04/25 08:47 e-Cigarette/Vaping Use Never Used 09/04/25 08:47 Thrive Assessment: Date of Thrive Assessment Date Thrive assessed 09/04/25 09/04/25 08:49 Currently or been in a relationship where the following occur: No concerns reported Const General: well developed; No acute distress Nutritional Appearance: well nourished Orientation/consciousness: patient oriented x3 HENMT Head: Yes normocephalic and Yes atraumatic Eyes General: appearance normal, both eyes and all related structures Pupils: Equal, round and reactive pupils present EOM: EOMs intact bilaterally Resp Effort & Inspection: normal respiratory effort Neuro General: patient oriented x3 and gait normal Cranial nerves: Yes Equal, round and reactive pupils present Psych Affect: normal affect Results AMB Hemoglobin A1c AMB Hemoglobin A1c 5.7 % Last Edit by Estelle Metzger CMA on 09/04/25 09:02 Coding Level of Care Code Est Pt Level 4 (91353) Diagnoses Type 2 diabetes mellitus E11.9 Hypertension I10 Chest pain R07.9 Back pain M54.9 Assessment & Plan Assessment & Plan (1) Type 2 diabetes mellitus: Code(s): E11.9 - Type 2 diabetes mellitus without complications Category: Medical Plan: A1c improved from 6.1% to 5.7%. Good control. Goal is less than 7% Continue metformin and diabetic diet (2) Hypertension: Code(s): I10 - Essential (primary) hypertension Category: Medical Plan: Blood pressure is controlled. Goal is less than 140/90 Continue current medication (3) Chest pain: Code(s): R07.9 - Chest pain, unspecified Category: Medical (4) Back pain: Code(s): M54.9 - Dorsalgia, unspecified Category: Medical Plan Recent ED visit for chest pain and EKG, troponins and CTA ruled out ACS and PE Diagnosis was chest pain and she was given muscle relaxers Recommend naproxen b.i.d. She can use topical such as Aspercreme She can use intermittent heat Referring her for physical therapy Had been seen for chest and breast pain recently and has an upcoming appointment for a diagnostic mammogram as well. On exam today, her pain is primarily at left subscapularis and this is affecting posterior and carriage of her left shoulder Physical therapy as above. Orders: Orders AMB Hemoglobin A1c Today E11.9 - Type 2 diabetes mellitus without complications PT Evaluation and Treatment Today M25.512 - Pain in left shoulder, M89.8X1 - Other specified disorders of bone, shoulder, R29.3 - Abnormal posture Medications: New naproxen 500 mg PO BID PRN 60 tabs 0RF pain 30 days
[2025-09-04 08:51] VITALS: BP 126/70; PULSE 74; RESP 17; TEMP 36.5; O2SAT 96; BMI 31.0
--- OUTSIDE RECORDS SUMMARY | 2025-09-04 09:10 | XMS_ITS | Clinical Summary ---
Author Organization [facility] Address [address] [place] [address] Phone Care Team Providers Care Shadowgraph Operator Name Role Phone Duane Obregon MD Primary [...] file Insurance MEDICARE PART A & B [employer] MEDICARE SUPPLEMENT MEDICARE PART A & B [employer] MEDICARE SUPPLEMENT MEDICARE PART A & B [employer] MEDICARE SUPPLEMENT MEDICARE PART A & B [employer] MEDICARE SUPPLEMENT MEDICARE PART A & B [employer] MEDICARE SUPPLEMENT MEDICARE PART A & B [employer] MEDICARE SUPPLEMENT Care Teams Shadowgraph Operator Relationship Specialty Start Date End Date Duane Obregon MD [address] [place] [address] PCP - General Family Medicine 02/23/25 Additional Source Comments The information contained in this document represents components of the legal health record. It is not the complete legal health record.[facility]
--- OUTSIDE RECORDS SUMMARY | 2025-09-04 09:11 | XMS_ITS | Patient Health Record ---
Author Organization [facility] Address [address] [address] Care Team Providers Care Cement Finishing Supervisor Name Role Phone Yosef Bains Unavailable [phone] Suzi Guaman Unavailable [phone] Reason For Referral No Information Medications Medication SIG (Take, Route, Frequency, Duration) Notes Start Date End Date Status Fluticasone Propionate 50 MCG/ACT Suspension Nasal as directed 11/02/2008 Active Advair Diskus 100-50 MCG/DOSE Miscellaneous Inhalation as directed *Pick strength-form from [facility] for eRX* 11/02/2008 Active Ciprofloxacin HCl 500 [...] Mouth/Throat once a day *Pick strength-form from [facility] for eRX* 11/02/2008 Active HYDROcodone-Acetamino phen 10-325 MG Tablet Oral as needed 03/14/2017 Acti ve Pantoprazole Sodium 40 MG Tablet Delayed Release Oral take as directed 03/07/2012 Active Synthroid 150 MCG Tablet Oral once a day 12/02/2019 Active Flonase Allergy Relief 50 MCG/ACT Suspension Nasal as needed 12/18/2019 Active Multi-Day Vitamins Tablet Oral once a day *Reorder from [facility] for eRx and Interaction Alerts* 11/02/2008 Active [...] Oral once a day *Pick strength-form from [facility] for eRX* 11/02/2008 Active Immunizations Vaccine Route Administration Date Status Comme nts Influenza (split), seasonal, intradermal, preservative free Unknown 11/26/2014 Administered Influenza (split), seasonal, intradermal, preservative free Unknown 09/12/2019 Administered Pneumococcal conjugate PCV 13 Unknown 12/18/2019 Admini stered Problems Problem Type SNOMED Code ICD Code Onset Dates Problem Status W/U Status Risk Notes Problem Information temporarily unavailable Abdmnal pain epigastric (789.06) 2 Active confirmed Encounters Encounter Location Date Provider Diagnosis [facility] [address] [place] [address] 02/03/2025 Suzi Guaman Plan Of Treatment No Information Insurance Providers Payer Name Payer Address Payer Phone Subscriber Number Group Number Insured Name Patient Relationship to Insured Coverage Start Date Coverage End Date [place] Medicare Part B [id number] [address] [address] [place] [address] [id number] Flakita Barrera Self - patient is the insured For [employer] TR03 [address] [place], [place] [id number] Flakita Barrera Self - patient is the insured [facility] U001 [address] [place] [address] [id number] Alex Barrera [address] [facility] [address] [place] [address] [id number] Alex Barrera Other
--- OUTSIDE RECORDS SUMMARY | 2025-09-04 09:11 | XMS_ITS | Continuity of Care Document ---
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 [phone] Problems Active Problems Provider Date Hypothyroidism SOLE Ureña Onset: 2023 Essential hypertension SOLE [place]reña Onset: 02/05/2024 Pure hypercholesterolemia [place]LE [place] Ons et: 02/05/2024 Social History Type Date Description Comments Sex Female Sex Unknown Tobacco Use Start: Unknown End: Unknown Quit 1980 ETOH Use Never used alcohol Tobacco Use Start: Unknown End: Unknown Patient is a former smoker Allergies and adverse reactions Active Allergies Criticality Reaction Severity Comments Date Ciprofloxacin Unable to assess criticality 01/22/2024 Compazine Unable to assess criticality 01/22/2024 Flexeril Unable to assess criticality 01/22/2024 Phenothiazines Unable to assess criticality 01/22/2024 Medications Active Medications SIG Qnty Indications Ordering Provider Date Levothyroxine [id number] Tablets Take 1 Tablet By Mouth 6 Days A Week 77tabs Merline Carmona M.D. 03/05/2024 [id number] Tablets Take 1 Tablet By Mouth Twice Daily Shayy Bright PA Metformin [id number] Tablets Take 1 Tablet By Mouth Daily Duane Obregon MD Amlodipine [id number] Tablets Take 1 Tablet By Mouth Daily Yesi Shearer NP [id number] Tablets Take 1 Tablet By Mouth Twice Daily Jill Christine MD Vitamin W547aos (1999 Nv) Capsules 1 by mouth every day Unknown [...]
== END 2025-09-04 09:23 | disposition home or self-care (01) ==
LOC: HO.HMCFM 08:39
PROVIDERS: PCP Family Medicine; Visit Provider Family Medicine
DX: E11.9 Type 2 diabetes mellitus without complications (principal); I10 Essential (primary) hypertension; R07.9 Chest pain, unspecified; M54.9 Dorsalgia, unspecified

== ENCOUNTER → 2025-09-04 08:38 | Outpatient (BNVA) | payer MEDICARE, OTHER, SELFPAY | PROVIDERS: PCP Family Medicine; Visit Provider Family Medicine | DX: E11.9 Type 2 diabetes mellitus without complications (principal); I10 Essential (primary) hypertension; R07.9 Chest pain, unspecified; M54.9 Dorsalgia, unspecified; Z87.891 Personal history of nicotine dependence | CPT/HCPCS: 83036; 99212 ==

== ENCOUNTER 2025-09-18 07:37 | Outpatient (REF) | payer MEDICARE, OTHER, SELFPAY ==
--- OUTSIDE RECORDS SUMMARY | 2024-04-18 04:41 | XMS_ITS | Continuity of Care Document ---
Author Organization [facility] Address [address] [place] [address] Phone Care Team Providers Care Veterinary Meat Inspector Name Role Phone Lizette DOTYNLauraBetty Unavailable Unavailable Allergies, Adverse Reactions, Alerts Substance Reaction Status Criticality phenicarbazide Active No Informatio n Medications Medication Instructions Dosage Effective Dates (start - stop) Status Comments carbamazepine ER 100 mg capsule,extended release [id number] take 1 capsule by oral route every 12 hours 100 MG - Active amitriptyline 25 mg tablet take 1 Tablet by Oral route 3 times every day 1 Tablet - Active levothyroxine 25 mcg tablet take 1 tablet by ORAL route every day 25 MCG - Active lisinopril 20 mg tablet take 1 Tablet by oral route every day 20 MG - Active baclofen 10 mg tablet take 1 tablet by O RAL route 3 times every day 10 MG - Active citalopram 20 mg tablet take 1.5 tablet by ORAL route every day 30 MG - Active Procedures Procedure Date Payment Collected Follow-up, Detailed C/T 2nd Level Facet Jt / MBB Includes Nc uoro C/T 3rd Level Facet Jt / MBB Includes Nc uoro C/T First Level Facet Jt / MBB Includes Fluoro C/T First Level Facet Jt / MBB Includes Fluoro C/T 2nd Level Facet Jt / MBB Includes Nc uoro C/T 3rd Level Facet Jt / MBB Includes Nc uoro C/T First Level Facet Jt / MBB Includes Fluoro C/T 2nd Level Facet Jt / MBB Includes Nc uoro C/T 3rd Level Facet Jt / MBB Includes Fl uoro C/T First Level Facet Jt / MBB Includes Fluoro C/T 3rd Level Facet Jt / MBB Includes Fl uoro C/T 2nd Level Facet Jt / MBB Includes Fl uoro C/T First Level Facet Jt / MBB Includes Fluoro C/T 2nd Level Facet Jt / MBB Includes Fl uoro C/T 3rd Level Facet Jt / MBB Includes Fl uoro C/T First Level Facet Jt / MBB Includes Fluoro C/T 2nd Level Facet Jt / MBB Includes Fl uoro C/T 3rd Level Facet Jt / MBB Includes Fl uoro Spectrophotometry, analyte NEC 15 New Pt, Moderate 45min Drug screen, Each single drug class WARNING: Some information has been stripped due to its sensitive nature Advance Directives Directive Yes / No Effective Date File Name No Information Encounters Encounter Description Practice Location Reason(s) For Visit Diagnoses Date Provider Providers Copied on Encounter [facility], [address] [place] [address], [id number], tel:[phone] [employer] [place] [facility] No Information 4 Lizette Hernández. [address] [place] [address] [address], [place], [id number] , . tel:[phone] [facility], [address] [place] [address], [id number], tel:[phone] [employer] [place] [facility] No Information 6 Kitty Thrasher. [address] [place] [address], [id number] . tel:[phone] Referring Provider: Price Kate, [address] [place] [address] [address], [place], [place], [id number]. tel:[phone] Follow-up, Detailed [facility], [address] [place] [address], [id number], tel:[phone] [facility] neck Pain (chief complaint) Spondylosis w/o myelopathy or radiculopathy, cervical region 6 Kitty Thrasher. [address] [place] [address], [facility] [address], [place], [id number] . tel: [phone] Referring Provider: Price Kate, [address] [place] [address] [address], [place], [place], [id number]. tel:[phone] [facility], [address] [place] [address] [address], [id number], [place] tel:[phone] [facility] Spondylosis w/o myelopathy or radiculopathy, cervical region 6 Kitty Thrasher. [address] [place] [address] [address], [place], [id number] . tel: [phone] Referring Provider: Price Kate, [address] [place] [address] [address], [place], [place], [id number]. tel:[phone] [facility], [address] [place] [address], [id number], [place] tel:[phone] [facility] No Information 6 Kitty Thrasher. [address] [place] [address] [address], [place], [place], [id number] . tel: [phone] Referring Provider: Price Kate, [address] [place] [address] [address], [place], [place], [id number]. tel:[phone] [facility], [address] [place] [address] [address], [place], [id number], [place] tel:[phone] [facility] Spondylosis w/o myelopathy of cervical regionSpondylos is w/o myelopathy or radiculopathy, cervical region 5 Kitty Thrasher. [address] [place] [address], [facility] 200, [place], [place], [id number] . tel: [phone] Referring Provider: Price Kate, [address] [place] [address] [address], [place], [place], [id number]. tel:[phone] [facility], [address] [place] [address], [id number], tel:[phone] [facility] Spondylosis w/o myelopathy of cervical region 5 Kitty Thrasher. [address] [place] [address] [address], [id number] . tel: [phone] Referring Provider: Price Kate, [address] [place] [address] [address], [place], [place], [id number]. tel:[phone] [facility], [address] [place] [address], [id number], [place] tel:[phone] [facility] No Information 5 Kitty Thrasher. [address] [place] [address], [id number] . tel: [phone] Referring Provider: Price Kate, [address] [place] [address] [address], [place], [place], [id number]. 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 [address] [place] [address], [id number] . tel: [phone] Referring Provider: Price Kate, [address] [place] [address] [address], [place], [id number]. tel:[phone] New Pt, Moderate 45min [facility], [address] [place] [address], [id number], tel:[phone] [facility] neck Pain (chief complaint) bilateral arm pain (chief complaint) senior loan officer (current) use of opiate analgesicSpondy losis without myelopathy or radiculopathy, cervical regionSpinal stenosis, cervical regionRadiculop athy, cervical regionScoliosis , unspecified 5 Kitty Thrasher. [address] [place] [address] [address], [place], [id number] . tel: [phone] Referring Provider: Price Kate, [address] [facility] [address], [place], [place], [id number]. tel:[phone] Family History Family Member Type Diagnosis Age At Onset Father Problem (finding) Mother Problem (finding) Payers Payer name Insurance type Covered constitution party ID Authoriza tion(s) No Information Social History Type Description Quantity Date Captured Comments Sex Female Smoking Status No Information Chief Complaint And Reason For Visit No Information Plan Of Treatment Date Type Action Status No Information History Of Present Illness Encounter Date Complaint History Of Prese nt Illness neck Pain (comments) Patient is F/U from a MBB Cervical on 11/18/15. Overall patient states she had 50% improvement. States that occationally she still had some pain to the back of the neck at bedtime.pain is returning, diff head turning, 40% better only. R > L. The patient had short lasting relief each time with facet injections/medial nerve branch blocks and is looking for more sustained analgesia. neck Pain The severity of the problem is mild. Duration: 24 Hours. The problem has improved. The frequency of pain is constant. Location of pain is right lateral neck. There is radiation of pain to the bilateral head. The patient describes the pain as aching. Aggravating factors include turning head. The patient denies aggravating factors such as night pain. Associated symptoms include joint pain. Pertinent negatives include rash. bilateral arm pain Duration: luis a ies. Severity level is moderate-severe. It occurs constantly and is worsening. Location: bilateral. The pain is aching and throbbing. The pain is aggravated by lifting and movement. The pain is relieved by pain/RX meds and rest. neck Pain (comments) Patient sta michelle that she has had this pain since her fall 06/2015. states that her pain has gotten worse. states that her pain starts at the back of neck and radiates into bilateral shoulders. mri c-spine done at [facility]. Tramadol for painNP to shoulders; BL cerv radic; mainly R arm numb q hs, weakness BL,dropping itemsdur 3 month; SP fall in June coming out of trailer home, tripped over slider door base. hurt knees,wrists. Stoicfailed PT, tramadol; MRI: multilevel protrusions with some CSS C3-4, C4-5; sev BL C6,7 NFN Studies Reviewed MRI of Cervical Spine (W/O Contrast) performed on 08/19/2015. . neck Pain The problem is s evere. Duration: varies. The problem has worsened. The frequency of pain is constant. Location of pain is bilateral lateral neck, bilateral posterior neck and bilateral shoulder. The patient describes the pain as aching, sharp and throbbing. Aggravating factors include exertion, flexion, rotation, running and turning head. Relieving factors include narcotic analgesics and rest. Associated symptoms include joint pain. Pertinent negatives include rash. Instructions Date Instruction Additional Infor adams Instructed Swarm Patient Educati on Related to Spondylosis w/o myelopathy or radiculopathy, cervical region Instructed Swarm Patient Educati on Related to Spondylosis without myelopathy or radiculopathy, cervical region Assessments Type Assessment Date No Information
--- NOTE | ~2025-09-18 | MM_ITS ---
EXAMINATION(S): 1. MM DIAGNOSTIC DIGITAL BREAST TOMOSYNTHESIS, LEFT 2. Targeted ultrasound of the left breast CLINICAL INFORMATION: Pain in the upper inner quadrant. Today, patient also complaining of additional area of pain in the upper outer quadrant. COMPARISON: Comparison made to multiple prior, most recent bilateral mammogram on March 26, 2025, and most remote December 27, 2022. TECHNIQUE: Digital breast tomosynthesis is performed in mediolateral oblique, XCCL and craniocaudal views along with computer-aided detection (CAD). Synthesized 2D images are generated from the tomosynthesis. FINDINGS: BREAST COMPOSITION: There are scattered areas of fibroglandular density. LEFT BREAST: No significant masses, suspicious calcifications or other abnormalities are seen. In particular, no mammographic abnormality adjacent to the triangular skin markers placed in the upper inner quadrant middle depth and upper outer quadrant posterior depth. Targeted ultrasound of the left breast was performed at the location of the pain as indicated by the patient. -Centered at 2 o'clock position 14 cm from the nipple: A benign-appearing lymph node measuring 1.7 x 0.8 x 1.3 cm with thin cortex and demonstrable hilar vascularity is seen (patient has history of 2 recent vaccines one month ago). No suspicious sonographic abnormalities seen during the survey. -Centered at 11:00 positions at 11 cm from the nipple. No suspicious sonographic abnormalities seen during the survey. MM/MM tomosynthesis diagnostic LT IMPRESSION: LEFT BREAST: Benign, no evidence of malignancy. Clinical follow-up is recommended. Otherwise, patient may return to routine bilateral screening mammogram expected in March 2026. ASSESSMENT: BI-RADS: Category 2: Benign RECOMMENDATION: 1 year F/U Results were provided to the patient at time of visit by the technologist. This patient's information was entered into a reminder system with a target due date for their next mammogram. Electronically signed by: Kinga Boyle MD 09/18/2025 08:28 AM [facility]
--- OUTSIDE RECORDS SUMMARY | 2025-09-18 07:39 | XMS_ITS | Clinical Summary ---
Author Organization [facility] Address [address] [place] [address] Phone Care Team Providers Care Fruit Preserver Name Role Phone Duane Obregon MD Primary [...] file Insurance MEDICARE PART A & B [employer] MEDICARE SUPPLEMENT MEDICARE PART A & B [employer] MEDICARE SUPPLEMENT MEDICARE PART A & B [employer] MEDICARE SUPPLEMENT MEDICARE PART A & B [employer] MEDICARE SUPPLEMENT MEDICARE PART A & B [employer] MEDICARE SUPPLEMENT MEDICARE PART A & B [employer] MEDICARE SUPPLEMENT Care Teams Fruit Preserver Relationship Specialty Start Date End Date Duane Obregon MD PCP - General Family Medicine 02/23/25 Additional Source Comments The information contained in this document represents components of the legal health record. It is not the complete legal health record.[facility]
--- OUTSIDE RECORDS SUMMARY | 2025-09-18 07:40 | XMS_ITS | Patient Health Record ---
Author Organization [facility] Address [address] [address] Care Team Providers Care Improvement Analyst Name Role Phone Yosef Bains Unavailable [phone] Suzi Guaman Unavailable [phone] Reason For Referral No Information Medications Medication SIG (Take, Route, Frequency, Duration) Notes Start Date End Date Status Fluticasone Propionate 50 MCG/ACT Suspension Nasal as directed 11/02/2008 Active Advair Diskus 100-50 MCG/DOSE Miscellaneous Inhalation as directed *Pick strength-form from [facility] for eRX* 11/02/2008 Active Ciprofloxacin HCl 500 [...] Mouth/Throat once a day *Pick strength-form from [facility] for eRX* 11/02/2008 Active HYDROcodone-Acetamino phen 10-325 MG Tablet Oral as needed 03/14/2017 Acti ve Pantoprazole Sodium 40 MG Tablet Delayed Release Oral take as directed 03/07/2012 Active Synthroid 150 MCG Tablet Oral once a day 12/02/2019 Active Flonase Allergy Relief 50 MCG/ACT Suspension Nasal as needed 12/18/2019 Active Multi-Day Vitamins Tablet Oral once a day *Reorder from [facility] for eRx and Interaction Alerts* 11/02/2008 [...] Oral once a day *Pick strength-form from [facility] for eRX* 11/02/2008 Active Immunizations Vaccine Route Administration Date Status Comme nts Influenza (split), seasonal, intradermal, preservative free Unknown 11/26/2014 Administered Influenza (split), seasonal, intradermal, preservative free Unknown 09/12/2019 Administered Pneumococcal conjugate PCV 13 Unknown 12/18/2019 Admini stered Problems Problem Type SNOMED Code ICD Code Onset Dates Problem Status W/U Status Risk Notes Problem Epigastric pain (21655699) Abdmnal pain epigastric (789.06) 03/07/2012 Active confirmed Encounters Encounter Location Date Provider Diagnosis [facility] [address] [place] [address] 02/03/2025 Suzi Guaman Plan Of Treatment No Information Insurance Providers Payer Name Payer Address Payer Phone Subscriber Number Group Number Insured Name Patient Relationship to Insured Coverage Start Date Coverage End Date [place] Medicare Part B [id number] [address] [address] [place] [address] [id number] Flakita Barrera Self - patient is the insured [employer] TR03 [address] [place], [place] [id number] Flakita Barrera Self - patient is the insured [facility] U001 [address] [place] [address] [id number] Alex Barrera [address] [place] [address] [address] [place] [address] [id number] Alex Barrera Other
--- OUTSIDE RECORDS SUMMARY | 2025-09-18 07:40 | XMS_ITS | Data Portability ---
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 Plan of Treatment Reminders Order Date Submit Date Provider Last Modified By Organization Details Last Modified Time Details Appointments None recorded. Lab TSH, serum or plasma 2021 022 [facility], [address], [place], [address], 14:42:07 T4, free, serum 2021 022 [facility], [address] [place], [address], 14:42:06 CMP, serum or plasma 2021 022 [facility], [address], [place], [address], 14:42:03 HbA1c (hemoglobin A1c), blood 2021 022 [facility], [address], [place], [address], 14:42:01 lipid panel, serum 2021 022 [facility], [address], [place], [address], 14:42:04 CBC 2021 022 [facility], [address], [place], [address], 14:42:02 HbA1c (hemoglobin A1c), blood 2021 022 [email or web address] [email or web address] [facility], [address], [place], [address], 13:57:21 CMP, serum or plasma [email or web address], [address], [place], [address], 2 13:57:21 CBC 2021 022 [email or web address] am14 [facility], [address], [place], [address], 3 09:00:56 HbA1c (hemoglobin A1c), blood 2021 022 [email or web address] [facility], [address], [place], [address], 2 09:57:48 CMP, serum or plasma 2021 022 [email or web address] am14 [facility], [address], [place], [address], 2 13:57:21 CBC 2021 022 [email or web address] [email or web address] [facility], [address], [place], [address], 3 09:00:56 lipid panel, serum 2021 [facility]22 [facility], [address], [place], [address], 2 09:57:48 lipid panel, serum 2021 022 [facility], [address], [place], [address], 2 09:57:48 TSH, serum or plasma 2021 022 [facility] am14 [facility], [address], [place], [address], 2 13:57:21 TSH, serum or plasma 2021 022 [facility], [address], [place], [address], 2 13:57:22 HbA1c (hemoglobin A1c), blood 2020 021 [facility], [address], [place], [address], 2 14:38:27 CMP, serum or plasma 2020 021 [facility], [address], [place], [address], 2 14:38:28 CBC 2020 021 [facility], [address], [place], [address], 2 14:38:28 TSH, serum or plasma 2020 021 [facility], [address], [place], [address], 14:38:29 HbA1c (hemoglobin A1c), blood 2020 021 [facility], [address], [place], [address], 14:12:27 CMP, serum or plasma 2020 021 [facility], [address], [place], [address], 14:12:28 CBC 2020 021 [facility], [address], [place], [address], 14:12:28 TSH, serum or plasma 2020 021 [facility], [address], [place], [address], 14:12:30 lipid panel, serum 2020 021 [facility], [address], [place], [address], 14:12:29 Referral None recorded. Procedures None recorded. Surgeries None recorded. Imaging MRI, lumbar spine, w/o contrast 2021 022 [facility], [facility], All Locations, [place], [address], 14:13:05 MAMMO, screening, digital, bilateral 2021 [address] [facility] [address], [facility], All Locations, [place], [address], 2 10:32:44 CT, abdomen + pelvis, w/o contrast 2020 [facility], [facility], All Locations, [place], [address], 1 10:00:31 Medication Orders lidocaine 5 % topical patch 2021 [facility], [address] [place] [address], [address], 2 17:16:21 nystatin-tr iamcinolone 100,000 unit/gram-0 .1 % topical ointment 2021 [id number], [address], [place], [id number], 2 11:22:33 hydrocodone 10 mg-acetamin ophen 325 mg tablet 2021 [id number], [address], [place], [id number], 2 11:22:34 amlodipine 10 mg tablet 2021 [facility], [address] [place] [address], [address], 2 12:33:34 levothyroxi ne 150 mcg tablet 2020 [facility], [address] [place] [address], [address], 1 10:52:17 Kenalog 40 mg/mL suspension for injection [address] [facility], [address] [place] [address], [address], 09:49:10 Patient TargetsNo targets recorded. Patient Instructions Encounter Date Encounter Id Patient Instructions Last Modified By Organization Details Last Modified Time 06/23/2021 [id number] controlling your asthma: care instructions hleppert Not available 06/23/2021 10:57:48 learning about asthma hleppert Not available 06/23/2021 10:57:48 Starting a Weight-Loss Plan: Care Instructions hleppert Not available 06/23/2021 10:19:38 let me know if t he shot does not help increasing levothyroxine to 150mcg one pill daily blood work before next visit hleppert Not available 06/23/2021 10:19:07 10/14/2021 [id number] gastroesophageal reflux disease (GERD): care instructions hleppert Not available 10/14/2021 10:00:31 hypothyroidism: care instructions hleppert Not available 10/14/2021 10:00:31 Starting a Weight-Loss Plan: Care Instructions hleppert Not available 10/14/2021 10:00:31 re start famotid ine 1 pill in am and 1 pill in pm cat scan today all your labs look ok hleppert Not available 10/14/2021 09:51:42 10/21/2021 [id number] hypothyroidism: care instructions hleppert Not available 10/21/2021 13:47:09 Starting a Weight-Loss Plan: Care Instructions hleppert Not available 10/21/2021 13:37:51 finish antibioti cs go get probiotics and start 2 capsules daily til the bottle is empty blood work before next visit hleppert Not available 10/21/2021 13:39:44 02/17/2022 [id number] gastroesophageal reflux disease (GERD): care instructions hleppert Not available 02/17/2022 11:22:20 heart-healthy di et: care instructions hleppert Not available 02/17/2022 11:22:21 advance directiv es: care instructions hleppert Not available 02/17/2022 11:22:21 learning about living arizmendi hleppert Not available 02/17/2022 11:22:21 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 hleppert Not available 02/17/2022 11:22:22 preventing [...] day hleppert Not available 02/17/2022 11:19:38 05/29/2022 [id number] controlling your asthma: care instructions hleppert Not [...] vascu alr compl icati ons Not Available [email or web address] [address] [place], [address], 06/16/2021 14:59:55 06/16/2006/16/2021 A1C estimated average glucose _I 131.2 mg/dL 97.0-1 40.0 Not Available [facility] [address] [place], [address], 06/16/2021 14:59:55 06/16/20 21 06/16/2021 CBC W/ AUTOD IFF, COMPL ETE BLOOD COUNT WBC_I 6.50 3.60-1 0.00 Not Available [facility] [address], [place], [address], 06/16/2021 14:59:56 06/16/20 21 06/16/2021 CBC W/ AUTOD IFF, COMPL ETE BLOOD COUNT nucleated RBC 0.20 % 0.00-2 .00 Not Available [facility] [address], [place], [address], 06/16/2021 14:59:56 06/16/20 21 06/16/2021 CBC W/ AUTOD IFF, COMPL ETE BLOOD COUNT RBC 4.69 M/uL 3.90-5 .00 Not Available [facility], [place], [address], 06/16/2021 14:59:56 06/16/20 21 06/16/2021 CBC W/ AUTOD IFF, COMPL ETE BLOOD COUNT hemoglobin 14.8 g/dL 12.0-1 5.0 Not Available [facility], [place], [address], 06/16/2021 14:59:56 06/16/20 21 06/16/2021 CBC W/ AUTOD IFF, COMPL ETE BLOOD COUNT hematocrit 44.50 % 35.00- 45.00 Not Available [facility] [address], [place], [address], 06/16/2021 14:59:56 06/16/20 21 06/16/2021 CBC W/ AUTOD IFF, COMPL ETE BLOOD COUNT MCV 95.0 fL 80.0-9 9.0 Not Available [facility] [address], [place], [address], 06/16/2021 14:59:56 06/16/20 21 06/16/2021 CBC W/ AUTOD IFF, COMPL ETE BLOOD COUNT MCH 31.5 pg 27.0-3 3.0 Not Available [facility], [place], [address], 06/16/2021 14:59:56 06/16/20 21 06/16/2021 CBC W/ AUTOD IFF, COMPL ETE BLOOD COUNT MCHC 33.1 g/dL 32.0-3 6.0 Not Available [facility], [place], [address], 06/16/2021 14:59:56 06/16/20 21 06/16/2021 CBC W/ AUTOD IFF, COMPL ETE BLOOD COUNT platelets 242 K/uL 140-44 0 Not Available [facility] [address] [place] [address] [address], [place], [address], 06/16/2021 14:59:56 06/16/20 21 06/16/2021 CBC W/ AUTOD IFF, COMPL ETE BLOOD COUNT RDW_I 13.3 % 11.0-1 5.0 Not Available [facility] [address] [place] [address] [address], [place], [address], 06/16/2021 14:59:56 06/16/20 21 06/16/2021 CBC W/ AUTOD IFF, COMPL ETE BLOOD COUNT MPV 9.6 fL 7.4-10 .4 Not Available [facility], [place], [address], 06/16/2021 14:59:56 06/16/20 21 06/16/2021 CBC W/ AUTOD IFF, COMPL ETE BLOOD COUNT neutrophil, percentage 52.5 % 40.0-7 5.0 Not Available [facility] [address], [place], [address], 06/16/2021 14:59:56 06/16/20 21 06/16/2021 CBC W/ AUTOD IFF, COMPL ETE BLOOD COUNT lymphocyte, percentage 37.3 % 15.0-4 5.0 Not Available [facility] [address] [place], [place] [address]y [address], [place], [address], 06/16/2021 14:59:56 06/16/20 21 06/16/2021 CBC W/ AUTOD IFF, COMPL ETE BLOOD COUNT monocyte, percentage 5.4 % 4.0-9. 0 Not Available [facility] [address] [place], [place] [address]y [address], [place], [address], 06/16/2021 14:59:56 06/16/20 21 06/16/2021 CBC W/ AUTOD IFF, COMPL ETE BLOOD COUNT eosinophil, percentage 3.7 % 1.0-6. 0 Not Available [facility] [address] [place], [place] [address], [place], [address], 06/16/2021 14:59:56 06/16/20 21 06/16/2021 CBC W/ AUTOD IFF, COMPL ETE BLOOD COUNT basophil, percentage 1.1 % 0.0-2. 0 Not Available [facility] [address] [place], [place] [address], [place], [address], 06/16/2021 14:59:56 06/16/20 21 06/16/2021 CBC W/ AUTOD IFF, COMPL ETE BLOOD COUNT neutrophil, absolute 3.4 K/uL 1.5-7. 5 Not Available [facility] [address] [place], [place] [address]y [address], [place], [address], 06/16/2021 14:59:56 06/16/20 21 06/16/2021 CBC W/ AUTOD IFF, COMPL ETE BLOOD COUNT lymphocyte, absolute 2.4 K/uL 0.8-4. 0 Not Available [facility] [address], [place], [address], 06/16/2021 14:59:56 06/16/20 21 06/16/2021 CBC W/ AUTOD IFF, COMPL ETE BLOOD COUNT monocyte, absolute 0.4 K/uL 0.1-1. 0 Not Available [facility] [address], [place], [address], 06/16/2021 14:59:56 06/16/20 21 06/16/2021 CBC W/ AUTOD IFF, COMPL ETE BLOOD COUNT eosinophil, absolute 0.2 K/uL 0.1-1. 0 Not Available [facility] [address] [place] [address] [address] [place], [address], 06/16/2021 14:59:56 06/16/20 21 06/16/2021 CBC W/ AUTOD IFF, COMPL ETE BLOOD COUNT basophil, absolute 0.1 K/uL 0.0-0. 2 Not Available [facility] [address] [place] [address] [address], [place], [address], 06/16/2021 14:59:56 06/16/20 21 06/16/2021 CMP, COMPR EHENS DELPHINE METAB OLIC PANEL glucose 122 mg/dL 70-100 high Not Available [facility] [address] [place], [place] [address]y [address], [place], [address], 06/16/2021 14:59:57 06/16/20 21 06/16/2021 CMP, COMPR EHENS DELPHINE METAB OLIC PANEL BUN 14 mg/dL 7-25 Not Available [facility] [address] [place], [place] [address]y [address], [place], [address], 06/16/2021 14:59:57 06/16/20 21 06/16/2021 CMP, COMPR EHENS DELPHINE METAB OLIC PANEL creatinine 0.9 mg/dL 0.6-1. 3 Not Available [facility] [address] [facility] [address] [place], [address], 06/16/2021 14:59:57 06/16/20 21 06/16/2021 CMP, COMPR EHENS DELPHINE METAB OLIC PANEL BUN/creatini ne ratio 16 calc 10-25 Not Available [facility] [address] [facility] [address] [place], [address], 06/16/2021 14:59:57 06/16/20 21 06/16/2021 CMP, COMPR EHENS DELPHINE METAB OLIC PANEL eGFR 81 mL/mi n/1.7 3m2 >60 THREE CONSE CUTIV E VALUE S <60 mL/mi n COULD BE INDIC ATIVE OF KIDNE Y DISEA SE. Not Available [facility] [address] [facility] [address] [place], [address], 06/16/2021 14:59:57 06/16/20 21 06/16/2021 CMP, COMPR EHENS DELPHINE METAB OLIC PANEL eGFR non- 66 mL/mi n/1.7 3m2 >60 THREE CONSE CUTIV E VALUE S < 60 mL/mi n COULD BE INDIC ATIVE OF KIDNE Y DISEA SE Not Available [facility] [address] [facility] [address] [place], [address], 06/16/2021 14:59:57 06/16/20 21 06/16/2021 CMP, COMPR EHENS DELPHINE METAB OLIC PANEL sodium 142 mmol/ L 135-14 5 Not Available [facility] [address] [facility] [address] [place], [address], 06/16/2021 14:59:57 06/16/20 21 06/16/2021 CMP, COMPR EHENS DELPHINE METAB OLIC PANEL potassium 4.1 mmol/ L 3.5-5. 5 Not Available [facility] [address], [place], [address], 06/16/2021 14:59:57 06/16/20 21 06/16/2021 CMP, COMPR EHENS DELPHINE METAB OLIC PANEL chloride 104 mmol/ L 100-11 5 Not Available [facility] [address], [place], [address], 06/16/2021 14:59:57 06/16/20 21 06/16/2021 CMP, COMPR EHENS DELPHINE METAB OLIC PANEL CO2 25 mmol/ L 21-33 Not Available [facility] [address], [place], [address], 06/16/2021 14:59:57 06/16/20 21 06/16/2021 CMP, COMPR EHENS DELPHINE METAB OLIC PANEL anion gap 12.9 calc 3.0-11 .0 high Not Available [facility] [address] [facility] [address], [place], [address], 06/16/2021 14:59:57 06/16/20 21 06/16/2021 CMP, COMPR EHENS DELPHINE METAB OLIC PANEL calcium 9.3 mg/dL 8.8-10 .6 Not Available [facility] [address] [facility] [address], [place], [address], 06/16/2021 14:59:57 06/16/20 21 06/16/2021 CMP, COMPR EHENS DELPHINE METAB OLIC PANEL total protein 7.3 g/dL 6.2-8. 6 Not Available [facility] [address], [place], [address], 06/16/2021 14:59:57 06/16/20 21 06/16/2021 CMP, COMPR EHENS DELPHINE METAB OLIC PANEL albumin 4.0 g/dL 3.5-5. 7 Not Available [facility] [address] [facility] [address], [place], [address], 06/16/2021 14:59:57 06/16/20 21 06/16/2021 CMP, COMPR EHENS DELPHINE METAB OLIC PANEL globuln 3.3 g/dL 1.3-4. 0 Not Available [facility] [address], [place], [address], 06/16/2021 14:59:57 06/16/20 21 06/16/2021 CMP, COMPR EHENS DELPHINE METAB OLIC PANEL A/G ratio 1.2 calc 1.0-2. 8 Not Available [facility] [address], [place], [address], 06/16/2021 14:59:57 06/16/20 21 06/16/2021 CMP, COMPR EHENS DELPHINE METAB OLIC PANEL AST (SGOT) 25 U/L 13-39 Not Available [facility] [address], [place], [address], 06/16/2021 14:59:57 06/16/20 21 06/16/2021 CMP, COMPR EHENS DELPHINE METAB OLIC PANEL ALT (SGPT) 25 U/L 7-52 Not Available [facility] [address] [place], [place] [address]y [address] [place], [address], 06/16/2021 14:59:57 06/16/20 21 06/16/2021 CMP, COMPR EHENS DELPHINE METAB OLIC PANEL alkaline phosphatase 114 U/L 20-128 Not Available [facility] [address], [place], [address], 06/16/2021 14:59:57 06/16/20 21 06/16/2021 CMP, COMPR EHENS DELPHINE METAB OLIC PANEL total bilirubin 0.35 mg/dL 0.30-1 .00 Not Available [facility] [address] [facility] [address], [place], [address], 06/16/2021 14:59:57 06/16/20 21 06/16/2021 LIPID PANEL W/ CALCU LATED LDL cholesterol 175 mg/dL 20-180 Expec bashir Range for Adult s: Total Cheryl stero l: Risk Class ifica tion: <200 mg/dl Coleman able 200-2 39 mg/dl Borde rline high > 240 mg/dl High Not Available [facility] [address] [facility] [address], [place], [address], 06/16/2021 14:59:58 06/16/20 21 06/16/2021 LIPID PANEL W/ CALCU LATED LDL triglyceride 126 mg/dL 30-150 Not Available [facility] [address] [facility] [address] [place], [address], 06/16/2021 14:59:58 06/16/20 21 06/16/2021 LIPID PANEL W/ CALCU LATED LDL HDL cholesterol 62 mg/dL 23-92 Not Available [facility] [address] [facility] [address] [place], [address], 06/16/2021 14:59:58 06/16/20 21 06/16/2021 LIPID PANEL W/ CALCU LATED LDL chol/HDL risk ratio 3 calc <3.5 is OPTIM AL Not Available [facility] [address] [facility] [address], [place], [address], 06/16/2021 14:59:58 06/16/20 21 06/16/2021 LIPID PANEL W/ CALCU LATED LDL LDL-calculat ed 88 mg/dL Not Available [facility] [address] [facility] [address] [place], [address], 06/16/2021 14:59:58 08/05/20 21 06/16/2021 LIPID PANEL W/ CALCU LATED LDL non-HDL cholesterol 113 mg/dL COLEMAN ABLE IS <130 mg/dl Not Available [facility] [address] [facility] [address], [place], [address], 06/16/2021 14:59:58 06/16/20 21 06/16/2021 LIPID PANEL W/ CALCU LATED LDL VLDL cholesterol 25.20 mg/dL Not Available [facility] [address] [facility] [address], [place], [address], 06/16/2021 14:59:58 06/16/20 21 06/16/2021 TSH, THYRO ID STIMU LATIN G HORMO NE TSH 31.200 0 uIU/m L 0.2700 -4.200 0 high Not Available [facility] [address] [facility] [address], [place], [address], 06/16/2021 14:59:59 06/16/20 21 06/16/2021 VENIP UNCTU RE results Compl ete Not Available [facility] [address] [facility] [address], [place], [address], 06/16/2021 12:34:23 09/30/20 21 09/30/2021 A1C hemoglobin [...] vascu alr compl icati ons Not Available [facility] [address] [facility] [address], [place], [address], 09/30/2021 14:12:27 09/30/20 21 09/30/2021 A1C estimated average glucose _I 134.1 mg/dL 97.0-1 40.0 Not Available [facility] [address], [place], [address], 09/30/2021 14:12:27 09/30/20 21 09/30/2021 CBC W/ AUTOD IFF, COMPL ETE BLOOD COUNT WBC_I 4.50 3.60-1 0.00 Not Available [facility] [address], [place], [address], 09/30/2021 14:12:28 09/30/20 21 09/30/2021 CBC W/ AUTOD IFF, COMPL ETE BLOOD COUNT nucleated RBC 0.10 % 0.00-2 .00 Not Available [facility] [address], [place], [address], 09/30/2021 14:12:28 09/30/20 21 09/30/2021 CBC W/ AUTOD IFF, COMPL ETE BLOOD COUNT RBC 4.52 M/uL 3.90-5 .00 Not Available [facility] [address], [place], [address], 09/30/2021 14:12:28 09/30/20 21 09/30/2021 CBC W/ AUTOD IFF, COMPL ETE BLOOD COUNT hemoglobin 14.4 g/dL 12.0-1 5.0 Not Available [facility] [address], [place], [address], 09/30/2021 14:12:28 09/30/20 21 09/30/2021 CBC W/ AUTOD IFF, COMPL ETE BLOOD COUNT hematocrit 42.50 % 35.00- 45.00 Not Available [facility] [address], [place], [address], 09/30/2021 14:12:28 09/30/20 21 09/30/2021 CBC W/ AUTOD IFF, COMPL ETE BLOOD COUNT MCV 93.9 fL 80.0-9 9.0 Not Available [facility] [address], [place], [address], 09/30/2021 14:12:28 09/30/20 21 09/30/2021 CBC W/ AUTOD IFF, COMPL ETE BLOOD COUNT MCH 31.8 pg 27.0-3 3.0 Not Available [facility] [address], [place], [address], 09/30/2021 14:12:28 09/30/20 21 09/30/2021 CBC W/ AUTOD IFF, COMPL ETE BLOOD COUNT MCHC 33.8 g/dL 32.0-3 6.0 Not Available [facility] [address], [place], [address], 09/30/2021 14:12:28 09/30/20 21 09/30/2021 CBC W/ AUTOD IFF, COMPL ETE BLOOD COUNT platelets 201 K/uL 140-44 0 Not Available [facility] [address], [place], [address], 09/30/2021 14:12:28 09/30/20 21 09/30/2021 CBC W/ AUTOD IFF, COMPL ETE BLOOD COUNT RDW_I 13.1 % 11.0-1 5.0 Not Available [facility] [address], [place], [address], 09/30/2021 14:12:28 09/30/20 21 09/30/2021 CBC W/ AUTOD IFF, COMPL ETE BLOOD COUNT MPV 9.4 fL 7.4-10 .4 Not Available [facility] [address], [place], [address], 09/30/2021 14:12:28 09/30/20 21 09/30/2021 CBC W/ AUTOD IFF, COMPL ETE BLOOD COUNT neutrophil, percentage 45.6 % 40.0-7 5.0 Not Available [facility] [address] [place], [place] [address]y [address], [place], [address], 09/30/2021 14:12:28 09/30/20 21 09/30/2021 CBC W/ AUTOD IFF, COMPL ETE BLOOD COUNT lymphocyte, percentage 42.0 % 15.0-4 5.0 Not Available [facility] [address], [place], [address], 09/30/2021 14:12:28 09/30/20 21 09/30/2021 CBC W/ AUTOD IFF, COMPL ETE BLOOD COUNT monocyte, percentage 7.6 % Not Available [facility] [address] [place], [place] [address]y [address], [place], [address], 09/30/2021 14:12:28 09/30/20 21 09/30/2021 CBC W/ AUTOD IFF, COMPL ETE BLOOD COUNT eosinophil, percentage 4.0 % 1.0-6. 0 Not Available [facility] [address] [place], [place] [address]y [address], [place], [address], 09/30/2021 14:12:28 09/30/20 21 09/30/2021 CBC W/ AUTOD IFF, COMPL ETE BLOOD COUNT basophil, percentage 0.8 % 0.0-2. 0 Not Available [facility] [address], [place], [address], 09/30/2021 14:12:28 09/30/20 21 09/30/2021 CBC W/ AUTOD IFF, COMPL ETE BLOOD COUNT neutrophil, absolute 2.0 K/uL 1.5-7. 5 Not Available [facility] [address] [place], [place] [address] [address], [place], [address], 09/30/2021 14:12:28 09/30/20 21 09/30/2021 CBC W/ AUTOD IFF, COMPL ETE BLOOD COUNT lymphocyte, absolute 1.9 K/uL 0.8-4. 0 Not Available [facility] [address] [facility] [address], [place], [address], 09/30/2021 14:12:28 09/30/20 21 09/30/2021 CBC W/ AUTOD IFF, COMPL ETE BLOOD COUNT monocyte, absolute 0.3 K/uL 0.1-1. 0 Not Available [facility] [address] [facility] [address], [place], [address], 09/30/2021 14:12:28 09/30/20 21 09/30/2021 CBC W/ AUTOD IFF, COMPL ETE BLOOD COUNT eosinophil, absolute 0.2 K/uL 0.1-1. 0 Not Available [facility] [address] [place], [place] [address], [place], [address], 09/30/2021 14:12:28 09/30/20 21 09/30/2021 CBC W/ AUTOD IFF, COMPL ETE BLOOD COUNT basophil, absolute 0.0 K/uL 0.0-0. 2 Not Available [facility] [address] [facility] [address], [place], [address], 09/30/2021 14:12:28 09/30/20 21 09/30/2021 CMP, COMPR EHENS DELPHINE METAB OLIC PANEL glucose 113 mg/dL 70-100 high Not Available [facility] [address] [facility] [address], [place], [address], 09/30/2021 14:12:28 09/30/20 21 09/30/2021 CMP, COMPR EHENS DELPHINE METAB OLIC PANEL BUN 14 mg/dL 7-25 Not Available [facility] [address] [facility] [address] [place], [address], 09/30/2021 14:12:28 09/30/20 21 09/30/2021 CMP, COMPR EHENS DELPHINE METAB OLIC PANEL creatinine 0.8 mg/dL 0.6-1. 3 Not Available [facility] [address] [facility] [address] [place], [address], 09/30/2021 14:12:28 09/30/20 21 09/30/2021 CMP, COMPR EHENS DELPHINE METAB OLIC PANEL BUN/creatini ne ratio 18 calc 10-25 Not Available [facility] [address] [facility] [address] [place], [address], 09/30/2021 14:12:28 09/30/20 21 09/30/2021 CMP, COMPR EHENS DELPHINE METAB OLIC PANEL eGFR 92 mL/mi n/1.7 3m2 >60 THREE CONSE CUTIV E VALUE S <60 mL/mi n COULD BE INDIC ATIVE OF KIDNE Y DISEA SE. Not Available [facility] [address] [facility] [address] [place], [address], 09/30/2021 14:12:28 09/30/20 21 09/30/2021 CMP, COMPR EHENS DELPHINE METAB OLIC PANEL eGFR non- 76 mL/mi n/1.7 3m2 >60 THREE CONSE CUTIV E VALUE S < 60 mL/mi n COULD BE INDIC ATIVE OF KIDNE Y DISEA SE Not Available [facility] [address] [facility] [address] [place], [address], 09/30/2021 14:12:28 09/30/20 21 09/30/2021 CMP, COMPR EHENS DELPHINE METAB OLIC PANEL sodium 141 mmol/ L 135-14 5 Not Available [facility] [address] [facility] [address] [place], [address], 09/30/2021 14:12:28 09/30/20 21 09/30/2021 CMP, COMPR EHENS DELPHINE METAB OLIC PANEL potassium 4.2 mmol/ L 3.5-5. 5 Not Available [facility] [address], [place], [address], 09/30/2021 14:12:28 09/30/20 21 09/30/2021 CMP, COMPR EHENS DELPHINE METAB OLIC PANEL chloride 103 mmol/ L 100-11 5 Not Available [facility] [address], [place], [address], 09/30/2021 14:12:28 09/30/20 21 09/30/2021 CMP, COMPR EHENS DELPHINE METAB OLIC PANEL CO2 26 mmol/ L 21-33 Not Available [facility] [address], [place], [address], 09/30/2021 14:12:28 09/30/20 21 09/30/2021 CMP, COMPR EHENS DELPHINE METAB OLIC PANEL anion gap 11.8 calc 3.0-11 .0 high Not Available [facility] [address] [facility] [address], [place], [address], 09/30/2021 14:12:28 09/30/20 21 09/30/2021 CMP, COMPR EHENS DELPHINE METAB OLIC PANEL calcium 9.0 mg/dL 8.8-10 .6 Not Available [facility] [address], [place], [address], 09/30/2021 14:12:28 09/30/20 21 09/30/2021 CMP, COMPR EHENS DELPHINE METAB OLIC PANEL total protein 7.0 g/dL 6.2-8. 6 Not Available [facility] [address], [place], [address], 09/30/2021 14:12:28 09/30/20 21 09/30/2021 CMP, COMPR EHENS DELPHINE METAB OLIC PANEL albumin 4.2 g/dL 3.5-5. 7 Not Available [facility] [address], [place], [address], 09/30/2021 14:12:28 09/30/20 21 09/30/2021 CMP, COMPR EHENS DELPHINE METAB OLIC PANEL globuln 2.9 g/dL 1.3-4. 0 Not Available [facility] [address], [place], [address], 09/30/2021 14:12:28 09/30/20 21 09/30/2021 CMP, COMPR EHENS DELPHINE METAB OLIC PANEL A/G ratio 1.5 calc 1.0-2. 8 Not Available [facility] [address], [place], [address], 09/30/2021 14:12:28 09/30/20 21 09/30/2021 CMP, COMPR EHENS DELPHINE METAB OLIC PANEL AST (SGOT) 21 U/L 13-39 Not Available [facility] [address] [facility] [address] [place], [address], 09/30/2021 14:12:28 09/30/20 21 09/30/2021 CMP, COMPR EHENS DELPHINE METAB OLIC PANEL ALT (SGPT) 25 U/L 7-52 Not Available [facility] [address], [place], [address], 09/30/2021 14:12:28 09/30/20 21 09/30/2021 CMP, COMPR EHENS DELPHINE METAB OLIC PANEL alkaline phosphatase 111 U/L 20-[address] [facility] [address], [place], [address], 09/30/2021 14:12:28 09/30/20 21 09/30/2021 CMP, COMPR EHENS DELPHINE METAB OLIC PANEL total bilirubin 0.27 mg/dL 0.30-1 .00 low Not Available [facility] [address] [facility] [address] [place], [address], 09/30/2021 14:12:28 09/30/20 21 09/30/2021 LIPID PANEL W/ CALCU LATED LDL cholesterol 152 mg/dL 20-180 Expec bashir Range for Adult s: Total Cheryl stero l: Risk Class ifica tion: <200 mg/dl Coleman able 200-2 39 mg/dl Borde rline high > 240 mg/dl High Not Available [facility] [address] [facility] [address] [place], [address], 09/30/2021 14:12:29 09/30/20 21 09/30/2021 LIPID PANEL W/ CALCU LATED LDL triglyceride 118 mg/dL 30-150 Not Available [facility] [address] [facility] [address] [place], [address], 09/30/2021 14:12:29 09/30/20 21 09/30/2021 LIPID PANEL W/ CALCU LATED LDL HDL cholesterol 51 mg/dL 23-92 Not Available [facility] [address] [facility] [address] [place], [address], 09/30/2021 14:12:29 09/30/20 21 09/30/2021 LIPID PANEL W/ CALCU LATED LDL chol/HDL risk ratio 3 calc <3.5 is OPTIM AL Not Available [facility] [address] [facility] [address], [place], [address], 09/30/2021 14:12:29 09/30/20 21 09/30/2021 LIPID PANEL W/ CALCU LATED LDL LDL-calculat ed 77 mg/dL Not Available [facility] [address] [facility] [address] [place], [address], 09/30/2021 14:12:29 09/30/20 21 09/30/2021 LIPID PANEL W/ CALCU LATED LDL non-HDL cholesterol 101 mg/dL COLEMAN ABLE IS <130 mg/dl Not Available [facility] [address] [facility] [address], [place], [address], 09/30/2021 14:12:29 09/30/20 21 09/30/2021 LIPID PANEL W/ CALCU LATED LDL VLDL cholesterol 23.60 mg/dL Not Available [facility] [address] [facility] [address], [place], [address], 09/30/2021 14:12:29 09/30/20 21 09/30/2021 TSH, THYRO ID STIMU LATIN G HORMO NE TSH 0.7920 uIU/m L 0.2700 -4.200 0 Not Available [facility] [address] [facility] [address] [place], [address], 09/30/2021 14:12:30 09/30/20 21 09/30/2021 VENIP UNCTU RE results Compl ete Not Available [facility] [address] [facility] [address] [place], [address], 09/30/2021 07:50:15 02/18/20 22 02/17/2022 A1C hemoglobin [...] icati ons Not Available [facility] [address] [facility] [address], [place], [address], 02/17/2022 14:38:27 02/18/20 22 02/17/2022 A1C estimated average glucose _I 142.7 mg/dL 97.0-1 40.0 high Not Available [facility] [address], [place], [address], 02/17/2022 14:38:27 02/18/20 22 02/17/2022 CBC W/ AUTOD IFF, COMPL ETE BLOOD COUNT WBC_I 7.40 3.60-1 0.00 Not Available [facility] [address], [place], [address], 02/17/2022 14:38:27 02/18/20 22 02/17/2022 CBC W/ AUTOD IFF, COMPL ETE BLOOD COUNT nucleated RBC 0.10 % 0.00-2 .00 Not Available [facility] [address], [place], [address], 02/17/2022 14:38:27 02/18/20 22 02/17/2022 CBC W/ AUTOD IFF, COMPL ETE BLOOD COUNT RBC 4.57 M/uL 3.90-5 .00 Not Available [facility] [address] [place], [place] [address]y [address] [place], [address], 02/17/2022 14:38:27 02/18/20 22 02/17/2022 CBC W/ AUTOD IFF, COMPL ETE BLOOD COUNT hemoglobin 14.3 g/dL 12.0-1 5.0 Not Available [facility] [address] [place], [place] [address]y [address], [place], [address], 02/17/2022 14:38:27 02/18/20 22 02/17/2022 CBC W/ AUTOD IFF, COMPL ETE BLOOD COUNT hematocrit 41.80 % 35.00- 45.00 Not Available [facility] [address], [place], [address], 02/17/2022 14:38:27 02/18/20 22 02/17/2022 CBC W/ AUTOD IFF, COMPL ETE BLOOD COUNT MCV 91.6 fL 80.0-9 9.0 Not Available [facility] [address] [place] [address] [address], [place], [address], 02/17/2022 14:38:27 02/18/20 22 02/17/2022 CBC W/ AUTOD IFF, COMPL ETE BLOOD COUNT MCH 31.3 pg 27.0-3 3.0 Not Available [facility] [address] [place], [place] [address]y [address], [place], [address], 02/17/2022 14:38:27 02/18/20 22 02/17/2022 CBC W/ AUTOD IFF, COMPL ETE BLOOD COUNT MCHC 34.2 g/dL 32.0-3 6.0 Not Available [facility] [address] [place] [address] [address], [place], [address], 02/17/2022 14:38:27 02/18/20 22 02/17/2022 CBC W/ AUTOD IFF, COMPL ETE BLOOD COUNT platelets 242 K/uL 140-44 0 Not Available [facility] [address] [place] [address] [address], [place], [address], 02/17/2022 14:38:27 02/18/20 22 02/17/2022 CBC W/ AUTOD IFF, COMPL ETE BLOOD COUNT RDW_I 13.4 % 11.0-1 5.0 Not Available [facility] [address] [place] [address] [address], [place], [address], 02/17/2022 14:38:27 02/18/20 22 02/17/2022 CBC W/ AUTOD IFF, COMPL ETE BLOOD COUNT MPV 9.0 fL 7.4-10 .4 Not Available [facility] [address], [place], [address], 02/17/2022 14:38:27 02/18/20 22 02/17/2022 CBC W/ AUTOD IFF, COMPL ETE BLOOD COUNT neutrophil, percentage 57.1 % 40.0-7 5.0 Not Available [facility] [address] [place] [address] [address], [place], [address], 02/17/2022 14:38:27 02/18/20 22 02/17/2022 CBC W/ AUTOD IFF, COMPL ETE BLOOD COUNT lymphocyte, percentage 32.7 % 15.0-4 5.0 Not Available [facility] [address] [place], [place] [address]y [address], [place], [address], 02/17/2022 14:38:27 02/18/20 22 02/17/2022 CBC W/ AUTOD IFF, COMPL ETE BLOOD COUNT monocyte, percentage 6.7 % Not Available [facility] [address] [place], [place] [address]y [address], [place], [address], 02/17/2022 14:38:27 02/18/20 22 02/17/2022 CBC W/ AUTOD IFF, COMPL ETE BLOOD COUNT eosinophil, percentage 2.7 % 1.0-6. 0 Not Available [facility] [address] [place] [address] [address], [place], [address], 02/17/2022 14:38:27 02/18/20 22 02/17/2022 CBC W/ AUTOD IFF, COMPL ETE BLOOD COUNT basophil, percentage 0.8 % 0.0-2. 0 Not Available [facility] [address] [place], [place] [address]y [address], [place], [address], 02/17/2022 14:38:27 02/18/20 22 02/17/2022 CBC W/ AUTOD IFF, COMPL ETE BLOOD COUNT neutrophil, absolute 4.3 K/uL 1.5-7. 5 Not Available [facility] [address] [place] [address] [address], [place], [address], 02/17/2022 14:38:27 02/18/20 22 02/17/2022 CBC W/ AUTOD IFF, COMPL ETE BLOOD COUNT lymphocyte, absolute 2.4 K/uL 0.8-4. 0 Not Available [facility] [address] [place] [address] [address], [place], [address], 02/17/2022 14:38:27 02/18/20 22 02/17/2022 CBC W/ AUTOD IFF, COMPL ETE BLOOD COUNT monocyte, absolute 0.5 K/uL 0.1-1. 0 Not Available [facility] [address] [place] [address] [address], [place], [address], 02/17/2022 14:38:27 02/18/20 22 02/17/2022 CBC W/ AUTOD IFF, COMPL ETE BLOOD COUNT eosinophil, absolute 0.2 K/uL 0.1-1. 0 Not Available [facility] [address] [place] [address] [address], [place], [address], 02/17/2022 14:38:27 02/18/20 22 02/17/2022 CBC W/ AUTOD IFF, COMPL ETE BLOOD COUNT basophil, absolute 0.1 K/uL 0.0-0. 2 Not Available [facility] [address] [place] [address] [address], [place], [address], 02/17/2022 14:38:27 02/18/20 22 02/17/2022 CMP, COMPR EHENS DELPHINE METAB OLIC PANEL glucose 170 mg/dL 70-100 high Not Available [facility] [address] [place] [address] [address], [place], [address], 02/17/2022 14:38:28 02/18/20 22 02/17/2022 CMP, COMPR EHENS DELPHINE METAB OLIC PANEL BUN 17 mg/dL 7-25 Not Available [facility] [address] [facility] [address], [place], [address], 02/17/2022 14:38:28 02/18/20 22 02/17/2022 CMP, COMPR EHENS DELPHINE METAB OLIC PANEL creatinine 0.7 mg/dL 0.6-1. 3 Not Available [facility] [address] [facility] [address], [place], [address], 02/17/2022 14:38:28 02/18/20 22 02/17/2022 CMP, COMPR EHENS DELPHINE METAB OLIC PANEL BUN/creatini ne ratio 23 calc 10-25 Not Available [facility] [address], [place], [address], 02/17/2022 14:38:28 02/18/20 22 02/17/2022 CMP, COMPR EHENS DEPLHINE METAB OLIC PANEL eGFR 102 mL/mi n/1.7 3m2 >60 THREE CONSE CUTIV E VALUE S <60 mL/mi n COULD BE INDIC ATIVE OF KIDNE Y DISEA SE. Not Available [facility] [address] [place], [place] [address]y [address], [place], [address], 02/17/2022 14:38:28 02/18/20 22 02/17/2022 CMP, COMPR EHENS DELPHINE METAB OLIC PANEL eGFR non- 84 mL/mi n/1.7 3m2 >60 THREE CONSE CUTIV E VALUE S < 60 mL/mi n COULD BE INDIC ATIVE OF KIDNE Y DISEA SE Not Available [facility] [address] [facility] [address], [place], [address], 02/17/2022 14:38:28 02/18/20 22 02/17/2022 CMP, COMPR EHENS DELPHINE METAB OLIC PANEL sodium 139 mmol/ L 135-14 5 Not Available [facility] [address], [place], [address], 02/17/2022 14:38:28 02/18/20 22 02/17/2022 CMP, COMPR EHENS DELPHINE METAB OLIC PANEL potassium 4.1 mmol/ L 3.5-5. 5 Not Available [facility] [address], [place], [address], 02/17/2022 14:38:28 02/18/20 22 02/17/2022 CMP, COMPR EHENS DELPHINE METAB OLIC PANEL chloride 103 mmol/ L 100-11 5 Not Available [facility] [address] [facility] [address], [place], [address], 02/17/2022 14:38:28 02/18/20 22 02/17/2022 CMP, COMPR EHENS DELPHINE METAB OLIC PANEL CO2 28 mmol/ L 21-33 Not Available [facility] [address] [facility] [address], [place], [address], 02/17/2022 14:38:28 02/18/20 22 02/17/2022 CMP, COMPR EHENS DELPHINE METAB OLIC PANEL anion gap 8.3 calc 3.0-11 .0 Not Available [facility] [address], [place], [address], 02/17/2022 14:38:28 02/18/20 22 02/17/2022 CMP, COMPR EHENS DELPHINE METAB OLIC PANEL calcium 9.4 mg/dL 8.8-10 .6 Not Available [facility] [address], [place], [address], 02/17/2022 14:38:28 02/18/20 22 02/17/2022 CMP, COMPR EHENS DELPHINE METAB OLIC PANEL total protein 7.4 g/dL 6.2-8. 6 Not Available [facility] [address], [place], [address], 02/17/2022 14:38:28 02/18/20 22 02/17/2022 CMP, COMPR EHENS DELPHINE METAB OLIC PANEL albumin 4.4 g/dL 3.5-5. 7 Not Available [facility] [address], [place], [address], 02/17/2022 14:38:28 02/18/20 22 02/17/2022 CMP, COMPR EHENS DELPHINE METAB OLIC PANEL globuln 3.1 g/dL 1.3-4. 0 Not Available [facility] [address], [place], [address], 02/17/2022 14:38:28 02/18/20 22 02/17/2022 CMP, COMPR EHENS DELPHINE METAB OLIC PANEL A/G ratio 1.4 calc 1.0-2. 8 Not Available [facility] [address], [place], [address], 02/17/2022 14:38:28 02/18/20 22 02/17/2022 CMP, COMPR EHENS DELPHINE METAB OLIC PANEL AST (SGOT) 31 U/L 13-39 Not Available [facility] [address], [place], [address], 02/17/2022 14:38:28 02/18/20 22 02/17/2022 CMP, COMPR EHENS DELPHINE METAB OLIC PANEL ALT (SGPT) 43 U/L 7-52 Not Available [facility] [address], [place], [address], 02/17/2022 14:38:28 02/18/20 22 02/17/2022 CMP, COMPR EHENS DELPHINE METAB OLIC PANEL alkaline phosphatase 110 U/L 20-128 Not Available [facility] [address] [place] [address], [address], 02/17/2022 14:38:28 02/18/20 22 02/17/2022 CMP, COMPR EHENS DELPHINE METAB OLIC PANEL total bilirubin 0.29 mg/dL 0.30-1 .00 low Not Available [facility] [address] [place] [address], [address], 02/17/2022 14:38:28 02/18/20 22 02/17/2022 TSH, THYRO ID STIMU LATIN G HORMO NE TSH 0.2500 uIU/m L 0.2700 -4.200 0 low Not Available [facility] [address] [place] [address], [address], 02/17/2022 14:38:29 02/18/20 22 02/17/2022 VENIP UNCTU RE results Compl ete Not Available [facility] [address] [place] [address], [address], 02/17/2022 11:25:10 02/21/20 22 02/20/2022 T3 TOTAL total T3 93.90 NG/dL 80.00- 200.00 Not Available [facility] [address] [place] [address], [address], 02/20/2022 12:26:51 02/21/20 22 02/21/2022 T4 (THYR OXINE ), TOTAL T4 (thyroxine), total 9.4 mcg/d L 5.1-11 .9 normal Not Available [facility] [address] [place] [address], [address], 02/21/2022 08:45:45 02/21/20 22 02/20/2022 VENIP UNCTU RE results Compl ete Not Available [facility] [address] [facility] [address] [place], [address], 02/20/2022 09:15:47 06/01/20 22 06/01/2022 A1C hemoglobin [...] vascu alr compl icati ons Not Available [facility] [address] [facility] [address] [place], [address], 06/01/2022 14:42:01 06/01/20 22 06/01/2022 A1C estimated average glucose _I 137.0 mg/dL 97.0-1 40.0 Not Available [facility] [address] [place], [address], 06/01/2022 14:42:01 06/01/20 22 06/01/2022 CBC W/ AUTOD IFF, COMPL ETE BLOOD COUNT WBC_I 5.20 3.60-1 0.00 Not Available [facility] [address] [facility] [address] [place], [address], 06/01/2022 14:42:02 06/01/20 22 06/01/2022 CBC W/ AUTOD IFF, COMPL ETE BLOOD COUNT nucleated RBC 0.10 % 0.00-2 .00 Not Available [facility] [address] [facility] [address] [place], [address], 06/01/2022 14:42:02 06/01/20 22 06/01/2022 CBC W/ AUTOD IFF, COMPL ETE BLOOD COUNT RBC 4.54 M/uL 3.90-5 .00 Not Available [facility] [address], [place], [address], 06/01/2022 14:42:02 06/01/20 22 06/01/2022 CBC W/ AUTOD IFF, COMPL ETE BLOOD COUNT hemoglobin 14.2 g/dL 12.0-1 5.0 Not Available [facility] [address], [place], [address], 06/01/2022 14:42:02 06/01/20 22 06/01/2022 CBC W/ AUTOD IFF, COMPL ETE BLOOD COUNT hematocrit 41.90 % 35.00- 45.00 Not Available [facility] [address], [place], [address], 06/01/2022 14:42:02 06/01/20 22 06/01/2022 CBC W/ AUTOD IFF, COMPL ETE BLOOD COUNT MCV 92.1 fL 80.0-9 9.0 Not Available [facility] [address], [place], [address], 06/01/2022 14:42:02 06/01/20 22 06/01/2022 CBC W/ AUTOD IFF, COMPL ETE BLOOD COUNT MCH 31.3 pg 27.0-3 3.0 Not Available [facility] [address], [place], [address], 06/01/2022 14:42:02 06/01/20 22 06/01/2022 CBC W/ AUTOD IFF, COMPL ETE BLOOD COUNT MCHC 34.0 g/dL 32.0-3 6.0 Not Available [facility] [address], [place], [address], 06/01/2022 14:42:02 06/01/20 22 06/01/2022 CBC W/ AUTOD IFF, COMPL ETE BLOOD COUNT platelets 218 K/uL 140-44 0 Not Available [facility] [address] [place], [place] [address]y [address], [place], [address], 06/01/2022 14:42:02 06/01/20 22 06/01/2022 CBC W/ AUTOD IFF, COMPL ETE BLOOD COUNT RDW_I 13.5 % 11.0-1 5.0 Not Available [facility] [address] [place] [address] [address], [place], [address], 06/01/2022 14:42:02 06/01/20 22 06/01/2022 CBC W/ AUTOD IFF, COMPL ETE BLOOD COUNT MPV 8.7 fL 7.4-10 .4 Not Available [facility] [address] [place], [place] [address]y [address], [place], [address], 06/01/2022 14:42:02 06/01/20 22 06/01/2022 CBC W/ AUTOD IFF, COMPL ETE BLOOD COUNT neutrophil, percentage 44.9 % 40.0-7 5.0 Not Available [facility] [address] [place], [place] [address]y [address], [place], [address], 06/01/2022 14:42:02 06/01/20 22 06/01/2022 CBC W/ AUTOD IFF, COMPL ETE BLOOD COUNT lymphocyte, percentage 43.9 % 15.0-4 5.0 Not Available [facility] [address] [place] [address] [address], [place], [address], 06/01/2022 14:42:02 06/01/20 22 06/01/2022 CBC W/ AUTOD IFF, COMPL ETE BLOOD COUNT monocyte, percentage 7.6 % Not Available [facility] [address] [place], [place] [address]y [address], [place], [address], 06/01/2022 14:42:02 06/01/20 22 06/01/2022 CBC W/ AUTOD IFF, COMPL ETE BLOOD COUNT eosinophil, percentage 2.8 % 1.0-6. 0 Not Available [facility] [address] [place], [place] [address]y [address], [place], [address], 06/01/2022 14:42:02 06/01/20 22 06/01/2022 CBC W/ AUTOD IFF, COMPL ETE BLOOD COUNT basophil, percentage 0.8 % 0.0-2. 0 Not Available [facility] [address] [place], [place] [address]y [address], [place], [address], 06/01/2022 14:42:02 06/01/20 22 06/01/2022 CBC W/ AUTOD IFF, COMPL ETE BLOOD COUNT neutrophil, absolute 2.4 K/uL 1.5-7. 5 Not Available [facility] [address] [place], [place] [address]y [address], [place], [address], 06/01/2022 14:42:02 06/01/20 22 06/01/2022 CBC W/ AUTOD IFF, COMPL ETE BLOOD COUNT lymphocyte, absolute 2.3 K/uL 0.8-4. 0 Not Available [facility] [address] [place], [place] [address]y [address] [place], [address], 06/01/2022 14:42:02 06/01/20 22 06/01/2022 CBC W/ AUTOD IFF, COMPL ETE BLOOD COUNT monocyte, absolute 0.4 K/uL 0.1-1. 0 Not Available [facility] [address] [place], [place] [address] [address], [place], [address], 06/01/2022 14:42:02 06/01/20 22 06/01/2022 CBC W/ AUTOD IFF, COMPL ETE BLOOD COUNT eosinophil, absolute 0.1 K/uL 0.1-1. 0 Not Available [facility] [address] [facility] [address], [place], [address], 06/01/2022 14:42:02 06/01/20 22 06/01/2022 CBC W/ AUTOD IFF, COMPL ETE BLOOD COUNT basophil, absolute 0.0 K/uL 0.0-0. 2 Not Available [facility] [address] [facility] [address], [place], [address], 06/01/2022 14:42:02 06/01/20 22 06/01/2022 CMP, COMPR EHENS DELPHINE METAB OLIC PANEL glucose 118 mg/dL 70-100 high Not Available [facility] [address], [place], [address], 06/01/2022 14:42:03 06/01/20 22 06/01/2022 CMP, COMPR EHENS DELPHINE METAB OLIC PANEL BUN 11 mg/dL 7-25 Not Available [facility] [address] [place], [address], 06/01/2022 14:42:03 06/01/20 22 06/01/2022 CMP, COMPR EHENS DELPHINE METAB OLIC PANEL creatinine 0.8 mg/dL 0.6-1. 3 Not Available [facility] [address] [place], [address], 06/01/2022 14:42:03 06/01/20 22 06/01/2022 CMP, COMPR EHENS DELPHINE METAB OLIC PANEL BUN/creatini ne ratio 14 calc 10-25 Not Available [facility] [address], [place], [address], 06/01/2022 14:42:03 06/01/20 22 06/01/2022 CMP, COMPR EHENS DELPHINE METAB OLIC PANEL eGFR 93 mL/mi n/1.7 3m2 >60 THREE CONSE CUTIV E VALUE S <60 mL/mi n COULD BE INDIC ATIVE OF KIDNE Y DISEA SE. Not Available [facility] [address] [facility] [address], [place], [address], 06/01/2022 14:42:03 06/01/20 22 06/01/2022 CMP, COMPR EHENS DELPHINE METAB OLIC PANEL eGFR non- 77 mL/mi n/1.7 3m2 >60 THREE CONSE CUTIV E VALUE S < 60 mL/mi n COULD BE INDIC ATIVE OF KIDNE Y DISEA SE Not Available [facility] [address] [facility] [address] [place], [address], 06/01/2022 14:42:03 06/01/20 22 06/01/2022 CMP, COMPR EHENS DELPHINE METAB OLIC PANEL sodium 142 mmol/ L 135-14 5 Not Available [facility] [address] [facility] [address], [place], [address], 06/01/2022 14:42:03 06/01/20 22 06/01/2022 CMP, COMPR EHENS DELPHINE METAB OLIC PANEL potassium 4.5 mmol/ L 3.5-5. 5 Not Available [facility] [address] [facility] [address] [place], [address], 06/01/2022 14:42:03 06/01/20 22 06/01/2022 CMP, COMPR EHENS DELPHINE METAB OLIC PANEL chloride 105 mmol/ L 100-11 5 Not Available [facility] [address] [facility] [address] [place], [address], 06/01/2022 14:42:03 06/01/20 22 06/01/2022 CMP, COMPR EHENS DELPHINE METAB OLIC PANEL CO2 24 mmol/ L 21-33 Not Available [facility] [address] [facility] [address] [place], [address], 06/01/2022 14:42:03 06/01/20 22 06/01/2022 CMP, COMPR EHENS DELPHINE METAB OLIC PANEL anion gap 12.8 calc 3.0-11 .0 high Not Available [facility] [address] [facility], [place], [address], 06/01/2022 14:42:03 06/01/20 22 06/01/2022 CMP, COMPR EHENS DELPHINE METAB OLIC PANEL calcium 9.5 mg/dL 8.8-10 .6 Not Available [facility] [address], [place], [address], 06/01/2022 14:42:03 06/01/20 22 06/01/2022 CMP, COMPR EHENS DELPHINE METAB OLIC PANEL total protein 7.0 g/dL 6.2-8. 6 Not Available [facility] [address], [place], [address], 06/01/2022 14:42:03 06/01/20 22 06/01/2022 CMP, COMPR EHENS DELPHINE METAB OLIC PANEL albumin 4.2 g/dL 3.5-5. 7 Not Available [facility] [address] [place], [place] [address]y [address] [place], [address], 06/01/2022 14:42:03 06/01/20 22 06/01/2022 CMP, COMPR EHENS DELPHINE METAB OLIC PANEL globuln 2.9 g/dL 1.3-4. 0 Not Available [facility] [address], [place], [address], 06/01/2022 14:42:03 06/01/20 22 06/01/2022 CMP, COMPR EHENS DELPHINE METAB OLIC PANEL A/G ratio 1.5 calc 1.0-2. 8 Not Available [facility] [address], [place], [address], 06/01/2022 14:42:03 06/01/20 22 06/01/2022 CMP, COMPR EHENS DELPHINE METAB OLIC PANEL AST (SGOT) 38 U/L 13-39 Not Available [facility] [address], [place], [address], 06/01/2022 14:42:03 06/01/20 22 06/01/2022 CMP, COMPR EHENS DELPHINE METAB OLIC PANEL ALT (SGPT) 59 U/L 7-52 high Not Available [facility] [address], [place], [address], 06/01/2022 14:42:03 06/01/20 22 06/01/2022 CMP, COMPR EHENS DELPHINE METAB OLIC PANEL alkaline phosphatase 90 U/L 20-128 Not Available [facility] [address] [facility], [place], [address], 06/01/2022 14:42:03 06/01/20 22 06/01/2022 CMP, COMPR EHENS DELPHINE METAB OLIC PANEL total bilirubin 0.36 mg/dL 0.30-1 .00 Not Available [facility] [address] [facility] [address] [place], [address], 06/01/2022 14:42:03 06/01/20 22 06/01/2022 LIPID PANEL W/ CALCU LATED LDL cholesterol 171 mg/dL 20-180 Expec bashir Range for Adult s: Total Cheryl stero l: Risk Class ifica tion: <200 mg/dl Coleman able 200-2 39 mg/dl Borde rline high > 240 mg/dl High Not Available [facility] [address] [facility], [place], [address], 06/01/2022 14:42:04 06/01/20 22 06/01/2022 LIPID PANEL W/ CALCU LATED LDL triglyceride 134 mg/dL 30-150 Not Available [facility] [address] [facility] [address], [place], [address], 06/01/2022 14:42:04 06/01/20 22 06/01/2022 LIPID PANEL W/ CALCU LATED LDL HDL cholesterol 51 mg/dL 23-92 Not Available [facility] [address] [facility] [facility], [place], [address], 06/01/2022 14:42:04 06/01/20 22 06/01/2022 LIPID PANEL W/ CALCU LATED LDL chol/HDL risk ratio 3 calc <3.5 is OPTIM AL Not Available [facility] [address] [place] [address] [address] [place], [address], 06/01/2022 14:42:04 06/01/20 22 06/01/2022 LIPID PANEL W/ CALCU LATED LDL non-HDL cholesterol 120 mg/dL COLEMAN ABLE IS <130 mg/dl Not Available [facility] [address] [facility] [address], [place], [address], 06/01/2022 14:42:04 06/01/20 22 06/01/2022 LIPID PANEL W/ CALCU LATED LDL VLDL cholesterol 26.80 mg/dL Not Available [facility] [address] [facility] [address] [place], [address], 06/01/2022 14:42:04 06/01/20 22 06/01/2022 LIPID PANEL W/ CALCU LATED LDL LDL calculated 93 mg/dL 0-99 Not Available [facility] [address] [facility] [address], [place], [address], 06/01/2022 14:42:04 06/01/20 22 06/01/2022 T4, FREE T4, free 1.63 NG/dL 0.93-1 .77 Not Available [facility] [address], [place], [address], 06/01/2022 14:42:05 06/01/20 22 06/01/2022 TSH, THYRO ID STIMU LATIN G HORMO NE TSH 0.2420 uIU/m L 0.2700 -4.200 0 low Not Available [facility] [address], [place], [address], 06/01/2022 14:42:06 06/01/20 22 06/01/2022 VENIP UNCTU RE results Compl ete Not Available [facility] [address] [facility] [address], [place], [address], 06/01/2022 08:12:01 10/14/20 21 10/14/2021 CT, abdom en + pelvi s, w/o contr ast No observ ation record ed. [id number] [facility] All Locations, [place], [address], 10/24/2024 19:43:23 10/14/20 21 10/14/2021 CT, abdom en + pelvi s, w/o contr ast No observ ation record ed. [id number] [facility] All Locations, [place], [address], 10/24/2024 19:41:50 03/13/20 22 03/13/2022 MAMMO , [...] ed of these findin gs as per [facility] law. BI-RAD S catego ry: 2: Benign findin gs RECOMM ENDATI ONS: Annual screen ing mammog caitlin. Notes: -The patien t's [place] fibrog landul ar tissue can obscur e [...] Gabriela Dewey Michae l Sign Date: [id number] [facility] All Locations, [place], [address], 10/03/2024 19:31:26 03/20/20 22 03/20/2022 MRI, lumba [...] Gabriela Dewey Michae l Sign Date: [id number] [facility] Services [facility] All Locations, [place], [address], 10/03/2024 19:32:13 Result Notes Documentation Provider Name and Address Organization Details Recorded Time Mammo, Screening, Tomosynthesis, Bilateral : INDICATION: Female 66 years - Screening mammogram. TECHNIQUE: SCREENING BILATERAL MAMMOGRAM WITH TOMOSYNTHESIS Bilateral CC and MLO views of the breasts were obtained. Digital breast tomosynthesis was performed in the CC and MLO planes. Computer aided detection software was utilized. COMPARISON: Comparison is made with previous studies dating back to and including December 10, 2017. MAMMOGRAM FINDINGS: The breast parenchyma is category B: Scattered fibroglandular tissue Stable appearing densities bilaterally. There is no suspicious asymmetry. There is no architectural distortion. There are no suspicious microcalcifications. No abnormal skin thickening is noted. The nipples are not retracted. IMPRESSION: No mammographic evidence for breast malignancy. The patient will be notified of these findings as per [place] law. BI-RADS category: 2: Benign findings RECOMMENDATIONS: Annual screening mammogram. Notes: -The patient's [place] fibroglandular tissue can obscure an underlying cancer on a mammogram. Up to 10% of breast cancers are not visible in mammographically fatty breasts and up to 35% of breast cancers are not visible in mammographically dense breasts. -Supplemental annual breast screening ultrasound may be beneficial for the detection of breast cancer in patients with mammographically dense breasts. -Patients with a greater than 20% lifetime risk of breast cancer qualify for screening with breast MRI -Mammography should be supplemented by routine clinical and monthly self exams. A negative mammogram result should not deter biopsy of a clinically suspicious lesion. Electronically Signed By: Gabriela Dewey Michael Sign Date: 13-MAR-22 Not Available [facility] 10/03/2024 20:05:33 Mri, Lumbar Spine, W/o Contrast : INDICATION: M54.16 Radiculopathy, lumbar region. TECHNIQUE: MRI LUMBAR SPINE WITHOUT CONTRAST. Multiplanar multisequence exam. COMPARISON: Correlation with CT abdomen and pelvis October 14, 2021 FINDINGS: For the purpose of this exam, the lowest level with a well formed disc is designated as L5-S1. Levels are annotated in PACS. The conus terminates at the L1-L2 disc level. Broad-based dextrocurvature. Degenerative changes of the sacroiliac joints right greater than left. Disc space narrowing most prominent at L2-3, L3-4. T12-L1 level: No significant spinal canal stenosis or neural foraminal narrowing. L1-L2 level: No significant spinal canal stenosis or neural foraminal narrowing. L2-L3 level: Disc bulge osteophyte complex eccentric left results in left lateral recess and foraminal stenosis. Minor exiting nerve root abutment and foraminal stenosis. L3-L4 level: Disc bulge osteophyte complex. Facet hypertrophic changes present. L4-L5 level: Facet hypertrophic changes and disc bulge osteophyte complex results in mild by foraminal stenosis and anterior thecal sac as well as lateral recess encroachment. L5-S1 level: Facet hypertrophic changes present. IMPRESSION: 1. Multilevel spine degenerative changes are identified with levels of stenosis that are estimated above. See above discussion and correlate with clinical exam findings. 2. Dextroconvex scoliosis of the lumbar spine. Electronically Signed By: Gabriela Dewey Michael Sign Date: 20-MAR-22 Not Available [facility] 10/03/2024 20:06:57 Problems Name Problem SNOMED Code Status Onset Date Resolution Date Notes Provider Name and Address Organization Details Recorded Time Diarrhea 92353130 Active 2014 MILES CALLEJAS [facility] 8 10:23:38 Cervical spondylos is without myelopath y 715454050 Active 2014 Millie Gill DO [address], [place], [address] , [facility] 2 11:05:33 Asthma 574685755 Active 2017 Not Available [facility] 2 18:55:27 Obesity 971727446 Active 2017 Not Available [facility] 2 18:55:27 Degenerat ion of cervical intervert ebral disc 97774973 Active 2017 Not Available [facility] 2 18:55:27 Disorder of carbohydr ate metabolis m 26517145 Completed 201706/23/2021 Millie Gill DO [address], [place], [address] , [facility] [employer] 1 10:55:08 Long-term drug therapy Active 2017 Not Available [facility] 2 18:55:27 Seizure disorder 777293348 Active 2017 Not Available [facility] 2 18:55:27 Simple renal cyst 39579559 Active 2017 Not Available [facility] 18:55:27 Hypothyro idism 48761134 Active 2017 Not Available [facility] 2 18:55:27 Disorder of thyroid gland 14409787 Completed 201706/28/2018 SOLE Traore [address], [place], [address] , [employer] 8 12:08:19 Gastroeso phageal reflux disease 809752174 Active 2017 Not Available [facility] 2 18:55:27 Polyp of colon 11995251 Active 2017 Not Available [facility] 2 18:55:27 Benign essential hypertens ion 0300501 Active 2017 Not Available [facility] 2 18:55:27 Allergic rhinitis 25140873 Active 2017 Not Available [facility] 2 18:55:27 Hyperglyc emia 68928769 Completed 201711/25/2020 Millie Gill DO [address], [place], [address] , [employer] 1 09:41:59 Chronic sciatica 226072265 Active 2018 Not Available [facility] 2 18:55:27 Low back pain 387759619 Active 2018 Not Available [facility] 2 18:55:27 Type 2 diabetes mellitus 02629650 Active 2020 Not Available [facility] 2 18:55:27 Pain of right shoulder joint 90678765896 332110 Active 2020 Not Available [facility] 2 18:55:27 Epigastri c pain 10063163 Active 2020 Not Available [facility] 2 18:55:27 Diverticu litis 907250548 Active 2020 Not Available [facility] 2 18:55:27 Lumbar radiculop athy 733434600 Active 2021 Not Available [facility] 2 18:55:27 Diverticu lar disease 158698148 Active 2021 Not Available [facility] 2 18:55:27 Liver enzymes outside reference range 946738911 Active 2021 DO Jian [address]ued[address], [place], [address] , [facility] 15:09:45 Problem Notes None recorded. Procedures Surgical History Date Name Laterality Status Provider Name and Address Organization Details Recorded Time 02/18/20 22 Quality Functional Assessment completed Melinda Zepeda [facility], [facility] 02/17/2022 10:50:24 02/18/20 22 Quality Medication Reviewed and Updated completed Melindaher Zepeda [facility] 02/17/2022 10:50:24 02/18/20 22 Medicare AWV Questionnaire completed DO [address], [place], [address], [facility], [facility] 02/17/2022 12:45:05 02/18/20 22 Quality BMI with follow up completed Melindaher Zepeda [facility] 02/17/2022 10:50:24 02/18/20 22 Quality Advanced Care Planning completed DO [address], [place], [address], [facility], [facility] 02/17/2022 12:45:08 02/18/20 22 Quality Incontinence Screening completed Melinda Zepeda [facility], [facility] 02/17/2022 10:50:24 02/18/20 22 Quality Fall Risk Assessment completed Melindaher Zepeda [facility], [facility] 02/17/2022 10:50:24 06/23/20 21 Aspiration Major Joint/Bursa completed DO [address], [place], [address], [facility], [facility] 06/23/2021 10:54:54 01/12/20 21 mammography completed Millie Gill DO [address], [place], [address], [facility], [facility] 02/23/2021 10:57:15 11/25/19 21 Quality Functional Assessment completed [facility], [facility] 11/25/2020 09:28:22 11/25/19 21 Quality Medication Reviewed and Updated completed [facility], [facility] 11/25/2020 09:28:22 11/25/19 21 Quality Fall Risk Assessment Low Risk completed [facility], [facility] 11/25/2020 09:28:22 11/25/19 21 Quality BMI with follow up completed [facility], [facility] 11/25/2020 09:28:22 11/25/19 21 Quality Advanced Care Planning completed Millie Gill DO [address] [facility] [address], [place], [address], [facility], [facility] 11/25/2020 10:01:22 11/25/19 21 Quality Incontinence Screening completed [facility], [facility] 11/25/2020 09:28:22 11/25/19 21 Medicare AWV - Screening Schedule completed DO [address], [place], [address], [facility], [facility] 11/25/2020 10:01:13 01/22/20 20 Colonoscopy completed SOLE Traore [address] [facility] [address], [place], [address], [facility], [facility] 01/22/2020 20:11:40 01/01/20 20 mammography completed Millie Gill DO [address], [place], [address], [facility], [facility] 04/01/2020 10:03:46 11/26/19 20 Date of Last Mammogram completed Isadora Osborn [facility], [facility] 02/23/2021 10:36:58 09/09/20 19 Quality Functional Assessment completed Vira Pa [facility], [facility] 09/09/2019 09:30:30 09/09/20 19 Quality Medication Reviewed and Updated completed Vira Pa [facility], [facility] 09/09/2019 09:30:30 09/09/20 19 Medicare AWV Questionnaire completed [address], [place], [address], [facility], [facility] 09/09/2019 10:30:12 09/09/20 19 Quality Tobacco Non- User completed [address], [place], [address], [facility], [facility] 09/09/2019 10:01:59 09/09/20 19 Quality Fall Risk Assessment Low Risk completed Vira Pa [facility], [facility] 09/09/2019 09:30:30 09/09/20 19 Quality BMI with follow up completed Vira Pa [facility], [facility] 09/09/2019 09:30:30 09/09/20 19 Quality Advanced Care Planning completed Vira Pa [facility], [facility] 09/09/2019 09:30:30 09/09/20 19 Quality Incontinence Screening completed Vira Pa [facility], [facility] 09/09/2019 09:30:30 06/28/20 18 Quality Functional Assessment completed SOLE Tra[address], [place], [address], [facility], [facility] 06/28/2018 12:04:42 06/28/20 18 Quality Medication Reviewed and Updated completed [address], [place], [address], [facility]ician [facility], [facility] 06/28/2018 12:04:42 06/28/20 18 Medicare AWV Questionnaire completed [address], [place], [address], [facility], [facility] 06/28/2018 12:08:08 06/28/20 18 Quality TCM Medication Reconciliation completed MILES CALLEJAS [facility], [facility] 06/28/2018 11:32:00 06/28/20 18 Quality Fall Risk Assessment Low Risk completed [address], [place], [address], [facility], [facility] 06/28/2018 12:04:42 06/28/20 18 Quality BMI with follow up completed SOLE Traore [address], [place], [address], [facility], [facility] 06/28/2018 12:04:42 06/28/20 18 Quality Advanced Care Planning completed [address], [place], [address], [facility], [facility] 06/28/2018 12:04:42 06/28/20 18 Quality Incontinence Screening completed [address], [place], [address], [facility], [facility] 06/28/2018 12:04:42 12/10/19 18 Mammogram Screening completed [address], [place], [address], [facility], [facility] 06/27/2018 19:37:38 04/17/20 16 Fecal occult blood test completed DO Jeanette Rueda [facility] [address], [place], [address], [facility], [facility] 12/03/2018 17:44:34 12/20/19 08 Bone mineral dual photon completed SOLE Traore [address] [facility] [address], [place], [address], [facility], [facility] 06/27/2018 19:38:26 Hysterectomy completed Isadora Osborn [facility], [facility] 02/23/2021 10:37:17 Imaging Results None recorded. Procedure Notes None recorded. Medical Equipment None Reported. Allergies Allergen ID Allergen Name Allergen Category Reaction Reaction Severity Criticality Documentation Date Start Date Code Code System Note Provider Name and Address Organization Details Recorded Time 085831 Risperdal medicatio n rash Not available Not available 06/28/2018 20079 8 RxNorm MILES cuello, [facility], [facility] 8 10:20:43 233884 prochlorp erazine medicatio n rash Not available Not available 06/28/20182012 8704 [facility] 10:36:52 362720 ciproflox acin medicatio n rash Not available Not available 06/28/20182012 2551 RxNorm Isadora cuello, [facility] 1 10:36:52 997909 cyclobenz aprine medicatio n rash Not available Not available 06/28/20182012 92889 RxNorm Isadora cuello, [facility] 10:36:52 Medications Name Sig Start Date Stop [...] propionate 50 mcg/actuati on nasal spray,suspe nsion [place] 1 spray every day by intranasa l [...] Not Available No t Available Fluarix Quad 8808-8084 (PF) 60 mcg (15 mcg x 4)/0.5 [...] blood by Pulse oximetry Heart rate Systolic And Diastolic Provider Name and Address Organization Details Last Updated DateTime 2 134.62 cm 37.2 kg/m2 76698.5 4 g 98.3 [degF] 0 96 % 96 % 79 /min 162/89 mm[Hg] Melinda Zepeda [facility] [email or web address] [facility] 2 10:56:14 Date Recorded Body height Body mass index (BMI) Body weight Body temperature Pain severity - 0-10 verbal numeric rating [Score] - Reported Oxygen saturation Oxygen saturation in Arterial blood by Pulse oximetry Heart rate Systolic And Diastolic Provider Name and Address Organization Details Last Updated DateTime 2 134.62 cm 36.3 kg/m2 39944.6 1 g 98 [degF] 0 95 % 95 % 79 /min 127/81 mm[Hg] Melinda Zepeda [facility] 2 14:38:57 Date Recorded Body height Body mass index (BMI) Body weight Pain severity - 0-10 verbal numeric rating [Score] - Reported Body temperature Heart rate Oxygen saturation Oxygen saturation in Arterial blood by Pulse oximetry Respiratory rate Systolic And Diastolic Provider Name and Address Organization Details Last Updated DateTime 1 134.62 cm 38.7 kg/m2 50269.1 g 10 96.9 [degF] 76 /min 96 % 96 % 15 /min 160/72 mm[Hg] Valery oGldsmith [facility] [email or web address] Physician [employer] 1 09:58:37 Date Recorded Systolic And Diastolic Provider Name and Address Organization Details Last Updated DateTime 10/14/2021 140/84 mm[Hg] Millie Gill DO [address], [place], [address], [place] - [facility] 10/14/2021 09:42:42 Date Recorded Body height Body mass index (BMI) Body weight Pain severity - 0-10 verbal numeric rating [Score] - Reported Body temperature Heart rate Oxygen saturation Oxygen saturation in Arterial blood by Pulse oximetry Respiratory rate Provider Name and Address Organization Details Last Updated DateTime 1 134.62 cm 38.2 kg/m2 13038.2 g 0 98.2 [degF] 73 /min 96 % 96 % 15 /min Valery [facility]oldsmith [facility] 1 09:34:10 Date Recorded Body height Body mass index (BMI) Body weight Pain severity - 0-10 verbal numeric rating [Score] - Reported Body temperature Heart rate Oxygen saturation Oxygen saturation in Arterial blood by Pulse oximetry Respiratory rate Systolic And Diastolic Provider Name and Address Organization Details Last Updated DateTime 1 134.62 cm 37.3 kg/m2 55459.9 8 g 0 98.1 [degF] 93 /min 95 % 95 % 15 /min 158/90 mm[Hg] Valery [facility]oldsmith [facility] 1 13:13:40 Social History Question Answer Notes LastModified by Organizat ion Details LastModified Time Tobacco Smoking Status Former Smoker SOLE [address] [address], [place], [address] 09/09/2019 09:51:09 Do You Have An Advance Directive? No Information not available 09/09/2019 How Much Tobacco Do You Chew? None Information not available 09/09/2019 In The 14 Days Before Symptom Onset, Have You Had Close Contact With A Laboratory-confir med COVID-19 While That Case Was Ill? No [email or web address] Information not available 02/17/2022 In The 14 Days Before Symptom Onset, Have You Had Close Contact With A Person Who Is Under Investigation For COVID-19 While That Person Was Ill? No [email or web address] Information not available 02/17/2022 Have You Been To An Area Known To Be High Risk For COVID-19? No [email or web address] Information not available 02/17/2022 What Type Of Diet Are You Following? REGULAR [email or web address] Information not available 02/23/2021 Which Illicit Or Recreational Drugs Have You Used? Denies [email or web address] Information not available 12/02/2019 Alcohol Use Less Than 1 Per Month Information not available 09/09/2019 Year Quit Tobacco Use 1974 [email or web address] Information not available 12/02/2019 Marital Status Single codie [place] n not available 09/09/2019 What Was The Date Of Your Most Recent Tobacco Screening? 10/21/2021 [email or web address] Information not available 02/17/2022 Are You Sexually Active? No [email or web address] Information not available 02/23/2021 Has Tobacco Cessation Counseling Been Provided? No Non Smoker [email or web address] Information not available 02/17/2022 On What Date Was Tobacco Cessation Counseling Provided? 02/23/2021 [email or web address] Information not available 02/17/2022 How Many Years Have You Smoked Tobacco? 4 Information not available 09/09/2019 Sex: Unknown Functional Status Question Answer Note LastModified by Organizat ion Details LastModified Time What is your level of alcohol consumption? Occasional [email or web address] Information not available 12/02/2019 Do you or [...] virus, quadrivalent, preservative 7 completed Not Available [facility] 05/28/2022 18:55:27 pneumococcal polysaccharide PPV23 7 completed Not Available [facility] 05/28/2022 18:55:27 Pneumococcal conjugate PCV 13 8 completed Not Available [facility] 05/28/2022 18:55:27 zoster live 8 completed Not Available [facility] 05/28/2022 18:55:27 Influenza, split virus, quadrivalent, preservative 9 completed Not Available [facility] 05/28/2022 18:55:27 zoster live 9 completed Not Available [facility] 05/28/2022 18:55:27 Influenza, split virus, quadrivalent, preservative 8 completed Not Available [facility] 05/28/2022 18:55:27 Influenza, split virus, trivalent, preservative 3 completed Not Available [facility] 05/28/2022 18:55:27 Pneumococcal Conjugate, unspecified formulation 8 completed Not Available [facility] 05/28/2022 18:55:27 influenza, unspecified formulation 7 completed Not Available [facility] 05/28/2022 18:55:27 Pneumococcal conjugate PCV 13 8 completed Not Available [facility] 05/28/2022 18:55:27 Influenza, split virus, quadrivalent, PF 7 completed Not Available [facility] 05/28/2022 18:55:27 Influenza, split virus, trivalent, preservative 9 completed Not Available [facility] 05/28/2022 18:55:27 Influenza, split virus, quadrivalent, PF 4 completed Not Available [facility] 05/28/2022 18:55:27 Influenza, split virus, trivalent, preservative 6 completed Not Available [facility] 05/28/2022 18:55:27 zoster recombinant 8 completed Not Available [facility] 05/28/2022 18:55:27 COVID-19, mRNA, LNP-S, PF, 100 mcg/0.5mL dose or 50 mcg/0.25mL dose 1 completed Not Available [facility] 05/28/2022 18:55:27 COVID-19, mRNA, LNP-S, PF, 100 mcg/0.5mL dose or 50 mcg/0.25mL dose 1 completed Not Available [facility] 05/28/2022 18:55:27 Influenza, split virus, quadrivalent, preservative 1 completed Not Available [facility] 05/28/2022 18:55:27 COVID-19, mRNA, LNP-S, PF, 100 mcg/0.5mL dose or 50 mcg/0.25mL dose 1 completed Not Available [facility] 05/28/2022 18:55:27 Influenza, high-dose, quadrivalent, PF 0 completed Isadora Osborn [facility] [place] - [facility], [facility], [facility] 07/29/2020 09:37:00 Past Encounters Encounter ID Performer Location Encounter Start Date Encounter Closed Date Diagnosis/Indication Diagnosis SNOMED-CT Code Diagnosis ICD10 Code Diagnosis IMO Codes Diagnosis Note [id number] [facility] [address] [facility] [address] [place] [address] 06/28/2018 11:01:06 06/28/2018 12:14:36 Adult health examination 404704532 Z00.00 Annual Wellness Visit done today Benign ess ential hypertension 0393436 I10 Gave a copy of her medication list today we will have visiting nurses monitor her blood pressure Seizure disorder 0135521 02 G40.909 We will send out visiting nurses we need medication reviews also physical therapy for gait and balance. We are setting her up with neurology Hypothyroidism 44082352 E03.9 She should be on levothyrox ine 200 mcg daily. We will have visiting nurses review her meds Polyp of colon 36124759 K63.5 She is not ready to update her last was in 2010, they recommende d a 5 year follow-up Abnormal gait 41035318 R 26.9 Physical therapy and home health Cough 19702528 R05 Be sure she is not taking lisinopril . She is seeing the pulmonolog ist [id number] [facility]LE [facility] [address] [place] [address] 07/04/2018 08:24:09 07/04/2018 09:49:36 Benign essential hypertension 0717286 I10 Under control continue amlodipine Seizure disorder 0500872 02 G40.909 No further seizures. Will check her Dilantin level today she is taking 3 a day Hypothyroidism 55910944 E03.9 We will check her TSH and free T4 today Allergic rhinitis 881373 04 J30.9 zyrtec and flonase [id number] Millie Gill DO [facility] [address] [place] [address] 12/03/2018 14:14:34 12/03/2018 15:46:35 Benign essential hypertension 4433836 I10 Blood pressure is reasonable . Continue amlodipine Hyperglycemia 43598117 R 73.9 A1c is under 6. Continue diet and exercise control. Congratula tions given for weight loss Seizure disorder 4819468 02 G40.909 She is been multiple years since his seizure. We discussed her driving Asthma 056547073 J45.90 9 She uses theophylli ne. She also has Advair and a breakthrou gh inhaler at home Cervical s pondylosis without myelopathy 829938850 M47.812 Renewed her pain meds Hypothyroidism 15129295 E03.9 Decreased her dosage to 175 on the levothyrox ine Gastroesop hageal reflux disease 661288006 K21.9 Continue Pepcid [id number] [facility] [place] [address] [place] [address] 09/09/2019 09:09:43 09/09/2019 10:19:10 Adult health examination 527918544 Z00.00 Annual Wellness Visit done today Benign ess ential hypertension 1375735 I10 Under control continue amlodipine Hypothyroidism 51255792 E03.9 TSH is suppressed for reducing her dose to 150 mcg daily we can recheck her TSH on her next visit Seizure disorder 7168304 02 G40.909 No further seizures. She is taking her medication Body mass index 30+ - obesity 373691376 Z68.34 weight issues discussed and informatio n on weight loss given. Needs follow up on weight control as scheduled. Education handout on diets given. Exercise counseling done. Obesity 718454691 E66.9 see BMI above for details Diet education 96238112 Z71.3 as above Nasal congestion 0103779 0 R09.81 She is going to try Flonase Low back pain 775094916 M54.5 She uses Lidoderm patches and hydrocodon e on a as needed basis. Screening for malignant neoplasm of breast 886721291 Z12.39 Mammogram ordered Screening for malignant neoplasm of colon 787262611 Z12.[address] the referral her sister would like her to wait till November At [facility] ed risk for falls 297176039 Z91.81 She does have some gait impairment her sister does not think she needs therapy the patient is cautious and careful not to fall. She has not had any falls Hyperglycemia 49117150 R 73.9 Fasting glucose was high her A1c was fine. Continue low-carb diet Asthma 191927630 J45.90 9 She is not having any problems. She has her inhaler [id number] Millie Gill DO [facility] [address] [facility] [address] [place] [address] 12/02/2019 11:05:35 12/02/2019 11:51:40 Body mass index 30+ - obesity 282230368 Z68.35 weight issues discussed and informatio n on weight loss given. Needs follow up on weight control as scheduled. Education handout on diets given. Exercise counseling done. Obesity 571407770 E66.9 see BMI above for details Diet education 32630934 Z71.3 as above Screening mammography 24 208386 Z12.31 Benign ess ential hypertension 0697655 I10 Blood pressure is reasonable . 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 Continue diet and exercise control. Congratula tions given for weight loss Seizure disorder 8507951 02 G40.909 She is been multiple years since his seizure. We discussed her driving. We will check a Dilantin level with the next blood work Gastroesop hageal reflux disease 061500322 K21.9 Continue Pepcid Polyp of colon 40013691 K63.5 She is seen the GI doctor on December 14 to plan her colonoscop y. Her brother will help her get through that At low risk for fall 439 218261 Z91.81 [id number] Millie Gill, DO [facility] [address] [facility] [address] [place] [address] 04/01/2020 09:16:20 04/01/2020 10:09:07 Body mass index 30+ - obesity 522807071 Z68.34 weight issues discussed and informatio n on weight loss given. Needs follow up on weight control as scheduled. Education handout on diets given. Exercise counseling done. Will arrange referral for dietitian, nutritioni st, Physical/o ccupationa l therapy as needed or desired. Also will consider pharmaceut ical and supplement al interventi ons Obesity 540190619 E66.9 see BMI above for details Diet education 86303425 Z71.3 as above Benign ess ential hypertension 0046237 I10 Blood pressure is reasonable . Continue amlodipine Asthma 863107755 J45.90 9 She uses theophylli ne. She also has Advair and a breakthrou gh inhaler at home Hyperglycemia 57565394 R 73.9 A1c is 6.2, Continue diet and exercise control. Congratula tions given for weight loss Gastroesop hageal reflux disease 168461162 K21.9 Continue Pepcid Seizure disorder 6094574 02 G40.909 She is been multiple years since his seizure. We discussed her driving. We will check a Dilantin level with the next blood work Cervical s pondylosis without myelopathy 139011552 M47.812 Renewed her pain meds Hypothyroidism 55089820 E03.9 She suprathera peutic decrease to 125 Low back pain 402332448 M54.5 uses hydrocodon e prnriding her bike [id number] Millie Gill, DO [facility] [address] [place] [address] 07/29/2020 08:13:47 07/29/2020 09:53:23 Low back pain 503379590 M54.5 uses hydrocodon e prnriding her bike Influenza vaccine needed 7565574609 106 Z23 Asthma 525909003 J45.90 9 She also has Advair and a breakthrou gh inhaler at home Benign ess ential hypertension 4436211 I10 Blood pressure is reasonable . Continue amlodipine Cervical s pondylosis without myelopathy 622111573 M47.812 Renewed her pain meds Chronic sciatica 4219940 01 M54.30 riding her bike Gastroesop hageal reflux disease 701340666 K21.9 Continue Pepcid Hyperglycemia 71102389 R 73.9 A1c is 6.5, Continue diet and exercise control. Congratula tions given for weight loss Hypothyroidism 69937449 E03.9 She suprathera peutic decrease to 112 Seizure disorder 7490092 02 G40.909 She is been multiple years since his seizure. We discussed her driving. Dilantin level little small therapeuti c but she has not had any problems so we will leave this dosage alone Polyp of colon 37770319 K63.5 Colonoscop y got done. She has a follow-up in 5 years [id number] Millie Gill, DO [facility] [address] [place] [address] 11/25/2020 08:12:19 11/25/2020 09:56:18 Adult health examination 965771518 Z00.00 Annual Wellness Visit done today Gastroesop hageal reflux disease 157164924 K21.9 Continue Pepcid Benign ess ential hypertension 5098361 I10 Blood pressure is reasonable . Continue amlodipine Hypothyroidism 00384881 E03.9 now too high back to 125mcg Type 2 marisol betes mellitus 13603262 E11.9 A1c is up to 7.2. We will add Metformin 500 mg 1 tab daily. Her creatinine is 0.9 Seizure disorder 8117454 02 G40.909 She is been multiple years since his seizure. We discussed her driving. Dilantin level little small therapeuti c but she has not had any problems so we will leave this dosage alone Screening mammography 723410 Z12.31 Mammogram due in December [id number] Millie Gill, DO [facility] [address] [place] [address] 02/23/2021 09:20:17 02/23/2021 11:03:47 Body mass index 30+ - obesity 939371421 Z68.38 weight issues discussed and informatio n on weight loss given. Needs follow up on weight control as scheduled. Education handout on diets given. Exercise counseling done. Will arrange referral for dietitian, nutritioni st, Physical/o ccupationa l therapy as needed or desired. Also will consider pharmaceut ical and supplement al interventi ons Morbid obesity 666547848 E66.01 see BMI above for details. BMI 38 but with comorbid states listed, this is clinically morbid obesity. Diet education 31588868 Z71.3 as above Benign ess ential hypertension 9609754 I10 Blood pressure is reasonable . Continue amlodipine Asthma 212226595 J45.90 9 She also has Advair and a breakthrou gh inhaler at home Degenerati on of cervical intervertebral disc 26685494 M50.30 Hypothyroidism 83773556 E03.9 TSH is therapeuti c Seizure disorder 6179224 02 G40.909 Dilantin level therapeuti c at 11.2 Type 2 marisol betes mellitus 73971241 E11.9 With her efforts and 1 Metformin per day her A1c is back down to 6.4A1c is up to 7.2. We will add Metformin 500 mg 1 tab daily. Her creatinine is 0.9 [id number] Millie Gill DO [facility] [address] [place] [address] 06/23/2021 09:37:40 06/23/2021 10:24:30 Body mass index 30+ - obesity 890053583 Z68.39 weight issues discussed and informatio n on weight loss given. Needs follow up on weight control as scheduled. Education handout on diets given. Exercise counseling done. Will arrange referral for dietitian, nutritioni st, Physical/o ccupationa l therapy as needed or desired. Also will consider pharmaceut ical and supplement al interventi ons Morbid obesity 755097492 E66.01 see BMI above for details. BMI 39 but with comorbid states listed, this is clinically morbid obesity. Diet education 91666908 Z71.3 as above Hypothyroidism 33097329 E03.9 TSH is therapeuti c. We have adjusted her dose upward. She understand s to start the 150 Benign ess ential hypertension 7262555 I10 Blood pressure is reasonable . Continue amlodipine Chronic sciatica 1223840 01 M54.30 riding her bike Degenerati on of cervical intervertebral disc 79227669 M50.30 Not much complaint of neck pain today Seizure disorder 0889997 02 G40.909 She has had no seizure activity Type 2 marisol betes mellitus 57259640 E11.9 A1c remains at 6.2 on 1 tablet of 500 mg Metformin per day Asthma 084545427 J45.90 9 She also has Advair and a breakthrou gh inhaler at home Pain of ri ght shoulder joint 4255949058 2592036 M25.511 Sounds like overuse from the vacuuming. She had no fall. We will try a steroid injection on top of what she is doing at home. She is to let me know if no improvemen t [id number] Millie Gill, DO [facility] [address] [place] [address] 10/14/2021 08:45:08 10/14/2021 09:56:12 Body mass index 30+ - obesity 413460014 Z68.38 weight issues discussed and informatio n on weight loss given. Needs follow up on weight control as scheduled. Education handout on diets given. Exercise counseling done. Will arrange referral for dietitian, nutritioni st, Physical/o ccupationa l therapy as needed or desired. Also will consider pharmaceut ical and supplement al interventi ons Morbid obesity 688597082 E66.01 see BMI above for details. BMI 38 but with comorbid states listed, this is clinically morbid obesity. Diet education 77685737 Z71.3 as above Benign ess ential hypertension 1817260 I10 Blood pressure is reasonable . Continue amlodipine Degenerati on of cervical intervertebral disc 31894695 M50.30 Not much complaint of neck pain today Gastroesop hageal reflux disease 334884251 K21.9 Continue Pepcid Hypothyroidism 58438444 E03.9 TSH is therapeuti c. We have adjusted her dose upward. She understand s to start the 150 Seizure disorder 5792615 02 G40.909 She has had no seizure activity. Dilantin level is okay Type 2 marisol betes mellitus 02299180 E11.9 A1c remains at 6.2 on 1 tablet of 500 mg Metformin per day Epigastric pain 97947001 R10.13 She still her gallbladde r. We will check a CAT scan of abdomen and pelvis today. She can restart her Pepcid 1 pill in the morning 1 pill at night. We will check back in with week [id number] Millie Gill, DO [facility] [address] [facility] [address] [facility] [address] [place] [address] 10/21/2021 12:55:44 10/21/2021 13:43:42 Body mass index 30+ - obesity 197072077 Z68.37 weight issues discussed and informatio n on weight loss given. Needs follow up on weight control as scheduled. Education handout on diets given. Exercise counseling done. Morbid obesity 228442895 E66.01 see BMI above for details. BMI 37 but with comorbid states listed, this is clinically morbid obesity. Diet education 13636346 Z71.3 as above Diverticulitis 446768399 K57.92 She will start antibiotic s. She will start probiotics for the diarrhea Epigastric pain 08631351 R10.13 Epigastric pain has improved with the treatment for diverticul itis Hypothyroidism 41739861 E03.9 TSH is therapeuti c. We have adjusted her dose upward. She understand s to start the 150 Type 2 marisol betes mellitus 90926874 E11.9 A1c remains at 6.2 on 1 tablet of 500 mg Metformin per day Seizure disorder 0751088 02 G40.909 She has had no seizure activity. Dilantin level is okay [id number] Millie Gill DO [place] [id number] [facility] [address] [place] [address] 02/17/2022 09:57:08 02/17/2022 11:35:38 Adult health examination 120001354 Z00.00 Annual Wellness Visit done today Lumbar radiculopathy 128 465672 M54.16 feels like left leg will not hold her up at times. We had x-rays a few years ago that showed osteoarthr itis. We will move forward with an MRI at this point Seizure disorder 1332597 02 G40.909 She has had no seizure activity. Dilantin level is okay Diverticular disease 397 750727 K57.90 Episode of diverticul itis resolved with antibiotic s. She has not had no further episodes Gastroesop hageal reflux disease 251210571 K21.9 Continue Pepcid Degenerati on of cervical intervertebral disc 18919159 M50.30 Not much complaint of neck pain today Chronic sciatica 5813607 01 M54.30 riding her bike. See above Type 2 marisol betes mellitus 99444312 E11.9 1 tablet of 500 mg Metformin per day. Blood work drawn today Benign ess ential hypertension 6968934 I10 Pressures have been good the last couple visits. We will increase her amlodipine to 10 mg daily Asthma 435858405 J45.90 9 She also has Advair and a breakthrou gh inhaler at home Screening mammography 24 214729 Z12.31 Mammogram due in january Low back pain 514170836 M54.50 Sent for hydrocodon e renewed Candidiasis of skin 4988 3006 B37.2 She hasFungal rash under her breasts. Prescripti on for nystatin sent to her pharmacy. We discussed making sure she will bathes daily and dries that area completely before putting on the ointment Cervical s pondylosis without myelopathy 144570834 M47.812 Renewed her pain meds [id number] [facility] [address] [place] [address] 05/29/2022 13:57:36 05/29/2022 15:15:38 Low back pain 293774554 M54.50 The sister-in- law would like lighted Derm patches sent to [facility] we will do so. She will work on finding a neurosurge on [facility] if necessary Asthma 016927324 J45.90 9 She has not been using the Advair. She is not complainin g of coughing. She does have a rescue inhaler Benign ess ential hypertension 4995907 I10 There is some concern that she has not been taking her medication s consistent ly. Cervical s pondylosis without myelopathy 128092701 M47.812 We will renew pain meds if necessary Diverticular disease 397 175977 K57.90 Episode of diverticul itis resolved with antibiotic s. She has not had no further episodes. Copy of colonoscop y given to the sister-in- law Hypothyroidism 08097509 E03.9 TSH to be checked Liver enzy mes outside reference range 734011706 R94.5 Last liver enzymes in this office in February were quite normal. We will repeat these Seizure disorder 6996275 02 G40.909 She is seen a neurologis t tomorrow. 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 2 doses Imported from [facility] on 06/23/2021 This is a 65-year-old female [...] the same. She says her brother and [id number] continue to check in on her consistently. She has been staying home still and doing social distancing because of the Covid issues. She has had both Covid vaccines. She will get a flu shot in the fall. She has had shingles shot. She is up-to-date with both Pneumovax and Prevnar She is also up-to-date with both colonoscopy and mammogram. Millie Gill, DO [address] [facility] [address] [place], [address], [facility] - [facility], [facility], [facility] 06/23/2021 10:58:16 10/14/2021 text/html ROS as noted in the HPI CORONAVIRUS SCREENING TOOL Are you experiencing any [...] your household tested positive for COVID-19 No Imported from [facility] on 10/14/2021 QUALITY MEASURE QUESTIONNAIRE Mammogram Results Negative Has the Patient had a fracture in the last year No Has the Patient had a bone density testing performed before No Has the Patient been diagnosed as having osteoporosis No Imported from [facility] on 10/14/2021Is a 66-year-old female who presents [...] be coming down this year Millie Gill, [address], [place], [address], [facility] [facility], [facility] 10/14/2021 10:00:50 10/21/2021 text/html CORONAVIRUS SCREENING TOOL Are you experiencing [...] your household tested positive for COVID-19 No Imported from [facility] on 10/21/2021Thipriscila is a 66-year-old female who presents for 1 week follow-up. She was here sick last week. We did a stat CAT scan. It showed diverticulitis. She has been on antibiotics. She has 4 days left. She feels quite a bit better. She has started with a little bit of diarrhea. We discussed that is likely related to the antibiotics. She will slate picker a probiotic and take 2 capsules until the bottle empties.Now we will schedule for 4 months with blood work the week before.Her colonoscopy was in 2019 so we really do not need to repeat that anytime soon. Her mammogram is still coming due in January Millie Gill, [address] [facility] [address], [place], [address], [facility] - [facility], [facility], [facility] 10/21/2021 13:47:25 02/17/2022 text/html Medicare Annual Wellness VisitReported by PatientType of Medicare Wellness Visit:For visit type, patient reportssubsequent medicare annual wellness visit. For pmh/fh/rx and social history review, patient reportsupdated emr in appropriate tabs. CORONAVIRUS SCREENING TOOL Are you experiencing any [...] your household tested positive for COVID-19 No Imported from [facility] on 02/17/2022This is a 66-year-old female who [...] put that order in. Colonoscopy was in 2020 with a 5-year follow-up. She has had a hysterectomy.She does tell me that she is still riding her bike it just hurts.Lastly she has a rash under her breasts that is itchy and red Millie Gill, DO [address], [place], [address], [facility] - [facility], [facility], [facility] 02/17/2022 12:45:47 05/29/2022 text/html This is a [...] appointment with neurology tomorrow regarding this. Her juvfhf-zb-btv is down here[place] [...] gets a physician up there Millie Gill, [address] [facility] [address], [place], [address], [facility] - [facility], [facility], [facility] 05/29/2022 17:16:34 OBGyn Episode No OBEpisode recorded.
--- OUTSIDE RECORDS SUMMARY | 2025-09-18 07:40 | XMS_ITS | Continuity of Care Document ---
Author Organization [facility] [address] [place] [address] Phone [phone] Care Team Providers Care Dental Assistant Medical Assistant Name Role Phone Duane Obregon MD Care Team Information Digitizer Operator [phone] Problems Active Problems Provider Date Hypothyroidism SOLE [...] SIG Qnty Indications Ordering Provider Date Levothyroxine [id number] Tablets Take 1 Tablet By Mouth 6 Days A Week 90tabs Gin Dickson, RAJESH 03/05/2024 [id number] Tablets Take 1 Tablet By Mouth Twice Daily Shayy Bright PA Metformin [id number] Tablets Take 1 Tablet By Mouth Daily Duane Obregon MD Amlodipine Zzbbfsck22nt Tablets Take 1 Tablet By Mouth Daily Yesi Shearer, RILEY [id number] Tablets Take 1 Tablet By Mouth Twice Daily Jill Christine MD Vitamin L363urd (1999) Capsules 1 by mouth every day Unknown [...]
== END 2025-09-18 07:38 | disposition home or self-care (01) ==
LOC: HO.MAMMO 07:37
PROVIDERS: PCP Family Medicine; Visit Provider Family Medicine
DX: N64.4 Mastodynia (principal)
CPT/HCPCS: 76642; 77061; 77065

== ENCOUNTER → 2025-09-18 08:00 | Outpatient (BNV) | payer MEDICARE, OTHER, SELFPAY | PROVIDERS: PCP Family Medicine; Visit Provider Radiology Body Imaging | DX: N64.4 Mastodynia (principal) | CPT/HCPCS: 76642; 77065; G0279 ==

== ENCOUNTER 2025-10-19 08:22 | Outpatient (AMB) | payer MEDICARE, OTHER, SELFPAY ==
--- NOTE | 2025-10-19 08:34 | A.OFFVIS_ITS ---
Intake Visit Reasons: 1 yr f/u Accompanied by: Family/Other Allergies risperidone (From Risperdal) Allergy (Unknown, Verified 10/19/25 08:38) Unknown ciprofloxacin (From Cipro) Allergy (Verified 10/19/25 08:38) Unknown cyclobenzaprine Allergy (Verified 10/19/25 08:38) Unknown Phenothiazines Allergy (Verified 10/19/25 08:38) Unknown prochlorperazine (From Compazine) Allergy (Verified 10/19/25 08:38) Unknown Medication List - Last Reconciled 10/19/25 by Radha Ibarra CNP amlodipine 10 mg PO DAILY bisacodyl (Dulcolax (bisacodyl)) 10 mg PO BEDTIME PRN cholecalciferol (vitamin D3) 50 mcg PO DAILY cranberry 500 mg PO BID famotidine 20 mg PO BID levetiracetam 250 mg PO BID levothyroxine 88 mcg PO DAILY 30 days lidocaine 5% (Lidocan V) 1 patch topical DAILY metformin 500 mg PO DAILY 90 days naproxen 500 mg PO BID PRN 30 days naproxen sodium (Aleve) 220 mg PO BID PRN peg 3350-electrolytes 236-22.74-6.74 -5.86 gram (Golytely) 240 mL PO Q10M 1 day vit C,H-Xr-xeawg-lutein-zeaxan 250-90-40-1 mg (PreserVision AREDS-2) 1 tab PO BID HPI Comments Details: 70-year-old [place] woman who was adopted at age 4 and carried 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 Her seizure were of grand- mal type. She had been taking dilantin for number of years that was stopped in Oct when she was seen [place] [facility] with dilantin toxicity and was noted to have cerebellar atrophy. It was changed to Levetiracetam. She was doing okay. She was taking levetiracetam twice a day, no missed doses or medication side effects. No seizures. Sleep was okay. No falls. She was living with her brother and xwibxw-ak-kyu. [facility] Medical History (Updated 10/19/25 @ 08:37 by Radha Ibarra CNP) Cerebral atrophy Epilepsy Screening for osteoporosis Diverticulosis of colon Screening for colon cancer Stress incontinence, female Screening for cervical cancer Breast cancer screening by mammogram Encounter for annual wellness visit (AWV) in Medicare patient Adult general medical exam Laboratory exam ordered as part of routine general medical examination Diverticulitis Surgical History Status post right breast lumpectomy Hx of partial thyroidectomy H/O colonoscopy Hx of rotator cuff surgery Hx of appendectomy History of partial hysterectomy Family History Other Adopted person Social History (Updated 09/04/25 @ 08:47 by Estelle Metzger CMA) Household Members: Family Household Members Other:: brother and sister in law Housing: House Do you presently have visiting nurse or other home services: No Alcohol intake: never Patient Tobacco Use Status: Former Tobacco user Tobacco use type: Cigarette e-Cigarette/Vaping Use: Never Used Second Hand Smoke Exposure: Yes Advance Directives Date on File: 09/14/22 service: No Current occupational status: retired Sexual orientation: Decline to Answer Gender identity: Decline to answer Cognitive needs: No Hearing needs: No Vision needs: Yes Review of Systems Const Denies chills, Denies daytime sleepiness, Denies difficulty sleeping, Denies fatigue, Denies fever(s), Denies frequent falls, Denies headache(s), Denies increased appetite, Denies poor appetite, Denies snoring, Denies weakness, Denies weight gain and Denies weight loss Eyes Denies loss of vision ENT Denies vertigo, Denies dizziness and Denies headache(s) Card Denies chest pain at rest, Denies chest pain with activity, Denies syncope, Denies leg edema and Denies palpitations Resp Denies snoring GI Denies constipation, Denies heartburn, Denies diarrhea and Denies nausea Denies urinary frequency, Denies urinary incontinence and Denies urinary urgency Musc Denies abnormal gait, Denies numbness and Denies tingling Skin/Breast Denies dry skin and Denies rash Neuro Denies abnormal gait, Denies vertigo, Denies dizziness, Denies syncope, Denies frequent falls, Denies headache(s), Denies lack of coordination, Denies loss of vision, Reports memory loss, Denies numbness, Denies restless legs, Denies seizure-like activity, Denies tingling, Denies paresthesias, Denies tremor(s) and Denies weakness Psych Denies anxiety, Denies depression, Denies auditory hallucinations, Reports memory loss, Denies visual hallucinations and Denies suicidal ideation Endo Denies fatigue and Denies palpitations Physical Exam Const Other: General Appearance:? normal, in no acute distress. Skin:? no rashes, no significant birthmarks. Heart:? S1, S2 normal, no murmurs. Lungs:? clear anteriorly and posteriorly. Extremities:? no edema. Psych:? alert, cooperative with exam. Neuro Other: Mental Status:?Normal sp speech, fluency, and comprehension. She is answering questions appropriately. Cranial Nerves:?Pupils are equal, round and reactive to light. External occular muscles are intact. Visual calderon are full. Face is symmetrical. Facial sensations are normal. Tongue is midline. Palate elevates symmetrically. Shoulder shrugging is normal. Hearing to bedside conversation is normal. Motor Examination:?Deep tendon reflexes are 2+. Sensory Exam:?....? Coordination:?No ataxia,?no titubation.? Gait Exam: Cautious. Cerebellar Signs:?Armvpf-xp-qwis with mild ataxia. Extrapyramidal System:?No tremor, rigidity with normal facial expressions.? Pronator Drift:?Not present.? Involuntary Movements:?No tremors seen.? Speech:?Normal.? Results Reviewed Results Reviewed: [place] brain [place] [facility] [place]: mod cerebellar and mild cerebral atrophy, mod MVD Assessment & Plan Assessment & Plan (1) Seizure disorder: Code(s): G40.909 - Epilepsy, unspecified, not intractable, without status epilepticus Category: Medical Plan: Continue levetiracetam 250mg 1 tablet twice a day. Follow up in 1 year or sooner as needed. (2) Learning disability: Code(s): F81.9 - Developmental disorder of scholastic skills, unspecified Category: Social Hx Plan . Medications: Changed From levetiracetam 250 mg PO BID 60 tabs 0RF To levetiracetam 250 mg PO BID 180 tabs 3RF 90 days Coding Level of Care Code Est Pt Level 3 (50067) Diagnoses Seizure disorder G40.909 Learning disability F81.9
== END 2025-10-19 08:44 | disposition home or self-care (01) ==
LOC: HO.HSM 08:23
PROVIDERS: PCP Family Medicine; Referring Provider Family Medicine; Visit Provider Registered Nurse
DX: G40.909 Epilepsy, unspecified, not intractable, without status epilepticus (principal); F81.9 Developmental disorder of scholastic skills, unspecified
CPT/HCPCS: 99213

== ENCOUNTER → 2025-10-19 08:22 | Outpatient (BNVA) | payer MEDICARE, OTHER, SELFPAY | PROVIDERS: PCP Family Medicine; Referring Provider Family Medicine; Visit Provider Registered Nurse | DX: G40.909 Epilepsy, unspecified, not intractable, without status epilepticus (principal); F81.9 Developmental disorder of scholastic skills, unspecified | CPT/HCPCS: 99212 ==